=== PATIENT | female | born 1960 | race Hispanic/Latino ===

== ENCOUNTER 2020-08-05 22:04 | Inpatient (IN) | payer OTHER ==
--- NOTE | 2020-08-05 22:57 | Emergency Department Report ---
ED Fall HPI - General Chief Complaint: Fall Stated Complaint: FALL,HIP PAIN Time Seen by Provider: 08/05/20 22:25 Source: patient, EMS Mode of arrival: Stretcher - History of Present Illness Initial Comments: 59-year-old female presents to ED following fall from bed. Patient currently complaining of back pain and right hip pain. Patient states in April 2020, she suffered a fall and was diagnosed with L3 and L4 burst fractures. Following hospital stay, patient was then living in a personal alf. Patient states she can no longer afford the personal alf, so she has been living in a motel. One week ago, patient reports that she began to experience swelling in he r abdomen and bilateral legs, and also generalized weakness. She was seen at [facility], and started on Lasix. Patient states she is never been diagnosed with congestive heart failure. She denies any shortness of breath. She states that she had bilateral lower extremity ultrasounds that were negative for DVT. Tonight, patient states she was attempting to move using her sliding board when she fell, hitting her back. Patient reports pain in the same area of her previous fractures. Patient states she was on the floor for approximately 1 hour before she was able to get help. MD Complaint: fall -: This evening Fall From: out of bed When Fall Occurred: 1-[address] Fall Occurred: home Loss of Consciousness: none Prolonged Down Time?: hour(s) (1) Symptoms Prior to Fall: none Location: back Severity: moderate Quality: aching - Related Data Allergies Allergy/AdvReac Type Severity Reaction Status Date / Time NSAIDS (Non-Steroidal Allergy Unknown Verified 08/05/20 22:09 Anti-Inflamma Quinolones Allergy Unknown Verified 08/05/20 22:09 ED Review of Systems ROS: Stated complaint: FALL,HIP PAIN Other details as noted in HPI Comment: All other systems reviewed and negative Respiratory: denies: shortness of breath Gastrointestinal: nausea, vomiting Musculoskeletal: as per HPI ED Past Medical Hx - Social History Smoking Status: Never Smoker Substance Use Type: Prescribed ED Physical Exam - General Limitations: No Limitations General appearance: alert, in no apparent distress - Head Head exam: Present: atraumatic, normocephalic - Eye Eye exam: Present: normal appearance, EOMI - ENT ENT exam: Present: mucous membranes moist - Neck Neck exam: Present: normal inspection - Respiratory Respiratory exam: Present: normal lung sounds bilaterally. Absent: respiratory distress - Cardiovascular Cardiovascular Exam: Present: regular rate, normal rhythm - GI/Abdominal GI/Abdominal exam: Present: soft, distended, other (Pitting edema to abdominal wall). Absent: tenderness - Extremities Exam Extremities exam: Present: other (2+ pitting edema bilateral lower legs; bruising to the right shoulder) - Back Exam Back exam: Present: paraspinal tenderness (At approximately 3 and L4, right side), vertebral tenderness (At approximately L3 and L4) - Neurological Exam Neurological exam: Present: alert, oriented X3. Absent: motor sensory deficit - Psychiatric Psychiatric exam: Present: normal affect, normal mood - Skin Skin exam: Present: warm, dry, intact, normal color ED Course Vital Signs 08/05/20 08/05/20 08/05/20 22:23 22:26 22:31 Temperature 97.8 F Pulse Rate 75 74 Respiratory 13 13 Rate Blood Pressure 137/60 137/60 O2 Sat by Pulse 100 100 100 Oximetry 08/06/20 08/06/20 03:27 03:29 Temperature 98.1 F 98.1 F Pulse Rate 76 Respiratory 16 16 Rate Blood Pressure 125/54 O2 Sat by Pulse 99 Oximetry ED Medical Decision Making - Lab Data Result diagrams: 08/05/20 22:43 08/05/20 22:43 - Radiology Data Radiology results: report reviewed, image reviewed - Medical Decision Making Imaging shows no acute abnormalities. Negative for any acute fractures or dislocations. Patient currently living in a motel, unable to very well, due to combination of pain from her vertebral fractures, generalized weakness, and lower extremity edema. She does not feel safe alone in her hotel room. She feels she may be at risk of falling again. Spoke with nurse practitioner for the hospitalist, who will admit the patient for further management. - Differential Diagnosis Fracture, contusion, hypokalemia, CHF, liver disease Critical care attestation.: If time is entered above; I have spent that time in minutes in the direct care of this critically ill patient, excluding procedure time. ED Disposition Clinical Impression: Fall, Acute exacerbation of chronic low back pain, Contusion of right hip, Contusion of right shoulder, Lower extremity edema, Generalized weakness, Contusion of lower back Disposition: OP ADMIT IP TO THIS HOSP Is pt being admited?: Yes Condition: Stable Time of Disposition: 00:11
[2020-08-05 23:11] LABS: Basophils # (Auto) 0.1 K/mm3 (0.0-0.1); Basophils % (Auto) 2.8 % (0.0-1.8); Eosinophils # (Auto) 0.2 K/mm3 (0.0-0.4); Eosinophils % (Auto) 3.3 % (0.0-4.3); Hematocrit 25.9 % (30.3-42.9); Hemoglobin 8.5 gm/dl (10.1-14.3); Lymphocytes # (Auto) 0.6 K/mm3 (1.2-5.4); Lymphocytes % (Auto) 11.6 % (13.4-35.0); Mean Corpuscular HGB Conc 33 % (30-34); Mean Corpuscular Volume 96 fl (79-97); Monocytes # (Auto) 0.5 K/mm3 (0.0-0.8); Monocytes % (Auto) 9.4 % (0.0-7.3); Platelet Count 139 K/mm3 (140-440); Red Blood Count 2.71 M/mm3 (3.65-5.03)
[2020-08-05 23:30] LABS: Bilirubin,Direct 0.4 mg/dL (0-0.2)
[2020-08-05] MEDS: MORPHINE 2 MG/1 ML INJ IV ONE (23:33)
--- NOTE | 2020-08-05 23:35 | XRay Report ---
RIGHT HIP 2 VIEW(S) INDICATION / CLINICAL INFORMATION: fall, pain COMPARISON: None available. FINDINGS: BONES / JOINT(S): No acute fracture or subluxation. No significant arthritis. Subjective osteopenia. SOFT TISSUES: Numerous calcified injection granulomas in the buttocks and proximal right thigh. ADDITIONAL FINDINGS: None. Signer Name: Lety Mercado MD Signed: 08/05/2020 11:30 PM Workstation Name: [id number]
--- NOTE | 2020-08-05 23:36 | XRay Report ---
LUMBAR SPINE 3 VIEWS INDICATION / CLINICAL INFORMATION: fall, pain; hx L3, L4 burst fx April 2020. COMPARISON: No recent prior study for comparison. MRI dated 06/21/08. FINDINGS: VERTEBRAE: Superior endplate depression at L4 appears subacute. Mild inferior endplate depression at L3 also appear subacute. No significant malalignment. DISC SPACES / FACET JOINTS:No significant abnormality. PARASPINAL SOFT TISSUES:No significant abnormality. ADDITIONAL FINDINGS: Subjective osteopenia. IMPRESSION: 1. Subacute compression deformities at L4 and L3 without recent comparison studies available. Signer Name: Lety Mercado MD Signed: 08/05/2020 11:31 PM Workstation Name: [id number]
--- NOTE | 2020-08-05 23:36 | XRay Report ---
RIGHT SHOULDER 3 VIEW(S) INDICATION / CLINICAL INFORMATION: fall, injury COMPARISON: None available. FINDINGS: BONES / JOINT(S): No acute fracture or subluxation. No significant arthritis. SOFT TISSUES: No significant abnormality. ADDITIONAL FINDINGS: None. Signer Name: Lety Mercado MD Signed: 08/05/2020 11:32 PM Workstation Name: [id number]
[2020-08-06] MEDS ORDERED: MORPHINE 4 MG/1 ML INJ IM ONE
[2020-08-06] MEDS: MORPHINE 2 MG/1 ML INJ IV ONE (00:01)
[2020-08-06] MEDS ORDERED: ONDANSETRON 4 MG/2 ML INJ IV PRN (00:30)
[2020-08-06] MEDS ORDERED: ALUM-MAG HYDROXIDE-SIMETHICONE 200-200-20MG/5ML ORAL LIQD 30 ML PO PRN (00:30)
[2020-08-06] MEDS ORDERED: ACETAMINOPHEN 325 MG TAB PO PRN (00:30)
--- NOTE | 2020-08-06 00:40 | History and Physical Report ---
History of Present Illness Date of examination: 08/06/20 Date of admission: 08/05/20 Chief complaint: s/p fall with back pain History of present illness: This is a 59-year-old female presents to ED following fall from bed with back pain and right hip pain. Patient is s/p fall in April 2020, and she was diagnosed with L3 and L4 burst fractures. Per ED note- Following hospital stay, patient was then living in a personal custodial. Patient seen at bed side, she denies tobacco use, alcohol and illicit drug use. She reports back pain of 7/10. She states she lives in the personal custodial, but moved in to living in a motel becuse she could not afford personal home anymore. She has bilateral led edema-she said it is ongoing and she takes Lasix. She was seen at [facility], and started on Lasix. Patient denies diagnosis of congestive heart failure. She denies any shortness of breath and she is on room air. She said she had bilateral lower extremity ultrasounds that were negative for DVT. ED work up WBc 5.1, hemoglobin 8.5, sodium 140, potassium 3.7, Cr 1.5, serum glucose 112 Albumen 2.0, Lumber spine-shows Subacute compression deformities at L4 and L3 Past History Past Medical History: anemia Past Surgical History: No surgical history Social history: no significant social history, full code Family history: no significant family history Medications and Allergies Allergies Allergy/AdvReac Type Severity Reaction Status Date / Time NSAIDS (Non-Steroidal Allergy Unknown Verified 08/05/20 22:09 Anti-Inflamma Quinolones Allergy Unknown Verified 08/05/20 22:09 Review of Systems Musculoskeletal: low back pain, muscle weakness Exam - Constitutional Vitals: Temp Pulse Resp BP Pulse Ox 97.8 F 74 137/60 100 08/05/20 22:23 08/05/20 22:23 08/05/20 22:23 08/05/20 22:26 General appearance: Present: no acute distress, well-nourished - EENT Eyes: Present: PERRL ENT: hearing intact, clear oral mucosa - Neck Neck: Present: supple, normal ROM - Respiratory Respiratory effort: normal Respiratory: bilateral: CTA - Cardiovascular Heart Sounds: Present: S1 & S2. Absent: rub, click - Extremities Extremities: pulses symmetrical, No edema Peripheral Pulses: within normal limits - Abdominal General gastrointestinal: Present: soft, non-tender, non-distended, normal bowel sounds Female genitourinary: Present: normal - Integumentary Integumentary: Present: clear, warm, dry - Musculoskeletal Musculoskeletal: generalized weakness - Psychiatric Psychiatric: appropriate mood/affect, intact judgment & insight - Neurologic Neurologic: CNII-XII intact, moves all extremities - Allied Health Allied health notes reviewed: nursing, PT, OT, social work Results - Labs CBC & Chem 7: 08/05/20 22:43 08/05/20 22:43 Labs: Abnormal lab results 08/05/20 08/05/20 Range/Units 22:43 22:43 RBC 2.71 L (3.65-5.03) M/mm3 Hgb 8.5 L (10.1-14.3) gm/dl Hct 25.9 L (30.3-42.9) % RDW 17.0 H (13.2-15.2) % Plt Count 139 L (140-440) K/mm3 Lymph % (Auto) 11.6 L (13.4-35.0) % [place] % (Auto) 9.4 H (0.0-7.3) % Baso % (Auto) 2.8 H (0.0-1.8) % Lymph # (Auto) 0.6 L (1.2-5.4) K/mm3 Seg Neutrophils % 72.9 H (40.0-70.0) % BUN 24 H (7-17) mg/dL Creatinine 1.5 H (0.6-1.2) mg/dL Glucose 112 H (65-100) mg/dL Calcium 8.0 L (8.4-10.2) mg/dL Direct Bilirubin 0.4 H (0-0.2) mg/dL AST 52 H (5-40) units/L Alkaline Phosphatase 155 H (35-129) units/L NT-Pro-B Natriuret Pep 930.2 H (0-900) pg/mL Albumin 2.0 L (3.9-5) g/dL Assessment and Plan - Patient Problems (1) AIDAN (acute kidney injury) Current Visit: Yes Status: Acute Plan to address problem: ? cause, possible dehydration/NSAIDs/lasix use monitor kidney function CK level. Will hold off IV -patient has bilateral leg edema-on lasix Renal US-f/u with result advised to avoid nephrotoxic drug (2) DVT prophylaxis Current Visit: Yes Status: Acute Plan to address problem: Lovenox (3) Acute exacerbation of chronic low back pain Current Visit: Yes Status: Acute Plan to address problem: Patient has hx of fall with L3 and L4 fracture-April 2020 Repeat x-ray shows; Subacute compression deformities at L4 and L3, but no acute fracture Pain management PT/OT consult (4) Fall Current Visit: Yes Status: Acute Plan to address problem: Pt/Ot consult-f/u with recommendation Safety and safety precaution (5) Generalized weakness Current Visit: Yes Status: Acute Plan to address problem: Pt/ot consult Safety and fall precaution (6) Severe protein-calorie malnutrition Current Visit: Yes Status: Acute 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 cause multifactorial-malnutrition/iron defficiency Monitor H/h-will transfuse PRBCs if needed Iron studies Start iron and MVI supplement (8) Lower extremity edema Current Visit: Yes Status: Acute Plan to address problem: Patient has recent bilateral leg US with last admission was negative continue lasix ECHO-f/u with result
[2020-08-06] MEDS ORDERED: SODIUM CHLORIDE 0.9% 1000 ML 1,000 ML IV ONE (01:30)
[2020-08-06] MEDS ORDERED: SODIUM CHLORIDE 0.9% 1000 ML 1,000 ML ONE (02:43)
[2020-08-06] MEDS ORDERED: oxyCODONE /ACETAMINOPHEN 5-325MG TAB ONE (02:58)
[2020-08-06] MEDS: oxyCODONE /ACETAMINOPHEN 5-325MG TAB PO PRN ×3 (03:01→17:43)
--- NOTE | 2020-08-06 08:26 | Event Note ---
Date: 08/06/20
[2020-08-06] MEDS: FUROSEMIDE 20 MG TAB PO SCH (09:04)
[2020-08-06] MEDS: MULTIVITAMINS ,THERAPEUTIC TAB PO SCH (09:04)
[2020-08-06] MEDS: FERROUS SULFATE 325 MG TAB PO SCH (09:04)
[2020-08-06] MEDS: FAMOTIDINE 10 MG TAB PO SCH ×2 (09:05→22:07)
[2020-08-06] MEDS ORDERED: FAMOTIDINE 20 MG TAB PO SCH (10:00)
--- NOTE | 2020-08-06 10:32 | Consultation ---
History of Present Illness Consult date: 08/06/20 Consult reason: congestive heart failure History of present illness: This is a 59-year old F who is admitted with recurrent fall. Patient reports she suffered a back injury following a fall 3 months ago and now uses a wheelchair. Patient states as she was trying to get in bed from the wheelchair, her legs gave out on her resulting in a fall. She denies syncope. She denies chest pain but has shortness of breath on exertion. Patient also noted with 3+ edema extending upwards to her thighs. Lab measurement shows a creatinine of 1.5. There is also a HCT of 25.9. BNP is mildly elevated. There is no chest x-ray or ECG available for review. Patient denies prior cardiac history and had no recent cardiac workup. Of note, she was recently seen at [facility] with shortness of breath and discharged from the emergency department. A cardiac consultation has been requested for evaluation of CHF. Past History Past Medical History: anemia Past Surgical History: No surgical history Social history: no significant social history, full code Family history: no significant family history Medications and Allergies Allergies Allergy/AdvReac Type Severity Reaction Status Date / Time NSAIDS (Non-Steroidal Allergy Unknown Verified 08/05/20 22:09 Anti-Inflamma Quinolones Allergy Unknown Verified 08/05/20 22:09 Active Meds: Active Medications Acetaminophen (Tylenol) 650 mg PO Q4H PRN PRN Reason: Pain MILD(1-3)/Fever >100.5/ABEL Al Hydrox/Mg Hydrox/Simethicone (Alum-Mag Hydrox-Simeth [id number]/5ml) 30 ml PO Q4H PRN PRN Reason: Indigestion Famotidine (Pepcid) 10 mg PO BID [facility] Last Admin: 08/06/20 09:05 Dose: 10 mg Documented by: Ferrous Sulfate (Feosol) 325 mg PO QDAY [facility] Last Admin: 08/06/20 09:04 Dose: 325 mg Documented by: Furosemide (Lasix) 20 mg PO QDAY [facility] Last Admin: 08/06/20 09:04 Dose: 20 mg Documented by: Multivitamins (Theragran Tab) 1 each PO QDAY [facility] Last Admin: 08/06/20 09:04 Dose: 1 each Documented by: Ondansetron HCl (Zofran) 4 mg IV Q8H PRN PRN Reason: Nausea And Vomiting Oxycodone/Acetaminophen (Percocet 5/325) 1 tab PO Q6H PRN PRN Reason: Pain, Moderate (4-6) Last Admin: 08/06/20 09:05 Dose: 1 tab Documented by: Sodium Chloride (Sodium Chloride Flush Syringe 10 Ml) 10 ml IV BID [facility] Last Admin: 08/06/20 09:05 Dose: 10 ml Documented by: Sodium Chloride (Sodium Chloride Flush Syringe 10 Ml) 10 ml IV PRN PRN PRN Reason: LINE FLUSH Physical Examination Vital Signs Temp Pulse Resp BP Pulse Ox 97.8 F 74 13 137/60 100 08/05/20 22:23 08/05/20 22:23 08/05/20 22:23 08/05/20 22:23 08/05/20 22:23 General appearance: no acute distress Neck: Positive: trachea midline Cardiac: Positive: Reg Rate and Rhythm Lungs: Positive: Decreased Breath Sounds Extremities: Present: +3 Edema Results 08/05/20 22:43 08/05/20 22:43 Cardiac Enzymes 08/05/20 Range/Units 22:43 AST 52 H (5-40) units/L CBC 08/05/20 Range/Units 22:43 WBC 5.1 (4.5-11.0) K/mm3 RBC 2.71 L (3.65-5.03) M/mm3 Hgb 8.5 L (10.1-14.3) gm/dl Hct 25.9 L (30.3-42.9) % Plt Count 139 L (140-440) K/mm3 Lymph # (Auto) 0.6 L (1.2-5.4) K/mm3 [place] # (Auto) 0.5 (0.0-0.8) K/mm3 Eos # (Auto) 0.2 (0.0-0.4) K/mm3 Baso # (Auto) 0.1 (0.0-0.1) K/mm3 Comprehensive Metabolic Panel 08/05/20 Range/Units 22:43 Sodium 140 (137-145) mmol/L Potassium 3.7 (3.6-5.0) mmol/L Chloride 103.9 (98-107) mmol/L Carbon Dioxide 25 (22-30) mmol/L BUN 24 H (7-17) mg/dL Creatinine 1.5 H (0.6-1.2) mg/dL Glucose 112 H (65-100) mg/dL Calcium 8.0 L (8.4-10.2) mg/dL Direct Bilirubin 0.4 H (0-0.2) mg/dL Indirect Bilirubin 0.3 mg/dL AST 52 H (5-40) units/L ALT 19 (7-56) units/L Alkaline Phosphatase 155 H (35-129) units/L Total Protein 6.7 (6.3-8.2) g/dL Albumin 2.0 L (3.9-5) g/dL Assessment and Plan Shortness of breath LE edema Recurrent fall pt denies syncope Anemia Will order a chest x-ray, 12 lead ECG and echocardiogram for further cardiac assessment.
--- NOTE | 2020-08-06 17:06 | Ultrasound Report ---
US renal BILAT INDICATION / CLINICAL INFORMATION: weakness. COMPARISON: None available. FINDINGS: RIGHT KIDNEY: Size = 12.6 cm. - Echogenicity: Increased echogenicity and decreased visualization of the renal pyramids. - Cortical thickness: Normal. - Hydronephrosis: None. - Cyst or mass: There is a 2.6 cm cystic area in the right renal pelvis which could be an extrarenal pelvis or peripelvic cyst. - Stones: None seen.. LEFT KIDNEY: Size = 10.7 cm. - Echogenicity: Increased echogenicity and decreased visualization of the renal pyramids. - Cortical thickness: Normal. - Hydronephrosis: None. - Cyst or mass: None. - Stones: None seen.. URINARY BLADDER: Not well-visualized. FREE FLUID: None. ADDITIONAL FINDINGS: Large volume of ascites. IMPRESSION 1. Findings of medical renal disease without other significant sonographic abnormality. 2. Large quantity of ascites. Signer Name: Saleem Bautista MD Signed: 08/06/2020 5:02 PM Workstation Name: [id number]
--- NOTE | 2020-08-06 18:50 | Progress Note ---
Assessment and Plan Assessment and plan: --History of fall; Fall precautions, supportive care --Subacute compression deformities at L4 and L3, but no acute fracture Patient had a fall and fracture L3 L5 in April 2020 Supportive care, pain management, PT OT Rehabilitation, orthopedic consulted Dr. Peters recommended MRI L S-spine. --Acute kidney injury; Vasomotor nephropathy Also secondary to diuresis Closely monitor renal function.Nephrology consulted, Renal ultrasound medical renal disease; Avoid nephrotoxins --Chronic back pain; Continue current pain management and supportive care Physical therapy occupational therapy --General debility/generalized weakness Nutrition supplements. PT OT Possible home with home health versus placement --Severe protein calorie malnutrition; Nutrition supplements, dietitian consult And supportive care --Anemia; hemoglobin 8 Probably iron deficiency anemia Acute versus chronic No previous labs to compare Closely monitor transfuse as needed --Lower extremity edema; Partly secondary to hypoproteinemia Possible congestive heart failure Check echocardiogram for LV function ejection fraction Cardiology evaluation and recommendations noted and appreciated --Full CODE STATUS --DVT prophylaxis; Lovenox We will closely monitor the patient and adjust management as needed Plan of care reviewed with the patient and her nurse at the bedside Follow MRI report, adjust the management as needed We will try to reach the family and update patient's condition Advance care 35 minutes History Interval history: I have seen and examined the patient at the bedside this morning Patient's chart and medications reviewed 59-year-old female patient with history of fall in April 2020 where she fractured L4-L5 On pain medications, had a fall at home and was brought to the emergency room Lumbar spine revealed L3-L4 compression fracture, orthopedic consulted Dr. Peters recommended MRI of the spine Patient complains of some discomfort and pain Alert awake oriented Vital signs reviewed Hospitalist Physical - Constitutional Vitals: Temp Pulse Resp BP Pulse Ox 98.7 F 72 20 134/61 97 08/06/20 16:31 08/06/20 16:31 08/06/20 16:31 08/06/20 16:31 08/06/20 16:31 General appearance: Present: no acute distress - EENT Eyes: Present: PERRL, EOM intact - Neck Neck: Present: supple, normal ROM - Respiratory Respiratory effort: normal Respiratory: bilateral: diminished, rhonchi, negative: rales, wheezing - Cardiovascular Rhythm: regular Heart Sounds: Present: S1 & S2 - Extremities Extremities: no ischemia Extremity abnormal: edema (2+), other (No calf asymmetry or calf tenderness) - Abdominal General gastrointestinal: soft, non-tender, non-distended, normal bowel sounds - Integumentary Integumentary: Present: clear, warm, erythema - Psychiatric Psychiatric: appropriate mood/affect, cooperative - Neurologic Neurologic: moves all extremities Results - Labs CBC & Chem 7: 08/05/20 22:43 08/05/20 22:43 Labs: Laboratory Last Values WBC 5.1 K/mm3 (4.5-11.0) 08/05/20 22: RBC 2.71 M/mm3 (3.65-5.03) L 08/05/20 22:43 Hgb 8.5 gm/dl (10.1-14.3) L 08/05/20: Hct 25.9 % (30.3-42.9) L 08/05/20:43 MCV 96 fl (79-97) 08/05/20 22: MCH 31 pg (28-32) 08/05/20: MCHC 33 % (30-34) 08/05/20:43 RDW 17.0 % (13.2-15.2) H 08/05/20 22:43 Plt Count 139 K/mm3 (140-440) L 08/05/20:43 Lymph % (Auto) 11.6 % (13.4-35.0) L 08/05/20:43 Hunt % (Auto) 9.4 % (0.0-7.3) H 08/05/20:43 Eos % (Auto) 3.3 % (0.0-4.3) 08/05/20:43 Baso % (Auto) 2.8 % (0.0-1.8) H 08/05/20:43 Lymph # (Auto) 0.6 K/mm3 (1.2-5.4) L 08/05/20:43 Hunt # (Auto) 0.5 K/mm3 (0.0-0.8) 08/05/20 22:43 Eos # (Auto) 0.2 K/mm3 (0.0-0.4) 08/05/20 22: Baso # (Auto) 0.1 K/mm3 (0.0-0.1) 08/05/20 22:43 Seg Neutrophils % 72.9 % (40.0-70.0) H 08/05/20 22:43 Seg Neutrophils # 3.7 K/mm3 (1.8-7.7) 08/05/20 22:43 Sodium 140 mmol/L (137-145) 08/05/20 22:43 Potassium 3.7 mmol/L (3.6-5.0) 08/05/20 22:43 Chloride 103.9 mmol/L (98-107) 08/05/20 22:43 Carbon Dioxide 25 mmol/L (22-30) 08/05/20 22:43 Anion Gap 15 mmol/L 08/05/20 22:43 BUN 24 mg/dL (7-17) H 08/05/20 22:43 Creatinine 1.5 mg/dL (0.6-1.2) H 08/05/20 22:43 Estimated GFR 36 ml/min 08/05/20 22:43 BUN/Creatinine Ratio 16 % 08/05/20 22:43 Glucose 112 mg/dL (65-100) H 08/05/20 22:43 Osmolality 304 Mosm/kg 08/06/20 01:57 Calcium 8.0 mg/dL (8.4-10.2) L 08/05/20 22:43 Iron 31 ug/dL (37-170) L 08/06/20 01:57 Total Bilirubin 0.70 mg/dL (0.1-1.2) 08/05/20 22:43 Direct Bilirubin 0.4 mg/dL (0-0.2) H 08/05/20 22:43 Indirect Bilirubin 0.3 mg/dL 08/05/20 22:43 AST 52 units/L (5-40) H 08/05/20 22:43 ALT 19 units/L (7-56) 08/05/20 22:43 Alkaline Phosphatase 155 units/L (35-129) H 08/05/20 22:43 Total Creatine Kinase 95 units/L (30-135) 08/06/20 01:57 NT-Pro-B Natriuret Pep 930.2 pg/mL (0-900) H 08/05/20 22:43 Total Protein 6.7 g/dL (6.3-8.2) 10/25/20 22:43 Albumin 2.0 g/dL (3.9-5) L 08/05/20 22:43 Albumin/Globulin Ratio 0.4 % 08/05/20 22:43 Nasal Screen MRSA (PCR) Negative (Negative) 08/06/20 Unknown [place]/IV: Voiding Method Bedpan IV Catheter Type [Right INT / Saline Lock Antecubital] Active Medications - Current Medications Current Medications: Generic Name Dose Route Start Last Admin Trade Name Freq PRN Reason Stop Dose Admin Acetaminophen 650 mg 08/06/20 00:30 Tylenol PO Q4H PRN Pain MILD(1-3)/Fever >100.5/ABEL Al Hydrox/Mg Hydrox/Simethicone 30 ml 08/06/20 00:30 Alum-Mag Hydrox-Simeth 161-065-40bf/5ml PO Q4H PRN Indigestion Famotidine 10 mg 08/06/20 10:00 08/06/20 09:05 Pepcid PO 10 mg BID BRANT Administration Ferrous Sulfate 325 mg 08/06/20 10:00 08/06/20 09:04 Feosol PO 325 mg QDAY BRANT Administration Furosemide 20 mg 08/06/20 10:00 08/06/20 09:04 Lasix PO 20 mg QDAY BRANT Administration Multivitamins 1 each 08/06/20 10:00 08/06/20 09:04 Theragran Tab PO 1 each QDAY BRANT Administration Ondansetron HCl 4 mg 08/06/20 00:30 Zofran IV Q8H PRN Nausea And Vomiting Oxycodone/Acetaminophen 1 tab 08/06/20 00:30 08/06/20 17:43 Percocet 5/325 PO 1 tab Q6H PRN Administration Pain, Moderate (4-6) Sodium Chloride 10 ml 08/06/20 01:00 08/06/20 09:05 Sodium Chloride Flush Syringe 10 Ml IV 10 ml BID BRANT Administration Sodium Chloride 10 ml 08/06/20 00:30 Sodium Chloride Flush Syringe 10 Ml IV PRN PRN LINE FLUSH Nutrition/Malnutrition Assess - Dietary Evaluation Nutrition/Malnutrition Findings: Nutrition Notes Start: 08/06/20 10:21 Freq: Status: Active Protocol: Document 08/06/20 10:21 LM (Rec: 08/06/20 10:40 LM [id number]) Nutrition Notes Need for Assessment generated from: MD Order Initial or Follow up Assessment Current Diagnosis Acute Kidney Injury Other Pertinent Diagnosis Falls, anemia, contusion of R hip, R shoulder, lower back Current Diet Regular Labs/Tests Iron 31 Pertinent Medications Lasix Height 5 ft 4 in Weight 70.307 kg [place] Body Weight (kg) 54.54 BMI 26.6 Weight change and time frame Incorrect wt in chart. Used admission wt. Weight Status Overweight Subjective/Other Information MD consult for ONS (severe malnutrition). Pt did not answer phone. Pt has LE pitting edema. Pt living in [facility]. Burn Absent Trauma Absent Minimum of two criteria No Fluid Accumulation Mild (non-severe) #1 Nutrition Diagnosis Predicted suboptimal energy intake Etiology Pt living in [facility], experiencing falls and weakness As Evidenced by Signs and Symptoms No intakes in chart, consult for ONS Is patient on ventilator? No Is Patient Ambulatory and/or Out of Bed No REE-([place] [facility]-confined to bed) 1520.508 Calculation [facility] Additional Notes Protein: 56-84g (0.8-1.2g/kg) Fluid: 1ml/kcal Nutrition Intervention Change Diet Order: Continue regular Add Supplement/Snack (indicate name/kcal Ensure Enlive daily /protein ) Provides kCal: 350 Provides Protein (gm) 20 Goal #1 Meet at least 75% of energy and protein needs Anticipated Discharge Needs: Regular Follow-Up By: 08/08/20 Additional Comments F/U for PO/intakes and tolerance, full assessment
--- NOTE | 2020-08-06 19:50 | Consultation ---
History of Present Illness - Reason for Consult Consult date: 08/06/20 acute renal failure Requesting physician: ABHINAV HARDIN - History of Present Illness This is a 59 year old F with past medical history of hypertension, L3/L4 fracture s/p fall, was hospitalized at [facility] in May 2020, managed conservatively, pt also with chronic b/l LE edema, treated with lasix, who is admitted to [facility] after presenting with recurrent fall. As per pt she was tying to lift herself fr om the wheelchair, her legs gave out on her resulting in a fall. in ER pt was found to have bilateral pitting edema of lower extremities. Lumbar XR showed subacute L3/4 fracture. Labs showed elevated proBNP > 930, elevated BUN/Cr at 24/1.5, low alb at 2, elevated Alk Phos, AST. Renal consult requested for management of AIDAN. Based on chart review from [facility] pts baseline Cr was around 0.5 - 0.8mg/dl. Pt denies previous history of heart failure/liver or kidney disease. Past History Past Medical History: anemia Past Surgical History: No surgical history Social history: no significant social history, full code Family history: no significant family history Medications and Allergies Allergies Allergy/AdvReac Type Severity Reaction Status Date / Time NSAIDS (Non-Steroidal Allergy Unknown Verified 08/05/20 22:09 Anti-Inflamma Quinolones Allergy Unknown Verified 08/05/20 22:09 Active Meds: Active Medications Acetaminophen (Tylenol) 650 mg PO Q4H PRN PRN Reason: Pain MILD(1-3)/Fever >100.5/ABEL Al Hydrox/Mg Hydrox/Simethicone (Alum-Mag Hydrox-Simeth 033-845-91fu/5ml) 30 ml PO Q4H PRN PRN Reason: Indigestion Famotidine (Pepcid) 10 mg PO BID [facility] Last Admin: 08/06/20 09:05 Dose: 10 mg Documented by: Ferrous Sulfate (Feosol) 325 mg PO QDAY [facility] Last Admin: 08/06/20 09:04 Dose: 325 mg Documented by: Furosemide (Lasix) 20 mg PO QDAY [facility] Last Admin: 08/06/20 09:04 Dose: 20 mg Documented by: Multivitamins (Theragran Tab) 1 each PO QDAY [facility] Last Admin: 08/06/20 09:04 Dose: 1 each Documented by: Ondansetron HCl (Zofran) 4 mg IV Q8H PRN PRN Reason: Nausea And Vomiting Oxycodone/Acetaminophen (Percocet 5/325) 1 tab PO Q6H PRN PRN Reason: Pain, Moderate (4-6) Last Admin: 08/06/20 17:43 Dose: 1 tab Documented by: Sodium Chloride (Sodium Chloride Flush Syringe 10 Ml) 10 ml IV BID BRANT Last Admin: 08/06/20 09:05 Dose: 10 ml Documented by: Sodium Chloride (Sodium Chloride Flush Syringe 10 Ml) 10 ml IV PRN PRN PRN Reason: LINE FLUSH Review of Systems All systems: negative Constitutional: fatigue, weakness, malaise Cardiovascular: edema Exam - Vital Signs Vital signs: Vital Signs Temp Pulse Resp BP Pulse Ox 97.8 F 74 13 137/60 100 08/05/20 22:23 08/05/20 22:23 08/05/20 22:23 08/05/20 22:23 08/05/20 22:23 - General Appearance General appearance: well-developed, appears stated age EENT: ATNC, PERRL, mucous membranes moist Neck: Present: neck supple Respiratory: Clear to Ascultation Heart: regular, S1S2 Gastrointestinal: Present: normoactive bowel sounds Integumentary: no rash, other (+3 edema ) Neurologic: no focal deficit, alert and oriented x3, strength 5/5, CN 3-12 intact Psychiatric: mood/affect appropriate, cooperative Results - Lab Results 08/05/20 22:43 08/05/20 22:43 Most recent lab results Calcium 8.0 mg/dL (8.4-10.2) L 08/05/20 22:43 Assessment and Plan - Patient Problems (1) AIDAN (acute kidney injury) Current Visit: Yes Status: Acute Plan to address problem: most likely secondary to pre-renal azotemia in the setting of diuretic therapy. check urine lytes, urine P/C ratio. To rule out acute cardiorenal syndrome. Echocardiogram pending. Given also presence of significant amount ascites on renal US, along with severe hypoalbuminemia abnormal LFTs to rule out underlying liver cirrhosis as cause of fluid overload/LE edema. Cont IV lasix to target net negative fluid balance. Will consider albumin if eGFR continues to trend down and/or BP is low. avoid nephrotoxins, NSAIDs IV contrast. will monitor lytes/renal parameters make further recommendations (2) Lower extremity edema Current Visit: Yes Status: Acute Plan to address problem: cont diuresis with IV lasix. check urine P/C to rule out nephrotic range proteinuria. Pt with significant ascites, obtain abd US to rule out liver cirrhosis. (3) Severe protein-calorie malnutrition Current Visit: Yes Status: Acute Plan to address problem: dietitian consult (4) Ascites Current Visit: Yes Status: Acute Plan to address problem: recommend diagnostic paracentesis (5) Anemia Current Visit: Yes Status: Acute Plan to address problem: check iron store incl TSAT/ferritin
[2020-08-07] MEDS ORDERED: LORazepam 2 MG/ML VIAL ONE ×3 (12:26→16:30)
[2020-08-07] MEDS ORDERED: oxyCODONE /ACETAMINOPHEN 5-325MG TAB ONE (16:30)
[2020-08-07] MEDS ORDERED: FUROSEMIDE 40 MG/4 ML INJ ONE ×2 (16:30→16:33)
[2020-08-07] MEDS ORDERED: MULTIVITAMINS ,THERAPEUTIC TAB PO ONE (16:30)
[2020-08-07] MEDS ORDERED: FAMOTIDINE 20 MG TAB ONE (16:30)
[2020-08-07] MEDS ORDERED: FERROUS SULFATE 325 MG TAB PO ONE (16:30)
[2020-08-07] MEDS ORDERED: LORazepam 2 MG/ML VIAL IV ONE ×2 (17:45→18:00)
--- NOTE | 2020-08-07 18:02 | Progress Note ---
Assessment and Plan - Patient Problems (1) Bilateral lower extremity edema Current Visit: Yes Status: Acute Plan to address problem: Patient has a persistent bilateral lower extremity edema. Right and left heart sizes and function appear normal. We will recommend a venous Doppler to rule out venous thrombosis contributing to lower extremity edema. We have also recommended that the patient be placed on DVT prophylaxis, with a watchful eye on her anemia. Hematocrit is 25. Subjective Date of service: 08/07/20 Interval history: Patient has no new symptoms, no chest pain and no shortness of breath. She has persistent swelling of bilateral lower extremities. Echocardiogram shows normal left ventricular systolic ejection fraction 60 to 65%. In addition, there is no significant evidence of right heart decompensation. Objective - Physical Examination General: No Apparent Distress Neck: Positive: neck supple Cardiac: Positive: Reg Rate and Rhythm Lungs: Positive: clear to auscultation Neuro: Positive: Grossly Intact Abdomen: Positive: Soft Skin: Positive: Clear Extremities: Present: +3 Edema
--- NOTE | 2020-08-07 18:10 | Event Note ---
Date: 08/07/20 [employer] were down, please refer to paper chart for today's note Lower extremity venous Doppler study ordered DVT prophylaxis with Lovenox
[2020-08-07] MEDS: ENOXAPARIN 40 MG/0.4 ML INJ SUB-Q SCH (22:20)
[2020-08-07] MEDS: FAMOTIDINE 10 MG TAB PO SCH (22:21)
--- NOTE | 2020-08-07 22:48 | Progress Note ---
Assessment and Plan - Patient Problems (1) AIDAN (acute kidney injury) Current Visit: Yes Status: Acute Plan to address problem: most likely secondary to pre-renal azotemia in the setting of diuretic therapy. check urine lytes, urine P/C ratio. To rule out acute cardiorenal syndrome. Echocardiogram pending. Given also presence of significant amount ascites on renal US, along with severe hypoalbuminemia abnormal LFTs to rule out underlying liver cirrhosis as cause of fluid overload/LE edema. Cont IV lasix to target net negative fluid balance. Will consider albumin if eGFR continues to trend down and/or BP is low. avoid nephrotoxins, NSAIDs IV contrast. will monitor lytes/renal parameters make further recommendations (2) Lower extremity edema Current Visit: Yes Status: Acute Plan to address problem: cont diuresis with IV lasix. check urine P/C to rule out nephrotic range proteinuria. Pt with significant ascites, obtain abd US to rule out liver cirrhosis. (3) Severe protein-calorie malnutrition Current Visit: Yes Status: Acute Plan to address problem: dietitian consult (4) Ascites Current Visit: Yes Status: Acute Plan to address problem: recommend diagnostic paracentesis (5) Anemia Current Visit: Yes Status: Acute Plan to address problem: check iron store incl TSAT/ferritin Subjective Date of service: 08/07/20 Principal diagnosis: AIDAN Interval history: Pt awake, alert, in no acute respiratory distress Objective - Vital Signs Vital signs: Vital Signs - 12hr 08/07/20 08/07/20 14:21 18:12 Temperature 98.8 F 97.9 F Pulse Rate 71 73 Respiratory 20 20 Rate Blood Pressure 125/68 140/69 O2 Sat by Pulse 97 97 Oximetry - General Appearance General appearance: well-developed, well-nourished, appears stated age EENT: ATNC, PERRL, mucous membranes moist Neck: no JVD Respiratory: Present: Clear to Ascultation Cardiology: regular, S1S2 Gastrointestinal: normoactive bowel sounds, distended Integumentary: no rash, other (3+ edema b/l LE ) Neurologic: no focal deficit, alert and oriented x3, strength 5/5, CN 3-12 intact Psychiatric: mood/affect appropriate, cooperative - Lab 08/05/20 22:43 08/05/20 22:43 Most recent lab results Calcium 8.0 mg/dL (8.4-10.2) L 08/05/20 22:43 Medications & Allergies - Medications Allergies/Adverse Reactions: Allergies NSAIDS (Non-Steroidal Anti-Inflamma Allergy (Verified 08/05/20 22:09) Unknown Quinolones Allergy (Verified 08/05/20 22:09) Unknown Active Medications: Generic Name Dose Route Start Last Admin Trade Name Freq PRN Reason Stop Dose Admin Acetaminophen 650 mg 08/06/20 00:30 Tylenol PO Q4H PRN Pain MILD(1-3)/Fever >100.5/ABEL Al Hydrox/Mg Hydrox/Simethicone 30 ml 08/06/20 00:30 Alum-Mag Hydrox-Simeth 520-949-66xt/5ml PO Q4H PRN Indigestion Enoxaparin Sodium 40 mg 08/07/20 22:00 08/07/20 22:20 Enoxaparin SUB-Q 40 mg QDAY@2200 BRANT Administration Protocol Famotidine 10 mg 08/06/20 10:00 08/07/20 22:21 Pepcid PO 10 mg BID BRANT Administration Ferrous Sulfate 325 mg 08/06/20 10:00 08/06/20 09:04 Feosol PO 325 mg QDAY BRANT Administration Furosemide 40 mg 08/07/20 18:00 Lasix IV 0600,1800 [facility] Multivitamins 1 each 08/06/20 10:00 08/06/20 09:04 Theragran Tab PO 1 each QDAY BRANT Administration Ondansetron HCl 4 mg 08/06/20 00:30 Zofran IV Q8H PRN Nausea And Vomiting Oxycodone/Acetaminophen 1 tab 08/06/20 00:30 08/06/20 17:43 Percocet 5/325 PO 1 tab Q6H PRN Administration Pain, Moderate (4-6) Sodium Chloride 10 ml 08/06/20 01:00 08/07/20 22:21 Sodium Chloride Flush Syringe 10 Ml IV 10 ml BID BRANT Administration Sodium Chloride 10 ml 08/06/20 00:30 Sodium Chloride Flush Syringe 10 Ml IV PRN PRN LINE FLUSH
[2020-08-08] MEDS: FERROUS SULFATE 325 MG TAB PO SCH ×2 (00:38→11:34)
[2020-08-08] MEDS: MULTIVITAMINS ,THERAPEUTIC TAB PO SCH ×2 (00:38→11:34)
[2020-08-08] MEDS: FAMOTIDINE 10 MG TAB PO SCH ×3 (00:38→23:05)
[2020-08-08] MEDS: FUROSEMIDE 40 MG/4 ML INJ IV SCH ×3 (00:40→17:12)
[2020-08-08] MEDS: FUROSEMIDE 20 MG TAB PO SCH (00:40)
[2020-08-08] MEDS: oxyCODONE /ACETAMINOPHEN 5-325MG TAB PO PRN ×2 (08:12→23:05)
[2020-08-08] MEDS ORDERED: LORazepam 2 MG/ML VIAL IV SCH (08:30)
--- NOTE | 2020-08-08 09:20 | Progress Note ---
Assessment and Plan Shortness of breath -improved Normal LVEF 60-65% by echo this presentation. LE Edema -improving Bilateral LE doppler preliminary finding is reported as no evidence of DVT. Official report by radiology is pending. Recurrent fall pt denies syncope Ascites, moderate by abdominal u/s Anemia Acute kidney injury Conservative cardiac management. Subjective Date of service: 08/08/20 Principal diagnosis: SOB Interval history: Patient is resting in bed comfortably. She reports her breathing is better. Lower extremity edema is improving. LE ultrasound doppler has been completed. 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 Await official reading by radiology. Objective Vital Signs Temp Pulse Resp BP Pulse Ox 08/07/20 23:08 98.5 F 71 16 129/57 97 08/07/20 18:12 97.9 F 73 20 140/69 97 08/07/20 14:21 98.8 F 71 20 125/68 97 - Physical Examination Neck: Positive: neck supple Extremities: Present: +3 Edema
--- NOTE | 2020-08-08 10:44 | Ultrasound Report ---
ULTRASOUND ABDOMEN, COMPLETE INDICATION: ascites, abnormal LFTs. COMPARISON: None available. FINDINGS: Pancreas: Normal. Abdominal Aorta: Normal. IVC: Normal. Liver: Cirrhotic configuration. No discrete lesion. Gallbladder: Normal. Bile ducts: Normal. Common Bile Duct measures 6 mm. Right Kidney: Cortex measures 1.1 cm. Left Kidney: Cortex measures 0.9 cm. Spleen: 12.3 cm. Free fluid: Moderate ascites Additional Findings: None. IMPRESSION: 1. Cirrhosis with portal hypertension including mild splenomegaly and moderate ascites. 2. Renal cortical thinning bilaterally. Signer Name: Shashank Lentz MD Signed: 08/08/2020 10:40 AM Workstation Name: [email or web address]
--- NOTE | 2020-08-08 10:49 | Progress Note ---
Assessment and Plan Assessment and plan: --History of fall; Fall precautions, supportive care --Subacute compression deformities at L4 and L3, but no acute fracture Patient had a fall and fracture L3 L5 in April 2020 Supportive care, pain management, PT OT Rehabilitation, orthopedic consulted Dr. Peters recommended MRI L S-spine. --Acute kidney injury; Vasomotor nephropathy Also secondary to diuresis Closely monitor renal function.Nephrology consulted, Renal ultrasound medical renal disease; Avoid nephrotoxins --Cirrhosis with portal hypertension/moderate ascites; Patient will follow GI as outpatient Supportive care --Chronic back pain; Continue current pain management and supportive care Physical therapy occupational therapy --General debility/generalized weakness Nutrition supplements. PT OT Possible home with home health versus placement --Severe protein calorie malnutrition; Nutrition supplements, dietitian consult And supportive care --Anemia; hemoglobin 8 Probably iron deficiency anemia Acute versus chronic No previous labs to compare Closely monitor transfuse as needed --Lower extremity edema; Partly secondary to hypoproteinemia Possible congestive heart failure Check echocardiogram for LV function ejection fraction Cardiology evaluation and recommendations noted and appreciated --Full CODE STATUS --DVT prophylaxis; Lovenox We will closely monitor the patient and adjust management as needed Plan of care reviewed with the patient and her nurse at the bedside Follow MRI report, adjust the management as needed Closely monitor the patient and adjust management as needed Discussed with orthopedic Dr. Peters today, he is waiting for MRI of the spine MRI could not be done today due to some equipment failure Possible MRI tomorrow History Interval history: I have seen and examined the patient at the bedside today Patient's chart and medications reviewed Patient complains of back pain and mild shortness of breath Abdominal ultrasound consistent with ascites and cirrhosis liver In mild distress vital signs reviewed Hospitalist Physical - Constitutional Vitals: Temp Pulse Resp BP Pulse Ox 98.6 F 71 20 126/60 97 08/08/20 10:39 08/08/20 10:39 08/08/20 10:39 08/08/20 10:39 08/08/20 10:39 General appearance: Present: mild distress, well-nourished, obese - EENT Eyes: Present: PERRL, EOM intact - Neck Neck: Present: supple, normal ROM - Respiratory Respiratory effort: normal Respiratory: bilateral: diminished, rales, negative: rhonchi, wheezing - Cardiovascular Rhythm: regular Heart Sounds: Present: S1 & S2 - Extremities Extremities: no ischemia Extremity abnormal: edema - Abdominal General gastrointestinal: soft, non-tender, non-distended, normal bowel sounds - Integumentary Integumentary: Present: clear, warm - Psychiatric Psychiatric: appropriate mood/affect, cooperative - Neurologic Neurologic: moves all extremities Results - Labs CBC & Chem 7: 08/05/20 22:43 08/05/20 22:43 Labs: Laboratory Last Values WBC 5.1 K/mm3 (4.5-11.0) 08/05/20 22:43 RBC 2.71 M/mm3 (3.65-5.03) L 08/05/20 22:43 Hgb 8.5 gm/dl (10.1-14.3) L 08/05/20 22:43 Hct 25.9 % (30.3-42.9) L 08/05/20 22:43 MCV 96 fl (79-97) 08/05/20 22: MCH 31 pg (28-32) 08/05/20: MCHC 33 % (30-34) 08/05/20 22:43 RDW 17.0 % (13.2-15.2) H 08/05/20 22:43 Plt Count 139 K/mm3 (140-440) L 08/05/20 22:43 Lymph % (Auto) 11.6 % (13.4-35.0) L 08/05/20 22:43 [place] % (Auto) 9.4 % (0.0-7.3) H 08/05/20 22:43 Eos % (Auto) 3.3 % (0.0-4.3) 08/05/20 22: Baso % (Auto) 2.8 % (0.0-1.8) H 08/05/20 22:43 Lymph # (Auto) 0.6 K/mm3 (1.2-5.4) L 08/05/20:43 [place] # (Auto) 0.5 K/mm3 (0.0-0.8) 08/05/20 22:43 Eos # (Auto) 0.2 K/mm3 (0.0-0.4) 08/05/20 22:43 Baso # (Auto) 0.1 K/mm3 (0.0-0.1) 10/25/20 22:43 Seg Neutrophils % 72.9 % (40.0-70.0) H 08/05/20 22:43 Seg Neutrophils # 3.7 K/mm3 (1.8-7.7) 08/05/20 22:43 Sodium 140 mmol/L (137-145) 08/05/20 22:43 Potassium 3.7 mmol/L (3.6-5.0) 08/05/20 22:43 Chloride 103.9 mmol/L (98-107) 08/05/20 22:43 Carbon Dioxide 25 mmol/L (22-30) 08/05/20 22:43 Anion Gap 15 mmol/L 08/05/20 22:43 BUN 24 mg/dL (7-17) H 08/05/20 22:43 Creatinine 1.5 mg/dL (0.6-1.2) H 08/05/20 22:43 Estimated GFR 36 ml/min 08/05/20 22:43 BUN/Creatinine Ratio 16 % 08/05/20 22:43 Glucose 112 mg/dL (65-100) H 08/05/20 22:43 Osmolality 304 Mosm/kg 08/06/20 01:57 Calcium 8.0 mg/dL (8.4-10.2) L 08/05/20 22:43 Iron 31 ug/dL (37-170) L 08/06/20 01:57 Total Bilirubin 0.70 mg/dL (0.1-1.2) 08/05/20 22:43 Direct Bilirubin 0.4 mg/dL (0-0.2) H 08/05/20 22:43 Indirect Bilirubin 0.3 mg/dL 08/05/20 22:43 AST 52 units/L (5-40) H 08/05/20 22:43 ALT 19 units/L (7-56) 08/05/20 22:43 Alkaline Phosphatase 155 units/L (35-129) H 08/05/20 22:43 Total Creatine Kinase 95 units/L (30-135) 08/06/20 01:57 NT-Pro-B Natriuret Pep 930.2 pg/mL (0-900) H 08/05/20 22:43 Total Protein 6.7 g/dL (6.3-8.2) 08/05/20 22:43 Albumin 2.0 g/dL (3.9-5) L 08/05/20 22:43 Albumin/Globulin Ratio 0.4 % 08/05/20 22:43 Nasal Screen MRSA (PCR) Negative (Negative) 08/06/20 Unknown - Diagnostic Impressions Diagnostic Impressions: Echocardiogram 08/06/20 11:15 Transthoracic Echocardiogram Indication: SOB BP: 125/54 HR: 79 Conclusions *Global left ventricular systolic function is normal. *The estimated ejection fraction is 60-65%. *Mild concentric left ventricular hypertrophy is observed. *There is trace of mitral regurgitation. *There is trace tricuspid regurgitation. Findings Left Ventricle: The left ventricular chamber size is normal. Mild concentric left ventricular hypertrophy is observed. Global left ventricular systolic function is normal. The estimated ejection fraction is 60-65%. Left Atrium: The left atrial chamber size is normal. Right Ventricle: The right ventricular cavity size is normal. The right ventricular global systolic function is normal. Right Atrium: The right atrial cavity size is normal. Aortic Valve: The aortic valve is trileaflet. There is no evidence of aortic regurgitation. There is no evidence of aortic stenosis. Mitral Valve: The mitral valve leaflets appear myxomatous. There is trace of mitral regurgitation. There is no evidence of mitral stenosis. Tricuspid Valve: There is trace tricuspid regurgitation. No pulmonary hypertension is noted. Pericardium: There is no pericardial effusion. Aorta: There is no dilatation of the ascending aorta. There is no dilatation of the aortic root. Venous: The inferior vena cava appears normal in size. Measurements Chambers 2D Name Value Normal Range IVSd (2D) 1 cm (0.6 - 1.1) LVPWd (2D) 0.98 cm (0.6 - 1.1) LVIDd (2D) 4.55 cm (3.7 - 5.6) LVIDs (2D) 2.86 cm (2 - 3.8) LV FS (2D) 37.09 % - EF Teichholz (2D) 67.11 % - Ao root diameter (2D) 2.53 cm (2 - 3.7) Volumes/Mass Name Value Normal Range LA ESV SP 4CH (A/L) 50.86 ml - LA ESV SP 2CH (A/L) 48.51 ml - LA ESV BP (A/L) 49.94 ml - LA ESV BP (A/L) index 28.37 ml/m2 - LA ESV SP 4CH (MOD) 47.75 ml - LA ESV SP 2CH (MOD) 47.19 ml - LA ESV BP (MOD) 47.58 ml - LA ESV BP (MOD) index 27.03 ml/m2 - Diastolic/Systolic Function Name Value Normal Range MV E-wave Vmax 0.92 m/sec - MV deceleration time 212.12 msec - MV A-wave Vmax 0.78 m/sec - MV E:A ratio 1.17 ratio - Aortic Valve Name Value Normal Range AV Vmax 1.95 m/sec - AV VTI 38.63 cm - AV peak gradient 15.22 mmHg - AV mean gradient 8.42 mmHg - LVOT diameter 2.02 cm - LVOT Vmax 1.29 m/sec - LVOT VTI 27.34 cm - LVOT peak gradient 6.61 mmHg - LVOT mean gradient 4.01 mmHg - SV LVOT 87.4 ml - SHARLA (continuity Vmax) 2.11 cm2 - SHARLA (continuity VTI) 2.26 cm2 - Mitral Valve Name Value Normal Range MR Vmax 4.53 m/sec - Tricuspid Valve Name Value Normal Range TR Vmax 2.08 m/sec - TR peak gradient 17 mmHg - RAP 3 mmHg - RVSP 20 mmHg - Pulmonic Valve/Qp:Qs Name Value Normal Range PV Vmax 1.7 m/sec - PV peak gradient 11.59 mmHg - PV acceleration time 98.95 msec - [place]/IV: Voiding Method Bedpan IV Catheter Type [Right INT / Saline Lock Antecubital] Active Medications - Current Medications Current Medications: Generic Name Dose Route Start Last Admin Trade Name Freq PRN Reason Stop Dose Admin Acetaminophen 650 mg 08/06/20 00:30 Tylenol PO Q4H PRN Pain MILD(1-3)/Fever >100.5/ABEL Al Hydrox/Mg Hydrox/Simethicone 30 ml 08/06/20 00:30 Alum-Mag Hydrox-Simeth 129-968-37hk/5ml PO Q4H PRN Indigestion Enoxaparin Sodium 40 mg 08/07/20 22:00 08/07/20 22:20 Enoxaparin SUB-Q 40 mg QDAY@2200 REPLACED BY [facility] Administration Protocol Famotidine 10 mg 08/06/20 10:00 08/08/20 00:38 Pepcid PO Not Given BID REPLACED BY [facility] Ferrous Sulfate 325 mg 08/06/20 10:00 08/08/20 00:38 Feosol PO Not Given QDAY REPLACED BY [facility] Furosemide 40 mg 08/07/20 18:00 08/08/20 05:12 Lasix IV 40 mg 0600,1800 BRANT Administration Lorazepam 2 mg 08/08/20 08:30 08/08/20 08:23 Ativan IV 08/08/20 11:00 2 mg ONCE BRANT Administration Multivitamins 1 each 08/06/20 10:00 08/08/20 00:38 Theragran Tab PO Not Given QDAY REPLACED BY [facility] Ondansetron HCl 4 mg 08/06/20 00:30 Zofran IV Q8H PRN Nausea And Vomiting Oxycodone/Acetaminophen 1 tab 08/06/20 00:30 08/08/20 08:12 Percocet 5/325 PO 1 tab Q6H PRN Administration Pain, Moderate (4-6) Sodium Chloride 10 ml 08/06/20 01:00 08/08/20 00:38 Sodium Chloride Flush Syringe 10 Ml IV Not Given BID BRANT Sodium Chloride 10 ml 08/06/20 00:30 Sodium Chloride Flush Syringe 10 Ml IV PRN PRN LINE FLUSH Nutrition/Malnutrition Assess - Dietary Evaluation Nutrition/Malnutrition Findings: Nutrition Notes Start: 08/06/20 10:21 Freq: Status: Active Protocol: Document 08/08/20 10:22 CECE (Rec: 08/08/20 10:38 CECE [id number]) Co-Sign 08/08/20 10:22 LM Nutrition Notes Initial or Follow up Reassessment Current Diagnosis Acute Kidney Injury, Malnutrition Other Pertinent Diagnosis Ascites, Falls, anemia, contusion of R hip, R shoulder , lower back Current Diet Regular Pertinent Medications Lasix MVI - not given Iron - not given Height 5 ft 4 in Weight 70.307 kg [place] Body Weight (kg) 54.54 BMI 26.6 Weight change and time frame BMI likely obscured by ascites Weight Status Appropriate Burn Absent Trauma Absent Fluid Accumulation Mild (non-severe) Is patient on ventilator? No Is Patient Ambulatory and/or Out of Bed Yes REE-([facility]-ambulatory/OOB) [ 1641.991 [id number]] Calculation Used for Recommendations [facility] Nutrition Intervention Change Diet Order: Continue regular Goal #1 Meet at least 75% of energy and protein needs Anticipated Discharge Needs: Regular Follow-Up By: 08/08/20
--- NOTE | 2020-08-08 11:06 | Progress Note ---
Assessment and Plan - Patient Problems (1) AIDAN (acute kidney injury) Current Visit: Yes Status: Acute Plan to address problem: most likely secondary to pre-renal azotemia in the setting of diuretic therapy, superimposed on CKD. Abd US showed cortical thinning of b/l kidneys, check urine lytes, urine P/C ratio. Abd US was consistent with liver cirrhosis with portal hypertension and moderate ascites volume. Cont IV lasix to target net negative fluid balance. Recommend therapeutic paracentesis avoid nephrotoxins, NSAIDs IV contrast. will monitor lytes/renal parameters make further recommendations (2) Lower extremity edema Current Visit: Yes Status: Acute Plan to address problem: Fluid overload most likely secondary to underlying liver cirrhosis, cont diuresis with IV lasix. check urine P/C to rule out nephrotic range proteinuria. (3) Severe protein-calorie malnutrition Current Visit: Yes Status: Acute Plan to address problem: dietitian consult (4) Ascites Current Visit: Yes Status: Acute Plan to address problem: secondary to liver cirrhosis (5) Anemia Current Visit: Yes Status: Acute Subjective Date of service: 08/08/20 Principal diagnosis: AIDAN Interval history: Pt awake, alert, in no acute respiratory distress Objective - Vital Signs Vital signs: Vital Signs - 12hr 08/07/20 08/08/20 23:08 10:39 Temperature 98.5 F 98.6 F Pulse Rate 71 71 Respiratory 16 20 Rate Blood Pressure 129/57 126/60 O2 Sat by Pulse 97 97 Oximetry - General Appearance General appearance: well-developed, appears stated age, obese, chronically ill EENT: ATNC, PERRL, mucous membranes moist Neck: no JVD Respiratory: Present: Decreased Breath Sounds Cardiology: regular, S1S2 Gastrointestinal: normoactive bowel sounds, distended, obese Integumentary: no rash, other (++ edema b/l LE ) Neurologic: no focal deficit, alert and oriented x3, strength 5/5, CN 3-12 intact Psychiatric: mood/affect appropriate, cooperative - Lab 08/05/20 22:43 08/05/20 22:43 Most recent lab results Calcium 8.0 mg/dL (8.4-10.2) L 08/05/20 22:43 Medications & Allergies - Medications Allergies/Adverse Reactions: Allergies NSAIDS (Non-Steroidal Anti-Inflamma Allergy (Verified 08/05/20 22:09) Unknown Quinolones Allergy (Verified 08/05/20 22:09) Unknown Active Medications: Generic Name Dose Route Start Last Admin Trade Name Freq PRN Reason Stop Dose Admin Acetaminophen 650 mg 08/06/20 00:30 Tylenol PO Q4H PRN Pain MILD(1-3)/Fever >100.5/ABEL Al Hydrox/Mg Hydrox/Simethicone 30 ml 08/06/20 00:30 Alum-Mag Hydrox-Simeth 248-939-52rw/5ml PO Q4H PRN Indigestion Enoxaparin Sodium 40 mg 08/07/20 22:00 08/07/20 22:20 Enoxaparin SUB-Q 40 mg QDAY@2200 [facility] Administration Protocol Famotidine 10 mg 08/06/20 10:00 08/08/20 00:38 Pepcid PO Not Given BID [facility] Ferrous Sulfate 325 mg 08/06/20 10:00 08/08/20 00:38 Feosol PO Not Given QDAY [facility] Furosemide 40 mg 08/07/20 18:00 08/08/20 05:12 Lasix IV 40 mg 0600,1800 [facility] Administration Multivitamins 1 each 08/06/20 10:00 08/08/20 00:38 Theragran Tab PO Not Given QDAY [facility] Ondansetron HCl 4 mg 08/06/20 00:30 Zofran IV Q8H PRN Nausea And Vomiting Oxycodone/Acetaminophen 1 tab 08/06/20 00:30 08/08/20 08:12 Percocet 5/325 PO 1 tab Q6H PRN Administration Pain, Moderate (4-6) Sodium Chloride 10 ml 08/06/20 01:00 08/08/20 00:38 Sodium Chloride Flush Syringe 10 Ml IV Not Given BID [facility]ANT Sodium Chloride 10 ml 08/06/20 00:30 Sodium Chloride Flush Syringe 10 Ml IV PRN PRN LINE FLUSH
--- NOTE | 2020-08-08 13:08 | Vascular Lab Report ---
DUPLEX DOPPLER LOWER EXTREMITY VEINS, BILATERAL INDICATION / CLINICAL INFORMATION: EDEMA/PAIN.BLE VENOUS DOPPLER DONE BEDSIDE.. TECHNIQUE: Duplex doppler imaging was performed through the veins of both lower extremities using venous kristin bryce and other maneuvers. COMPARISON: None available. FINDINGS: RIGHT COMMON FEMORAL VEIN: Negative. RIGHT FEMORAL VEIN: Negative. RIGHT POPLITEAL VEIN: Negative. RIGHT CALF VEINS: Negative. LEFT COMMON FEMORAL VEIN: Negative. LEFT FEMORAL VEIN: Negative. LEFT POPLITEAL VEIN: Negative. LEFT CALF VEINS: Negative. ADDITIONAL FINDINGS: None. IMPRESSION: 1. No sonographic evidence for DVT in either lower extremity. Signer Name: Lety Mercado MD Signed: 08/07/2020 6:19 PM Workstation Name: [id number]
--- NOTE | 2020-08-08 18:47 | Consultation ---
History of Present Illness - [facility] Consult date: 08/07/20 Consult reason: low back pain History of present illness: 59-year-old female presented to the ED following fall from bed with back pain and right hip pain. Patient is s/p fall in April 2020, and she was diagnosed with L3 and L4 burst fractures. Per ED note- Following hospital stay, patient was then living in a personal nursing home. Patient seen at bed side, she denies tobacco use, alcohol and illicit drug use. Currently complaining of low back pain a plain x-ray done in the emergency department revealed some pathology at the L3-4 level. She denies any problems with bowel or bladder Past History Past Medical History: anemia Past Surgical History: No surgical history Social history: no significant social history, full code Family history: no significant family history Medications and Allergies Allergies Allergy/AdvReac Type Severity Reaction Status Date / Time NSAIDS (Non-Steroidal Allergy Unknown Verified 08/05/20 22:09 Anti-Inflamma Quinolones Allergy Unknown Verified 08/05/20 22:09 Active Meds: Active Medications Acetaminophen (Tylenol) 650 mg PO Q4H PRN PRN Reason: Pain MILD(1-3)/Fever >100.5/ABEL Al Hydrox/Mg Hydrox/Simethicone (Alum-Mag Hydrox-Simeth 915-923-13ym/5ml) 30 ml PO Q4H PRN PRN Reason: Indigestion Enoxaparin Sodium (Enoxaparin) 40 mg SUB-Q QDAY@2200 BRANT; Protocol Last Admin: 08/07/20 22:20 Dose: 40 mg Documented by: Famotidine (Pepcid) 10 mg PO BID [facility] Last Admin: 08/08/20 11:34 Dose: 10 mg Documented by: Ferrous Sulfate (Feosol) 325 mg PO QDAY [facility] Last Admin: 08/08/20 11:34 Dose: 325 mg Documented by: Furosemide (Lasix) 40 mg IV 0600,1800 [facility] Last Admin: 08/08/20 05:12 Dose: 40 mg Documented by: Multivitamins (Theragran Tab) 1 each PO QDAY [facility] Last Admin: 08/08/20 11:34 Dose: 1 each Documented by: Ondansetron HCl (Zofran) 4 mg IV Q8H PRN PRN Reason: Nausea And Vomiting Oxycodone/Acetaminophen (Percocet 5/325) 1 tab PO Q6H PRN PRN Reason: Pain, Moderate (4-6) Last Admin: 08/08/20 08:12 Dose: 1 tab Documented by: Sodium Chloride (Sodium Chloride Flush Syringe 10 Ml) 10 ml IV BID BRANT Last Admin: 08/08/20 11:34 Dose: 10 ml Documented by: Sodium Chloride (Sodium Chloride Flush Syringe 10 Ml) 10 ml IV PRN PRN PRN Reason: LINE FLUSH Assessment and Plan Low back pain, history of fall plain x-rays reveal a picture consistent with possible disc space infection versus burst fracture therefore I have I have ordered an MRI of the lumbar spine
[2020-08-08] MEDS: ENOXAPARIN 40 MG/0.4 ML INJ SUB-Q SCH (23:06)
[2020-08-09] MEDS: FUROSEMIDE 40 MG/4 ML INJ IV SCH ×2 (06:01→18:42)
[2020-08-09 06:42] LABS: Calcium 7.9 mg/dL (8.4-10.2)
--- NOTE | 2020-08-09 09:12 | Progress Note ---
Assessment and Plan Shortness of breath -improved Normal LVEF 60-65% by echo this presentation. LE Edema -improving Bilateral LE venous doppler - no evidence of DVT abd u/s - liver cirrhosis with portal hypertension and moderate ascites volume. Recurrent fall pt denies syncope Ascites Anemia Acute kidney injury Conservative cardiac management. Subjective Date of service: 08/09/20 Principal diagnosis: SOB Interval history: Patient is resting in bed comfortably. Denies chest pain. Denies shortness of breath. Objective Vital Signs Temp Pulse Resp BP Pulse Ox 08/08/20 21:01 98.9 F 70 16 130/59 95 08/08/20 16:04 98.5 F 74 16 121/56 97 08/08/20 10:39 98.6 F 71 20 126/60 97 - Physical Examination General: No Apparent Distress Neck: Positive: neck supple Cardiac: Positive: Reg Rate and Rhythm Lungs: Positive: Decreased Breath Sounds Extremities: Present: +2 Edema - Labs and Meds Comprehensive Metabolic Panel 08/09/20 Range/Units 06:01 Sodium 145 (137-145) mmol/L Potassium 3.3 L (3.6-5.0) mmol/L Chloride 110.0 H (98-107) mmol/L Carbon Dioxide 27 (22-30) mmol/L BUN 28 H (7-17) mg/dL Creatinine 1.6 H (0.6-1.2) mg/dL Glucose 69 (65-100) mg/dL Calcium 7.9 L (8.4-10.2) mg/dL
[2020-08-09] MEDS: oxyCODONE /ACETAMINOPHEN 5-325MG TAB PO PRN (10:57)
[2020-08-09] MEDS: FERROUS SULFATE 325 MG TAB PO SCH (10:57)
[2020-08-09] MEDS: MULTIVITAMINS ,THERAPEUTIC TAB PO SCH (10:57)
[2020-08-09] MEDS: FAMOTIDINE 10 MG TAB PO SCH ×2 (10:57→22:05)
--- NOTE | 2020-08-09 14:02 | Progress Note ---
Assessment and Plan Assessment and plan: --History of fall; Fall precautions, supportive care --Subacute compression deformities at L4 and L3, but no acute fracture Patient had a fall and fracture L3 L5 in April 2020 Supportive care, pain management, PT OT Rehabilitation, orthopedic consulted Dr. Peters recommended MRI L S-spine. --Acute kidney injury; Vasomotor nephropathy Also secondary to diuresis Closely monitor renal function.Nephrology consulted, Renal ultrasound medical renal disease; Avoid nephrotoxins --Chronic back pain; Continue current pain management and supportive care Physical therapy occupational therapy --General debility/generalized weakness Nutrition supplements. PT OT Possible home with home health versus placement --Severe protein calorie malnutrition; Nutrition supplements, dietitian consult And supportive care --Anemia; hemoglobin 8 Probably iron deficiency anemia Acute versus chronic No previous labs to compare Closely monitor transfuse as needed --Lower extremity edema; Partly secondary to hypoproteinemia Possible congestive heart failure Check echocardiogram for LV function ejection fraction Cardiology evaluation and recommendations noted and appreciated --Full CODE STATUS --DVT prophylaxis; Lovenox We will closely monitor the patient and adjust management as needed Plan of care reviewed with the patient and her nurse at the bedside Follow MRI report, adjust the management as needed We will try to reach the family and update patient's condition History Interval history: Late entry; [employer] was down Have seen and examined the patient earlier this morning at the bedside Patient's chart and medications reviewed Patient feels slightly better still complains of back pain And generalized weakness Vital signs noted Hospitalist Physical - Constitutional Vitals: Temp Pulse Resp BP Pulse Ox 98.9 F 70 16 130/59 95 08/08/20 21:01 08/08/20 21:01 08/08/20 21:01 08/08/20 21:01 08/08/20 21:01 General appearance: Present: mild distress, well-nourished, obese - EENT Eyes: Present: PERRL, EOM intact - Neck Neck: Present: supple, normal ROM - Respiratory Respiratory effort: normal Respiratory: bilateral: diminished, negative: rales, rhonchi, wheezing - Cardiovascular Rhythm: regular Heart Sounds: Present: S1 & S2 - Extremities Extremities: no ischemia, No edema - Abdominal General gastrointestinal: soft, non-tender, non-distended, normal bowel sounds - Integumentary Integumentary: Present: clear, warm - Psychiatric Psychiatric: appropriate mood/affect, cooperative - Neurologic Neurologic: CNII-XII intact, moves all extremities Results - Labs CBC & Chem 7: 08/05/20 22:43 08/09/20 06:01 Labs: Laboratory Last Values WBC 5.1 K/mm3 (4.5-11.0) 08/05/20 22:43 RBC 2.71 M/mm3 (3.65-5.03) L 08/05/20 22:43 Hgb 8.5 gm/dl (10.1-14.3) L 08/05/20 22:43 Hct 25.9 % (30.3-42.9) L 08/05/20 22:43 MCV 96 fl (79-97) 08/05/20: MCH 31 pg (28-32) 08/05/20: MCHC 33 % (30-34) 08/05/20 22:43 RDW 17.0 % (13.2-15.2) H 08/05/20 22:43 Plt Count 139 K/mm3 (140-440) L 08/05/20 22:43 Lymph % (Auto) 11.6 % (13.4-35.0) L 08/05/20 22:43 [place] % (Auto) 9.4 % (0.0-7.3) H 08/05/20 22:43 Eos % (Auto) 3.3 % (0.0-4.3) 08/05/20 22:43 Baso % (Auto) 2.8 % (0.0-1.8) H 08/05/20 22:43 Lymph # (Auto) 0.6 K/mm3 (1.2-5.4) L 08/05/20 22:43 [place] # (Auto) 0.5 K/mm3 (0.0-0.8) 08/05/20 22: Eos # (Auto) 0.2 K/mm3 (0.0-0.4) 08/05/20: Baso # (Auto) 0.1 K/mm3 (0.0-0.1) 08/05/20 22:43 Seg Neutrophils % 72.9 % (40.0-70.0) H 08/05/20 22:43 Seg Neutrophils # 3.7 K/mm3 (1.8-7.7) 08/05/20 22:43 Sodium 145 mmol/L (137-145) 08/09/20 06:01 Potassium 3.3 mmol/L (3.6-5.0) L 08/09/20 06:01 Chloride 110.0 mmol/L (98-107) H 08/09/20 06:01 Carbon Dioxide 27 mmol/L (22-30) 08/09/20 06:01 Anion Gap 11 mmol/L 08/09/20 06:01 BUN 28 mg/dL (7-17) H 08/09/20 06:01 Creatinine 1.6 mg/dL (0.6-1.2) H 08/09/20 06:01 Estimated GFR 33 ml/min 08/09/20 06:01 BUN/Creatinine Ratio 18 % 08/09/20 06:01 Glucose 69 mg/dL (65-100) 08/09/20 06:01 Osmolality 304 Mosm/kg 08/06/20 01:57 Calcium 7.9 mg/dL (8.4-10.2) L 08/09/20 06:01 Iron 31 ug/dL (37-170) L 08/06/20 01:57 Total Bilirubin 0.70 mg/dL (0.1-1.2) 08/05/20 22:43 Direct Bilirubin 0.4 mg/dL (0-0.2) H 08/05/20 22:43 Indirect Bilirubin 0.3 mg/dL 08/05/20 22:43 AST 52 units/L (5-40) H 08/05/20 22:43 ALT 19 units/L (7-56) 08/05/20 22:43 Alkaline Phosphatase 155 units/L (35-129) H 08/05/20 22:43 Total Creatine Kinase 95 units/L (30-135) 08/06/20 01:57 NT-Pro-B Natriuret Pep 930.2 pg/mL (0-900) H 08/05/20 22:43 Total Protein 6.7 g/dL (6.3-8.2) 08/05/20 22:43 Albumin 2.0 g/dL (3.9-5) L 08/05/20 22:43 Albumin/Globulin Ratio 0.4 % 08/05/20 22:43 Nasal Screen MRSA (PCR) Negative (Negative) 08/06/20 Unknown - Diagnostic Impressions Diagnostic Impressions: Echocardiogram 08/06/20 11:15 Transthoracic Echocardiogram Indication: SOB BP: 125/54 HR: 79 Conclusions *Global left ventricular systolic function is normal. *The estimated ejection fraction is 60-65%. *Mild concentric left ventricular hypertrophy is observed. *There is trace of mitral regurgitation. *There is trace tricuspid regurgitation. Findings Left Ventricle: The left ventricular chamber size is normal. Mild concentric left ventricular hypertrophy is observed. Global left ventricular systolic function is normal. The estimated ejection fraction is 60-65%. Left Atrium: The left atrial chamber size is normal. Right Ventricle: The right ventricular cavity size is normal. The right ventricular global systolic function is normal. Right Atrium: The right atrial cavity size is normal. Aortic Valve: The aortic valve is trileaflet. There is no evidence of aortic regurgitation. There is no evidence of aortic stenosis. Mitral Valve: The mitral valve leaflets appear myxomatous. There is trace of mitral regurgitation. There is no evidence of mitral stenosis. Tricuspid Valve: There is trace tricuspid regurgitation. No pulmonary hypertension is noted. Pericardium: There is no pericardial effusion. Aorta: There is no dilatation of the ascending aorta. There is no dilatation of the aortic root. Venous: The inferior vena cava appears normal in size. Measurements Chambers 2D Name Value Normal Range IVSd (2D) 1 cm (0.6 - 1.1) LVPWd (2D) 0.98 cm (0.6 - 1.1) LVIDd (2D) 4.55 cm (3.7 - 5.6) LVIDs (2D) 2.86 cm (2 - 3.8) LV FS (2D) 37.09 % - EF Teichholz (2D) 67.11 % - Ao root diameter (2D) 2.53 cm (2 - 3.7) Volumes/Mass Name Value Normal Range LA ESV SP 4CH (A/L) 50.86 ml - LA ESV SP 2CH (A/L) 48.51 ml - LA ESV BP (A/L) 49.94 ml - LA ESV BP (A/L) index 28.37 ml/m2 - LA ESV SP 4CH (MOD) 47.75 ml - LA ESV SP 2CH (MOD) 47.19 ml - LA ESV BP (MOD) 47.58 ml - LA ESV BP (MOD) index 27.03 ml/m2 - Diastolic/Systolic Function Name Value Normal Range MV E-wave Vmax 0.92 m/sec - MV deceleration time 212.12 msec - MV A-wave Vmax 0.78 m/sec - MV E:A ratio 1.17 ratio - Aortic Valve Name Value Normal Range AV Vmax 1.95 m/sec - AV VTI 38.63 cm - AV peak gradient 15.22 mmHg - AV mean gradient 8.42 mmHg - LVOT diameter 2.02 cm - LVOT Vmax 1.29 m/sec - LVOT VTI 27.34 cm - LVOT peak gradient 6.61 mmHg - LVOT mean gradient 4.01 mmHg - SV LVOT 87.4 ml - SHARLA (continuity Vmax) 2.11 cm2 - SHARLA (continuity VTI) 2.26 cm2 - Mitral Valve Name Value Normal Range MR Vmax 4.53 m/sec - Tricuspid Valve Name Value Normal Range TR Vmax 2.08 m/sec - TR peak gradient 17 mmHg - RAP 3 mmHg - RVSP 20 mmHg - Pulmonic Valve/Qp:Qs Name Value Normal Range PV Vmax 1.7 m/sec - PV peak gradient 11.59 mmHg - PV acceleration time 98.95 msec - [place]/IV: Voiding Method Incontinent IV Catheter Type [Left Upper INT / Saline Lock arm] IV Catheter Type [Right INT / Saline Lock Antecubital] Active Medications - Current Medications Current Medications: Generic Name Dose Route Start Last Admin Trade Name Freq PRN Reason Stop Dose Admin Acetaminophen 650 mg 08/06/20 00:30 Tylenol PO Q4H PRN Pain MILD(1-3)/Fever >100.5/ABEL Al Hydrox/Mg Hydrox/Simethicone 30 ml 08/06/20 00:30 Alum-Mag Hydrox-Simeth 807-509-93xk/5ml PO Q4H PRN Indigestion Enoxaparin Sodium 40 mg 08/07/20 22:00 08/08/20 23:06 Enoxaparin SUB-Q 40 mg QDAY@2200 BRANT Administration Protocol Famotidine 10 mg 08/06/20 10:00 08/09/20 10:57 Pepcid PO 10 mg BID BRANT Administration Ferrous Sulfate 325 mg 08/06/20 10:00 08/09/20 10:57 Feosol PO 325 mg QDAY BRANT Administration Furosemide 40 mg 08/07/20 18:00 08/09/20 06:01 Lasix IV Not Given 0600,1800 BRANT Multivitamins 1 each 08/06/20 10:00 08/09/20 10:57 Theragran Tab PO 1 each QDAY BRANT Administration Ondansetron HCl 4 mg 08/06/20 00:30 Zofran IV Q8H PRN Nausea And Vomiting Oxycodone/Acetaminophen 1 tab 08/06/20 00:30 08/09/20 10:57 Percocet 5/325 PO 1 tab Q6H PRN Administration Pain, Moderate (4-6) Sodium Chloride 10 ml 08/06/20 01:00 08/09/20 11:03 Sodium Chloride Flush Syringe 10 Ml IV 10 ml BID BRANT Administration Sodium Chloride 10 ml 08/06/20 00:30 Sodium Chloride Flush Syringe 10 Ml IV PRN PRN LINE FLUSH Nutrition/Malnutrition Assess - Dietary Evaluation Nutrition/Malnutrition Findings: Nutrition Notes Start: 08/06/20 10:21 Freq: Status: Active Protocol: Document 08/08/20 10:22 CECE (Rec: 08/08/20 10:38 CECE [id number]) Co-Sign 08/08/20 10:22 LM Nutrition Notes Initial or Follow up Reassessment Current Diagnosis Acute Kidney Injury, Malnutrition Other Pertinent Diagnosis Ascites, Falls, anemia, contusion of R hip, R shoulder , lower back Current Diet Regular Labs/Tests Reviewed Pertinent Medications Lasix MVI - not given Iron - not given Height 5 ft 4 in Weight 70.307 kg [place] Body Weight (kg) 54.54 BMI 26.6 Weight change and time frame BMI likely obscured by ascites Weight Status Appropriate Subjective/Other Information F/u full assessment and intakes. Pt possibly confused during phone call. 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 RN reported a good appetite. Percent of energy/protein needs met: 100%/100% Burn Absent Trauma Absent GI Symptoms None Current % PO Good (75-100%) Minimum of two criteria No Fluid Accumulation Mild (non-severe) #2 Nutrition Diagnosis Increased nutrient needs ( specify in comment below) Comments: protein Etiology chronic disease As Evidenced by Signs and Symptoms pt has ascites, wounds, and low iron 31. #1 Nutrition Diagnosis Predicted suboptimal energy intake Comments: protein As Evidenced by Signs and Symptoms pt consuming meals Diagnosis Progress(for reassessment Resolved documentation) Is patient on ventilator? No Is Patient Ambulatory and/or Out of Bed Yes REE-([facility]-ambulatory/OOB) [ 1641.991 NUTR.MSJOOB] Calculation Used for Recommendations [facility] Additional Notes Protein 0.8-1.2g/k-84g Fluid: 1ml/kcal Nutrition Intervention Change Diet Order: Continue regular Add Supplement/Snack (indicate name/kcal Ensure Enlive daily /protein ) Provides kCal: 350 Provides Protein (gm) 20 Goal #1 Meet at least 75% of energy and protein needs Anticipated Discharge Needs: Regular Follow-Up By: 08/10/20 Additional Comments F/u intakes and need for ONS
--- NOTE | 2020-08-09 14:11 | Progress Note ---
Assessment and Plan Assessment and plan: -History of fall; Fall precautions, supportive care --Subacute compression deformities at L4 and L3, but no acute fracture Patient had a fall and fracture L3 L5 in April 2020 Supportive care, pain management, PT OT Dr. Peters/Ortho evaluated. recommended MRI L S-spine. --Acute kidney injury; Vasomotor nephropathy Also secondary to diuresis Closely monitor renal function.Nephrology consulted, Renal ultrasound medical renal disease; Avoid nephrotoxins --Cirrhosis with portal hypertension/moderate ascites; Patient will follow GI as outpatient Supportive care --Chronic back pain; Continue current pain management and supportive care Physical therapy occupational therapy --General debility/generalized weakness Nutrition supplements. PT OT Possible home with home health versus placement --Severe protein calorie malnutrition; Nutrition supplements, dietitian consult And supportive care --Anemia; hemoglobin 8 Probably iron deficiency anemia Acute versus chronic No previous labs to compare Closely monitor transfuse as needed --Lower extremity edema; Due to cirrhosis liver , ascites check echocardiogram for LV EF 60-65% Continue diuretics, input output monitoring Cardiology following --Full CODE STATUS --DVT prophylaxis; Lovenox PT recommend subacute rehab. We will closely monitor the patient and adjust management as needed Plan of care reviewed with the patient and her nurse at the bedside Follow MRI report, adjust the management as needed Discussed with orthopedic Dr. Peters today, he is waiting for MRI of the spine Disposition; follow MRI, orthopedic recommendations Possible discharge to subacute rehab when medically stable Brief history; 59-year-old female with history of fall in April 2020, and she was diagnosed with L3 and L4 burst fractures. Post discharge patient was then living in a personal prison. Patient had a fall complaints of back pain. Lumbar spine x-ray revealed L3-L4 subacute compression deformity patient was evaluated by orthopedic Dr. Peters. Will recommend MRI L-spine which is pending. History Interval history: I have seen and examined the patient at the bedside Patient feels better no new complaints Some back pain, PT OT following Awaiting MRI L-spine Hospitalist Physical - Constitutional Vitals: Temp Pulse Resp BP Pulse Ox 98.9 F 70 16 130/59 95 08/08/20 21:01 08/08/20 21:01 08/08/20 21:01 08/08/20 21:01 08/08/20 21:01 General appearance: Present: no acute distress, well-nourished - EENT Eyes: Present: PERRL, EOM intact - Neck Neck: Present: supple, normal ROM - Respiratory Respiratory effort: normal Respiratory: bilateral: diminished, negative: rales, rhonchi, wheezing - Cardiovascular Rhythm: regular Heart Sounds: Present: S1 & S2 - Extremities Extremities: no ischemia, No edema - Abdominal General gastrointestinal: soft, non-tender, non-distended, normal bowel sounds - Integumentary Integumentary: Present: clear, warm - Psychiatric Psychiatric: appropriate mood/affect, cooperative - Neurologic Neurologic: moves all extremities Results - Labs CBC & Chem 7: 08/05/20 22:43 08/09/20 06:01 Labs: Laboratory Last Values WBC 5.1 K/mm3 (4.5-11.0) 08/05/20: RBC 2.71 M/mm3 (3.65-5.03) L 08/05/20 22:43 Hgb 8.5 gm/dl (10.1-14.3) L 08/05/20 22:43 Hct 25.9 % (30.3-42.9) L 08/05/20 22:43 MCV 96 fl (79-97) 08/05/20 22:43 MCH 31 pg (28-32) 08/05/20:43 MCHC 33 % (30-34) 08/05/20 22:43 RDW 17.0 % (13.2-15.2) H 08/05/20 22:43 Plt Count 139 K/mm3 (140-440) L 08/05/20 22:43 Lymph % (Auto) 11.6 % (13.4-35.0) L 08/05/20:43 [place] % (Auto) 9.4 % (0.0-7.3) H 08/05/20 22:43 Eos % (Auto) 3.3 % (0.0-4.3) 08/05/20 22:43 Baso % (Auto) 2.8 % (0.0-1.8) H 08/05/20 22:43 Lymph # (Auto) 0.6 K/mm3 (1.2-5.4) L 08/05/20 22:43 [place] # (Auto) 0.5 K/mm3 (0.0-0.8) 08/05/20 22:43 Eos # (Auto) 0.2 K/mm3 (0.0-0.4) 08/05/20 22:43 Baso # (Auto) 0.1 K/mm3 (0.0-0.1) 08/05/20 22:43 Seg Neutrophils % 72.9 % (40.0-70.0) H 08/05/20 22:43 Seg Neutrophils # 3.7 K/mm3 (1.8-7.7) 08/05/20 22:43 Sodium 145 mmol/L (137-145) 08/09/20 06:01 Potassium 3.3 mmol/L (3.6-5.0) L 08/09/20 06:01 Chloride 110.0 mmol/L (98-107) H 08/09/20 06:01 Carbon Dioxide 27 mmol/L (22-30) 08/09/20 06:01 Anion Gap 11 mmol/L 08/09/20 06:01 BUN 28 mg/dL (7-17) H 08/09/20 06:01 Creatinine 1.6 mg/dL (0.6-1.2) H 08/09/20 06:01 Estimated GFR 33 ml/min 08/09/20 06:01 BUN/Creatinine Ratio 18 % 08/09/20 06:01 Glucose 69 mg/dL (65-100) 08/09/20 06:01 Osmolality 304 Mosm/kg 08/06/20 01:57 Calcium 7.9 mg/dL (8.4-10.2) L 08/09/20 06:01 Iron 31 ug/dL (37-170) L 08/06/20 01:57 Total Bilirubin 0.70 mg/dL (0.1-1.2) 08/05/20 22:43 Direct Bilirubin 0.4 mg/dL (0-0.2) H 08/05/20 22:43 Indirect Bilirubin 0.3 mg/dL 08/05/20 22:43 AST 52 units/L (5-40) H 08/05/20 22:43 ALT 19 units/L (7-56) 08/05/20 22:43 Alkaline Phosphatase 155 units/L (35-129) H 08/05/20 22:43 Total Creatine Kinase 95 units/L (30-135) 08/06/20 01:57 NT-Pro-B Natriuret Pep 930.2 pg/mL (0-900) H 08/05/20 22:43 Total Protein 6.7 g/dL (6.3-8.2) 08/05/20 22:43 Albumin 2.0 g/dL (3.9-5) L 08/05/20 22:43 Albumin/Globulin Ratio 0.4 % 08/05/20 22:43 Nasal Screen MRSA (PCR) Negative (Negative) 08/06/20 Unknown - Diagnostic Impressions Diagnostic Impressions: Echocardiogram 08/06/20 11:15 Transthoracic Echocardiogram Indication: SOB BP: 125/54 HR: 79 Conclusions *Global left ventricular systolic function is normal. *The estimated ejection fraction is 60-65%. *Mild concentric left ventricular hypertrophy is observed. *There is trace of mitral regurgitation. *There is trace tricuspid regurgitation. Findings Left Ventricle: The left ventricular chamber size is normal. Mild concentric left ventricular hypertrophy is observed. Global left ventricular systolic function is normal. The estimated ejection fraction is 60-65%. Left Atrium: The left atrial chamber size is normal. Right Ventricle: The right ventricular cavity size is normal. The right ventricular global systolic function is normal. Right Atrium: The right atrial cavity size is normal. Aortic Valve: The aortic valve is trileaflet. There is no evidence of aortic regurgitation. There is no evidence of aortic stenosis. Mitral Valve: The mitral valve leaflets appear myxomatous. There is trace of mitral regurgitation. There is no evidence of mitral stenosis. Tricuspid Valve: There is trace tricuspid regurgitation. No pulmonary hypertension is noted. Pericardium: There is no pericardial effusion. Aorta: There is no dilatation of the ascending aorta. There is no dilatation of the aortic root. Venous: The inferior vena cava appears normal in size. Measurements Chambers 2D Name Value Normal Range IVSd (2D) 1 cm (0.6 - 1.1) LVPWd (2D) 0.98 cm (0.6 - 1.1) LVIDd (2D) 4.55 cm (3.7 - 5.6) LVIDs (2D) 2.86 cm (2 - 3.8) LV FS (2D) 37.09 % - EF Teichholz (2D) 67.11 % - Ao root diameter (2D) 2.53 cm (2 - 3.7) Volumes/Mass Name Value Normal Range LA ESV SP 4CH (A/L) 50.86 ml - LA ESV SP 2CH (A/L) 48.51 ml - LA ESV BP (A/L) 49.94 ml - LA ESV BP (A/L) index 28.37 ml/m2 - LA ESV SP 4CH (MOD) 47.75 ml - LA ESV SP 2CH (MOD) 47.19 ml - LA ESV BP (MOD) 47.58 ml - LA ESV BP (MOD) index 27.03 ml/m2 - Diastolic/Systolic Function Name Value Normal Range MV E-wave Vmax 0.92 m/sec - MV deceleration time 212.12 msec - MV A-wave Vmax 0.78 m/sec - MV E:A ratio 1.17 ratio - Aortic Valve Name Value Normal Range AV Vmax 1.95 m/sec - AV VTI 38.63 cm - AV peak gradient 15.22 mmHg - AV mean gradient 8.42 mmHg - LVOT diameter 2.02 cm - LVOT Vmax 1.29 m/sec - LVOT VTI 27.34 cm - LVOT peak gradient 6.61 mmHg - LVOT mean gradient 4.01 mmHg - SV LVOT 87.4 ml - SHARLA (continuity Vmax) 2.11 cm2 - SHARLA (continuity VTI) 2.26 cm2 - Mitral Valve Name Value Normal Range MR Vmax 4.53 m/sec - Tricuspid Valve Name Value Normal Range TR Vmax 2.08 m/sec - TR peak gradient 17 mmHg - RAP 3 mmHg - RVSP 20 mmHg - Pulmonic Valve/Qp:Qs Name Value Normal Range PV Vmax 1.7 m/sec - PV peak gradient 11.59 mmHg - PV acceleration time 98.95 msec - [place]/IV: Voiding Method Incontinent IV Catheter Type [Left Upper INT / Saline Lock arm] IV Catheter Type [Right INT / Saline Lock Antecubital] Active Medications - Current Medications Current Medications: Generic Name Dose Route Start Last Admin Trade Name Freq PRN Reason Stop Dose Admin Acetaminophen 650 mg 08/06/20 00:30 Tylenol PO Q4H PRN Pain MILD(1-3)/Fever >100.5/ABEL Al Hydrox/Mg Hydrox/Simethicone 30 ml 08/06/20 00:30 Alum-Mag Hydrox-Simeth [id number]/5ml PO Q4H PRN Indigestion Enoxaparin Sodium 40 mg 08/07/20 22:00 08/08/20 23:06 Enoxaparin SUB-Q 40 mg QDAY@2200 BRANT Administration Protocol Famotidine 10 mg 08/06/20 10:00 08/09/20 10:57 Pepcid PO 10 mg BID BRANT Administration Ferrous Sulfate 325 mg 08/06/20 10:00 08/09/20 10:57 Feosol PO 325 mg QDAY BRANT Administration Furosemide 40 mg 08/07/20 18:00 08/09/20 06:01 Lasix IV Not Given 0600,1800 [facility] Multivitamins 1 each 08/06/20 10:00 08/09/20 10:57 Theragran Tab PO 1 each QDAY BRANT Administration Ondansetron HCl 4 mg 08/06/20 00:30 Zofran IV Q8H PRN Nausea And Vomiting Oxycodone/Acetaminophen 1 tab 08/06/20 00:30 08/09/20 10:57 Percocet 5/325 PO 1 tab Q6H PRN Administration Pain, Moderate (4-6) Sodium Chloride 10 ml 08/06/20 01:00 08/09/20 11:03 Sodium Chloride Flush Syringe 10 Ml IV 10 ml BID BRANT Administration Sodium Chloride 10 ml 08/06/20 00:30 Sodium Chloride Flush Syringe 10 Ml IV PRN PRN LINE FLUSH Nutrition/Malnutrition Assess - Dietary Evaluation Nutrition/Malnutrition Findings: Nutrition Notes Start: 08/06/20 10:21 Freq: Status: Active Protocol: Document 08/08/20 10:22 CECE (Rec: 08/08/20 10:38 CECE [id number]) Co-Sign 08/08/20 10:22 LM Nutrition Notes Initial or Follow up Reassessment Current Diagnosis Acute Kidney Injury, Malnutrition Other Pertinent Diagnosis Ascites, Falls, anemia, contusion of R hip, R shoulder , lower back Current Diet Regular Labs/Tests Reviewed Pertinent Medications Lasix MVI - not given Iron - not given Height 5 ft 4 in Weight 70.307 kg [place] Body Weight (kg) 54.54 BMI 26.6 Weight change and time frame BMI likely obscured by ascites Weight Status Appropriate Subjective/Other Information F/u full assessment and intakes. Pt possibly confused during phone call. 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 RN reported a good appetite. Percent of energy/protein needs met: 100%/100% Burn Absent Trauma Absent GI Symptoms None Current % PO Good (75-100%) Minimum of two criteria No Fluid Accumulation Mild (non-severe) #2 Nutrition Diagnosis Increased nutrient needs ( specify in comment below) Comments: protein Etiology chronic disease As Evidenced by Signs and Symptoms pt has ascites, wounds, and low iron 31. #1 Nutrition Diagnosis Predicted suboptimal energy intake Comments: protein As Evidenced by Signs and Symptoms pt consuming meals Diagnosis Progress(for reassessment Resolved documentation) Is patient on ventilator? No Is Patient Ambulatory and/or Out of Bed Yes REE-([facility]-ambulatory/OOB) [ 1641.991 NUTR.MSJOOB] Calculation Used for Recommendations [facility] Additional Notes Protein 0.8-1.2g/k-84g Fluid: 1ml/kcal Nutrition Intervention Change Diet Order: Continue regular Add Supplement/Snack (indicate name/kcal Ensure Enlive daily /protein ) Provides kCal: 350 Provides Protein (gm) 20 Goal #1 Meet at least 75% of energy and protein needs Anticipated Discharge Needs: Regular Follow-Up By: 08/10/20 Additional Comments F/u intakes and need for ONS
--- NOTE | 2020-08-09 16:37 | Progress Note ---
Assessment and Plan - Patient Problems (1) AIDAN (acute kidney injury) Current Visit: Yes Status: Acute Plan to address problem: most likely secondary to pre-renal azotemia in the setting of diuretic therapy, superimposed on CKD. Abd US showed cortical thinning of b/l kidneys consistent with underlying CKD. check urine lytes, urine P/C ratio. Abd US was consistent with liver cirrhosis with portal hypertension and moderate ascites volume. Cont IV lasix to target net negative fluid balance. Recommend therapeutic paracentesis. avoid nephrotoxins, NSAIDs IV contrast. will monitor lytes/renal parameters make further recommendations. (2) Lower extremity edema Current Visit: Yes Status: Acute Plan to address problem: Fluid overload most likely secondary to underlying liver cirrhosis, cont diuresis with IV lasix. check urine P/C to rule out nephrotic range proteinuria. (3) Severe protein-calorie malnutrition Current Visit: Yes Status: Acute Plan to address problem: dietitian consult (4) Ascites Current Visit: Yes Status: Acute Plan to address problem: secondary to liver cirrhosis (5) Anemia Current Visit: Yes Status: Acute Plan to address problem: check iron store incl TSAT/ferritin Subjective Date of service: 08/09/20 Principal diagnosis: SOB Interval history: Pt awake, alert, in no acute respiratory distress Objective - Vital Signs Vital signs: Vital Signs - 12hr 08/09/20 13:06 Temperature 97.9 F Pulse Rate 66 Respiratory 22 Rate Blood Pressure 137/65 O2 Sat by Pulse 98 Oximetry - General Appearance General appearance: well-developed, appears stated age, chronically ill EENT: ATNC, PERRL, mucous membranes moist Neck: no JVD Respiratory: Present: Clear to Ascultation Cardiology: regular, S1S2 Gastrointestinal: normoactive bowel sounds, distended Integumentary: no rash, other (+++ edema b/l LE ) Neurologic: no focal deficit, alert and oriented x3, strength 5/5, CN 3-12 intact Psychiatric: mood/affect appropriate, cooperative - Lab 08/05/20 22:43 08/09/20 06:01 Most recent lab results Calcium 7.9 mg/dL (8.4-10.2) L 08/09/20 06:01 Medications & Allergies - Medications Allergies/Adverse Reactions: Allergies NSAIDS (Non-Steroidal Anti-Inflamma Allergy (Verified 08/05/20 22:09) Unknown Quinolones Allergy (Verified 08/05/20 22:09) Unknown Active Medications: Generic Name Dose Route Start Last Admin Trade Name Freq PRN Reason Stop Dose Admin Acetaminophen 650 mg 08/06/20 00:30 Tylenol PO Q4H PRN Pain MILD(1-3)/Fever >100.5/ABEL Al Hydrox/Mg Hydrox/Simethicone 30 ml 08/06/20 00:30 Alum-Mag Hydrox-Simeth 307-080-72ur/5ml PO Q4H PRN Indigestion Enoxaparin Sodium 40 mg 08/07/20 22:00 08/08/20 23:06 Enoxaparin SUB-Q 40 mg QDAY@2200 BRANT Administration Protocol Famotidine 10 mg 08/06/20 10:00 08/09/20 10:57 Pepcid PO 10 mg BID BRANT Administration Ferrous Sulfate 325 mg 08/06/20 10:00 08/09/20 10:57 Feosol PO 325 mg QDAY BRANT Administration Furosemide 40 mg 08/07/20 18:00 08/09/20 06:01 Lasix IV Not Given 0600,1800 [facility] Multivitamins 1 each 08/06/20 10:00 08/09/20 10:57 Theragran Tab PO 1 each QDAY BRANT Administration Ondansetron HCl 4 mg 08/06/20 00:30 Zofran IV Q8H PRN Nausea And Vomiting Oxycodone/Acetaminophen 1 tab 08/06/20 00:30 08/09/20 10:57 Percocet 5/325 PO 1 tab Q6H PRN Administration Pain, Moderate (4-6) Sodium Chloride 10 ml 08/06/20 01:00 08/09/20 11:03 Sodium Chloride Flush Syringe 10 Ml IV 10 ml BID BRANT Administration Sodium Chloride 10 ml 08/06/20 00:30 Sodium Chloride Flush Syringe 10 Ml IV PRN PRN LINE FLUSH
[2020-08-09] MEDS: ENOXAPARIN 40 MG/0.4 ML INJ SUB-Q SCH (22:05)
[2020-08-10] MEDS: oxyCODONE /ACETAMINOPHEN 5-325MG TAB PO PRN ×3 (00:27→21:51)
[2020-08-10] MEDS: FUROSEMIDE 40 MG/4 ML INJ IV SCH ×2 (06:12→17:18)
[2020-08-10 08:07] LABS: Calcium 7.9 mg/dL (8.4-10.2)
--- NOTE | 2020-08-10 08:26 | Progress Note ---
Assessment and Plan Assessment and plan: -History of fall; Fall precautions, supportive care --Subacute compression deformities at L4 and L3, but no acute fracture Patient had a fall and fracture L3 L5 in April 2020 Supportive care, pain management, PT OT Dr. Peters/Ortho evaluated. recommended MRI L S-spine. --Acute kidney injury; Vasomotor nephropathy Also secondary to diuresis Closely monitor renal function.Nephrology consulted, Renal ultrasound medical renal disease; Avoid nephrotoxins --Cirrhosis with portal hypertension/moderate ascites; Patient will follow GI as outpatient Supportive care --Chronic back pain; Continue current pain management and supportive care Physical therapy occupational therapy --General debility/generalized weakness Nutrition supplements. PT OT Possible home with home health versus placement --Severe protein calorie malnutrition; Nutrition supplements, dietitian consult And supportive care --Anemia; hemoglobin 8 Probably iron deficiency anemia Acute versus chronic No previous labs to compare Closely monitor transfuse as needed --Lower extremity edema; Due to cirrhosis liver , ascites check echocardiogram for LV EF 60-65% Continue diuretics, input output monitoring Cardiology following --Full CODE STATUS --DVT prophylaxis; Lovenox --Hypokalemia. Disposition; Possible discharge to subacute rehab when medically stable. PT recommend subacute rehab. 08/10/2020 Follow MRI report, adjust the management as needed Orthopedics is also awaiting for MRI of the spine Home with home health versus subacute rehab. We will discuss with case management Replete potassium. History Interval history: No new issues overnight. Hospitalist Physical - Constitutional Vitals: Temp Pulse Resp BP Pulse Ox 97.7 F 69 16 126/62 97 08/10/20 04:03 08/10/20 04:03 08/10/20 04:03 08/10/20 04:03 08/10/20 04:03 General appearance: Present: no acute distress, well-nourished - EENT Eyes: Present: PERRL, EOM intact ENT: hearing intact, clear oral mucosa, dentition normal - Neck Neck: Present: supple, normal ROM - Respiratory Respiratory effort: normal Respiratory: bilateral: CTA - Cardiovascular Rhythm: regular Heart Sounds: Present: S1 & S2. Absent: gallop, rub - Extremities Extremities: no ischemia, No edema, Full ROM - Abdominal General gastrointestinal: soft, non-tender, non-distended, normal bowel sounds - Integumentary Integumentary: Present: clear, warm, dry - Neurologic Neurologic: CNII-XII intact, moves all extremities Results - Labs CBC & Chem 7: 08/05/20 22:43 08/10/20 06:40 Labs: Laboratory Last Values WBC 5.1 K/mm3 (4.5-11.0) 08/05/20 22:43 RBC 2.71 M/mm3 (3.65-5.03) L 08/05/20 22:43 Hgb 8.5 gm/dl (10.1-14.3) L 08/05/20 22:43 Hct 25.9 % (30.3-42.9) L 08/05/20 22:43 MCV 96 fl (79-97) 08/05/20 22: MCH 31 pg (28-32) 08/05/20: MCHC 33 % (30-34) 08/05/20 22:43 RDW 17.0 % (13.2-15.2) H 08/05/20 22:43 Plt Count 139 K/mm3 (140-440) L 08/05/20 22:43 Lymph % (Auto) 11.6 % (13.4-35.0) L 08/05/20 22:43 [place] % (Auto) 9.4 % (0.0-7.3) H 08/05/20 22:43 Eos % (Auto) 3.3 % (0.0-4.3) 08/05/20 22:43 Baso % (Auto) 2.8 % (0.0-1.8) H 08/05/20 22:43 Lymph # (Auto) 0.6 K/mm3 (1.2-5.4) L 08/05/20 22:43 [place] # (Auto) 0.5 K/mm3 (0.0-0.8) 08/05/20 22:43 Eos # (Auto) 0.2 K/mm3 (0.0-0.4) 08/05/20: Baso # (Auto) 0.1 K/mm3 (0.0-0.1) 08/05/20 22:43 Seg Neutrophils % 72.9 % (40.0-70.0) H 08/05/20 22:43 Seg Neutrophils # 3.7 K/mm3 (1.8-7.7) 08/05/20 22:43 Sodium 144 mmol/L (137-145) 08/10/20 06:40 Potassium 3.0 mmol/L (3.6-5.0) L 08/10/20 06:40 Chloride 107.6 mmol/L (98-107) H 08/10/20 06:40 Carbon Dioxide 28 mmol/L (22-30) 08/10/20 06:40 Anion Gap 11 mmol/L 08/10/20 06:40 BUN 27 mg/dL (7-17) H 08/10/20 06:40 Creatinine 1.4 mg/dL (0.6-1.2) H 08/10/20 06:40 Estimated GFR 38 ml/min 08/10/20 06:40 BUN/Creatinine Ratio 19 % 08/10/20 06:40 Glucose 77 mg/dL (65-100) 08/10/20 06:40 Osmolality 304 Mosm/kg 08/06/20 01:57 Calcium 7.9 mg/dL (8.4-10.2) L 08/10/20 06:40 Iron 31 ug/dL (37-170) L 08/06/20 01:57 Total Bilirubin 0.70 mg/dL (0.1-1.2) 08/05/20 22:43 Direct Bilirubin 0.4 mg/dL (0-0.2) H 08/05/20 22:43 Indirect Bilirubin 0.3 mg/dL 08/05/20 22:43 AST 52 units/L (5-40) H 08/05/20 22:43 ALT 19 units/L (7-56) 08/05/20 22:43 Alkaline Phosphatase 155 units/L (35-129) H 08/05/20 22:43 Total Creatine Kinase 95 units/L (30-135) 08/06/20 01:57 NT-Pro-B Natriuret Pep 930.2 pg/mL (0-900) H 08/05/20 22:43 Total Protein 6.7 g/dL (6.3-8.2) 08/05/20 22:43 Albumin 2.0 g/dL (3.9-5) L 08/05/20 22:43 Albumin/Globulin Ratio 0.4 % 08/05/20 22:43 Nasal Screen MRSA (PCR) Negative (Negative) 08/06/20 Unknown - Diagnostic Impressions Diagnostic Impressions: Echocardiogram 08/06/20 11:15 Transthoracic Echocardiogram Indication: SOB BP: 125/54 HR: 79 Conclusions *Global left ventricular systolic function is normal. *The estimated ejection fraction is 60-65%. *Mild concentric left ventricular hypertrophy is observed. *There is trace of mitral regurgitation. *There is trace tricuspid regurgitation. Findings Left Ventricle: The left ventricular chamber size is normal. Mild concentric left ventricular hypertrophy is observed. Global left ventricular systolic function is normal. The estimated ejection fraction is 60-65%. Left Atrium: The left atrial chamber size is normal. Right Ventricle: The right ventricular cavity size is normal. The right ventricular global systolic function is normal. Right Atrium: The right atrial cavity size is normal. Aortic Valve: The aortic valve is trileaflet. There is no evidence of aortic regurgitation. There is no evidence of aortic stenosis. Mitral Valve: The mitral valve leaflets appear myxomatous. There is trace of mitral regurgitation. There is no evidence of mitral stenosis. Tricuspid Valve: There is trace tricuspid regurgitation. No pulmonary hypertension is noted. Pericardium: There is no pericardial effusion. Aorta: There is no dilatation of the ascending aorta. There is no dilatation of the aortic root. Venous: The inferior vena cava appears normal in size. Measurements Chambers 2D Name Value Normal Range IVSd (2D) 1 cm (0.6 - 1.1) LVPWd (2D) 0.98 cm (0.6 - 1.1) LVIDd (2D) 4.55 cm (3.7 - 5.6) LVIDs (2D) 2.86 cm (2 - 3.8) LV FS (2D) 37.09 % - EF Teichholz (2D) 67.11 % - Ao root diameter (2D) 2.53 cm (2 - 3.7) Volumes/Mass Name Value Normal Range LA ESV SP 4CH (A/L) 50.86 ml - LA ESV SP 2CH (A/L) 48.51 ml - LA ESV BP (A/L) 49.94 ml - LA ESV BP (A/L) index 28.37 ml/m2 - LA ESV SP 4CH (MOD) 47.75 ml - LA ESV SP 2CH (MOD) 47.19 ml - LA ESV BP (MOD) 47.58 ml - LA ESV BP (MOD) index 27.03 ml/m2 - Diastolic/Systolic Function Name Value Normal Range MV E-wave Vmax 0.92 m/sec - MV deceleration time 212.12 msec - MV A-wave Vmax 0.78 m/sec - MV E:A ratio 1.17 ratio - Aortic Valve Name Value Normal Range AV Vmax 1.95 m/sec - AV VTI 38.63 cm - AV peak gradient 15.22 mmHg - AV mean gradient 8.42 mmHg - LVOT diameter 2.02 cm - LVOT Vmax 1.29 m/sec - LVOT VTI 27.34 cm - LVOT peak gradient 6.61 mmHg - LVOT mean gradient 4.01 mmHg - SV LVOT 87.4 ml - SHARLA (continuity Vmax) 2.11 cm2 - SHARLA (continuity VTI) 2.26 cm2 - Mitral Valve Name Value Normal Range MR Vmax 4.53 m/sec - Tricuspid Valve Name Value Normal Range TR Vmax 2.08 m/sec - TR peak gradient 17 mmHg - RAP 3 mmHg - RVSP 20 mmHg - Pulmonic Valve/Qp:Qs Name Value Normal Range PV Vmax 1.7 m/sec - PV peak gradient 11.59 mmHg - PV acceleration time 98.95 msec - [place]/IV: Voiding Method Incontinent IV Catheter Type [Left Upper INT / Saline Lock arm] IV Catheter Type [Right INT / Saline Lock Antecubital] Active Medications - Current Medications Current Medications: Generic Name Dose Route Start Last Admin Trade Name Freq PRN Reason Stop Dose Admin Acetaminophen 650 mg 08/06/20 00:30 Tylenol PO Q4H PRN Pain MILD(1-3)/Fever >100.5/ABEL Al Hydrox/Mg Hydrox/Simethicone 30 ml 08/06/20 00:30 Alum-Mag Hydrox-Simeth 216-977-35jj/5ml PO Q4H PRN Indigestion Enoxaparin Sodium 40 mg 08/07/20 22:00 08/09/20 22:05 Enoxaparin SUB-Q 40 mg QDAY@2200 BRANT Administration Protocol Famotidine 10 mg 08/06/20 10:00 08/09/20 22:05 Pepcid PO 10 mg BID BRANT Administration Ferrous Sulfate 325 mg 08/06/20 10:00 08/09/20 10:57 Feosol PO 325 mg QDAY BRANT Administration Furosemide 40 mg 08/07/20 18:00 08/10/20 06:12 Lasix IV 40 mg 0600,1800 BRANT Administration Multivitamins 1 each 08/06/20 10:00 08/09/20 10:57 Theragran Tab PO 1 each QDAY BRANT Administration Ondansetron HCl 4 mg 08/06/20 00:30 Zofran IV Q8H PRN Nausea And Vomiting Oxycodone/Acetaminophen 1 tab 08/06/20 00:30 08/10/20 00:27 Percocet 5/325 PO 1 tab Q6H PRN Administration Pain, Moderate (4-6) Sodium Chloride 10 ml 08/06/20 01:00 08/09/20 22:06 Sodium Chloride Flush Syringe 10 Ml IV 10 ml BID BRANT Administration Sodium Chloride 10 ml 08/06/20 00:30 Sodium Chloride Flush Syringe 10 Ml IV PRN PRN LINE FLUSH Nutrition/Malnutrition Assess - Dietary Evaluation Nutrition/Malnutrition Findings: Nutrition Notes Start: 08/06/20 10:21 Freq: Status: Active Protocol: Document 08/08/20 10:22 CECE (Rec: 08/08/20 10:38 CECE [id number]) Co-Sign 08/08/20 10:22 LM Nutrition Notes Initial or Follow up Reassessment Current Diagnosis Acute Kidney Injury, Malnutrition Other Pertinent Diagnosis Ascites, Falls, anemia, contusion of R hip, R shoulder , lower back Current Diet Regular Labs/Tests Reviewed Pertinent Medications Lasix MVI - not given Iron - not given Height 5 ft 4 in Weight 70.307 kg [place] Body Weight (kg) 54.54 BMI 26.6 Weight change and time frame BMI likely obscured by ascites Weight Status Appropriate Subjective/Other Information F/u full assessment and intakes. Pt possibly confused during phone call. She denied eating poorly [employer] and denied being food insecure. RN reported a good appetite. Percent of energy/protein needs met: 100%/100% Burn Absent Trauma Absent GI Symptoms None Current % PO Good (75-100%) Minimum of two criteria No Fluid Accumulation Mild (non-severe) #2 Nutrition Diagnosis Increased nutrient needs ( specify in comment below) Comments: protein Etiology chronic disease As Evidenced by Signs and Symptoms pt has ascites, wounds, and low iron 31. #1 Nutrition Diagnosis Predicted suboptimal energy intake Comments: protein As Evidenced by Signs and Symptoms pt consuming meals Diagnosis Progress(for reassessment Resolved documentation) Is patient on ventilator? No Is Patient Ambulatory and/or Out of Bed Yes REE-([facility]-ambulatory/OOB) [ 1641.991 NUTR.[id number]] Calculation Used for Recommendations [facility] Additional Notes Protein 0.8-1.2g/k-84g Fluid: 1ml/kcal Nutrition Intervention Change Diet Order: Continue regular Add Supplement/Snack (indicate name/kcal Ensure Enlive daily /protein ) Provides kCal: 350 Provides Protein (gm) 20 Goal #1 Meet at least 75% of energy and protein needs Anticipated Discharge Needs: Regular Follow-Up By: 08/10/20 Additional Comments F/u intakes and need for ONS
[2020-08-10] MEDS ORDERED: POTASSIUM CHLORIDE ER 20 MEQ TAB PO NR ×2 (09:00→12:00)
--- NOTE | 2020-08-10 09:02 | Progress Note ---
Assessment and Plan Shortness of breath -improved Normal LVEF 60-65% by echo this presentation. LE Edema -improving Bilateral LE venous doppler - no evidence of DVT abd u/s - liver cirrhosis with portal hypertension and moderate ascites volume. Recurrent fall pt denies syncope Ascites Anemia Acute kidney injury Conservative cardiac management. Subjective Date of service: 08/10/20 Principal diagnosis: SOB Interval history: Patient is resting in bed comfortably. No cardiac complaints. Lower extremity edema is slowly improving. Objective Vital Signs Temp Pulse Resp BP Pulse Ox 08/10/20 04:03 97.7 F 69 16 126/62 97 08/09/20 21:48 98.1 F 70 20 143/68 97 08/09/20 18:00 97.9 F 71 22 136/49 97 08/09/20 13:06 97.9 F 66 22 137/65 98 - Physical Examination General: No Apparent Distress Neck: Positive: neck supple Cardiac: Positive: Reg Rate and Rhythm Lungs: Positive: Decreased Breath Sounds Neuro: Positive: Grossly Intact Extremities: Present: +2 Edema - Labs and Meds Comprehensive Metabolic Panel 08/10/20 Range/Units 06:40 Sodium 144 (137-145) mmol/L Potassium 3.0 L (3.6-5.0) mmol/L Chloride 107.6 H (98-107) mmol/L Carbon Dioxide 28 (22-30) mmol/L BUN 27 H (7-17) mg/dL Creatinine 1.4 H (0.6-1.2) mg/dL Glucose 77 (65-100) mg/dL Calcium 7.9 L (8.4-10.2) mg/dL
[2020-08-10] MEDS: FAMOTIDINE 10 MG TAB PO SCH ×2 (09:16→21:51)
[2020-08-10] MEDS: FERROUS SULFATE 325 MG TAB PO SCH (09:17)
[2020-08-10] MEDS: MULTIVITAMINS ,THERAPEUTIC TAB PO SCH (09:17)
--- NOTE | 2020-08-10 14:19 | Magnetic Resonance Report ---
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 TECHNIQUE: Multisequence, multiplanar images of the lumbar spine were obtained. COMPARISON: None available. FINDINGS: ALIGNMENT: There is no significant scoliosis or spondylolisthesis involving lumbar spine. VERTEBRAE:The motion and susceptibility artifact significantly degrades the image quality despite mul tiple repeat imaging. However, there is notable irregularity of the L3-4 disc space with increase of signal on the T2-weighted imaging. Furthermore, there are erosive changes of the endplates with exten sive edema within the adjacent vertebral bodies at. Findings a correlate with the earlier radiographs of 08/05/2020 and would be most concerning for discitis and osteomyelitis at. There are focal degene rative endplate changes involving visualized lower thoracic levels anteriorly. VISUALIZED SPINAL CORD: The distal spinal cord appears to demonstrate appropriate signal intensity an d terminates at L1-2. [id number] ANALYSIS: L1-2: No significant abnormality. L2-3: No significant abnormality. L3-4: The disc changes and compression deformity of the adjacent endplates, along with the facet join t hypertrophy, result in moderate to marked degree of spinal stenosis. Additionally, the findings ext end to the neural foramen, greater on the right with encroachment on the exiting right L3 nerve root sheath. Milder narrowing is seen on the left. L4-5: There is a slight disc bulge which minimally flattens the thecal sac. There is mild neural fora laura narrowing bilaterally. L5-S1: There is no disc protrusion or central spinal stenosis. The mild facet joint hypertrophy resul t in mild neural foraminal narrowing bilaterally. PARASPINAL SOFT TISSUES: There are notable inflammatory changes involving the paraspinal soft tissues at the L3-L4 level, again I, indicative of discitis and osteomyelitis. ADDITIONAL FINDINGS: None. IMPRESSION: 1. The study is limited by motion. However, the findings are compatible with discitis and osteomyelit is at L3-L4 with notable surrounding inflammatory changes in moderate to marked spinal stenosis as de tailed above. Signer Name: Artie Roblero MD Signed: 08/10/2020 2:14 PM Workstation Name: [id number]
--- NOTE | 2020-08-10 16:01 | Progress Note ---
Assessment and Plan - Patient Problems (1) AIDAN (acute kidney injury) Current Visit: Yes Status: Acute Plan to address problem: most likely secondary to pre-renal azotemia in the setting of diuretic therapy, superimposed on CKD. Abd US showed cortical thinning of b/l kidneys consistent with underlying CKD. check urine lytes, urine P/C ratio. Abd US was consistent with liver cirrhosis with portal hypertension and moderate ascites volume. Cont IV lasix to target net negative fluid balance. Recommend therapeutic paracentesis. avoid nephrotoxins, NSAIDs IV contrast. will monitor lytes/renal parameters make further recommendations. (2) Lower extremity edema Current Visit: Yes Status: Acute Plan to address problem: Fluid overload most likely secondary to underlying liver cirrhosis, cont diuresis with IV lasix. check urine P/C to rule out nephrotic range proteinuria. (3) Severe protein-calorie malnutrition Current Visit: Yes Status: Acute Plan to address problem: dietitian consult (4) Ascites Current Visit: Yes Status: Acute Plan to address problem: secondary to liver cirrhosis (5) Anemia Current Visit: Yes Status: Acute Plan to address problem: check iron store incl TSAT/ferritin (6) Hypokalemia Current Visit: Yes Status: Acute Plan to address problem: K supplementation with K Dur Subjective Date of service: 08/10/20 Principal diagnosis: SOB Interval history: Pt awake, alert, in no acute respiratory distress Objective - Vital Signs Vital signs: Vital Signs - 12hr 08/10/20 04:03 Temperature 97.7 F Pulse Rate 69 Respiratory 16 Rate Blood Pressure 126/62 O2 Sat by Pulse 97 Oximetry - General Appearance General appearance: well-developed, appears stated age, chronically ill EENT: ATNC, PERRL, mucous membranes moist Neck: no JVD Respiratory: Present: Clear to Ascultation Cardiology: regular, S1S2 Gastrointestinal: normoactive bowel sounds Integumentary: other (++ edema b/l LE ) Neurologic: no focal deficit, alert and oriented x3, strength 5/5, CN 3-12 intact Psychiatric: mood/affect appropriate, cooperative - Lab 08/05/20 22:43 08/10/20 06:40 Most recent lab results Calcium 7.9 mg/dL (8.4-10.2) L 08/10/20 06:40 Medications & Allergies - Medications Allergies/Adverse Reactions: Allergies NSAIDS (Non-Steroidal Anti-Inflamma Allergy (Verified 08/05/20 22:09) Unknown Quinolones Allergy (Verified 08/05/20 22:09) Unknown Active Medications: Generic Name Dose Route Start Last Admin Trade Name Freq PRN Reason Stop Dose Admin Acetaminophen 650 mg 08/06/20 00:30 Tylenol PO Q4H PRN Pain MILD(1-3)/Fever >100.5/ABEL Al Hydrox/Mg Hydrox/Simethicone 30 ml 08/06/20 00:30 Alum-Mag Hydrox-Simeth 925-407-83ed/5ml PO Q4H PRN Indigestion Enoxaparin Sodium 40 mg 08/07/20 22:00 08/09/20 22:05 Enoxaparin SUB-Q 40 mg QDAY@2200 BRANT Administration Protocol Famotidine 10 mg 08/06/20 10:00 08/10/20 09:16 Pepcid PO 10 mg BID BRANT Administration Ferrous Sulfate 325 mg 08/06/20 10:00 08/10/20 09:17 Feosol PO 325 mg QDAY BRANT Administration Furosemide 40 mg 08/07/20 18:00 08/10/20 06:12 Lasix IV 40 mg 0600,1800 BRANT Administration Multivitamins 1 each 08/06/20 10:00 08/10/20 09:17 Theragran Tab PO 1 each QDAY BRANT Administration Ondansetron HCl 4 mg 08/06/20 00:30 Zofran IV Q8H PRN Nausea And Vomiting Oxycodone/Acetaminophen 1 tab 08/06/20 00:30 08/10/20 13:39 Percocet 5/325 PO 1 tab Q6H PRN Administration Pain, Moderate (4-6) Sodium Chloride 10 ml 08/06/20 01:00 08/10/20 12:57 Sodium Chloride Flush Syringe 10 Ml IV 10 ml BID BRANT Administration Sodium Chloride 10 ml 08/06/20 00:30 08/10/20 09:17 Sodium Chloride Flush Syringe 10 Ml IV 10 ml PRN PRN Administration LINE FLUSH
--- NOTE | 2020-08-10 18:18 | Progress Note ---
Subjective Date of service: 08/10/20 Principal diagnosis: SOB Interval history: no c/o's noted Objective Vital signs: Vital Signs - 12hr 08/10/20 08/10/20 17:16 17:17 Temperature 99.3 F Pulse Rate 71 Respiratory 16 Rate Blood Pressure 139/55 O2 Sat by Pulse 97 Oximetry Narrative Exam: mri scan lumbar spine reviewed by me and appears to show evidence of old burst fracture, doubt disc space infection recommend conservative mgmt back brace and PT - Labs CBC & BMP: 08/05/20 22:43 08/10/20 06:40 Labs: Abnormal lab results 08/10/20 Range/Units 06:40 Potassium 3.0 L (3.6-5.0) mmol/L Chloride 107.6 H (98-107) mmol/L BUN 27 H (7-17) mg/dL Creatinine 1.4 H (0.6-1.2) mg/dL Calcium 7.9 L (8.4-10.2) mg/dL
[2020-08-10] MEDS: ENOXAPARIN 40 MG/0.4 ML INJ SUB-Q SCH (21:51)
[2020-08-10 22:57] LABS: Creatinine,Urine 25.4 mg/dL (0.1-20.0)
[2020-08-11] MEDS: oxyCODONE /ACETAMINOPHEN 5-325MG TAB PO PRN ×3 (05:17→17:52)
[2020-08-11] MEDS: FUROSEMIDE 40 MG/4 ML INJ IV SCH ×2 (05:17→17:53)
[2020-08-11] MEDS: FERROUS SULFATE 325 MG TAB PO SCH (09:57)
[2020-08-11] MEDS: FAMOTIDINE 10 MG TAB PO SCH ×2 (09:57→21:38)
[2020-08-11] MEDS: MULTIVITAMINS ,THERAPEUTIC TAB PO SCH (09:57)
--- NOTE | 2020-08-11 09:58 | Progress Note ---
Assessment and Plan 1. Generalized anasarca 2. Liver cirrhosis with portal hypertension 3. Chronic kidney disease 4. Hypocalcemia with hypoalbuminemia and hypokalemia Echocardiogram reveals normal left ventricular size and function with a left ventricular ejection fraction of 60 to 65% Plan. 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 Subjective Date of service: 08/11/20 Principal diagnosis: SOB Interval history: No cardiac symptoms Objective Vital Signs Temp Pulse Resp BP Pulse Ox 08/11/20 04:32 98.1 F 69 16 147/68 97 08/10/20 21:27 99.1 F 71 16 138/61 97 08/10/20 17:17 99.3 F 08/10/20 17:16 71 16 139/55 97 - Physical Examination General: No Apparent Distress HEENT: Positive: PERRL, Normocephaly Neck: Positive: neck supple, JVD/HJR Cardiac: Positive: Regular Rate, S1/S2, PMI, Laterally Displaced Lungs: Positive: Decreased Breath Sounds, No Wheeze, Rales, Rhonchi Neuro: Positive: Grossly Intact Abdomen: Positive: Soft, Ascites Skin: Positive: Clear Extremities: Present: +2 Edema
--- NOTE | 2020-08-11 09:58 | Progress Note ---
Assessment and Plan Assessment and plan: -History of fall; Fall precautions, supportive care --Subacute compression deformities at L4 and L3, but no acute fracture Patient had a fall and fracture L3 L5 in April 2020 Supportive care, pain management, PT OT Dr. Peters/Ortho evaluated. recommended MRI L S-spine. --Acute kidney injury; Vasomotor nephropathy Also secondary to diuresis Closely monitor renal function.Nephrology consulted, Renal ultrasound medical renal disease; Avoid nephrotoxins --Cirrhosis with portal hypertension/moderate ascites; Patient will follow GI as outpatient Supportive care --Chronic back pain; Continue current pain management and supportive care Physical therapy occupational therapy --General debility/generalized weakness Nutrition supplements. PT OT Possible home with home health versus placement --Severe protein calorie malnutrition; Nutrition supplements, dietitian consult And supportive care --Anemia; hemoglobin 8 Probably iron deficiency anemia Acute versus chronic No previous labs to compare Closely monitor transfuse as needed --Lower extremity edema; Due to cirrhosis liver , ascites check echocardiogram for LV EF 60-65% Continue diuretics, input output monitoring Cardiology following --Full CODE STATUS --DVT prophylaxis; Lovenox --Hypokalemia. Disposition; Possible discharge to subacute rehab when medically stable. PT recommend subacute rehab. 08/10/2020 Follow MRI report, adjust the management as needed Orthopedics is also awaiting for MRI of the spine Home with home health versus subacute rehab. We will discuss with case management Replete potassium. 08/11/2020. MRI scan reviewed by orthopedics who reports evidence of old burst fracture, doubt disc space infection. Orthopedics recommends conservative management with back brace and physical therapy. Await placement to subacute rehab per physical therapy recommendations. Will discuss with case management. History Interval history: No new issues overnight. Hospitalist Physical - Constitutional Vitals: Temp Pulse Resp BP Pulse Ox 98.1 F 69 16 147/68 97 08/11/20 04:32 08/11/20 04:32 08/11/20 04:32 08/11/20 04:32 08/11/20 04:32 General appearance: Present: no acute distress, well-nourished - EENT Eyes: Present: PERRL, EOM intact ENT: hearing intact, clear oral mucosa, dentition normal - Neck Neck: Present: supple, normal ROM - Respiratory Respiratory effort: normal Respiratory: bilateral: CTA - Cardiovascular Rhythm: regular Heart Sounds: Present: S1 & S2. Absent: gallop, rub - Extremities Extremities: no ischemia, No edema, Full ROM - Abdominal General gastrointestinal: soft, non-tender, non-distended, normal bowel sounds - Integumentary Integumentary: Present: clear, warm, dry - Neurologic Neurologic: CNII-XII intact, moves all extremities Results - Labs CBC & Chem 7: 08/05/20 22:43 08/10/20 06:40 Labs: Laboratory Last Values WBC 5.1 K/mm3 (4.5-11.0) 08/05/20 22:43 RBC 2.71 M/mm3 (3.65-5.03) L 08/05/20 22:43 Hgb 8.5 gm/dl (10.1-14.3) L 08/05/20:43 Hct 25.9 % (30.3-42.9) L 08/05/20 22:43 MCV 96 fl (79-97) 08/05/20 22:43 MCH 31 pg (28-32) 08/05/20:43 MCHC 33 % (30-34) 08/05/20 22:43 RDW 17.0 % (13.2-15.2) H 08/05/20 22:43 Plt Count 139 K/mm3 (140-440) L 08/05/20:43 Lymph % (Auto) 11.6 % (13.4-35.0) L 08/05/20 22:43 Delta % (Auto) 9.4 % (0.0-7.3) H 08/05/20:43 Eos % (Auto) 3.3 % (0.0-4.3) 08/05/20 22:43 Baso % (Auto) 2.8 % (0.0-1.8) H 08/05/20:43 Lymph # (Auto) 0.6 K/mm3 (1.2-5.4) L 08/05/20:43 Delta # (Auto) 0.5 K/mm3 (0.0-0.8) 08/05/20 22:43 Eos # (Auto) 0.2 K/mm3 (0.0-0.4) 08/05/20:43 Baso # (Auto) 0.1 K/mm3 (0.0-0.1) 08/05/20 22:43 Seg Neutrophils % 72.9 % (40.0-70.0) H 08/05/20 22:43 Seg Neutrophils # 3.7 K/mm3 (1.8-7.7) 08/05/20 22:43 Sodium 144 mmol/L (137-145) 08/10/20 06:40 Potassium 3.0 mmol/L (3.6-5.0) L 08/10/20 06:40 Chloride 107.6 mmol/L (98-107) H 08/10/20 06:40 Carbon Dioxide 28 mmol/L (22-30) 08/10/20 06:40 Anion Gap 11 mmol/L 08/10/20 06:40 BUN 27 mg/dL (7-17) H 08/10/20 06:40 Creatinine 1.4 mg/dL (0.6-1.2) H 08/10/20 06:40 Estimated GFR 38 ml/min 08/10/20 06:40 BUN/Creatinine Ratio 19 % 08/10/20 06:40 Glucose 77 mg/dL (65-100) 08/10/20 06:40 Osmolality 304 Mosm/kg 08/06/20 01:57 Calcium 7.9 mg/dL (8.4-10.2) L 08/10/20 06:40 Iron 31 ug/dL (37-170) L 08/06/20 01:57 Total Bilirubin 0.70 mg/dL (0.1-1.2) 08/05/20 22:43 Direct Bilirubin 0.4 mg/dL (0-0.2) H 08/05/20 22:43 Indirect Bilirubin 0.3 mg/dL 08/05/20 22:43 AST 52 units/L (5-40) H 08/05/20 22:43 ALT 19 units/L (7-56) 08/05/20 22:43 Alkaline Phosphatase 155 units/L (35-129) H 08/05/20 22:43 Total Creatine Kinase 95 units/L (30-135) 08/06/20 01:57 NT-Pro-B Natriuret Pep 930.2 pg/mL (0-900) H 08/05/20 22:43 Total Protein 6.7 g/dL (6.3-8.2) 08/05/20 22:43 Albumin 2.0 g/dL (3.9-5) L 08/05/20 22:43 Albumin/Globulin Ratio 0.4 % 08/05/20 22:43 Urine Creatinine 25.4 mg/dL (0.1-20.0) H 08/10/20 22:15 Urine Sodium 141 mmol/L 08/10/20 22:15 Urine Total Protein 33 mg/dL (5-11.8) H 08/10/20 22:15 Nasal Screen MRSA (PCR) Negative (Negative) 08/06/20 Unknown - Diagnostic Impressions Diagnostic Impressions: Echocardiogram 08/06/20 11:15 Transthoracic Echocardiogram Indication: SOB BP: 125/54 HR: 79 Conclusions *Global left ventricular systolic function is normal. *The estimated ejection fraction is 60-65%. *Mild concentric left ventricular hypertrophy is observed. *There is trace of mitral regurgitation. *There is trace tricuspid regurgitation. Findings Left Ventricle: The left ventricular chamber size is normal. Mild concentric left ventricular hypertrophy is observed. Global left ventricular systolic function is normal. The estimated ejection fraction is 60-65%. Left Atrium: The left atrial chamber size is normal. Right Ventricle: The right ventricular cavity size is normal. The right ventricular global systolic function is normal. Right Atrium: The right atrial cavity size is normal. Aortic Valve: The aortic valve is trileaflet. There is no evidence of aortic regurgitation. There is no evidence of aortic stenosis. Mitral Valve: The mitral valve leaflets appear myxomatous. There is trace of mitral regurgitation. There is no evidence of mitral stenosis. Tricuspid Valve: There is trace tricuspid regurgitation. No pulmonary hypertension is noted. Pericardium: There is no pericardial effusion. Aorta: There is no dilatation of the ascending aorta. There is no dilatation of the aortic root. Venous: The inferior vena cava appears normal in size. Measurements Chambers 2D Name Value Normal Range IVSd (2D) 1 cm (0.6 - 1.1) LVPWd (2D) 0.98 cm (0.6 - 1.1) LVIDd (2D) 4.55 cm (3.7 - 5.6) LVIDs (2D) 2.86 cm (2 - 3.8) LV FS (2D) 37.09 % - EF Teichholz (2D) 67.11 % - Ao root diameter (2D) 2.53 cm (2 - 3.7) Volumes/Mass Name Value Normal Range LA ESV SP 4CH (A/L) 50.86 ml - LA ESV SP 2CH (A/L) 48.51 ml - LA ESV BP (A/L) 49.94 ml - LA ESV BP (A/L) index 28.37 ml/m2 - LA ESV SP 4CH (MOD) 47.75 ml - LA ESV SP 2CH (MOD) 47.19 ml - LA ESV BP (MOD) 47.58 ml - LA ESV BP (MOD) index 27.03 ml/m2 - Diastolic/Systolic Function Name Value Normal Range MV E-wave Vmax 0.92 m/sec - MV deceleration time 212.12 msec - MV A-wave Vmax 0.78 m/sec - MV E:A ratio 1.17 ratio - Aortic Valve Name Value Normal Range AV Vmax 1.95 m/sec - AV VTI 38.63 cm - AV peak gradient 15.22 mmHg - AV mean gradient 8.42 mmHg - LVOT diameter 2.02 cm - LVOT Vmax 1.29 m/sec - LVOT VTI 27.34 cm - LVOT peak gradient 6.61 mmHg - LVOT mean gradient 4.01 mmHg - SV LVOT 87.4 ml - SHARLA (continuity Vmax) 2.11 cm2 - SHARLA (continuity VTI) 2.26 cm2 - Mitral Valve Name Value Normal Range MR Vmax 4.53 m/sec - Tricuspid Valve Name Value Normal Range TR Vmax 2.08 m/sec - TR peak gradient 17 mmHg - RAP 3 mmHg - RVSP 20 mmHg - Pulmonic Valve/Qp:Qs Name Value Normal Range PV Vmax 1.7 m/sec - PV peak gradient 11.59 mmHg - PV acceleration time 98.95 msec - [place]/IV: Voiding Method External Female Catheter IV Catheter Type [Left Upper INT / Saline Lock arm] IV Catheter Type [Right INT / Saline Lock Antecubital] Active Medications - Current Medications Current Medications: Generic Name Dose Route Start Last Admin Trade Name Freq PRN Reason Stop Dose Admin Acetaminophen 650 mg 08/06/20 00:30 Tylenol PO Q4H PRN Pain MILD(1-3)/Fever >100.5/ABEL Al Hydrox/Mg Hydrox/Simethicone 30 ml 08/06/20 00:30 Alum-Mag Hydrox-Simeth [id number]/5ml PO Q4H PRN Indigestion Enoxaparin Sodium 40 mg 08/07/20 22:00 08/10/20 21:51 Enoxaparin SUB-Q 40 mg QDAY@2200 BRANT Administration Protocol Famotidine 10 mg 08/06/20 10:00 08/10/20 21:51 Pepcid PO 10 mg BID BRANT Administration Ferrous Sulfate 325 mg 08/06/20 10:00 08/10/20 09:17 Feosol PO 325 mg QDAY BRANT Administration Furosemide 40 mg 08/07/20 18:00 08/11/20 05:17 Lasix IV 40 mg 0600,1800 BRANT Administration Multivitamins 1 each 08/06/20 10:00 08/10/20 09:17 Theragran Tab PO 1 each QDAY BRANT Administration Ondansetron HCl 4 mg 08/06/20 00:30 Zofran IV Q8H PRN Nausea And Vomiting Oxycodone/Acetaminophen 1 tab 08/06/20 00:30 08/11/20 05:17 Percocet 5/325 PO 1 tab Q6H PRN Administration Pain, Moderate (4-6) Sodium Chloride 10 ml 08/06/20 01:00 08/10/20 21:49 Sodium Chloride Flush Syringe 10 Ml IV 10 ml BID BRANT Administration Sodium Chloride 10 ml 08/06/20 00:30 08/10/20 09:17 Sodium Chloride Flush Syringe 10 Ml IV 10 ml PRN PRN Administration LINE FLUSH Nutrition/Malnutrition Assess - Dietary Evaluation Nutrition/Malnutrition Findings: Nutrition Notes Start: 08/06/20 1 0:21 Freq: Status: Active Protocol: Document 08/10/20 13:44 AL (Rec: 08/10/20 13:57 AL [email or web address]) Co-Sign 08/10/20 13:44 LP Nutrition Notes Initial or Follow up Reassessment Current Diagnosis Acute Kidney Injury Other Pertinent Diagnosis Ascites, Falls, anemia, contusion of R hip, R shoulder , lower back Current Diet Regular Labs/Tests K 3.0 Pertinent Medications Lasix 40 mg Height 5 ft 4 in Weight 70.307 kg [place] Body Weight (kg) 54.54 BMI 26.6 Subjective/Other Information F/U for intakes. Pt reports eating 50% of meals. RD noticed 2 unopened Vanilla Ensure Enlives on tray. Pt reports not liking the flavor and is willing to try new flavor Percent of energy/protein needs met: 71%/77% Burn Absent Trauma Absent GI Symptoms None Current % PO Fair (50-74%) Minimum of two criteria No Fluid Accumulation Mild (non-severe) #3 Nutrition Diagnosis Inadequate energy intake Etiology Anemia As Evidenced by Signs and Symptoms pt meeting 71% of energy needs #2 Nutrition Diagnosis Increased nutrient needs ( specify in comment below) Diagnosis Progress(for reassessment Continues documentation) #1 Nutrition Diagnosis Inadequate energy intake As Evidenced by Signs and Symptoms pt reports eating only 50% of meals Is patient on ventilator? No Is Patient Ambulatory and/or Out of Bed Yes [facility] [ 1641.991 [id number]] Calculation Used for Recommendations [facility] or Additional Notes Protein 0.8-1.2g/k-84g Fluid: 1ml/kcal Nutrition Intervention Change Diet Order: Continue regular Add Supplement/Snack (indicate name/kcal Vanilla Ensure Enlive daily /protein ) Provides kCal: 425 Provides Protein (gm) 19 Goal #1 Meet at least 75% of total energy and protein needs via diet and ONS Anticipated Discharge Needs: Regular Follow-Up By: 08/14/20 Additional Comments F/u intakes and ONS tolerance
--- NOTE | 2020-08-11 14:00 | Progress Note ---
Assessment and Plan - Patient Problems (1) AIDAN (acute kidney injury) Current Visit: Yes Status: Acute Plan to address problem: most likely secondary to pre-renal azotemia in the setting of diuretic therapy, superimposed on CKD. Abd US showed cortical thinning of b/l kidneys consistent with underlying CKD. urine P/C ratio > 1g/g. Abd US was consistent with liver cirrhosis with portal hypertension and moderate ascites volume. Cont IV lasix to target net negative fluid balance. Recommend therapeutic paracentesis. avoid nephrotoxins, NSAIDs IV contrast. will monitor lytes/renal parameters make further recommendations. (2) Lower extremity edema Current Visit: Yes Status: Acute Plan to address problem: Fluid overload most likely secondary to underlying liver cirrhosis, cont diuresis with IV lasix. check urine P/C to rule out nephrotic range proteinuria. (3) Severe protein-calorie malnutrition Current Visit: Yes Status: Acute Plan to address problem: dietitian consult (4) Ascites Current Visit: Yes Status: Acute Plan to address problem: secondary to liver cirrhosis (5) Anemia Current Visit: Yes Status: Acute Plan to address problem: check iron store incl TSAT/ferritin (6) Hypokalemia Current Visit: Yes Status: Acute Plan to address problem: K supplementation with K Dur Subjective Date of service: 08/11/20 Principal diagnosis: SOB Interval history: Pt awake, alert, in no acute respiratory distress Objective - Vital Signs Vital signs: Vital Signs - 12hr 08/11/20 08/11/20 04:32 11:22 Temperature 98.1 F 98.3 F Pulse Rate 69 67 Respiratory 16 22 Rate Blood Pressure 147/68 143/54 O2 Sat by Pulse 97 98 Oximetry - General Appearance General appearance: well-developed, appears stated age, chronically ill EENT: ATNC, PERRL, mucous membranes moist Neck: no JVD Respiratory: Present: Clear to Ascultation Cardiology: regular, S1S2 Gastrointestinal: normoactive bowel sounds Integumentary: no rash, other (+ edema b/l LE ) Neurologic: no focal deficit, alert and oriented x3, strength 5/5, CN 3-12 intact Psychiatric: mood/affect appropriate, cooperative - Lab 08/05/20 22:43 08/10/20 06:40 Most recent lab results Calcium 7.9 mg/dL (8.4-10.2) L 08/10/20 06:40 Urine Creatinine 25.4 mg/dL (0.1-20.0) H 08/10/20 22:15 Urine Sodium 141 mmol/L 08/10/20 22:15 Urine Total Protein 33 mg/dL (5-11.8) H 08/10/20 22:15 Medications & Allergies - Medications Allergies/Adverse Reactions: Allergies NSAIDS (Non-Steroidal Anti-Inflamma Allergy (Verified 08/05/20 22:09) Unknown Quinolones Allergy (Verified 08/05/20 22:09) Unknown Active Medications: Generic Name Dose Route Start Last Admin Trade Name Freq PRN Reason Stop Dose Admin Acetaminophen 650 mg 08/06/20 00:30 Tylenol PO Q4H PRN Pain MILD(1-3)/Fever >100.5/ABEL Al Hydrox/Mg Hydrox/Simethicone 30 ml 08/06/20 00:30 Alum-Mag Hydrox-Simeth [id number]/5ml PO Q4H PRN Indigestion Enoxaparin Sodium 40 mg 08/07/20 22:00 08/10/20 21:51 Enoxaparin SUB-Q 40 mg QDAY@2200 BRANT Administration Protocol Famotidine 10 mg 08/06/20 10:00 08/11/20 09:57 Pepcid PO 10 mg BID BRANT Administration Ferrous Sulfate 325 mg 08/06/20 10:00 08/11/20 09:57 Feosol PO 325 mg QDAY BRANT Administration Furosemide 40 mg 08/07/20 18:00 08/11/20 05:17 Lasix IV 40 mg 0600,1800 BRANT Administration Multivitamins 1 each 08/06/20 10:00 08/11/20 09:57 Theragran Tab PO 1 each QDAY BRANT Administration Ondansetron HCl 4 mg 08/06/20 00:30 Zofran IV Q8H PRN Nausea And Vomiting Oxycodone/Acetaminophen 1 tab 08/06/20 00:30 08/11/20 11:24 Percocet 5/325 PO 1 tab Q6H PRN Administration Pain, Moderate (4-6) Sodium Chloride 10 ml 08/06/20 01:00 08/11/20 09:57 Sodium Chloride Flush Syringe 10 Ml IV 10 ml BID BRANT Administration Sodium Chloride 10 ml 08/06/20 00:30 08/10/20 09:17 Sodium Chloride Flush Syringe 10 Ml IV 10 ml PRN PRN Administration LINE FLUSH
[2020-08-11] MEDS: ENOXAPARIN 40 MG/0.4 ML INJ SUB-Q SCH (21:39)
[2020-08-12] MEDS: oxyCODONE /ACETAMINOPHEN 5-325MG TAB PO PRN ×4 (00:17→21:07)
[2020-08-12] MEDS: FUROSEMIDE 40 MG/4 ML INJ IV SCH ×2 (05:05→17:46)
--- NOTE | 2020-08-12 08:26 | Progress Note ---
Assessment and Plan Assessment and plan: -History of fall; Fall precautions, supportive care --Subacute compression deformities at L4 and L3, but no acute fracture Patient had a fall and fracture L3 L5 in April 2020 Supportive care, pain management, PT OT Dr. Peters/Ortho evaluated. recommended MRI L S-spine. --Acute kidney injury; Vasomotor nephropathy Also secondary to diuresis Closely monitor renal function.Nephrology consulted, Renal ultrasound medical renal disease; Avoid nephrotoxins --Cirrhosis with portal hypertension/moderate ascites; Patient will follow GI as outpatient Supportive care --Chronic back pain; Continue current pain management and supportive care Physical therapy occupational therapy --General debility/generalized weakness Nutrition supplements. PT OT Possible home with home health versus placement --Severe protein calorie malnutrition; Nutrition supplements, dietitian consult And supportive care --Anemia; hemoglobin 8 Probably iron deficiency anemia Acute versus chronic No previous labs to compare Closely monitor transfuse as needed --Lower extremity edema; Due to cirrhosis liver , ascites check echocardiogram for LV EF 60-65% Continue diuretics, input output monitoring Cardiology following --Full CODE STATUS --DVT prophylaxis; Lovenox --Hypokalemia. Disposition; Possible discharge to subacute rehab when medically stable. PT recommend subacute rehab. 08/10/2020 Follow MRI report, adjust the management as needed Orthopedics is also awaiting for MRI of the spine Home with home health versus subacute rehab. We will discuss with case management Replete potassium. 08/11/2020. MRI scan reviewed by orthopedics who reports evidence of old burst fracture, doubt disc space infection. Orthopedics recommends conservative management with back brace and physical therapy. Await placement to subacute rehab per physical therapy recommendations. Will discuss with case management. 08/12/2020. Await placement to subacute rehab per physical therapy recom mendations. History Interval history: No new issues overnight. Hospitalist Physical - Constitutional Vitals: Temp Pulse Resp BP Pulse Ox 98.3 F 63 18 136/68 97 08/12/20 05:08 08/12/20 05:08 08/12/20 05:08 08/12/20 05:08 08/12/20 05:08 General appearance: Present: no acute distress, well-nourished - EENT Eyes: Present: PERRL, EOM intact ENT: hearing intact, clear oral mucosa, dentition normal - Neck Neck: Present: supple, normal ROM - Respiratory Respiratory effort: normal Respiratory: bilateral: CTA - Cardiovascular Rhythm: regular Heart Sounds: Present: S1 & S2. Absent: gallop, rub - Extremities Extremities: no ischemia, No edema, Full ROM - Abdominal General gastrointestinal: soft, non-tender, non-distended, normal bowel sounds - Integumentary Integumentary: Present: clear, warm, dry - Neurologic Neurologic: CNII-XII intact, moves all extremities Results - Labs CBC & Chem 7: 08/05/20 22:43 08/10/20 06:40 Labs: Laboratory Last Values WBC 5.1 K/mm3 (4.5-11.0) 08/05/20 22: RBC 2.71 M/mm3 (3.65-5.03) L 08/05/20 22:43 Hgb 8.5 gm/dl (10.1-14.3) L 08/05/20 22:43 Hct 25.9 % (30.3-42.9) L 08/05/20:43 MCV 96 fl (79-97) 08/05/20 22:43 MCH 31 pg (28-32) 08/05/20:43 MCHC 33 % (30-34) 08/05/20:43 RDW 17.0 % (13.2-15.2) H 08/05/20 22:43 Plt Count 139 K/mm3 (140-440) L 08/05/20 22:43 Lymph % (Auto) 11.6 % (13.4-35.0) L 08/05/20:43 [place] % (Auto) 9.4 % (0.0-7.3) H 08/05/20 22:43 Eos % (Auto) 3.3 % (0.0-4.3) 08/05/20 22:43 Baso % (Auto) 2.8 % (0.0-1.8) H 08/05/20:43 Lymph # (Auto) 0.6 K/mm3 (1.2-5.4) L 08/05/20 22:43 [place] # (Auto) 0.5 K/mm3 (0.0-0.8) 08/05/20 22:43 Eos # (Auto) 0.2 K/mm3 (0.0-0.4) 10/25/20 22:43 Baso # (Auto) 0.1 K/mm3 (0.0-0.1) 08/05/20 22:43 Seg Neutrophils % 72.9 % (40.0-70.0) H 08/05/20 22:43 Seg Neutrophils # 3.7 K/mm3 (1.8-7.7) 08/05/20 22:43 Sodium 144 mmol/L (137-145) 08/10/20 06:40 Potassium 3.0 mmol/L (3.6-5.0) L 08/10/20 06:40 Chloride 107.6 mmol/L (98-107) H 08/10/20 06:40 Carbon Dioxide 28 mmol/L (22-30) 08/10/20 06:40 Anion Gap 11 mmol/L 08/10/20 06:40 BUN 27 mg/dL (7-17) H 08/10/20 06:40 Creatinine 1.4 mg/dL (0.6-1.2) H 08/10/20 06:40 Estimated GFR 38 ml/min 08/10/20 06:40 BUN/Creatinine Ratio 19 % 08/10/20 06:40 Glucose 77 mg/dL (65-100) 08/10/20 06:40 Osmolality 304 Mosm/kg 08/06/20 01:57 Calcium 7.9 mg/dL (8.4-10.2) L 08/10/20 06:40 Iron 31 ug/dL (37-170) L 08/06/20 01:57 Total Bilirubin 0.70 mg/dL (0.1-1.2) 08/05/20 22:43 Direct Bilirubin 0.4 mg/dL (0-0.2) H 08/05/20 22:43 Indirect Bilirubin 0.3 mg/dL 08/05/20 22:43 AST 52 units/L (5-40) H 08/05/20 22:43 ALT 19 units/L (7-56) 08/05/20 22:43 Alkaline Phosphatase 155 units/L (35-129) H 08/05/20 22:43 Total Creatine Kinase 95 units/L (30-135) 08/06/20 01:57 NT-Pro-B Natriuret Pep 930.2 pg/mL (0-900) H 08/05/20 22:43 Total Protein 6.7 g/dL (6.3-8.2) 08/05/20 22:43 Albumin 2.0 g/dL (3.9-5) L 08/05/20 22:43 Albumin/Globulin Ratio 0.4 % 08/05/20 22:43 Urine Creatinine 25.4 mg/dL (0.1-20.0) H 08/10/20 22:15 Urine Sodium 141 mmol/L 08/10/20 22:15 Urine Total Protein 33 mg/dL (5-11.8) H 08/10/20 22:15 Nasal Screen MRSA (PCR) Negative (Negative) 08/06/20 Unknown - Diagnostic Impressions Diagnostic Impressions: Echocardiogram 08/06/20 11:15 Transthoracic Echocardiogram Indication: SOB BP: 125/54 HR: 79 Conclusions *Global left ventricular systolic function is normal. *The estimated ejection fraction is 60-65%. *Mild concentric left ventricular hypertrophy is observed. *There is trace of mitral regurgitation. *There is trace tricuspid regurgitation. Findings Left Ventricle: The left ventricular chamber size is normal. Mild concentric left ventricular hypertrophy is observed. Global left ventricular systolic function is normal. The estimated ejection fraction is 60-65%. Left Atrium: The left atrial chamber size is normal. Right Ventricle: The right ventricular cavity size is normal. The right ventricular global systolic function is normal. Right Atrium: The right atrial cavity size is normal. Aortic Valve: The aortic valve is trileaflet. There is no evidence of aortic regurgitation. There is no evidence of aortic stenosis. Mitral Valve: The mitral valve leaflets appear myxomatous. There is trace of mitral regurgitation. There is no evidence of mitral stenosis. Tricuspid Valve: There is trace tricuspid regurgitation. No pulmonary hypertension is noted. Pericardium: There is no pericardial effusion. Aorta: There is no dilatation of the ascending aorta. There is no dilatation of the aortic root. Venous: The inferior vena cava appears normal in size. Measurements Chambers 2D Name Value Normal Range IVSd (2D) 1 cm (0.6 - 1.1) LVPWd (2D) 0.98 cm (0.6 - 1.1) LVIDd (2D) 4.55 cm (3.7 - 5.6) LVIDs (2D) 2.86 cm (2 - 3.8) LV FS (2D) 37.09 % - EF Teichholz (2D) 67.11 % - Ao root diameter (2D) 2.53 cm (2 - 3.7) Volumes/Mass Name Value Normal Range LA ESV SP 4CH (A/L) 50.86 ml - LA ESV SP 2CH (A/L) 48.51 ml - LA ESV BP (A/L) 49.94 ml - LA ESV BP (A/L) index 28.37 ml/m2 - LA ESV SP 4CH (MOD) 47.75 ml - LA ESV SP 2CH (MOD) 47.19 ml - LA ESV BP (MOD) 47.58 ml - LA ESV BP (MOD) index 27.03 ml/m2 - Diastolic/Systolic Function Name Value Normal Range MV E-wave Vmax 0.92 m/sec - MV deceleration time 212.12 msec - MV A-wave Vmax 0.78 m/sec - MV E:A ratio 1.17 ratio - Aortic Valve Name Value Normal Range AV Vmax 1.95 m/sec - AV VTI 38.63 cm - AV peak gradient 15.22 mmHg - AV mean gradient 8.42 mmHg - LVOT diameter 2.02 cm - LVOT Vmax 1.29 m/sec - LVOT VTI 27.34 cm - LVOT peak gradient 6.61 mmHg - LVOT mean gradient 4.01 mmHg - SV LVOT 87.4 ml - SHARLA (continuity Vmax) 2.11 cm2 - SHARLA (continuity VTI) 2.26 cm2 - Mitral Valve Name Value Normal Range MR Vmax 4.53 m/sec - Tricuspid Valve Name Value Normal Range TR Vmax 2.08 m/sec - TR peak gradient 17 mmHg - RAP 3 mmHg - RVSP 20 mmHg - Pulmonic Valve/Qp:Qs Name Value Normal Range PV Vmax 1.7 m/sec - PV peak gradient 11.59 mmHg - PV acceleration time 98.95 msec - [place]/IV: Voiding Method Toilet IV Catheter Type [Left Upper INT / Saline Lock arm] IV Catheter Type [Right INT / Saline Lock Antecubital] Active Medications - Current Medications Current Medications: Generic Name Dose Route Start Last Admin Trade Name Freq PRN Reason Stop Dose Admin Acetaminophen 650 mg 08/06/20 00:30 Tylenol PO Q4H PRN Pain MILD(1-3)/Fever >100.5/ABEL Al Hydrox/Mg Hydrox/Simethicone 30 ml 08/06/20 00:30 Alum-Mag Hydrox-Simeth 537-623-54nd/5ml PO Q4H PRN Indigestion Enoxaparin Sodium 40 mg 08/07/20 22:00 08/11/20 21:39 Enoxaparin SUB-Q 40 mg QDAY@2200 BRANT Administration Protocol Famotidine 10 mg 08/06/20 10:00 08/11/20 21:38 Pepcid PO 10 mg BID BRANT Administration Ferrous Sulfate 325 mg 08/06/20 10:00 08/11/20 09:57 Feosol PO 325 mg QDAY BRANT Administration Furosemide 40 mg 08/07/20 18:00 08/12/20 05:05 Lasix IV 40 mg 0600,1800 BRANT Administration Multivitamins 1 each 08/06/20 10:00 08/11/20 09:57 Theragran Tab PO 1 each QDAY BRANT Administration Ondansetron HCl 4 mg 08/06/20 00:30 Zofran IV Q8H PRN Nausea And Vomiting Oxycodone/Acetaminophen 1 tab 08/06/20 00:30 08/12/20 00:17 Percocet 5/325 PO 1 tab Q6H PRN Administration Pain, Moderate (4-6) Sodium Chloride 10 ml 08/06/20 01:00 08/11/20 21:39 Sodium Chloride Flush Syringe 10 Ml IV 10 ml BID BRANT Administration Sodium Chloride 10 ml 08/06/20 00:30 08/10/20 09:17 Sodium Chloride Flush Syringe 10 Ml IV 10 ml PRN PRN Administration LINE FLUSH Nutrition/Malnutrition Assess - Dietary Evaluation Nutrition/Malnutrition Findings: Nutrition Notes Start: 08/06/20 10:21 Freq: Status: Active Protocol: Document 08/10/20 13:44 AL (Rec: 08/10/20 13:57 AL [email or web address]) Co-Sign 08/10/20 13:44 LP Nutrition Notes Initial or Follow up Reassessment Current Diagnosis Acute Kidney Injury Other Pertinent Diagnosis Ascites, Falls, anemia, contusion of R hip, R shoulder , lower back Current Diet Regular Labs/Tests K 3.0 Pertinent Medications Lasix 40 mg Height 5 ft 4 in Weight 70.307 kg Gaines Body Weight (kg) 54.54 BMI 26.6 Subjective/Other Information F/U for intakes. Pt reports eating 50% of meals. RD noticed 2 unopened Vanilla Ensure Enlives on tray. Pt reports not liking the flavor and is willing to try new flavor Percent of energy/protein needs met: 71%/77% Burn Absent Trauma Absent GI Symptoms None Current % PO Fair (50-74%) Minimum of two criteria No Fluid Accumulation Mild (non-severe) #3 Nutrition Diagnosis Inadequate energy intake Etiology Anemia As Evidenced by Signs and Symptoms pt meeting 71% of energy needs #2 Nutrition Diagnosis Increased nutrient needs ( specify in comment below) Diagnosis Progress(for reassessment Continues documentation) #1 Nutrition Diagnosis Inadequate energy intake As Evidenced by Signs and Symptoms pt reports eating only 50% of meals Is patient on ventilator? No Is Patient Ambulatory and/or Out of Bed Yes REE-([facility]-ambulatory/OOB) [ 1641.991 [id number]] Calculation Used for Recommendations [facility] Additional Notes Protein 0.8-1.2g/k-84g Fluid: 1ml/kcal Nutrition Intervention Change Diet Order: Continue regular Add Supplement/Snack (indicate name/kcal Vanilla Ensure Enlive daily /protein ) Provides kCal: 425 Provides Protein (gm) 19 Goal #1 Meet at least 75% of total energy and protein needs via diet and ONS Anticipated Discharge Needs: Regular Follow-Up By: 08/14/20 Additional Comments F/u intakes and ONS tolerance
[2020-08-12 08:56] LABS: Calcium 7.9 mg/dL (8.4-10.2)
[2020-08-12] MEDS: FAMOTIDINE 10 MG TAB PO SCH ×2 (09:15→21:07)
[2020-08-12] MEDS: FERROUS SULFATE 325 MG TAB PO SCH (09:15)
[2020-08-12] MEDS: MULTIVITAMINS ,THERAPEUTIC TAB PO SCH (09:15)
--- NOTE | 2020-08-12 09:30 | Progress Note ---
Assessment and Plan 1. Generalized anasarca 2. Liver cirrhosis with portal hypertension 3. Chronic kidney disease 4. Hypocalcemia with hypoalbuminemia and hypokalemia Echocardiogram reveals normal left ventricular size and function with a left ventricular ejection fraction of 60 to 65% Plan. Cardiac rey stable. Management of liver cirrhosis which is the etiology of anasarca and ascites will be left to the pharmacist manager. Subjective Date of service: 08/12/20 Principal diagnosis: SOB Interval history: No cardiac symptoms Objective Vital Signs Temp Pulse Pulse Resp BP Pulse Ox 08/12/20 05:08 98.3 F 63 18 136/68 97 08/11/20 22:43 96 08/11/20 22:36 97.7 F 69 18 138/70 97 08/11/20 17:26 98.5 F 70 22 160/78 97 08/11/20 15:00 67 98 08/11/20 11:22 98.3 F 67 22 143/54 98 - Physical Examination General: No Apparent Distress HEENT: Positive: PERRL, Normocephaly Neck: Positive: neck supple, JVD/HJR Cardiac: Positive: Regular Rate, S1/S2, PMI, Laterally Displaced. Negative: S3, S4 Lungs: Positive: clear to auscultation, No Wheeze, Rales, Rhonchi Neuro: Positive: Grossly Intact Abdomen: Positive: Soft, Ascites Skin: Positive: Clear Extremities: Present: +1 Edema - Labs and Meds Comprehensive Metabolic Panel 08/12/20 Range/Units 07:59 Sodium 141 (137-145) mmol/L Potassium 3.6 (3.6-5.0) mmol/L Chloride 104.5 (98-107) mmol/L Carbon Dioxide 28 (22-30) mmol/L BUN 23 H (7-17) mg/dL Creatinine 1.2 (0.6-1.2) mg/dL Glucose 63 L (65-100) mg/dL Calcium 7.9 L (8.4-10.2) mg/dL
--- NOTE | 2020-08-12 10:21 | Progress Note ---
Assessment and Plan - Patient Problems (1) AIDAN (acute kidney injury) Current Visit: Yes Status: Acute Plan to address problem: most likely secondary to pre-renal azotemia in the setting of diuretic therapy, superimposed on CKD. Abd US showed cortical thinning of b/l kidneys consistent with underlying CKD. urine P/C ratio > 1g/g. Abd US was consistent with liver cirrhosis with portal hypertension and moderate ascites volume. Cont IV lasix to target net negative fluid balance. avoid nephrotoxins, NSAIDs IV contrast. will monitor lytes/renal parameters make further recommendations. (2) Lower extremity edema Current Visit: Yes Status: Acute Plan to address problem: Fluid overload most likely secondary to underlying liver cirrhosis, cont diuresis with IV lasix. check urine P/C to rule out nephrotic range proteinuria. (3) Severe protein-calorie malnutrition Current Visit: Yes Status: Acute Plan to address problem: dietitian consult (4) Ascites Current Visit: Yes Status: Acute Plan to address problem: secondary to liver cirrhosis, recommend GI consultation (5) Anemia Current Visit: Yes Status: Acute Plan to address problem: check iron store incl TSAT/ferritin (6) Hypokalemia Current Visit: Yes Status: Acute Plan to address problem: K normalized on supplementation with K Dur Subjective Date of service: 08/12/20 Principal diagnosis: SOB Interval history: Pt awake, alert, in no acute respiratory distress Objective - Vital Signs Vital signs: Vital Signs - 12hr 08/12/20 05:08 Temperature 98.3 F Pulse Rate 63 Respiratory 18 Rate Blood Pressure 136/68 O2 Sat by Pulse 97 Oximetry - General Appearance General appearance: well-developed, appears stated age, chronically ill EENT: ATNC, PERRL, mucous membranes moist Neck: no JVD Respiratory: Present: Decreased Breath Sounds Cardiology: regular, S1S2 Gastrointestinal: normoactive bowel sounds, distended Integumentary: no rash, other (++ edema b/l LE ) Neurologic: no focal deficit, alert and oriented x3, strength 5/5, CN 3-12 intact Psychiatric: mood/affect appropriate, cooperative - Lab 08/05/20 22:43 08/12/20 07:59 Most recent lab results Calcium 7.9 mg/dL (8.4-10.2) L 08/12/20 07:59 Urine Creatinine 25.4 mg/dL (0.1-20.0) H 08/10/20 22:15 Urine Sodium 141 mmol/L 08/10/20 22:15 Urine Total Protein 33 mg/dL (5-11.8) H 08/10/20 22:15 Medications & Allergies - Medications Allergies/Adverse Reactions: Allergies NSAIDS (Non-Steroidal Anti-Inflamma Allergy (Verified 08/05/20 22:09) Unknown Quinolones Allergy (Verified 08/05/20 22:09) Unknown Active Medications: Generic Name Dose Route Start Last Admin Trade Name Freq PRN Reason Stop Dose Admin Acetaminophen 650 mg 08/06/20 00:30 Tylenol PO Q4H PRN Pain MILD(1-3)/Fever >100.5/ABEL Al Hydrox/Mg Hydrox/Simethicone 30 ml 08/06/20 00:30 Alum-Mag Hydrox-Simeth 140-961-45kx/5ml PO Q4H PRN Indigestion Enoxaparin Sodium 40 mg 08/07/20 22:00 08/11/20 21:39 Enoxaparin SUB-Q 40 mg QDAY@2200 BRANT Administration Protocol Famotidine 10 mg 08/06/20 10:00 08/12/20 09:15 Pepcid PO 10 mg BID BRANT Administration Ferrous Sulfate 325 mg 08/06/20 10:00 08/12/20 09:15 Feosol PO 325 mg QDAY BRANT Administration Furosemide 40 mg 08/07/20 18:00 08/12/20 05:05 Lasix IV 40 mg 0600,1800 BRANT Administration Multivitamins 1 each 08/06/20 10:00 08/12/20 09:15 Theragran Tab PO 1 each QDAY BRANT Administration Ondansetron HCl 4 mg 08/06/20 00:30 Zofran IV Q8H PRN Nausea And Vomiting Oxycodone/Acetaminophen 1 tab 08/06/20 00:30 08/12/20 09:15 Percocet 5/325 PO 1 tab Q6H PRN Administration Pain, Moderate (4-6) Sodium Chloride 10 ml 08/06/20 01:00 08/12/20 09:16 Sodium Chloride Flush Syringe 10 Ml IV 10 ml BID BRANT Administration Sodium Chloride 10 ml 08/06/20 00:30 08/10/20 09:17 Sodium Chloride Flush Syringe 10 Ml IV 10 ml PRN PRN Administration LINE FLUSH
[2020-08-12] MEDS: ENOXAPARIN 40 MG/0.4 ML INJ SUB-Q SCH (21:07)
[2020-08-13] MEDS: oxyCODONE /ACETAMINOPHEN 5-325MG TAB PO PRN ×4 (05:04→23:49)
[2020-08-13] MEDS: FUROSEMIDE 40 MG/4 ML INJ IV SCH ×3 (05:04→18:19)
--- NOTE | 2020-08-13 08:30 | Progress Note ---
Assessment and Plan Assessment and plan: -History of fall; Fall precautions, supportive care --Subacute compression deformities at L4 and L3, but no acute fracture Patient had a fall and fracture L3 L5 in April 2020 Supportive care, pain management, PT OT Dr. Peters/Ortho evaluated. recommended MRI L S-spine. --Acute kidney injury; Vasomotor nephropathy Also secondary to diuresis Closely monitor renal function.Nephrology consulted, Renal ultrasound medical renal disease; Avoid nephrotoxins --Cirrhosis with portal hypertension/moderate ascites; Patient will follow GI as outpatient Supportive care --Chronic back pain; Continue current pain management and supportive care Physical therapy occupational therapy --General debility/generalized weakness Nutrition supplements. PT OT Possible home with home health versus placement --Severe protein calorie malnutrition; Nutrition supplements, dietitian consult And supportive care --Anemia; hemoglobin 8 Probably iron deficiency anemia Acute versus chronic No previous labs to compare Closely monitor transfuse as needed --Lower extremity edema; Due to cirrhosis liver , ascites check echocardiogram for LV EF 60-65% Continue diuretics, input output monitoring Cardiology following --Full CODE STATUS --DVT prophylaxis; Lovenox --Hypokalemia. Disposition; Possible discharge to subacute rehab when medically stable. PT recommend subacute rehab. 08/10/2020 Follow MRI report, adjust the management as needed Orthopedics is also awaiting for MRI of the spine Home with home health versus subacute rehab. We will discuss with case management Replete potassium. 08/11/2020. MRI scan reviewed by orthopedics who reports evidence of old burst fracture, doubt disc space infection. Orthopedics recommends conservative management with back brace and physical therapy. Await placement to subacute rehab per physical therapy recommendations. Will discuss with case management. 08/12/2020. Await placement to subacute rehab per physical therapy recom mendations. 08/13/2020. Acute kidney injury most likely secondary to pre-renal azotemia in the setting of diuretic therapy, superimposed on CKD. Abd US showed cortical thinning of b/l kidneys consistent with underlying CKD. urine P/C ratio > 1g/g. Abd US was consistent with liver cirrhosis with portal hypertension and moderate ascites volume. Cont IV lasix to target net negative fluid balance. avoid nephrotoxins, NSAIDs IV contrast. Echocardiogram reveals normal left ventricular size and function with a left ventricular ejection fraction of 60 to 65%. Await placement to subacute rehab per physical therapy recommendations. History Interval history: No new issues overnight. Hospitalist Physical - Constitutional Vitals: Temp Pulse Resp BP Pulse Ox 98.3 F 71 20 144/69 95 08/13/20 06:00 08/13/20 06:00 08/13/20 06:00 08/13/20 06:00 08/13/20 06:00 General appearance: Present: no acute distress, well-nourished - EENT Eyes: Present: PERRL, EOM intact ENT: hearing intact, clear oral mucosa, dentition normal - Neck Neck: Present: supple, normal ROM - Respiratory Respiratory effort: normal Respiratory: bilateral: CTA - Cardiovascular Rhythm: regular Heart Sounds: Present: S1 & S2. Absent: gallop, rub - Extremities Extremities: no ischemia, No edema, Full ROM - Abdominal General gastrointestinal: soft, non-tender, non-distended, normal bowel sounds - Integumentary Integumentary: Present: clear, warm, dry - Neurologic Neurologic: CNII-XII intact, moves all extremities Results - Labs CBC & Chem 7: 08/05/20 22:43 08/12/20 07:59 Labs: Laboratory Last Values WBC 5.1 K/mm3 (4.5-11.0) 08/05/20 22:43 RBC 2.71 M/mm3 (3.65-5.03) L 08/05/20 22:43 Hgb 8.5 gm/dl (10.1-14.3) L 08/05/20 22:43 Hct 25.9 % (30.3-42.9) L 08/05/20 22:43 MCV 96 fl (79-97) 08/05/20 22:43 MCH 31 pg (28-32) 08/05/20 22:43 MCHC 33 % (30-34) 08/05/20 22:43 RDW 17.0 % (13.2-15.2) H 08/05/20 22:43 Plt Count 139 K/mm3 (140-440) L 08/05/20 22:43 Lymph % (Auto) 11.6 % (13.4-35.0) L 08/05/20 22:43 Douglas % (Auto) 9.4 % (0.0-7.3) H 08/05/20 22:43 Eos % (Auto) 3.3 % (0.0-4.3) 08/05/20 22:43 Baso % (Auto) 2.8 % (0.0-1.8) H 08/05/20 22:43 Lymph # (Auto) 0.6 K/mm3 (1.2-5.4) L 08/05/20 22:43 Douglas # (Auto) 0.5 K/mm3 (0.0-0.8) 08/05/20 22:43 Eos # (Auto) 0.2 K/mm3 (0.0-0.4) 08/05/20 22:43 Baso # (Auto) 0.1 K/mm3 (0.0-0.1) 08/05/20 22:43 Seg Neutrophils % 72.9 % (40.0-70.0) H 08/05/20 22:43 Seg Neutrophils # 3.7 K/mm3 (1.8-7.7) 08/05/20 22:43 Sodium 141 mmol/L (137-145) 08/12/20 07:59 Potassium 3.6 mmol/L (3.6-5.0) 08/12/20 07:59 Chloride 104.5 mmol/L (98-107) 08/12/20 07:59 Carbon Dioxide 28 mmol/L (22-30) 08/12/20 07:59 Anion Gap 12 mmol/L 08/12/20 07:59 BUN 23 mg/dL (7-17) H 08/12/20 07:59 Creatinine 1.2 mg/dL (0.6-1.2) 08/12/20 07:59 Estimated GFR 46 ml/min 08/12/20 07:59 BUN/Creatinine Ratio 19 % 08/12/20 07:59 Glucose 63 mg/dL (65-100) L 08/12/20 07:59 Osmolality 304 Mosm/kg 08/06/20 01:57 Calcium 7.9 mg/dL (8.4-10.2) L 08/12/20 07:59 Iron 31 ug/dL (37-170) L 08/06/20 01:57 Total Bilirubin 0.70 mg/dL (0.1-1.2) 08/05/20 22:43 Direct Bilirubin 0.4 mg/dL (0-0.2) H 08/05/20 22:43 Indirect Bilirubin 0.3 mg/dL 08/05/20 22:43 AST 52 units/L (5-40) H 08/05/20 22:43 ALT 19 units/L (7-56) 08/05/20 22:43 Alkaline Phosphatase 155 units/L (35-129) H 08/05/20 22:43 Total Creatine Kinase 95 units/L (30-135) 08/06/20 01:57 NT-Pro-B Natriuret Pep 930.2 pg/mL (0-900) H 08/05/20 22:43 Total Protein 6.7 g/dL (6.3-8.2) 08/05/20 22:43 Albumin 2.0 g/dL (3.9-5) L 08/05/20 22:43 Albumin/Globulin Ratio 0.4 % 08/05/20 22:43 Urine Creatinine 25.4 mg/dL (0.1-20.0) H 08/10/20 22:15 Urine Sodium 141 mmol/L 08/10/20 22:15 Urine Total Protein 33 mg/dL (5-11.8) H 08/10/20 22:15 Nasal Screen MRSA (PCR) Negative (Negative) 08/06/20 Unknown - Diagnostic Impressions Diagnostic Impressions: Echocardiogram 08/06/20 11:15 Transthoracic Echocardiogram Indication: SOB BP: 125/54 HR: 79 Conclusions *Global left ventricular systolic function is normal. *The estimated ejection fraction is 60-65%. *Mild concentric left ventricular hypertrophy is observed. *There is trace of mitral regurgitation. *There is trace tricuspid regurgitation. Findings Left Ventricle: The left ventricular chamber size is normal. Mild concentric left ventricular hypertrophy is observed. Global left ventricular systolic function is normal. The estimated ejection fraction is 60-65%. Left Atrium: The left atrial chamber size is normal. Right Ventricle: The right ventricular cavity size is normal. The right ventricular global systolic function is normal. Right Atrium: The right atrial cavity size is normal. Aortic Valve: The aortic valve is trileaflet. There is no evidence of aortic regurgitation. There is no evidence of aortic stenosis. Mitral Valve: The mitral valve leaflets appear myxomatous. There is trace of mitral regurgitation. There is no evidence of mitral stenosis. Tricuspid Valve: There is trace tricuspid regurgitation. No pulmonary hypertension is noted. Pericardium: There is no pericardial effusion. Aorta: There is no dilatation of the ascending aorta. There is no dilatation of the aortic root. Venous: The inferior vena cava appears normal in size. Measurements Chambers 2D Name Value Normal Range IVSd (2D) 1 cm (0.6 - 1.1) LVPWd (2D) 0.98 cm (0.6 - 1.1) LVIDd (2D) 4.55 cm (3.7 - 5.6) LVIDs (2D) 2.86 cm (2 - 3.8) LV FS (2D) 37.09 % - EF Teichholz (2D) 67.11 % - Ao root diameter (2D) 2.53 cm (2 - 3.7) Volumes/Mass Name Value Normal Range LA ESV SP 4CH (A/L) 50.86 ml - LA ESV SP 2CH (A/L) 48.51 ml - LA ESV BP (A/L) 49.94 ml - LA ESV BP (A/L) index 28.37 ml/m2 - LA ESV SP 4CH (MOD) 47.75 ml - LA ESV SP 2CH (MOD) 47.19 ml - LA ESV BP (MOD) 47.58 ml - LA ESV BP (MOD) index 27.03 ml/m2 - Diastolic/Systolic Function Name Value Normal Range MV E-wave Vmax 0.92 m/sec - MV deceleration time 212.12 msec - MV A-wave Vmax 0.78 m/sec - MV E:A ratio 1.17 ratio - Aortic Valve Name Value Normal Range AV Vmax 1.95 m/sec - AV VTI 38.63 cm - AV peak gradient 15.22 mmHg - AV mean gradient 8.42 mmHg - LVOT diameter 2.02 cm - LVOT Vmax 1.29 m/sec - LVOT VTI 27.34 cm - LVOT peak gradient 6.61 mmHg - LVOT mean gradient 4.01 mmHg - SV LVOT 87.4 ml - SHARLA (continuity Vmax) 2.11 cm2 - SHARLA (continuity VTI) 2.26 cm2 - Mitral Valve Name Value Normal Range MR Vmax 4.53 m/sec - Tricuspid Valve Name Value Normal Range TR Vmax 2.08 m/sec - TR peak gradient 17 mmHg - RAP 3 mmHg - RVSP 20 mmHg - Pulmonic Valve/Qp:Qs Name Value Normal Range PV Vmax 1.7 m/sec - PV peak gradient 11.59 mmHg - PV acceleration time 98.95 msec - [place]/IV: Voiding Method External Female Catheter IV Catheter Type [Left Upper INT / Saline Lock arm] IV Catheter Type [Right INT / Saline Lock Antecubital] Active Medications - Current Medications Current Medications: Generic Name Dose Route Start Last Admin Trade Name Freq PRN Reason Stop Dose Admin Acetaminophen 650 mg 08/06/20 00:30 Tylenol PO Q4H PRN Pain MILD(1-3)/Fever >100.5/ABEL Al Hydrox/Mg Hydrox/Simethicone 30 ml 08/06/20 00:30 Alum-Mag Hydrox-Simeth 133-285-46ia/5ml PO Q4H PRN Indigestion Enoxaparin Sodium 40 mg 08/07/20 22:00 08/12/20 21:07 Enoxaparin SUB-Q 40 mg QDAY@2200 BRANT Administration Protocol Famotidine 10 mg 08/06/20 10:00 08/12/20 21:07 Pepcid PO 10 mg BID BRANT Administration Ferrous Sulfate 325 mg 08/06/20 10:00 08/12/20 09:15 Feosol PO 325 mg QDAY BRANT Administration Furosemide 40 mg 08/07/20 18:00 08/13/20 05:04 Lasix IV 40 mg 0600,1800 BRANT Administration Multivitamins 1 each 08/06/20 10:00 08/12/20 09:15 Theragran Tab PO 1 each QDAY BRANT Administration Ondansetron HCl 4 mg 08/06/20 00:30 Zofran IV Q8H PRN Nausea And Vomiting Oxycodone/Acetaminophen 1 tab 08/06/20 00:30 08/13/20 05:04 Percocet 5/325 PO 1 tab Q6H PRN Administration Pain, Moderate (4-6) Sodium Chloride 10 ml 08/06/20 01:00 08/12/20 21:08 Sodium Chloride Flush Syringe 10 Ml IV 10 ml BID BRANT Administration Sodium Chloride 10 ml 08/06/20 00:30 08/10/20 09:17 Sodium Chloride Flush Syringe 10 Ml IV 10 ml PRN PRN Administration LINE FLUSH Nutrition/Malnutrition Assess - Dietary Evaluation Nutrition/Malnutrition Findings: Nutrition Notes Start: 08/06/20 10:21 Freq: Status: Active Protocol: Document 08/10/20 13:44 AL (Rec: 08/10/20 13:57 AL [email or web address]) Co-Sign 08/10/20 13:44 LP Nutrition Notes Initial or Follow up Reassessment Current Diagnosis Acute Kidney Injury Other Pertinent Diagnosis Ascites, Falls, anemia, contusion of R hip, R shoulder , lower back Current Diet Regular Labs/Tests K 3.0 Pertinent Medications Lasix 40 mg Height 5 ft 4 in Weight 70.307 kg [place] Body Weight (kg) 54.54 BMI 26.6 Subjective/Other Information F/U for intakes. Pt reports eating 50% of meals. RD noticed 2 unopened Vanilla Ensure Enlives on tray. Pt reports not liking the flavor and is willing to try new flavor Percent of energy/protein needs met: 71%/77% Burn Absent Trauma Absent GI Symptoms None Current % PO Fair (50-74%) Minimum of two criteria No Fluid Accumulation Mild (non-severe) #3 Nutrition Diagnosis Inadequate energy intake Etiology Anemia As Evidenced by Signs and Symptoms pt meeting 71% of energy needs #2 Nutrition Diagnosis Increased nutrient needs ( specify in comment below) Diagnosis Progress(for reassessment Continues documentation) #1 Nutrition Diagnosis Inadequate energy intake As Evidenced by Signs and Symptoms pt reports eating only 50% of meals Is patient on ventilator? No Is Patient Ambulatory and/or Out of Bed Yes REE-([facility]-ambulatory/OOB) [ 1641.991 [id number]] Calculation Used for Recommendations [facility] Additional Notes Protein 0.8-1.2g/k-84g Fluid: 1ml/kcal Nutrition Intervention Change Diet Order: Continue regular Add Supplement/Snack (indicate name/kcal Vanilla Ensure Enlive daily /protein ) Provides kCal: 425 Provides Protein (gm) 19 Goal #1 Meet at least 75% of total energy and protein needs via diet and ONS Anticipated Discharge Needs: Regular Follow-Up By: 08/14/20 Additional Comments F/u intakes and ONS tolerance
[2020-08-13] MEDS: FERROUS SULFATE 325 MG TAB PO SCH (09:09)
[2020-08-13] MEDS: FAMOTIDINE 10 MG TAB PO SCH ×3 (09:09→21:11)
[2020-08-13] MEDS: MULTIVITAMINS ,THERAPEUTIC TAB PO SCH (09:10)
--- NOTE | 2020-08-13 10:04 | Progress Note ---
Assessment and Plan Shortness of breath -improved Normal LVEF 60-65% by echo this presentation. Anasarca Bilateral LE venous doppler - no evidence of DVT abd u/s - liver cirrhosis with portal hypertension and moderate ascites volume. Recurrent fall pt denies syncope Anemia Acute kidney injury -resolved Conservative cardiac management. Subjective Date of service: 08/13/20 Principal diagnosis: SOB Interval history: Patient is resting in bed comfortably. No cardiac complaints. LE edema is slowly improving. Objective Vital Signs Temp Pulse Resp BP BP Pulse Ox 08/13/20 06:00 98.3 F 71 20 144/69 95 08/13/20 05:10 70 96 08/13/20 05:08 70 95 08/12/20 21:40 98.0 F 68 18 151/70 94 08/12/20 20:16 96 08/12/20 17:03 98.2 F 66 22 141/72 97 08/12/20 14:00 95 08/12/20 12:13 98.7 F 69 22 126/68 95 - Physical Examination General: No Apparent Distress HEENT: Positive: PERRL, Normocephaly Neck: Positive: neck supple, JVD/HJR Neuro: Positive: Grossly Intact Abdomen: Positive: Soft, Ascites Skin: Positive: Clear Extremities: Present: +1 Edema
--- NOTE | 2020-08-13 10:59 | Progress Note ---
Assessment and Plan - Patient Problems (1) AIDAN (acute kidney injury) Current Visit: Yes Status: Acute Plan to address problem: most likely secondary to pre-renal azotemia in the setting of diuretic therapy, superimposed on CKD. Abd US showed cortical thinning of b/l kidneys consistent with underlying CKD. urine P/C ratio > 1g/g. Abd US was consistent with liver cirrhosis with portal hypertension and moderate ascites volume. Cont IV lasix to target net negative fluid balance. avoid nephrotoxins, NSAIDs IV contrast. stable for discharge from renal stand point (2) Lower extremity edema Current Visit: Yes Status: Acute Plan to address problem: Fluid overload most likely secondary to underlying liver cirrhosis, cont diuresis with IV lasix. check urine P/C to rule out nephrotic range proteinuria. (3) Severe protein-calorie malnutrition Current Visit: Yes Status: Acute Plan to address problem: dietitian consult (4) Ascites Current Visit: Yes Status: Acute Plan to address problem: secondary to liver cirrhosis, recommend GI consultation (5) Anemia Current Visit: Yes Status: Acute Plan to address problem: check iron store incl TSAT/ferritin (6) Hypokalemia Current Visit: Yes Status: Acute Plan to address problem: K normalized on supplementation with K Dur Subjective Date of service: 08/13/20 Principal diagnosis: SOB Interval history: Pt awake, alert, in no acute respiratory distress Objective - Vital Signs Vital signs: Vital Signs - 12hr 08/13/20 08/13/20 08/13/20 05:08 05:10 06:00 Temperature 98.3 F Pulse Rate 70 70 71 Respiratory 20 Rate Blood Pressure 144/69 [Right] O2 Sat by Pulse 95 96 95 Oximetry - General Appearance General appearance: well-developed, appears stated age, chronically ill EENT: ATNC, PERRL, mucous membranes moist Neck: no JVD Respiratory: Present: Decreased Breath Sounds Cardiology: regular, S1S2 Gastrointestinal: distended Integumentary: no rash, other (+2 edema ) Neurologic: no focal deficit, alert and oriented x3, strength 5/5, CN 3-12 intact Psychiatric: mood/affect appropriate, cooperative - Lab 08/05/20 22:43 08/12/20 07:59 Most recent lab results Calcium 7.9 mg/dL (8.4-10.2) L 08/12/20 07:59 Urine Creatinine 25.4 mg/dL (0.1-20.0) H 08/10/20 22:15 Urine Sodium 141 mmol/L 08/10/20 22:15 Urine Total Protein 33 mg/dL (5-11.8) H 08/10/20 22:15 Medications & Allergies - Medications Allergies/Adverse Reactions: Allergies NSAIDS (Non-Steroidal Anti-Inflamma Allergy (Verified 08/05/20 22:09) Unknown Quinolones Allergy (Verified 08/05/20 22:09) Unknown Active Medications: Generic Name Dose Route Start Last Admin Trade Name Freq PRN Reason Stop Dose Admin Acetaminophen 650 mg 08/06/20 00:30 Tylenol PO Q4H PRN Pain MILD(1-3)/Fever >100.5/ABEL Al Hydrox/Mg Hydrox/Simethicone 30 ml 08/06/20 00:30 Alum-Mag Hydrox-Simeth 495-197-27wh/5ml PO Q4H PRN Indigestion Enoxaparin Sodium 40 mg 08/07/20 22:00 08/12/20 21:07 Enoxaparin SUB-Q 40 mg QDAY@2200 BRANT Administration Protocol Famotidine 10 mg 08/06/20 10:00 08/13/20 09:09 Pepcid PO 10 mg BID BRANT Administration Ferrous Sulfate 325 mg 08/06/20 10:00 08/13/20 09:09 Feosol PO 325 mg QDAY BRANT Administration Furosemide 40 mg 08/07/20 18:00 08/13/20 05:04 Lasix IV 40 mg 0600,1800 BRANT Administration Multivitamins 1 each 08/06/20 10:00 08/13/20 09:10 Theragran Tab PO 1 each QDAY BRANT Administration Ondansetron HCl 4 mg 08/06/20 00:30 Zofran IV Q8H PRN Nausea And Vomiting Oxycodone/Acetaminophen 1 tab 08/06/20 00:30 08/13/20 05:04 Percocet 5/325 PO 1 tab Q6H PRN Administration Pain, Moderate (4-6) Sodium Chloride 10 ml 08/06/20 01:00 08/13/20 09:10 Sodium Chloride Flush Syringe 10 Ml IV 10 ml BID BRANT Administration Sodium Chloride 10 ml 08/06/20 00:30 08/10/20 09:17 Sodium Chloride Flush Syringe 10 Ml IV 10 ml PRN PRN Administration LINE FLUSH
[2020-08-13] MEDS: ENOXAPARIN 40 MG/0.4 ML INJ SUB-Q SCH ×2 (20:29→21:11)
[2020-08-14 05:01] VITALS: BP 138/68
[2020-08-14] MEDS: oxyCODONE /ACETAMINOPHEN 5-325MG TAB PO PRN (05:14)
[2020-08-14] MEDS: FUROSEMIDE 40 MG/4 ML INJ IV SCH (05:15)
--- NOTE | 2020-08-14 07:36 | Progress Note ---
Assessment and Plan Assessment and plan: -History of fall; Fall precautions, supportive care --Subacute compression deformities at L4 and L3, but no acute fracture Patient had a fall and fracture L3 L5 in April 2020 Supportive care, pain management, PT OT Dr. Peters/Ortho evaluated. recommended MRI L S-spine. --Acute kidney injury; Vasomotor nephropathy Also secondary to diuresis Closely monitor renal function.Nephrology consulted, Renal ultrasound medical renal disease; Avoid nephrotoxins --Cirrhosis with portal hypertension/moderate ascites; Patient will follow GI as outpatient Supportive care --Chronic back pain; Continue current pain management and supportive care Physical therapy occupational therapy --General debility/generalized weakness Nutrition supplements. PT OT Possible home with home health versus placement --Severe protein calorie malnutrition; Nutrition supplements, dietitian consult And supportive care --Anemia; hemoglobin 8 Probably iron deficiency anemia Acute versus chronic No previous labs to compare Closely monitor transfuse as needed --Lower extremity edema; Due to cirrhosis liver , ascites check echocardiogram for LV EF 60-65% Continue diuretics, input output monitoring Cardiology following --Full CODE STATUS --DVT prophylaxis; Lovenox --Hypokalemia. Disposition; Possible discharge to subacute rehab when medically stable. PT recommend subacute rehab. 08/10/2020 Follow MRI report, adjust the management as needed Orthopedics is also awaiting for MRI of the spine Home with home health versus subacute rehab. We will discuss with case management Replete potassium. 08/11/2020. MRI scan reviewed by orthopedics who reports evidence of old burst fracture, doubt disc space infection. Orthopedics recommends conservative management with back brace and physical therapy. Await placement to subacute rehab per physical therapy recommendations. Will discuss with case management. 08/12/2020. Await placement to subacute rehab per physical therapy recom mendations. 08/13/2020. Acute kidney injury most likely secondary to pre-renal azotemia in the setting of diuretic therapy, superimposed on CKD. Abd US showed cortical thinning of b/l kidneys consistent with underlying CKD. urine P/C ratio > 1g/g. Abd US was consistent with liver cirrhosis with portal hypertension and moderate ascites volume. Cont IV lasix to target net negative fluid balance. avoid nephrotoxins, NSAIDs IV contrast. Echocardiogram reveals normal left ventricular size and function with a left ventricular ejection fraction of 60 to 65%. Await placement to subacute rehab per physical therapy recommendations. 08/14/2020;Acute kidney injury most likely secondary to pre-renal azotemia in the setting of diuretic therapy, superimposed on CKD, currently creatinine is within normal limit. Abd US showed cortical thinning of b/l kidneys consistent with underlying CKD. urine P/C ratio > 1g/g. Abd US was consistent with liver cirrhosis with portal hypertension and moderate ascites volume. Cont IV lasix to target net negative fluid balance. avoid nephrotoxins, NSAIDs IV contrast. Echocardiogram reveals normal left ventricular size and function with a left ventricular ejection fraction of 60 to 65%. Await placement to subacute rehab per physical therapy recommendations. Patient is unfunded and will not get placement. History Interval history: No issues overnight Hospitalist Physical - Physical exam Narrative exam: Not in cardiopulmonary distress. The patient appeared well nourished and normally developed. Vital signs as documented. Head exam is unremarkable. No scleral icterus . Neck is without jugular venous distension, thyromegaly, or carotid bruits. Lungs are clear to auscultation. Cardiac exam reveals regular rate and Rhythm. Abdominal exam reveals normal bowel sounds, nontender, no organomegaly. Extremities are nonedematous and both femoral and pedal pulses are normal. 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 No focal weakness. - Constitutional Vitals: Temp Pulse Resp BP Pulse Ox 99.1 F 76 18 138/68 93 08/14/20 04:18 08/14/20 04:18 08/14/20 04:18 08/14/20 04:18 08/14/20 04:18 General appearance: Present: no acute distress, well-nourished Results - Labs CBC & Chem 7: 08/05/20 22:43 08/12/20 07:59 Labs: Laboratory Last Values WBC 5.1 K/mm3 (4.5-11.0) 08/05/20 22:43 RBC 2.71 M/mm3 (3.65-5.03) L 08/05/20 22:43 Hgb 8.5 gm/dl (10.1-14.3) L 08/05/20 22:43 Hct 25.9 % (30.3-42.9) L 08/05/20 22:43 MCV 96 fl (79-97) 08/05/20 22:43 MCH 31 pg (28-32) 08/05/20 22:43 MCHC 33 % (30-34) 08/05/20 22:43 RDW 17.0 % (13.2-15.2) H 08/05/20 22:43 Plt Count 139 K/mm3 (140-440) L 08/05/20 22:43 Lymph % (Auto) 11.6 % (13.4-35.0) L 08/05/20 22:43 [place] % (Auto) 9.4 % (0.0-7.3) H 08/05/20 22:43 Eos % (Auto) 3.3 % (0.0-4.3) 08/05/20 22:43 Baso % (Auto) 2.8 % (0.0-1.8) H 08/05/20 22:43 Lymph # (Auto) 0.6 K/mm3 (1.2-5.4) L 08/05/20 22:43 [place] # (Auto) 0.5 K/mm3 (0.0-0.8) 08/05/20 22:43 Eos # (Auto) 0.2 K/mm3 (0.0-0.4) 08/05/20 22:43 Baso # (Auto) 0.1 K/mm3 (0.0-0.1) 08/05/20 22:43 Seg Neutrophils % 72.9 % (40.0-70.0) H 08/05/20 22:43 Seg Neutrophils # 3.7 K/mm3 (1.8-7.7) 08/05/20 22:43 Sodium 141 mmol/L (137-145) 08/12/20 07:59 Potassium 3.6 mmol/L (3.6-5.0) 08/12/20 07:59 Chloride 104.5 mmol/L (98-107) 08/12/20 07:59 Carbon Dioxide 28 mmol/L (22-30) 08/12/20 07:59 Anion Gap 12 mmol/L 08/12/20 07:59 BUN 23 mg/dL (7-17) H 08/12/20 07:59 Creatinine 1.2 mg/dL (0.6-1.2) 08/12/20 07:59 Estimated GFR 46 ml/min 08/12/20 07:59 BUN/Creatinine Ratio 19 % 08/12/20 07:59 Glucose 63 mg/dL (65-100) L 08/12/20 07:59 Osmolality 304 Mosm/kg 08/06/20 01:57 Calcium 7.9 mg/dL (8.4-10.2) L 08/12/20 07:59 Iron 31 ug/dL (37-170) L 08/06/20 01:57 Total Bilirubin 0.70 mg/dL (0.1-1.2) 08/05/20 22:43 Direct Bilirubin 0.4 mg/dL (0-0.2) H 08/05/20 22:43 Indirect Bilirubin 0.3 mg/dL 08/05/20 22:43 AST 52 units/L (5-40) H 08/05/20 22:43 ALT 19 units/L (7-56) 08/05/20 22:43 Alkaline Phosphatase 155 units/L (35-129) H 08/05/20 22:43 Total Creatine Kinase 95 units/L (30-135) 08/06/20 01:57 NT-Pro-B Natriuret Pep 930.2 pg/mL (0-900) H 08/05/20 22:43 Total Protein 6.7 g/dL (6.3-8.2) 08/05/20 22:43 Albumin 2.0 g/dL (3.9-5) L 08/05/20 22:43 Albumin/Globulin Ratio 0.4 % 08/05/20 22:43 Urine Creatinine 25.4 mg/dL (0.1-20.0) H 08/10/20 22:15 Urine Sodium 141 mmol/L 08/10/20 22:15 Urine Total Protein 33 mg/dL (5-11.8) H 08/10/20 22:15 Nasal Screen MRSA (PCR) Negative (Negative) 08/06/20 Unknown - Diagnostic Impressions Diagnostic Impressions: Echocardiogram 08/06/20 11:15 Transthoracic Echocardiogram Indication: SOB BP: 125/54 HR: 79 Conclusions *Global left ventricular systolic function is normal. *The estimated ejection fraction is 60-65%. *Mild concentric left ventricular hypertrophy is observed. *There is trace of mitral regurgitation. *There is trace tricuspid regurgitation. Findings Left Ventricle: The left ventricular chamber size is normal. Mild concentric left ventricular hypertrophy is observed. Global left ventricular systolic function is normal. The estimated ejection fraction is 60-65%. Left Atrium: The left atrial chamber size is normal. Right Ventricle: The right ventricular cavity size is normal. The right ventricular global systolic function is normal. Right Atrium: The right atrial cavity size is normal. Aortic Valve: The aortic valve is trileaflet. There is no evidence of aortic regurgitation. There is no evidence of aortic stenosis. Mitral Valve: The mitral valve leaflets appear myxomatous. There is trace of mitral regurgitation. There is no evidence of mitral stenosis. Tricuspid Valve: There is trace tricuspid regurgitation. No pulmonary hypertension is noted. Pericardium: There is no pericardial effusion. Aorta: There is no dilatation of the ascending aorta. There is no dilatation of the aortic root. Venous: The inferior vena cava appears normal in size. Measurements Chambers 2D Name Value Normal Range IVSd (2D) 1 cm (0.6 - 1.1) LVPWd (2D) 0.98 cm (0.6 - 1.1) LVIDd (2D) 4.55 cm (3.7 - 5.6) LVIDs (2D) 2.86 cm (2 - 3.8) LV FS (2D) 37.09 % - EF Teichholz (2D) 67.11 % - Ao root diameter (2D) 2.53 cm (2 - 3.7) Volumes/Mass Name Value Normal Range LA ESV SP 4CH (A/L) 50.86 ml - LA ESV SP 2CH (A/L) 48.51 ml - LA ESV BP (A/L) 49.94 ml - LA ESV BP (A/L) index 28.37 ml/m2 - LA ESV SP 4CH (MOD) 47.75 ml - LA ESV SP 2CH (MOD) 47.19 ml - LA ESV BP (MOD) 47.58 ml - LA ESV BP (MOD) index 27.03 ml/m2 - Diastolic/Systolic Function Name Value Normal Range MV E-wave Vmax 0.92 m/sec - MV deceleration time 212.12 msec - MV A-wave Vmax 0.78 m/sec - MV E:A ratio 1.17 ratio - Aortic Valve Name Value Normal Range AV Vmax 1.95 m/sec - AV VTI 38.63 cm - AV peak gradient 15.22 mmHg - AV mean gradient 8.42 mmHg - LVOT diameter 2.02 cm - LVOT Vmax 1.29 m/sec - LVOT VTI 27.34 cm - LVOT peak gradient 6.61 mmHg - LVOT mean gradient 4.01 mmHg - SV LVOT 87.4 ml - SHARLA (continuity Vmax) 2.11 cm2 - SHARLA (continuity VTI) 2.26 cm2 - Mitral Valve Name Value Normal Range MR Vmax 4.53 m/sec - Tricuspid Valve Name Value Normal Range TR Vmax 2.08 m/sec - TR peak gradient 17 mmHg - RAP 3 mmHg - RVSP 20 mmHg - Pulmonic Valve/Qp:Qs Name Value Normal Range PV Vmax 1.7 m/sec - PV peak gradient 11.59 mmHg - PV acceleration time 98.95 msec - [place]/IV: Voiding Method Bedpan IV Catheter Type [Left Upper INT / Saline Lock arm] IV Catheter Type [Right INT / Saline Lock Antecubital] Active Medications - Current Medications Current Medications: Generic Name Dose Route Start Last Admin Trade Name Freq PRN Reason Stop Dose Admin Acetaminophen 650 mg 08/06/20 00:30 Tylenol PO Q4H PRN Pain MILD(1-3)/Fever >100.5/ABEL Al Hydrox/Mg Hydrox/Simethicone 30 ml 08/06/20 00:30 Alum-Mag Hydrox-Simeth 314-126-00xd/5ml PO Q4H PRN Indigestion Enoxaparin Sodium 40 mg 08/07/20 22:00 08/13/20 21:11 Enoxaparin SUB-Q Not Given QDAY@2200 [facility] Protocol Famotidine 10 mg 08/06/20 10:00 08/13/20 21:11 Pepcid PO Not Given BID [facility] Ferrous Sulfate 325 mg 08/06/20 10:00 08/13/20 09:09 Feosol PO 325 mg QDAY BRANT Administration Furosemide 40 mg 08/07/20 18:00 08/14/20 05:15 Lasix IV 40 mg 0600,1800 BRANT Administration Multivitamins 1 each 08/06/20 10:00 08/13/20 09:10 Theragran Tab PO 1 each QDAY BRANT Administration Ondansetron HCl 4 mg 08/06/20 00:30 Zofran IV Q8H PRN Nausea And Vomiting Oxycodone/Acetaminophen 1 tab 08/06/20 00:30 08/14/20 05:14 Percocet 5/325 PO 1 tab Q6H PRN Administration Pain, Moderate (4-6) Sodium Chloride 10 ml 08/06/20 01:00 08/13/20 21:11 Sodium Chloride Flush Syringe 10 Ml IV Not Given BID BRANT Sodium Chloride 10 ml 08/06/20 00:30 08/10/20 09:17 Sodium Chloride Flush Syringe 10 Ml IV 10 ml PRN PRN Administration LINE FLUSH Nutrition/Malnutrition Assess - Dietary Evaluation Nutrition/Malnutrition Findings: Nutrition Notes Start: 08/06/20 10:21 Freq: Status: Active Protocol: Document 08/10/20 13:44 AL (Rec: 08/10/20 13:57 AL [email or web address]) Co-Sign 08/10/20 13:44 LP Nutrition Notes Initial or Follow up Reassessment Current Diagnosis Acute Kidney Injury Other Pertinent Diagnosis Ascites, Falls, anemia, contusion of R hip, R shoulder , lower back Current Diet Regular Labs/Tests K 3.0 Pertinent Medications Lasix 40 mg Height 5 ft 4 in Weight 70.307 kg [place] Body Weight (kg) 54.54 BMI 26.6 Subjective/Other Information F/U for intakes. Pt reports eating 50% of meals. RD noticed 2 unopened Vanilla Ensure Enlives on tray. Pt reports not liking the flavor and is willing to try new flavor Percent of energy/protein needs met: 71%/77% Burn Absent Trauma Absent GI Symptoms None Current % PO Fair (50-74%) Minimum of two criteria No Fluid Accumulation Mild (non-severe) #3 Nutrition Diagnosis Inadequate energy intake Etiology Anemia As Evidenced by Signs and Symptoms pt meeting 71% of energy needs #2 Nutrition Diagnosis Increased nutrient needs ( specify in comment below) Diagnosis Progress(for reassessment Continues documentation) #1 Nutrition Diagnosis Inadequate energy intake As Evidenced by Signs and Symptoms pt reports eating only 50% of meals Is patient on ventilator? No Is Patient Ambulatory and/or Out of Bed Yes REE-(Winkler-St. Jeor-ambulatory/OOB) [ [id number] [id number]] Calculation Used for Recommendations Winkler-St Jeor Additional Notes Protein 0.8-1.2g/k-84g Fluid: 1ml/kcal Nutrition Intervention Change Diet Order: Continue regular Add Supplement/Snack (indicate name/kcal Vanilla Ensure Enlive daily /protein ) Provides kCal: 425 Provides Protein (gm) 19 Goal #1 Meet at least 75% of total energy and protein needs via diet and ONS Anticipated Discharge Needs: Regular Follow-Up By: 08/14/20 Additional Comments F/u intakes and ONS tolerance
[2020-08-14] MEDS: FERROUS SULFATE 325 MG TAB PO SCH (09:47)
[2020-08-14] MEDS: FAMOTIDINE 10 MG TAB PO SCH (09:47)
[2020-08-14] MEDS: MULTIVITAMINS ,THERAPEUTIC TAB PO SCH (09:47)
--- NOTE | 2020-08-14 10:28 | Progress Note ---
Assessment and Plan - Patient Problems (1) AIDAN (acute kidney injury) Current Visit: Yes Status: Acute Plan to address problem: most likely secondary to pre-renal azotemia in the setting of diuretic therapy, superimposed on CKD. Abd US showed cortical thinning of b/l kidneys consistent with underlying CKD. urine P/C ratio > 1g/g. Abd US was consistent with liver cirrhosis with portal hypertension and moderate ascites volume. Cont lasix to target net negative fluid balance. avoid nephrotoxins, NSAIDs IV contrast. stable for discharge from renal stand point with outpatient f/u in 1-2 weeks (2) Lower extremity edema Current Visit: Yes Status: Acute Plan to address problem: Fluid overload most likely secondary to underlying liver cirrhosis, cont diu resis with IV lasix. check urine P/C to rule out nephrotic range proteinuria. (3) Severe protein-calorie malnutrition Current Visit: Yes Status: Acute Plan to address problem: dietitian consult (4) Ascites Current Visit: Yes Status: Acute Plan to address problem: secondary to liver cirrhosis, recommend GI consultation (5) Anemia Current Visit: Yes Status: Acute Plan to address problem: check iron store incl TSAT/ferritin (6) Hypokalemia Current Visit: Yes Status: Acute Plan to address problem: K normalized on supplementation with K Dur Subjective Date of service: 08/14/20 Principal diagnosis: SOB Interval history: Pt awake, alert, in no acute respiratory distress Objective - Vital Signs Vital signs: Vital Signs - 12hr 08/14/20 04:18 Temperature 99.1 F Pulse Rate 76 Respiratory 18 Rate Blood Pressure 138/68 O2 Sat by Pulse 93 Oximetry - General Appearance General appearance: well-developed, appears stated age, chronically ill EENT: ATNC, PERRL, mucous membranes moist Neck: no JVD Respiratory: Present: Decreased Breath Sounds Gastrointestinal: distended Integumentary: no rash, other (++ edema b/l LE ) Neurologic: no focal deficit, alert and oriented x3, strength 5/5, CN 3-12 intact Psychiatric: mood/affect appropriate, cooperative - Lab 08/05/20 22:43 08/12/20 07:59 Most recent lab results Calcium 7.9 mg/dL (8.4-10.2) L 08/12/20 07:59 Urine Creatinine 25.4 mg/dL (0.1-20.0) H 08/10/20 22:15 Urine Sodium 141 mmol/L 08/10/20 22:15 Urine Total Protein 33 mg/dL (5-11.8) H 08/10/20 22:15 Medications & Allergies - Medications Allergies/Adverse Reactions: Allergies NSAIDS (Non-Steroidal Anti-Inflamma Allergy (Verified 08/05/20 22:09) Unknown Quinolones Allergy (Verified 08/05/20 22:09) Unknown Active Medications: Generic Name Dose Route Start Last Admin Trade Name Freq PRN Reason Stop Dose Admin Acetaminophen 650 mg 08/06/20 00:30 Tylenol PO Q4H PRN Pain MILD(1-3)/Fever >100.5/ABEL Al Hydrox/Mg Hydrox/Simethicone 30 ml 08/06/20 00:30 Alum-Mag Hydrox-Simeth 346-161-42nr/5ml PO Q4H PRN Indigestion Enoxaparin Sodium 40 mg 08/07/20 22:00 08/13/20 21:11 Enoxaparin SUB-Q Not Given QDAY@2200 [facility] Protocol Famotidine 10 mg 08/06/20 10:00 08/14/20 09:47 Pepcid PO 10 mg BID BRANT Administration Ferrous Sulfate 325 mg 08/06/20 10:00 08/14/20 09:47 Feosol PO 325 mg QDAY BRANT Administration Furosemide 40 mg 08/07/20 18:00 08/14/20 05:15 Lasix IV 40 mg 0600,1800 BRANT Administration Multivitamins 1 each 08/06/20 10:00 08/14/20 09:47 Theragran Tab PO 1 each QDAY BRANT Administration Ondansetron HCl 4 mg 08/06/20 00:30 Zofran IV Q8H PRN Nausea And Vomiting Oxycodone/Acetaminophen 1 tab 08/06/20 00:30 08/14/20 05:14 Percocet 5/325 PO 1 tab Q6H PRN Administration Pain, Moderate (4-6) Sodium Chloride 10 ml 08/06/20 01:00 08/14/20 09:50 Sodium Chloride Flush Syringe 10 Ml IV 10 ml BID BRANT Administration Sodium Chloride 10 ml 08/06/20 00:30 08/10/20 09:17 Sodium Chloride Flush Syringe 10 Ml IV 10 ml PRN PRN Administration LINE FLUSH
--- NOTE | 2020-08-14 11:03 | Progress Note ---
Assessment and Plan Shortness of breath -improved Normal LVEF 60-65% by echo this presentation. Anasarca Bilateral LE venous doppler - no evidence of DVT abd u/s - liver cirrhosis with portal hypertension and moderate ascites volume. pt reports a history of hepatitis C Recurrent fall pt denies syncope Anemia Acute kidney injury -resolved Conservative cardiac management. Subjective Date of service: 08/14/20 Principal diagnosis: SOB Interval history: Patient is resting in bed comfortably. No cardiac complaints. LE edema is improving. Objective Vital Signs Temp Pulse Resp BP Pulse Ox 08/14/20 04:18 99.1 F 76 18 138/68 93 08/13/20 21:01 98.6 F 77 16 151/71 94 08/13/20 20:05 96 08/13/20 16:26 98.1 F 70 20 120/63 94 08/13/20 12:46 98.5 F 75 20 138/59 95 - Physical Examination General: No Apparent Distress HEENT: Positive: PERRL Neck: Positive: neck supple Cardiac: Positive: Reg Rate and Rhythm Lungs: Positive: Decreased Breath Sounds Extremities: Present: +1 Edema
--- NOTE | 2020-08-14 12:30 | Discharge Summary ---
Providers - Providers Date of Admission: 08/08/20 15:33 Date of discharge: 08/14/20 Attending physician: DARIN DELEON MD 08/06/20 Consult to Case Management [CONS] Routine Services Needed at Discharge: Home Health Services Physical Therapy Notified:: KASH Physical Therapy Evaluation and Treat [CONS] Routine Comment: Reason For Exam: s/p fall with weakness 08/06/20 01:11 Consult to Dietitian/Nutrition [CONS] Stat Physician Instructions: Reason For Exam: Reason for Consult: Pt needs oral supplement 08/06/20 04:13 Physical Therapy Evaluation and Treat [CONS] Routine Comment: Reason For Exam: h/o fall 08/06/20 04:16 Occupational Therapy Evaluate and Treat [CONS] Routine Comment: Reason For Exam: limited ability to feed self 08/06/20 07:10 Consult to Physician [CONS] Routine Comment: Consulting Provider: LIANNA RUIZ Physician Instructions: Reason For Exam: chf Consult to Physician [CONS] Routine Comment: Consulting Provider: JEROME GREENBERG Physician Instructions: Reason For Exam: AIDAN 08/06/20 08:23 Consult to Physician [CONS] Routine Comment: Consulting Provider: ABE PETERS Physician Instructions: Reason For Exam: Subacute L3-L4 compression deformity/s/p fall 08/06/20 11:32 Consult to Wound/ET Nurse [CONS] Routine Reason For Exam: wound eval to left hip and right elbow 08/13/20 12:51 Physical Therapy Evaluation and Treat [CONS] Urgent Comment: patient lives in a motel and is self pay Reason For Exam: DME for mobility Primary care physician: [employer]IST Hospitalization Reason for admission: Fall, cirrhosis, chronic hep c, Ascites , bilateral lower extremity edema, Condition: Stable Hospital course: -History of fall; Fall precautions, supportive care --Subacute compression deformities at L4 and L3, but no acute fracture Patient had a fall and fracture L3 L5 in April 2020 Supportive care, pain management, PT OT Dr. Peters/Ortho evaluated. recommended MRI L S-spine. --Acute kidney injury; Vasomotor nephropathy Also secondary to diuresis Closely monitor renal function.Nephrology consulted, Renal ultrasound medical renal disease; Avoid nephrotoxins History of present illness: This is a 59-year-old female presents to ED following fall from bed with back pain and right hip pain. Patient is s/p fall in April 2020, and she was diagnosed with L3 and L4 burst fractures. Per ED note- Following hospital stay, patient was then living in a personal fci. Patient seen at bed side, she denies tobacco use, alcohol and illicit drug use. She reports back pain of 7/10. She states she lives in the personal fci, but moved in to living in a motel becuse she could not afford personal home anymore. She has bilateral led edema-she said it is ongoing and she takes Lasix. She was seen at [facility] [place], and started on Lasix. Patient denies diagnosis of congestive heart failure. She denies any shortness of breath and she is on room air. She said she had bilateral lower extremity ultrasounds that were negative for DVT. ED work up WBc 5.1, hemoglobin 8.5, sodium 140, potassium 3.7, Cr 1.5, serum glucose 112 Albumen 2.0, Lumber spine-shows Subacute compression deformities at L4 and L3 --Cirrhosis with portal hypertension/moderate ascites; Patient will follow GI as outpatient Supportive care --Chronic back pain; Continue current pain management and supportive care Physical therapy occupational therapy --General debility/generalized weakness Nutrition supplements. PT OT Possible home with home health versus placement --Severe protein calorie malnutrition; Nutrition supplements, dietitian consult And supportive care --Anemia; hemoglobin 8 Probably iron deficiency anemia Acute versus chronic No previous labs to compare Closely monitor transfuse as needed --Lower extremity edema; Due to cirrhosis liver , ascites check echocardiogram for LV EF 60-65% Continue diuretics, input output monitoring Cardiology following --Full CODE STATUS --DVT prophylaxis; Lovenox --Hypokalemia. Disposition; Possible discharge to subacute rehab when medically stable. PT recommend subacute rehab. 08/10/2020 Follow MRI report, adjust the management as needed Orthopedics is also awaiting for MRI of the spine Home with home health versus subacute rehab. We will discuss with case management Replete potassium. 08/11/2020. MRI scan reviewed by orthopedics who reports evidence of old burst fracture, doubt disc space infection. Orthopedics recommends conservative management with back brace and physical therapy. Await placement to subacute rehab per physical therapy recommendations. Will discuss with case management. 08/12/2020. Await placement to subacute rehab per physical therapy recommendations. 08/13/2020. Acute kidney injury most likely secondary to pre-renal azotemia in the setting of diuretic therapy, superimposed on CKD. Abd US showed cortical thinning of b/l kidneys consistent with underlying CKD. urine P/C ratio > 1g/g. Abd US was consistent with liver cirrhosis with portal hypertension and moderate ascites volume. Cont IV lasix to target net negative fluid balance. avoid nephrotoxins, NSAIDs IV contrast. Echocardiogram reveals normal left ventricular size and function with a left ventricular ejection fraction of 60 to 65%. Await placement to subacute rehab per physical therapy recommendations. 08/14/2020; patient was seen and evaluated this morning and patient's leg and abdominal swelling is getting better. Patient said she has history of hepc and cirrhosis, I make an appointment to follow with GI as an O/P for treatment. for anemia she was put on iron supplement. I have wrote a prescription and discharged the patient home with home health and other home health equipments. But the nurse told me the patient sign AMA and signing AMA before the nurse finish her paperwork She said she has the medications at home and doesn't need scripts. patient was evaluated PT/OT and recommend to discharge to subacute rehab but patient doesn't have funding. Disposition: DC-30 STILL A PATIENT Time spent for discharge: 35 minutes - Discharge Diagnoses (1) AIDAN (acute kidney injury) Status: Acute (2) Anemia Status: Chronic Qualifiers: Anemia type: other cause Other causes of anemia: other cause, not classified Qualified Code(s): D64.89 - Other specified anemias (3) Ascites Status: Chronic (4) Bilateral lower extremity edema Status: Chronic (5) Generalized weakness Status: Acute (6) Hypokalemia Status: Acute (7) Acute exacerbation of chronic low back pain Status: Acute Core Measure Documentation - Palliative Care Palliative Care/ Comfort Measures: Not Applicable - Core Measures Any of the following diagnoses?: none Exam - Physical Exam Narrative exam: Not in cardiopulmonary distress. The patient appeared well nourished and normally developed. Vital signs as documented. Head exam is unremarkable. No scleral icterus . Neck is without jugular venous distension, thyromegaly, or carotid bruits. Lungs are clear to auscultation. Cardiac exam reveals regular rate and Rhythm. Abdominal exam reveals normal bowel sounds, nontender, no organomegaly. Extremities no edema. ETHANOL QUALITY LEADER: Alert and oriented 3. No focal weakness. - Constitutional Vitals: Temp Pulse Resp BP Pulse Ox 99.1 F 76 18 138/68 93 08/14/20 04:18 08/14/20 04:18 08/14/20 04:18 08/14/20 04:18 08/14/20 04:18 Plan Activity: advance as tolerated Weight Bearing Status: Full Weight Bearing Diet: low salt Durable Medical Equipment Needed Upon Discharge: Walker-Rolling, Bedside Commode Follow up with: PRIMARY CAREMD [Primary Care Provider] - 3-5 Days NAMAN FELIPE MD [Staff Physician] - 14 Days Prescriptions: Spironolactone [Aldactone] 25 mg PO QDAY #30 tablet Ferrous Sulfate [Feosol 325 MG tab] 325 mg PO QDAY #30 tablet Furosemide [Lasix TAB] 40 mg PO QDAY #30 tablet Multivitamin Tab [Multiple Vitamin TAB (Theragran)] 1 each PO QDAY #30 tablet
== END 2020-08-14 13:40 | disposition home health service (06) | DRG 604 ==
LOC: ED 22:04 → 3A 08-06 00:31 → OBSVTOIN 08-08 15:33
PROVIDERS: ADMIT Internal Medicine; ATTEND Internal Medicine
DX: S30.0XXA Contusion of lower back and pelvis, initial encounter (principal); N17.0 Acute kidney failure with tubular necrosis; E43 Unspecified severe protein-calorie malnutrition; K76.6 Portal hypertension; R18.8 Other ascites; S70.01XA Contusion of right hip, initial encounter; S40.011A Contusion of right shoulder, initial encounter; K74.60 Unspecified cirrhosis of liver; B19.20 Unspecified viral hepatitis C without hepatic coma; M43.8X6 Other specified deforming dorsopathies, lumbar region; G89.29 Other chronic pain; M54.9 Dorsalgia, unspecified; D64.9 Anemia, unspecified; E87.6 Hypokalemia; N18.9 Chronic kidney disease, unspecified; E83.51 Hypocalcemia; E88.09 Other disorders of plasma-protein metabolism, not elsewhere classified; W18.39XA Other fall on same level, initial encounter; Z68.31 Body mass index [BMI] 31.0-31.9, adult; Y93.89 Activity, other specified; Y92.89 Other specified places as the place of occurrence of the external cause; Y99.8 Other external cause status
CPT/HCPCS: 36415; 72100; 72148; 76700; 76770; 80048; 80076; 82550; 82570; 83540; 83880; 83930; 84156; 84300; 85025; 87641; 93005; 93306; 93970; 96365; 96375; G0378; J1650; J1940; J2060; J2270; J7030

== ENCOUNTER 2021-04-16 09:08 | Inpatient (IN) | payer MEDICAID ==
--- NOTE | 2021-04-16 10:32 | Emergency Department Report ---
ED General Adult HPI - General Chief complaint: Dyspnea/Respdistress Stated complaint: DONNY Time Seen by Provider: 04/16/21 10:07 Source: EMS Mode of arrival: Stretcher Limitations: No Limitations - History of Present Illness Initial comments: The patient presents to the emergency department with a chief complaint of shortness of breath. Patient states she has a history of hepatitis C with ascites and had a paracentesis done last month at [facility]. Patient states that she goes to [facility] for all her medical care. Patient states that she normally takes Lasix but was taken off the Lasix due to issues with her kidneys. Patient denies any chest pain but does endorse shortness of breath. Patient denies headache. -: Gradual Severity scale (0 -10): 0 Consistency: constant Improves with: none Worsens with: movement Associated Symptoms: denies other symptoms Treatments Prior to Arrival: none - Related Data Previous Rx's Medication Instructions Recorded Last Taken Type Ferrous Sulfate [Feosol 325 MG tab] 325 mg PO QDAY #30 tablet 08/14/20 Unknown Rx Furosemide [Lasix TAB] 40 mg PO QDAY #30 tablet 08/14/20 Unknown Rx Multivitamin Tab [Multiple Vitamin 1 each PO QDAY #30 tablet 08/14/20 Unknown Rx TAB (Theragran)] Spironolactone [Aldactone] 25 mg PO QDAY #30 tablet 08/14/20 Unknown Rx Allergies Allergy/AdvReac Type Severity Reaction Status Date / Time NSAIDS (Non-Steroidal Allergy Anaphylaxis Verified 04/16/21 10:33 Anti-Inflamma Quinolones Allergy Anaphylaxis Verified 04/16/21 10:32 metoclopramide [From Reglan] AdvReac Unknown Verified 04/16/21 10:33 nitrofurantoin AdvReac Vomiting Verified 04/16/21 10:34 [From Macrobid] ED Review of Systems ROS: Stated complaint: DONNY Other details as noted in HPI Constitutional: denies: chills, fever Eyes: denies: eye pain, eye discharge, vision change ENT: denies: ear pain, throat pain Respiratory: shortness of breath. denies: cough, wheezing Cardiovascular: denies: chest pain, palpitations Endocrine: no symptoms reported Gastrointestinal: denies: abdominal pain, nausea, diarrhea Genitourinary: denies: urgency, dysuria, discharge Musculoskeletal: denies: back pain, joint swelling, arthralgia Skin: denies: rash, lesions Neurological: denies: headache, weakness, paresthesias Psychiatric: denies: anxiety, depression Hematological/Lymphatic: denies: easy bleeding, easy bruising ED Past Medical Hx - Past Medical History Previous Medical History?: Yes Hx Congestive Heart Failure: No Hx Diabetes: No Hx Renal Disease: Yes (polynephritis) Hx Asthma: No Hx COPD: No Additional medical history: endometriosis. Hepatitis C - Surgical History Additional Surgical History: back surgery - Social History Smoking Status: Never Smoker Substance Use Type: None - Medications Home Medications: Home Medications Medication Instructions Recorded Confirmed Last Taken Type Ferrous Sulfate [Feosol 325 MG tab] 325 mg PO QDAY #30 tablet 08/14/20 Unknown Rx Furosemide [Lasix TAB] 40 mg PO QDAY #30 tablet 08/14/20 Unknown Rx Multivitamin Tab [Multiple Vitamin 1 each PO QDAY #30 tablet 08/14/20 Unknown Rx TAB (Theragran)] Spironolactone [Aldactone] 25 mg PO QDAY #30 tablet 08/14/20 Unknown Rx ED Physical Exam - General Limitations: No Limitations General appearance: alert, in no apparent distress - Head Head exam: Present: atraumatic, normocephalic - Eye Eye exam: Present: normal appearance - ENT ENT exam: Present: mucous membranes moist - Neck Neck exam: Present: normal inspection - Respiratory Respiratory exam: Present: rales. Absent: respiratory distress - Cardiovascular Cardiovascular Exam: Present: normal rhythm, tachycardia. Absent: systolic murmur, diastolic murmur, rubs, gallop - GI/Abdominal GI/Abdominal exam: Present: soft, distended, normal bowel sounds, other (fluid wave) - Extremities Exam Extremities exam: Present: other (anasarca) - Back Exam Back exam: Present: normal inspection - Neurological Exam Neurological exam: Present: alert, oriented X3, CN II-XII intact. Absent: motor sensory deficit - Psychiatric Psychiatric exam: Present: normal affect, normal mood - Skin Skin exam: Present: warm, dry, intact, normal color. Absent: rash ED Course Vital Signs 04/16/21 09:22 Temperature 98 F Pulse Rate 64 Respiratory 20 Rate Blood Pressure 162/82 O2 Sat by Pulse 94 Oximetry ED Medical Decision Making - Lab Data Result diagrams: 04/16/21 10:58 04/16/21 10:58 Lab Results 04/16/21 04/16/21 04/16/21 Range/Units 10:58 10:58 10:58 WBC 8.0 (4.5-11.0) K/mm3 RBC 2.78 L (3.65-5.03) M/mm3 Hgb 8.8 L (10.1-14.3) gm/dl Hct 26.3 L (30.3-42.9) % MCV 95 (79-97) fl MCH 32 (28-32) pg MCHC 33 (30-34) % RDW 18.9 H (13.2-15.2) % Plt Count 191 (140-440) K/mm3 Lymph % (Auto) 15.6 (13.4-35.0) % [place] % (Auto) 10.1 H (0.0-7.3) % Eos % (Auto) 3.6 (0.0-4.3) % Baso % (Auto) 0.6 (0.0-1.8) % Lymph # (Auto) 1.2 (1.2-5.4) K/mm3 [place] # (Auto) 0.8 (0.0-0.8) K/mm3 Eos # (Auto) 0.3 (0.0-0.4) K/mm3 Baso # (Auto) 0.0 (0.0-0.1) K/mm3 Seg Neutrophils % 70.1 H (40.0-70.0) % Seg Neutrophils # 5.6 (1.8-7.7) K/mm3 PT 18.4 H (12.2-14.9) Sec. INR 1.48 H (0.87-1.13) APTT 36.5 (24.2-36.6) Sec. Sodium 137 (137-145) mmol/L Potassium 3.7 (3.6-5.0) mmol/L Chloride 104.8 (98-107) mmol/L Carbon Dioxide 28 (22-30) mmol/L Anion Gap 8 mmol/L BUN 17 (7-17) mg/dL Creatinine 0.8 (0.6-1.2) mg/dL Estimated GFR > 60 ml/min BUN/Creatinine Ratio 21 % Glucose 171 H (65-100) mg/dL Lactic Acid (0.7-2.0) mmol/L Calcium 7.8 L (8.4-10.2) mg/dL Magnesium (1.7-2.3) mg/dL Total Bilirubin 1.20 (0.1-1.2) mg/dL AST 33 (5-40) units/L ALT 12 (7-56) units/L Alkaline Phosphatase 132 H (35-129) units/L NT-Pro-B Natriuret Pep (0-900) pg/mL Total Protein 6.6 (6.3-8.2) g/dL Albumin 1.8 L (3.9-5) g/dL Albumin/Globulin Ratio 0.4 % 04/16/21 04/16/21 04/16/21 Range/Units 10:58 10:58 11:17 WBC (4.5-11.0) K/mm3 RBC (3.65-5.03) M/mm3 Hgb (10.1-14.3) gm/dl Hct (30.3-42.9) % MCV (79-97) fl MCH (28-32) pg MCHC (30-34) % RDW (13.2-15.2) % Plt Count (140-440) K/mm3 Lymph % (Auto) (13.4-35.0) % [place] % (Auto) (0.0-7.3) % Eos % (Auto) (0.0-4.3) % Baso % (Auto) (0.0-1.8) % Lymph # (Auto) (1.2-5.4) K/mm3 [place] # (Auto) (0.0-0.8) K/mm3 Eos # (Auto) (0.0-0.4) K/mm3 Baso # (Auto) (0.0-0.1) K/mm3 Seg Neutrophils % (40.0-70.0) % Seg Neutrophils # (1.8-7.7) K/mm3 PT (12.2-14.9) Sec. INR (0.87-1.13) APTT (24.2-36.6) Sec. Sodium (137-145) mmol/L Potassium (3.6-5.0) mmol/L Chloride (98-107) mmol/L Carbon Dioxide (22-30) mmol/L Anion Gap mmol/L BUN (7-17) mg/dL Creatinine (0.6-1.2) mg/dL Estimated GFR ml/min BUN/Creatinine Ratio % Glucose (65-100) mg/dL Lactic Acid 1.80 (0.7-2.0) mmol/L Calcium (8.4-10.2) mg/dL Magnesium 2.00 (1.7-2.3) mg/dL Total Bilirubin (0.1-1.2) mg/dL AST (5-40) units/L ALT (7-56) units/L Alkaline Phosphatase (35-129) units/L NT-Pro-B Natriuret Pep 157.7 (0-900) pg/mL Total Protein (6.3-8.2) g/dL Albumin (3.9-5) g/dL Albumin/Globulin Ratio % - Medical Decision Making Results discussed with patient Critical care attestation.: If time is entered above; I have spent that time in minutes in the direct care of this critically ill patient, excluding procedure time. ED Disposition Clinical Impression: Ascites, Anasarca Disposition: OP ADMIT IP TO THIS HOSP Is pt being admited?: Yes Does the pt Need Aspirin: No Condition: Fair
--- NOTE | 2021-04-16 10:55 | XRay Report ---
CHEST 1 VIEW INDICATION: sob. COMPARISON: None FINDINGS: Support devices: None. Heart: Within normal limits. Lungs/Pleura: Right middle and/or right lower lobe atelectasis is identified. Small right pleural eff usion is suspected. The lungs are clear otherwise. No pneumothorax. Additional findings: None. IMPRESSION: Atelectatic changes at the right lung base as described. Small right pleural effusion. Signer Name: Chip Bingham Jr, MD Signed: 04/16/2021 10:51 AM Workstation Name: [id number]
[2021-04-16 11:48] LABS: Alanine Aminotransferase 12 units/L (7-56); Albumin 1.8 g/dL (3.9-5); BUN/Creatinine Ratio 21; Blood Urea Nitrogen 17 mg/dL (7-17); Calcium 7.8 mg/dL (8.4-10.2); Hemolysis Index 1
[2021-04-16 11:51] LABS: Basophils % (Auto) 0.6 % (0.0-1.8); Eosinophils # (Auto) 0.3 K/mm3 (0.0-0.4); Eosinophils % (Auto) 3.6 % (0.0-4.3); Hematocrit 26.3 % (30.3-42.9); Hemoglobin 8.8 gm/dl (10.1-14.3); Lymphocytes # (Auto) 1.2 K/mm3 (1.2-5.4); Lymphocytes % (Auto) 15.6 % (13.4-35.0); Mean Corpuscular HGB Conc 33 % (30-34); Mean Corpuscular Volume 95 fl (79-97); Monocytes # (Auto) 0.8 K/mm3 (0.0-0.8); Monocytes % (Auto) 10.1 % (0.0-7.3); Platelet Count 191 K/mm3 (140-440); Red Blood Count 2.78 M/mm3 (3.65-5.03); Red Cell Distribution Width 18.9 % (13.2-15.2)
[2021-04-16 11:59] LABS: INR 1.48 (0.87-1.13)
[2021-04-16 12:00] LABS: Partial Thromboplastin Time 36.5 Sec. (24.2-36.6)
--- NOTE | 2021-04-16 12:45 | History and Physical Report ---
History of Present Illness Chief complaint: I feel like im bloated and cannot breathe History of present illness: 60 YO Female with HCV complicated by ESLD, Cirrhosis of the Liver, Portal HTN complicated by Splenomegaly and recurrent Ascites S/P Paracentesis, Anemia of Chronic Disease presents to ED for evaluation. Pt reports " I feel bloated and cannot breathe". Pt states that she has experienced shortness of breath as well as abdominal distention over the past 1 week with progressively worsening symptoms over the same timeframe. EMS was notified and upon arrival the patient was found to be in distress and subsequent transported to [facility] for further care and evaluation of the aforementioned symptoms. The patient was seen and evaluated in the emergency department. All lab and imaging studies reviewed. The patient was found to have end-stage liver disease, cirrhosis, portal hypertension complicated by recurrent ascites in need of paracentesis. Patient admitted to medical floor and treated with diuretic therapy, as well as supportive care. Ultrasound-guided paracentesis ordered at time of admission. Patient denies fever, chills, chest pain, palpitation, productive cough, skin rash, recent ill contacts, known exposure to COVID-19. Prior admission on 08/08/2020 reviewed. All medication listed at time of admission has been reconciled by. Advanced care planning conducted in the emergency department. Past History Past Medical History: other (See HPI) Past Surgical History: Other (Back surgery) Social history: , lives with family Family history: no significant family history, other (Reviewed) Medications and Allergies Allergies Allergy/AdvReac Type Severity Reaction Status Date / Time NSAIDS (Non-Steroidal Allergy Anaphylaxis Verified 04/16/21 10:33 Anti-Inflamma Quinolones Allergy Anaphylaxis Verified 04/16/21 10:32 metoclopramide [From Reglan] AdvReac Unknown Verified 04/16/21 10:33 nitrofurantoin AdvReac Vomiting Verified 04/16/21 10:34 [From Macrobid] Home Medications Medication Instructions Recorded Confirmed Last Taken Type Ferrous Sulfate [Feosol 325 MG tab] 325 mg PO QDAY #30 tablet 08/14/20 04/16/21 Unknown Rx Furosemide [Lasix TAB] 40 mg PO QDAY #30 tablet 08/14/20 04/16/21 Unknown Rx Multivitamin Tab [Multiple Vitamin 1 each PO QDAY #30 tablet 08/14/20 04/16/21 Unknown Rx TAB (Theragran)] Spironolactone [Aldactone] 25 mg PO QDAY #30 tablet 08/14/20 04/16/21 Unknown Rx Review of Systems Constitutional: no weight loss, no fever, no chills, no sweats Ears, nose, mouth and throat: no ear pain, no tinnitis, no nasal discharge Cardiovascular: no chest pain, no palpitations, no edema Respiratory: shortness of breath Gastrointestinal: other (Abdominal distention), no abdominal pain, no nausea, no vomiting Genitourinary Female: no pelvic pain, no flank pain, no dysuria, no urinary frequency, no urgency Rectal: no pain, no incontinence, no bleeding Musculoskeletal: no neck pain, no shooting arm pain, no leg numbness/tingling Integumentary: no rash, no pruritis, no redness, no wounds, no jaundice Neurological: no transient paralysis, no weakness, no tingling, no syncope Psychiatric: no anxiety, no memory loss, no change in sleep habits, no change in libido, no suicidal ideation, no disorientation Exam - Constitutional Vitals: Temp Pulse Resp BP Pulse Ox 98 F 64 20 162/82 94 04/16/21 09:22 04/16/21 09:22 04/16/21 09:22 04/16/21 09:22 04/16/21 09:22 General appearance: Present: mild distress, obese - EENT Eyes: Present: PERRL ENT: hearing intact, clear oral mucosa - Neck Neck: Present: supple, normal ROM - Respiratory Respiratory effort: normal Respiratory: bilateral: diminished, rhonchi - Cardiovascular Heart Sounds: Present: S1 & S2. Absent: rub, click - Extremities Extremities: pulses symmetrical Extremity abnormal: edema Peripheral Pulses: within normal limits - Abdominal General gastrointestinal: Present: soft, non-tender, distended, normal bowel sounds, other (Positive fluid wave, positive ascites) Female genitourinary: Present: normal - Integumentary Integumentary: Present: clear, warm, dry - Musculoskeletal Musculoskeletal: gait normal, strength equal bilaterally - Psychiatric Psychiatric: appropriate mood/affect, intact judgment & insight - Neurologic Neurologic: CNII-XII intact, moves all extremities Results - Labs CBC & Chem 7: 04/16/21 10:58 04/16/21 10:58 Labs: Abnormal lab results 07/04/0104/16/21 04/16/21 Range/Units 10:58 10:58 10:58 RBC 2.78 L (3.65-5.03) M/mm3 Hgb 8.8 L (10.1-14.3) gm/dl Hct 26.3 L (30.3-42.9) % RDW 18.9 H (13.2-15.2) % [place] % (Auto) 10.1 H (0.0-7.3) % Seg Neutrophils % 70.1 H (40.0-70.0) % PT 18.4 H (12.2-14.9) Sec. INR 1.48 H (0.87-1.13) Glucose 171 H (65-100) mg/dL Calcium 7.8 L (8.4-10.2) mg/dL Alkaline Phosphatase 132 H (35-129) units/L Albumin 1.8 L (3.9-5) g/dL Assessment and Plan - Patient Problems (1) End stage liver disease Current Visit: Yes Status: Acute Plan to address problem: Supportive care, diuretic therapy, ultrasound-guided therapeutic paracentesis, monitor fluid balance, strict I's/O, monitor urine output every shift, daily weight. (2) Portal hypertension Current Visit: Yes Status: Acute Plan to address problem: Supportive care, diuretic therapy, continue medical management. (3) Cirrhosis Current Visit: Yes Status: Acute Qualifiers: Ascites presence: with ascites Plan to address problem: Supportive care, continue medical management. (4) Ascites Current Visit: Yes Status: Acute Plan to address problem: Ultrasound-guided paracentesis has been ordered and is pending at time of admission (5) DVT prophylaxis Current Visit: No Status: Acute Plan to address problem: SCD to bilateral lower extremities while in bed, patient is ambulatory (6) Advance care planning Current Visit: Yes Status: Acute Plan to address problem: Disease education conducted, care plan discussed, diagnosis discussed, prognosis discussed, patient knowledges understanding and agreement with care plan, +30 minutes.
[2021-04-16] MEDS ORDERED: ALBUTEROL 2.5 MG/3 ML NEBU IH PRN (12:50)
[2021-04-16] MEDS ORDERED: ONDANSETRON 4 MG/2 ML INJ IV PRN (13:30)
[2021-04-16] MEDS ORDERED: ACETAMINOPHEN 325 MG TAB PO PRN (13:30)
--- NOTE | 2021-04-16 16:05 | Procedure Note ---
Date of procedure: 04/16/21 Pre-op diagnosis: ascites Post-op diagnosis: same Procedure: US paracentesis Findings: moderate to large ascites Anesthesia: local Surgeon: TANESHA YADAV Estimated blood loss: none Pathology: none Specimen disposition: discarded Condition: stable Disposition: other (back to ER)
[2021-04-16] MEDS: FUROSEMIDE 20 MG/2 ML INJ IV SCH (17:59)
[2021-04-17] MEDS ORDERED: traMADol 50 MG TAB PO ONE (01:34)
[2021-04-17] MEDS: FUROSEMIDE 20 MG/2 ML INJ IV SCH ×2 (06:00→17:44)
[2021-04-17 06:22] LABS: Alanine Aminotransferase 9 units/L (7-56); Albumin 1.4 g/dL (3.9-5); BUN/Creatinine Ratio 21; Basophils % (Auto) 0.8 % (0.0-1.8); Blood Urea Nitrogen 17 mg/dL (7-17); Calcium 7.5 mg/dL (8.4-10.2); Eosinophils # (Auto) 0.2 K/mm3 (0.0-0.4); Eosinophils % (Auto) 4.5 % (0.0-4.3); Hematocrit 21.1 % (30.3-42.9); Hemoglobin 7.3 gm/dl (10.1-14.3); Hemolysis Index 3; Lymphocytes # (Auto) 1.3 K/mm3 (1.2-5.4); Lymphocytes % (Auto) 26.6 % (13.4-35.0); Mean Corpuscular HGB Conc 34 % (30-34); Mean Corpuscular Volume 93 fl (79-97); Monocytes # (Auto) 0.6 K/mm3 (0.0-0.8); Monocytes % (Auto) 12.6 % (0.0-7.3); Platelet Count 153 K/mm3 (140-440); Red Blood Count 2.26 M/mm3 (3.65-5.03); Red Cell Distribution Width 18.6 % (13.2-15.2)
[2021-04-17 06:40] LABS: Bacteria,Urine 3+ /HPF (Negative); Bilirubin,Urine NEG (Negative); Blood,Urine SM (Negative); Color,Urine Amber (Yellow); Protein,Urine <15 mg/dL mg/dL (Negative)
--- NOTE | 2021-04-17 08:03 | Ultrasound Report ---
ULTRASOUND-GUIDED PARACENTESIS HISTORY: therapeutic paracentesis. PROCEDURE: The risks (including but not limited to bleeding, infection, and bowel injury) and benefi ts were explained to the patient and informed consent was obtained. A time out procedure was perform ed. Ultrasound was used to evaluate the abdomen and locate the largest ascites fluid pocket. Once the sk in was marked, the procedure site was prepped and draped in the usual sterile fashion and lidocaine w as used for local anesthesia. A 5 [place] centesis catheter was placed. The patient was monitored cl osely throughout the procedure, and a total of 5800 mL of clear yellow fluid was aspirated. No labs were ordered by the requesting physician. The patient tolerated the procedure well with no complications. IMPRESSION: Successful ultrasound-guided paracentesis as described. Signer Name: Chip Bingham Jr, MD Signed: 04/17/2021 7:58 AM Workstation Name: [id number]
[2021-04-17] MEDS: FERROUS SULFATE 325 MG TAB PO SCH (10:32)
[2021-04-17] MEDS: SPIRONOLACTONE 25 MG TAB PO SCH (10:32)
[2021-04-17] MEDS: MULTIVITAMINS ,THERAPEUTIC TAB PO SCH (10:32)
--- NOTE | 2021-04-17 15:23 | Progress Note ---
Assessment and Plan --bacteremia with gm +ve cocci Patient is allergic to quinolones and stated that she cannot tolerate vancomycin We will place on Ancef for now. We will repeat blood culture and will also consult ID -- End stage liver disease Supportive care, diuretic therapy, s/p ultrasound-guided therapeutic paracentesis, monitor fluid balance, strict I's/O, monitor urine output every shift, daily weight. -- Portal hypertension Supportive care, diuretic therapy, continue medical management. -- Cirrhosis with hepatitis C Supportive care, continue medical management. Outpatient follow-up [facility] -- Ascites Ultrasound-guided paracentesis has been ordered and drained about 5.8 L of acetic fluid -- DVT prophylaxis SCD to bilateral lower extremities while in bed, patient is ambulatory --Advance care planning Disease education conducted, care plan discussed, diagnosis discussed, prognosis discussed, patient knowledges understanding and agreement with care plan, +30 minutes. Daily clinical course; 04/17/21: Patient had paracentesis yesterday which drained 5.8 L of ascitic fluid. Blood culture growing gram-positive cocci in cluster. Will start on empiric antibiotic, will get a repeat blood culture, consult ID. Subjective Date of service: 04/17/21 Interval history: Patient seen and examined. Medical records and medication list reviewed. No acute event overnight noted by the RN. Patient denies any chest pain or difficulty breathing. Patient is tolerating diet. 1 out of 2 blood cultures positive for gram-positive cocci in cluster Discussed plan of care at bedside with patient. Objective - Exam Narrative Exam: GENERAL: well-developed and obese white elderly female lying on bed appeared to be in no discomfort. HEENT: Normocephalic. Atraumatic. No conjunctival congestion or icterus. Patient has moist mucous membranes. NECK: Supple. Trachea midline. CHEST/LUNGS: Clear to auscultated bilaterally, breathing nonlabored. No wheezes crackles or rhonchi. HEART/CARDIOVASCULAR: Regular in rate and rhythm. S1 and S2 positive. ABDOMEN: Abdomen is soft, nontender, obese. Patient has normal bowel sounds. SKIN: There is no rash. Warm and dry. NEURO: No focal motor deficit. Follows command. MUSCULOSKELETAL: No joint effusion or tenderness. EXTRIMITY: 3+ pitting edema, no cyanosis or clubbing. PSYCH: Cooperative. - Constitutional Vitals: Vital Signs - 12hr 04/17/21 04/17/21 04:45 10:00 Temperature 98.1 F Pulse Rate 97 H Respiratory 20 20 Rate Blood Pressure 112/54 O2 Sat by Pulse 99 96 Oximetry - Labs CBC & Chem 7: 04/17/21 05:36 04/17/21 05:36 Labs: Abnormal lab results 04/17/21 04/17/21 Range/Units 05:36 05:36 RBC 2.26 L (3.65-5.03) M/mm3 Hgb 7.3 L (10.1-14.3) gm/dl Hct 21.1 L (30.3-42.9) % RDW 18.6 H (13.2-15.2) % [place] % (Auto) 12.6 H (0.0-7.3) % Eos % (Auto) 4.5 H (0.0-4.3) % Potassium 3.5 L (3.6-5.0) mmol/L Glucose 119 H (65-100) mg/dL Calcium 7.5 L (8.4-10.2) mg/dL Total Protein 5.2 L D (6.3-8.2) g/dL Albumin 1.4 L (3.9-5) g/dL
[2021-04-17] MEDS ORDERED: VANCOMYCIN/NS 1 GM/250 ML 1 GM/250 ML BAG IV SCH (16:00)
[2021-04-17] MEDS: POTASSIUM CHLORIDE ER 10 MEQ TAB PO SCH (17:44)
[2021-04-18] MEDS: FUROSEMIDE 20 MG/2 ML INJ IV SCH ×2 (06:27→18:00)
[2021-04-18] MEDS: SPIRONOLACTONE 25 MG TAB PO SCH (09:47)
[2021-04-18] MEDS: POTASSIUM CHLORIDE ER 10 MEQ TAB PO SCH (09:47)
[2021-04-18] MEDS: MULTIVITAMINS ,THERAPEUTIC TAB PO SCH (09:47)
[2021-04-18] MEDS: FERROUS SULFATE 325 MG TAB PO SCH (09:47)
--- NOTE | 2021-04-18 13:18 | Discharge Summary ---
Providers - Providers Date of Admission: 04/16/21 12:20 Date of discharge: 04/19/21 Attending physician: CARA LIND 04/16/21 18:46 Consult to Wound/ET Nurse [CONS] Routine Reason For Exam: wound eval 04/17/21 15:23 Consult to Physician [CONS] Routine Reason For Exam: bacteremia Consulting Provider: SAMANTHA EVANS Physician Instructions: Comment: Primary care physician: BIOENGINEER Hospitalization Condition: Fair Pertinent studies: CXR s/p Paracentesis Hospital course: 60 YO Female with HCV complicated by ESLD, Cirrhosis of the Liver, Portal HTN complicated by Splenomegaly and recurrent Ascites requires Paracentesis, Anemia of Chronic Disease presents to ED with c/o shortness of breath as well as abdominal distention over the past 1 week. EMS was notified and transported to [facility]. All lab and imaging studies reviewed. The patient was found to have end- stage liver disease, cirrhosis, portal hypertension complicated by recurrent ascites in need of paracentesis. Patient admitted to medical floor and treated with diuretic therapy, as well as supportive care. Ultrasound-guided paracentesis ordered and drained about 5.8 L of acetic fluid. Patient noted to have 1 out of 2 blood culture positive for gram-positive cocci in clusters. She was started on empiric antibiotics, repeat blood culture ordered. Patient did not have any fever no elevated white count. Positive blood culture likely due to contamination and it was growing coag negative staph aureus. Patient was th en discharged home in stable condition with outpatient follow-up. Discharge planning management was thoroughly discussed with the patient and she verbalized understanding. Daily clinical course; 04/17/21: Patient had paracentesis yesterday which drained 5.8 L of ascitic fluid. Blood culture growing gram-positive cocci in cluster. Will start on empiric antibiotic, will get a repeat blood culture, consult ID. 04/18/21: Pending repeat blood culture result. Also pending identification of bacteria on the prior blood culture from admission. Continue empiric antibiotics for now, ID consulted. Patient is currently waiting to go home. Need home health on discharge. Will DC as soon as repeat blood culture results and bacterial identification is available. Patient explained plan of care and she understands. 04/19/21: Repeat blood culture is negative. Initial blood cultures growing coag negative staph aureus. Patient will be discharged home with outpatient follow-u p and home health. No antibiotics necessary on discharge. Discharge plan and management was thoroughly discussed with the patient and she verbalized understanding. Disposition: [id number] HOME UNDER HOME [facility] Final Discharge Diagnosis (Prints w/discharge instructions): -- bacteremia with gm +ve cocci, likely contamination. -- End stage liver disease. -- Portal hypertension. -- Cirrhosis with hepatitis C. -- Ascites s/p Ultrasound-guided paracentesis. --Morbid obesity. --Hypokalemia. --Anemia of chronic disease, H&H stable. --Hypoalbuminemia due to end-stage liver disease Time spent for discharge: 34 minutes Core Measure Documentation - Palliative Care Palliative Care/ Comfort Measures: Not Applicable - Core Measures Any of the following diagnoses?: none Exam - Physical Exam Narrative exam: GENERAL: well-developed and obese white elderly female lying on bed appeared to be in no discomfort. HEENT: Normocephalic. Atraumatic. No conjunctival congestion or icterus. Patient has moist mucous membranes. NECK: Supple. Trachea midline. CHEST/LUNGS: Clear to auscultated bilaterally, breathing nonlabored. No wheezes crackles or rhonchi. HEART/CARDIOVASCULAR: Regular in rate and rhythm. S1 and S2 positive. ABDOMEN: Abdomen is soft, nontender, obese. Patient has normal bowel sounds. SKIN: There is no rash. Warm and dry. NEURO: No focal motor deficit. Follows command. MUSCULOSKELETAL: No joint effusion or tenderness. EXTRIMITY: 3+ pitting edema, no cyanosis or clubbing. PSYCH: Cooperative. - Constitutional Vitals: Temp Pulse Resp BP Pulse Ox 98.2 F 100 H 16 145/47 97 04/18/21 11:09 04/18/21 11:09 04/18/21 11:09 04/18/21 11:09 04/18/21 11:09 Plan Activity: advance as tolerated Weight Bearing Status: Weight Bear as Tolerated Diet: low fat Follow up with: PRIMARY CAREMD [Primary Care Provider] - 3-5 Days SOLANGE DRUMMOND MD [Staff Physician] - 7 Days Prescriptions: Potassium Chloride [K-Dur] 10 meq PO QDAY #3 tablet
--- NOTE | 2021-04-18 15:44 | Consultation ---
History of Present Illness - Reason for Consult Consult date: 04/18/21 - History of Present Illness 60-year-old female past medical history hepatitis C with end-stage liver disease, cirrhosis, portal hypertension with recurrent ascites presented to the hospital complaining of feeling bloated. He also notes shortness of breath and abdominal tension, all her symptoms began approximately 1 week prior to admission and were progressively worse since onset. Most recent admission to hospital was 08/08/2020. Afebrile since admission with a white count 4.8. Initial blood cultures of 1 out of 4 bottles of gram-positive cocci Imaging personally reviewed: Chest x-ray: Atelectasis of the right lung. Review of Systems: Bold if positive, otherwise negative General: fevers, chills, rigors HEENT: visual disturbance, diplopia, eye pain Respiratory: cough, sputum, hemoptysis, shortness of breath Cardiovascular: chest pain, syncope Gastrointestinal: nausea, vomiting, diarrhea, abdominal pain Genitourinary: dysuria, hematuria, flank pain Musculoskeletal: neck pain, back pain, joint pain, edema Neurologic: headaches, seizures Hematologic: easy bruising or bleeding Endocrine: night sweats, acute weight loss Skin: rash, jaundice, redness Psychiatric: suicidal, homicidal ideation Past History Past Medical History: other (See HPI) Past Surgical History: Other (Back surgery) Social history: , lives with family Family history: no significant family history, other (Reviewed) Medications and Allergies Allergies Allergy/AdvReac Type Severity Reaction Status Date / Time NSAIDS (Non-Steroidal Allergy Anaphylaxis Verified 04/16/21 10:33 Anti-Inflamma Quinolones Allergy Anaphylaxis Verified 04/16/21 10:32 metoclopramide [From Reglan] AdvReac Unknown Verified 04/16/21 10:33 nitrofurantoin AdvReac Vomiting Verified 04/16/21 10:34 [From Macrobid] Home Medications Medication Instructions Recorded Confirmed Last Taken Type Ferrous Sulfate [Feosol 325 MG tab] 325 mg PO QDAY #30 tablet 08/14/20 04/16/21 Unknown Rx Furosemide [Lasix TAB] 40 mg PO QDAY #30 tablet 08/14/20 04/16/21 Unknown Rx Multivitamin Tab [Multiple Vitamin 1 each PO QDAY #30 tablet 08/14/20 04/16/21 Unknown Rx TAB (Theragran)] Spironolactone [Aldactone] 25 mg PO QDAY #30 tablet 08/14/20 04/16/21 Unknown Rx Potassium Chloride [K-Dur] 10 meq PO QDAY #3 tablet 04/18/21 Unknown Rx Active Meds: Active Medications Acetaminophen (Acetaminophen 325 Mg Tab) 650 mg PO Q4H PRN PRN Reason: Pain MILD(1-3)/Fever >100.5/ABEL Albuterol (Albuterol 2.5 Mg/3 Ml Nebu) 2.5 mg IH Q4HRT PRN PRN Reason: Shortness Of Breath Ferrous Sulfate (Ferrous Sulfate 325 Mg Tab) 325 mg PO QDAY FORMERLY [facility], [facility]1983 Last Admin: 04/18/21 09:47 Dose: 325 mg Documented by: Furosemide (Furosemide 20 Mg/2 Ml Inj) 20 mg IV 0600,1800 FOR[facility]LY [facility], [facility]1983 Last Admin: 04/18/21 06:27 Dose: 20 mg Documented by: Cefazolin Sodium 2 gm/ Sodium (Chloride) 100 mls @ 200 mls/hr IV Q8HR [facility], [facility]–1983; Protocol Last Admin: 04/18/21 14:55 Dose: Not Given Documented by: Multivitamins (Multivitamins ,Therapeutic Tab) 1 each PO QDAY FOR[facility]LY [facility], [facility]1983 Last Admin: 04/18/21 09:47 Dose: 1 each Documented by: Ondansetron HCl (Ondansetron 4 Mg/2 Ml Inj) 4 mg IV Q8H PRN PRN Reason: Nausea And Vomiting Potassium Chloride (Potassium Chloride Er 10 Meq Tab) 30 meq PO QDAY FOR[facility]LY [facility], [facility]1983 Last Admin: 04/18/21 09:47 Dose: 30 meq Documented by: Sodium Chloride (Sodium Chloride 0.9% 10 Ml Flush Syringe) 10 ml IV BID [facility], [facility]1983 Last Admin: 04/18/21 09:48 Dose: 10 ml Documented by: Sodium Chloride (Sodium Chloride 0.9% 10 Ml Flush Syringe) 10 ml IV PRN PRN PRN Reason: LINE FLUSH Spironolactone (Spironolactone 25 Mg Tab) 25 mg PO QDAY [facility], [facility] Last Admin: 04/18/21 09:47 Dose: 25 mg Documented by: Physical Examination - Physical Exam Narrative exam: Physical Exam: Constitutional: Alert, cooperative. No acute distress Head, Ears, Nose: Normocephalic, atraumatic. External ears, nose normal Eyes: Conjunctivae/corneas clear. No icterus. No ptosis. Neck: Supple, no meningeal signs Oral: dentition fair, no thrush Cardiovascular: S1, S2 normal. Respiratory: Good air entry, clear to auscultation bilaterally GI: Soft, non-tender, mildly distended Musculoskeletal: No pedal edema, no cyanosis. Skin: No rash or abscess Hem/Lymphatic: No palpable cervical or supraclavicular nodes. No lymphangitis Psych: Mood ok. Affect normal Neurological: Awake, alert, oriented. No gross abnormality - Constitutional Vitals: Vital Signs Temp Pulse Resp BP Pulse Ox 98.2 F 100 H 16 145/47 97 04/18/21 11:09 04/18/21 11:09 04/18/21 11:09 04/18/21 11:09 04/18/21 11:09 Temperature -Last 24 Hours Temperature 98.2 F Temperature 98.1 F Temperature 98.4 F Results - Labs CBC & Chem 7: 04/17/21 05:36 04/17/21 05:36 Assessment and Plan Cultures: Blood culture 04/16/2021 1/ gram-positive cocci Blood cultures 04/17/2021 no growth so far A/P: 60-year-old female past medical history hepatitis C with end-stage liver disease, cirrhosis, portal hypertension with recurrent ascites #GPC bacteremia: Likely contaminant, follow-up finalization of cultures. Patient has been afebrile with a normal white count during his admission, no signs of sepsis. #Hepatitis C: Follow-up with outpatient provider #Recurrent ascites Recs: -Follow blood culture speciation. -If coagulase-negative staph, okay for discharge without antibiotics. Thank you for the consult, we will continue to follow. Ever Gabriel MD [facility] ([facility]) O: [phone] F: [phone]
[2021-04-19] MEDS: FUROSEMIDE 20 MG/2 ML INJ IV SCH (06:33)
[2021-04-19] MEDS: MULTIVITAMINS ,THERAPEUTIC TAB PO SCH (09:02)
[2021-04-19] MEDS: SPIRONOLACTONE 25 MG TAB PO SCH (09:02)
[2021-04-19] MEDS: FERROUS SULFATE 325 MG TAB PO SCH (09:02)
[2021-04-19] MEDS: POTASSIUM CHLORIDE ER 10 MEQ TAB PO SCH (09:02)
[2021-04-19 09:35] VITALS: BP 138/77
--- NOTE | 2021-04-19 18:57 | Progress Note ---
Assessment and Plan --bacteremia with gm +ve cocci Patient is allergic to quinolones and stated that she cannot tolerate vancomycin We will place on Ancef for now. Consulted ID in order repeat blood culture -- End stage liver disease with severe ascites Supportive care, diuretic therapy, s/p ultrasound-guided therapeutic paracentesis, monitor fluid balance, strict I's/O, monitor urine output every shift, daily weight. -- Portal hypertension Supportive care, diuretic therapy, continue medical management. -- Cirrhosis with hepatitis C Supportive care, continue medical management. Outpatient follow-up [facility] -- Ascites Ultrasound-guided paracentesis has been ordered and drained about 5.8 L of acetic fluid --Hypokalemia, replete and monitor BMP -- DVT prophylaxis SCD to bilateral lower extremities while in bed, patient is ambulatory --Advance care planning Disease education conducted, care plan discussed, diagnosis discussed, prognosis discussed, patient knowledges understanding and agreement with care plan, +30 minutes. Daily clinical course; 04/17/21: Patient had paracentesis yesterday which drained 5.8 L of ascitic fluid. Blood culture growing gram-positive cocci in cluster. Will start on empiric antibiotic, will get a repeat blood culture, consult ID. 04/18/21: Pending repeat blood culture result. Also pending identification of bacteria on the prior blood culture from admission. Continue empiric antibiotics for now, ID consulted. Patient is currently waiting to go home. Need home health on discharge. Will DC as soon as repeat blood culture results and bacterial identification is available. Patient explained plan of care and she understands. Subjective Date of service: 04/18/21 Interval history: Patient seen and examined. Medical records and medication list reviewed. No acute event overnight noted by the RN. Patient denies any chest pain or difficulty breathing. Patient is tolerating diet. 1 out of 2 blood cultures positive for gram-positive cocci in cluster Repeat blood culture ordered and pending Discussed plan of care at bedside with patient. Objective - Exam Narrative Exam: GENERAL: well-developed and obese white elderly female lying on bed appeared to be in no discomfort. HEENT: Normocephalic. Atraumatic. No conjunctival congestion or icterus. Patient has moist mucous membranes. NECK: Supple. Trachea midline. CHEST/LUNGS: Clear to auscultated bilaterally, breathing nonlabored. No wheezes crackles or rhonchi. HEART/CARDIOVASCULAR: Regular in rate and rhythm. S1 and S2 positive. ABDOMEN: Abdomen is soft, nontender, obese. Patient has normal bowel sounds. SKIN: There is no rash. Warm and dry. NEURO: No focal motor deficit. Follows command. MUSCULOSKELETAL: No joint effusion or tenderness. EXTRIMITY: 3+ pitting edema, no cyanosis or clubbing. PSYCH: Cooperative. - Constitutional Vitals: Vital Signs - 12hr 04/19/21 04/19/21 09:34 09:36 Temperature 98.4 F Pulse Rate 109 H Blood Pressure 138/77 O2 Sat by Pulse 99 Oximetry - Labs CBC & Chem 7: 04/17/21 05:36 04/17/21 05:36
== END 2021-04-19 13:25 | disposition home health service (06) | DRG 442 ==
LOC: ED 09:08 → 3A 12:20
PROVIDERS: ADMIT Internal Medicine; ATTEND Internal Medicine
PROC: 0W9G3ZZ Drainage of Peritoneal Cavity, Percutaneous Approach (ICD-10-PCS; principal; 2021-04-16)
DX: K72.90 Hepatic failure, unspecified without coma (principal); R18.8 Other ascites; K76.6 Portal hypertension; R78.81 Bacteremia; K74.69 Other cirrhosis of liver; B19.20 Unspecified viral hepatitis C without hepatic coma; D63.8 Anemia in other chronic diseases classified elsewhere; E66.01 Morbid (severe) obesity due to excess calories; Z79.899 Other long term (current) drug therapy; Z68.35 Body mass index [BMI] 35.0-35.9, adult
CPT/HCPCS: 36415; 49083; 71045; 80053; 81001; 82140; 83735; 83880; 85025; 85610; 85730; 87040; 96374; G0378; J0690; J1940

== ENCOUNTER 2021-05-24 11:03 | Inpatient (IN) | payer MEDICAID ==
[2021-05-24] MEDS ORDERED: FUROSEMIDE 40 MG/4 ML INJ IV ONE (15:49)
--- NOTE | 2021-05-24 16:28 | XRay Report ---
XR chest 1V ap INDICATION / CLINICAL INFORMATION: dyspnea COMPARISON: 04/16/2021 FINDINGS: SUPPORT DEVICES: None. HEART / MEDIASTINUM: No significant abnormality. LUNGS / PLEURA: Lungs are clear. Right costophrenic sulcus is blunted which is similar prior. No pne umothorax. ADDITIONAL FINDINGS: No significant additional findings. IMPRESSION: 1. No significant change from prior exam. Right costophrenic sulcal blunting which could represent a small effusion with atelectasis and/or scarring. Signer Name: Saleem Bautista MD Signed: 05/24/2021 4:24 PM Workstation Name: [id number]
[2021-05-24 17:27] LABS: Basophils % (Auto) 0.5 % (0.0-1.8); Eosinophils # (Auto) 0.2 K/mm3 (0.0-0.4); Eosinophils % (Auto) 4.6 % (0.0-4.3); Hematocrit 23.1 % (30.3-42.9); Hemoglobin 7.7 gm/dl (10.1-14.3); Lymphocytes # (Auto) 0.9 K/mm3 (1.2-5.4); Lymphocytes % (Auto) 19.8 % (13.4-35.0); Mean Corpuscular HGB Conc 34 % (30-34); Mean Corpuscular Volume 98 fl (79-97); Monocytes # (Auto) 0.4 K/mm3 (0.0-0.8); Monocytes % (Auto) 9.5 % (0.0-7.3); Platelet Count 144 K/mm3 (140-440); Red Blood Count 2.37 M/mm3 (3.65-5.03); Red Cell Distribution Width 17.3 % (13.2-15.2)
[2021-05-24 17:37] LABS: INR 1.39 (0.87-1.13)
[2021-05-24 17:38] LABS: Partial Thromboplastin Time 38.1 Sec. (24.2-36.6)
[2021-05-24 17:42] LABS: Albumin 1.9 g/dL (3.9-5); Calcium 7.1 mg/dL (8.4-10.2)
--- NOTE | 2021-05-24 19:09 | Emergency Department Report ---
ED General Adult HPI - General Chief complaint: Extremity Problem,Nontraumatic Stated complaint: DONNY/EDEMA LOWER LEGS Time Seen by Provider: 05/24/21 15:48 Source: patient Mode of arrival: Stretcher Limitations: No Limitations - History of Present Illness Initial comments: Patient is a 60-year-old female with a past medical history of liver cirrhosis who is presenting with fluid overload. States that she has swelling to her legs and abdomen. Patient states 2 weeks ago she did have to have a paracentesis to remove a large amount of abdominal ascites. Patient states that over the last 2 days she is swallowing significantly. Patient states she has shortness of breath secondary to her abdomen being distended. Denies cough cold congestion fevers chills at this time. - Related Data Previous Rx's Medication Instructions Recorded Last Taken Type Ferrous Sulfate [Feosol 325 MG tab] 325 mg PO QDAY #30 tablet 08/14/20 Unknown Rx Furosemide [Lasix TAB] 40 mg PO QDAY #30 tablet 08/14/20 Unknown Rx Multivitamin Tab [Multiple Vitamin 1 each PO QDAY #30 tablet 08/14/20 Unknown Rx TAB (Theragran)] Spironolactone [Aldactone] 25 mg PO QDAY #30 tablet 08/14/20 Unknown Rx Potassium Chloride [K-Dur] 10 meq PO QDAY #3 tablet 04/18/21 Unknown Rx Allergies Allergy/AdvReac Type Severity Reaction Status Date / Time NSAIDS (Non-Steroidal Allergy Anaphylaxis Verified 04/16/21 10:33 Anti-Inflamma Quinolones Allergy Anaphylaxis Verified 04/16/21 10:32 metoclopramide [From Reglan] AdvReac Unknown Verified 04/16/21 10:33 nitrofurantoin AdvReac Vomiting Verified 04/16/21 10:34 [From Macrobid] ED Review of Systems ROS: Stated complaint: DONNY/EDEMA LOWER LEGS Other details as noted in HPI Comment: All other systems reviewed and negative ED Past Medical Hx - Past Medical History Previous Medical History?: Yes Hx Hypertension: Yes (Portal) Hx Congestive Heart Failure: No Hx Diabetes: No Hx Liver Disease: Yes (Hep C, cirrhosis) Hx Renal Disease: Yes (polynephritis) Hx Asthma: No Hx COPD: No Additional medical history: endometriosis. Hepatitis C - Surgical History Past Surgical History?: Yes Additional Surgical History: back surgery - Social History Smoking Status: Never Smoker Substance Use Type: None - Medications Home Medications: Home Medications Medication Instructions Recorded Confirmed Last Taken Type Ferrous Sulfate [Feosol 325 MG tab] 325 mg PO QDAY #30 tablet 08/14/20 04/16/21 Unknown Rx Furosemide [Lasix TAB] 40 mg PO QDAY #30 tablet 08/14/20 04/16/21 Unknown Rx Multivitamin Tab [Multiple Vitamin 1 each PO QDAY #30 tablet 08/14/20 04/16/21 Unknown Rx TAB (Theragran)] Spironolactone [Aldactone] 25 mg PO QDAY #30 tablet 08/14/20 04/16/21 Unknown Rx Potassium Chloride [K-Dur] 10 meq PO QDAY #3 tablet 04/18/21 Unknown Rx ED Physical Exam - General Limitations: No Limitations General appearance: alert, in no apparent distress - Head Head exam: Present: atraumatic, normocephalic - Eye Eye exam: Present: normal appearance, PERRL, EOMI - ENT ENT exam: Present: mucous membranes moist - Neck Neck exam: Present: normal inspection - Respiratory Respiratory exam: Present: normal lung sounds bilaterally. Absent: respiratory distress, wheezes, rales, rhonchi - Cardiovascular Cardiovascular Exam: Present: regular rate, normal rhythm, normal heart sounds. Absent: systolic murmur, diastolic murmur, rubs, gallop - GI/Abdominal GI/Abdominal exam: Present: distended, normal bowel sounds. Absent: tenderness, guarding, rebound - Extremities Exam Extremities exam: Present: normal inspection - Back Exam Back exam: Present: normal inspection - Neurological Exam Neurological exam: Present: alert, oriented X3 - Psychiatric Psychiatric exam: Present: normal affect, normal mood - Skin Skin exam: Present: warm, dry, intact, normal color. Absent: rash ED Course Vital Signs 05/24/21 11:15 Temperature 98.4 F Pulse Rate 86 Respiratory 16 Rate Blood Pressure 128/62 O2 Sat by Pulse 100 Oximetry ED Medical Decision Making - Lab Data Result diagrams: 05/24/21 17:05 05/24/21 17:04 Lab Results 05/24/21 05/24/21 05/24/21 Range/Units 17:04 17:04 17:05 WBC 4.4 L (4.5-11.0) K/mm3 RBC 2.37 L (3.65-5.03) M/mm3 Hgb 7.7 L (10.1-14.3) gm/dl Hct 23.1 L (30.3-42.9) % MCV 98 H (79-97) fl MCH 33 H (28-32) pg MCHC 34 (30-34) % RDW 17.3 H (13.2-15.2) % Plt Count 144 (140-440) K/mm3 Lymph % (Auto) 19.8 (13.4-35.0) % [place] % (Auto) 9.5 H (0.0-7.3) % Eos % (Auto) 4.6 H (0.0-4.3) % Baso % (Auto) 0.5 (0.0-1.8) % Lymph # (Auto) 0.9 L (1.2-5.4) K/mm3 [place] # (Auto) 0.4 (0.0-0.8) K/mm3 Eos # (Auto) 0.2 (0.0-0.4) K/mm3 Baso # (Auto) 0.0 (0.0-0.1) K/mm3 Seg Neutrophils % 65.6 (40.0-70.0) % Seg Neutrophils # 2.9 (1.8-7.7) K/mm3 PT 17.7 H (12.2-14.9) Sec. INR 1.39 H (0.87-1.13) APTT 38.1 H (24.2-36.6) Sec. Sodium 142 (137-145) mmol/L Potassium 4.1 (3.6-5.0) mmol/L Chloride 111.4 H (98-107) mmol/L Carbon Dioxide 23 (22-30) mmol/L Anion Gap 12 mmol/L BUN 33 H (7-17) mg/dL Creatinine 2.1 H (0.6-1.2) mg/dL Estimated GFR 24 ml/min BUN/Creatinine Ratio 16 % Glucose 85 (65-100) mg/dL Calcium 7.1 L (8.4-10.2) mg/dL Total Bilirubin 0.60 (0.1-1.2) mg/dL AST 51 H (5-40) units/L ALT 14 (7-56) units/L Alkaline Phosphatase 126 (35-129) units/L NT-Pro-B Natriuret Pep 393.7 (0-900) pg/mL Total Protein 6.8 (6.3-8.2) g/dL Albumin 1.9 L (3.9-5) g/dL Albumin/Globulin Ratio 0.4 % 1 month ago the patient had normal renal function. GFR is greater than 60 - Medical Decision Making Patient is a 60-year-old female who is presenting with abdominal ascites. Patient does have some decline in her renal function. She was given Lasix for some of the fluid and she is able to urinate. Patient be admitted to the hospitalist service. Critical care attestation.: If time is entered above; I have spent that time in minutes in the direct care of this critically ill patient, excluding procedure time. ED Disposition Clinical Impression: Bilateral lower extremity edema, Cirrhosis, Anasarca, AIDAN (acute kidney injury) Disposition: ADMITTED INPATIENT Is pt being admited?: Yes Does the pt Need Aspirin: No Condition: Stable Referrals: PRIMARY CAREMD [Primary Care Provider] - 3-5 Days Time of Disposition: 19:10
[2021-05-24] MEDS ORDERED: ALBUTEROL 2.5 MG/3 ML NEBU IH PRN (21:35)
[2021-05-24] MEDS ORDERED: ACETAMINOPHEN 325 MG TAB PO PRN (21:35)
--- NOTE | 2021-05-24 21:44 | History and Physical Report ---
History of Present Illness Date of examination: 05/24/21 Date of admission: 05/24/21 Chief complaint: Shortness of breath abdominal distention swelling of the lower extremities History of present illness: 60 years old female with a past medical history of liver cirrhosis , hepatitis C brought to the emergency room because of fluid overload. Patient has swelling to her legs and abdomen. Patient states 2 weeks ago she did have to have a paracentesis to remove a large amount of abdominal ascites. Patient states that over the last 2 days she is swallowing significantly. Patient states she has shortness of breath secondary to her abdomen being distended. Denies cough cold congestion fevers chills at this time. In the emergency room patient found to have abdominal distention/ascites also patient BUN is 33 creatinine 2.1, Patient admitted to medical floor and treated with diuretic therapy, Ultrasound-guided paracentesis ordered at time of admission. All medication listed at time of admission has been reconciled by. Advanced care planning cond ucted in the emergency department. Past History Past Medical History: hepatitis, hypertension, other (Liver failure, endometriosis) Medications and Allergies Allergies Allergy/AdvReac Type Severity Reaction Status Date / Time NSAIDS (Non-Steroidal Allergy Anaphylaxis Verified 04/16/21 10:33 Anti-Inflamma Quinolones Allergy Anaphylaxis Verified 04/16/21 10:32 metoclopramide [From Reglan] AdvReac Unknown Verified 04/16/21 10:33 nitrofurantoin AdvReac Vomiting Verified 04/16/21 10:34 [From Macrobid] Home Medications Medication Instructions Recorded Confirmed Last Taken Type Ferrous Sulfate [Feosol 325 MG tab] 325 mg PO QDAY #30 tablet 08/14/20 04/16/21 Unknown Rx Furosemide [Lasix TAB] 40 mg PO QDAY #30 tablet 08/14/20 04/16/21 Unknown Rx Multivitamin Tab [Multiple Vitamin 1 each PO QDAY #30 tablet 08/14/20 04/16/21 Unknown Rx TAB (Theragran)] Spironolactone [Aldactone] 25 mg PO QDAY #30 tablet 08/14/20 04/16/21 Unknown Rx Potassium Chloride [K-Dur] 10 meq PO QDAY #3 tablet 04/18/21 Unknown Rx Active Meds: Active Medications Acetaminophen (Acetaminophen 325 Mg Tab) 650 mg PO Q4H PRN PRN Reason: Pain MILD(1-3)/Fever >100.5/ABEL Albuterol (Albuterol 2.5 Mg/3 Ml Nebu) 2.5 mg IH Q4HRT PRN PRN Reason: Shortness Of Breath Albuterol/Ipratropium (Ipratropium/Albuterol Sulfate 3 Ml Ampul.Neb) 1 ampul IH Q6HRT [facility] Famotidine (Famotidine 20 Mg Tab) 20 mg PO BID [facility] Ferrous Sulfate (Ferrous Sulfate 325 Mg Tab) 325 mg PO QDAY [facility] Furosemide (Furosemide 40 Mg Tab) 40 mg PO QDAY [facility] Heparin Sodium (Porcine) (Heparin 5,000 Unit/1 Ml Vial) 5,000 unit SUB-Q Q12HR [facility] Hydromorphone HCl (Hydromorphone 1 Mg/1 Ml Inj) 0.5 mg IV Q3H PRN PRN Reason: Pain , Severe (7-10) Multivitamins (Multivitamins ,Therapeutic Tab) 1 each PO QDAY [facility] Ondansetron HCl (Ondansetron 4 Mg/2 Ml Inj) 4 mg IV Q8H PRN PRN Reason: Nausea And Vomiting Oxycodone/Acetaminophen (Oxycodone /Acetaminophen 5-325mg Tab) 1 tab PO Q6H PRN PRN Reason: Pain, Moderate (4-6) Potassium Chloride (Potassium Chloride Er 10 Meq Tab) 10 meq PO QDAY [facility] Sodium Chloride (Sodium Chloride 0.9% 10 Ml Flush Syringe) 10 ml IV BID [facility] Sodium Chloride (Sodium Chloride 0.9% 10 Ml Flush Syringe) 10 ml IV PRN PRN PRN Reason: LINE FLUSH Spironolactone (Spironolactone 25 Mg Tab) 25 mg PO QDAY [facility] Review of Systems Cardiovascular: edema, shortness of breath, dyspnea on exertion Respiratory: shortness of breath, dyspnea on exertion Musculoskeletal: other (Lower extremity swelling edema) Exam - Constitutional Vitals: Temp Pulse Resp BP Pulse Ox 98.4 F 86 16 128/62 100 05/24/21 11:15 05/24/21 11:15 05/24/21 11:15 05/24/21 11:15 05/24/21 11:15 General appearance: Present: no acute distress, well-nourished - EENT Eyes: Present: PERRL ENT: hearing intact, clear oral mucosa - Neck Neck: Present: supple, normal ROM - Respiratory Respiratory effort: normal Respiratory: bilateral: diminished - Cardiovascular Heart Sounds: Present: S1 & S2. Absent: rub, click - Extremities Extremities: pulses symmetrical Extremity abnormal: edema Peripheral Pulses: within normal limits - Abdominal General gastrointestinal: Present: soft, non-tender, non-distended, normal bowel sounds Female genitourinary: Present: normal - Integumentary Integumentary: Present: clear, warm, dry - Musculoskeletal Musculoskeletal: gait normal, strength equal bilaterally - Psychiatric Psychiatric: appropriate mood/affect, intact judgment & insight - Neurologic Neurologic: CNII-XII intact, moves all extremities Results - Labs CBC & Chem 7: 05/24/21 17:05 05/24/21 17:04 Labs: Laboratory Last Values WBC 4.4 K/mm3 (4.5-11.0) L 05/24/21 17:05 RBC 2.37 M/mm3 (3.65-5.03) L 05/24/21 17:05 Hgb 7.7 gm/dl (10.1-14.3) L 05/24/21 17:05 Hct 23.1 % (30.3-42.9) L 05/24/21 17:05 MCV 98 fl (79-97) H 05/24/21 17:05 MCH 33 pg (28-32) H 05/24/21 17:05 MCHC 34 % (30-34) 05/24/21 17:05 RDW 17.3 % (13.2-15.2) H 05/24/21 17:05 Plt Count 144 K/mm3 (140-440) 05/24/21 17:05 Lymph % (Auto) 19.8 % (13.4-35.0) 05/24/21 17:05 [place] % (Auto) 9.5 % (0.0-7.3) H 05/24/21 17:05 Eos % (Auto) 4.6 % (0.0-4.3) H 05/24/21 17:05 Baso % (Auto) 0.5 % (0.0-1.8) 05/24/21 17:05 Lymph # (Auto) 0.9 K/mm3 (1.2-5.4) L 05/24/21 17:05 [place] # (Auto) 0.4 K/mm3 (0.0-0.8) 05/24/21 17:05 Eos # (Auto) 0.2 K/mm3 (0.0-0.4) 05/24/21 17:05 Baso # (Auto) 0.0 K/mm3 (0.0-0.1) 05/24/21 17:05 Seg Neutrophils % 65.6 % (40.0-70.0) 05/24/21 17:05 Seg Neutrophils # 2.9 K/mm3 (1.8-7.7) 05/24/21 17:05 PT 17.7 Sec. (12.2-14.9) H 05/24/21 17:04 INR 1.39 (0.87-1.13) H 05/24/21 17:04 APTT 38.1 Sec. (24.2-36.6) H 05/24/21 17:04 Sodium 142 mmol/L (137-145) 05/24/21 17:04 Potassium 4.1 mmol/L (3.6-5.0) 05/24/21 17:04 Chloride 111.4 mmol/L (98-107) H 05/24/21 17:04 Carbon Dioxide 23 mmol/L (22-30) 05/24/21 17:04 Anion Gap 12 mmol/L 05/24/21 17:04 BUN 33 mg/dL (7-17) H 05/24/21 17:04 Creatinine 2.1 mg/dL (0.6-1.2) H 05/24/21 17:04 Estimated GFR 24 ml/min 05/24/21 17:04 BUN/Creatinine Ratio 16 % 05/24/21 17:04 Glucose 85 mg/dL (65-100) 05/24/21 17:04 Calcium 7.1 mg/dL (8.4-10.2) L 05/24/21 17:04 Total Bilirubin 0.60 mg/dL (0.1-1.2) 05/24/21 17:04 AST 51 units/L (5-40) H 05/24/21 17:04 ALT 14 units/L (7-56) 05/24/21 17:04 Alkaline Phosphatase 126 units/L (35-129) 05/24/21 17:04 NT-Pro-B Natriuret Pep 393.7 pg/mL (0-900) 05/24/21 17:04 Total Protein 6.8 g/dL (6.3-8.2) 05/24/21 17:04 Albumin 1.9 g/dL (3.9-5) L 05/24/21 17:04 Albumin/Globulin Ratio 0.4 % 05/24/21 17:04 - Imaging and Cardiology Chest x-ray: report reviewed Assessment and Plan VTE prophylaxis?: Chemical Plan of care discussed with patient/family: Yes - Patient Problems (1) Ascites Current Visit: No Status: Chronic Plan to address problem: Admit the patient to the medical telemetry. Cardiac diet. Fluid restriction. Lasix 40 mg p.o. daily. Spironolactone 25 mg p.o. daily. Pepcid 20 mg p.o. twice daily. Reconsult GI for evaluation. We also consult interventional radiology for paracentesis. Recheck CBC CMP in the morning (2) End stage liver disease Current Visit: No Status: Acute Plan to address problem: Cardiac diet. Fluid restriction. Lasix 40 mg p.o. daily. Spironolactone 25 mg p.o. daily. Pepcid 20 mg p.o. twice daily. Reconsult GI for evaluation. We also consult interventional radiology for paracentesis. Recheck CBC CMP in the morning (3) AIDAN (acute kidney injury) Current Visit: Yes Status: Acute Plan to address problem: Avoid nephrotoxic drug. Renally dose medication. Continue home medication. Recheck BMP in the morning. Consult nephrology if needed (4) Portal hypertension Current Visit: No Status: Acute Plan to address problem: Fluid restriction. Lasix 40 mg p.o. daily. Spironolactone 25 mg p.o. daily. Maintain input output. Consult interventional radiology for paracentesis (5) DVT prophylaxis Current Visit: No Status: Acute Plan to address problem: Heparin 5000 units subcu every 12 hours for DVT prophylaxis. Pepcid 20 mg p.o. twice daily for GI prophylaxis. Patient is a full code
[2021-05-24] MEDS: oxyCODONE /ACETAMINOPHEN 5-325MG TAB PO PRN (22:46)
[2021-05-24] MEDS: HEPARIN 5,000 UNIT/1 ML VIAL SUB-Q SCH (23:55)
[2021-05-25] MEDS: FAMOTIDINE 20 MG TAB PO SCH ×3 (00:40→22:33)
[2021-05-25] MEDS: ONDANSETRON 4 MG/2 ML INJ IV PRN ×2 (05:43→05:44)
[2021-05-25] MEDS: HYDROmorphone 1 MG/1 ML INJ IV PRN ×5 (05:44→23:49)
[2021-05-25 06:41] LABS: Eosinophils # (Auto) 0.2 K/mm3 (0.0-0.4); Eosinophils % (Auto) 5.7 % (0.0-4.3); Hematocrit 23.2 % (30.3-42.9); Hemoglobin 7.8 gm/dl (10.1-14.3); Lymphocytes % (Auto) 27.8 % (13.4-35.0); Mean Corpuscular HGB Conc 34 % (30-34); Mean Corpuscular Volume 98 fl (79-97); Monocytes # (Auto) 0.3 K/mm3 (0.0-0.8); Monocytes % (Auto) 8.3 % (0.0-7.3); Platelet Count 147 K/mm3 (140-440); Red Blood Count 2.37 M/mm3 (3.65-5.03); Red Cell Distribution Width 17.1 % (13.2-15.2)
[2021-05-25] MEDS: MULTIVITAMINS ,THERAPEUTIC TAB PO SCH (09:17)
[2021-05-25] MEDS: FUROSEMIDE 40 MG TAB PO SCH (09:17)
[2021-05-25] MEDS: HEPARIN 5,000 UNIT/1 ML VIAL SUB-Q SCH ×2 (09:17→22:34)
[2021-05-25] MEDS: FERROUS SULFATE 325 MG TAB PO SCH (09:17)
[2021-05-25] MEDS: POTASSIUM CHLORIDE ER 10 MEQ TAB PO SCH (09:17)
[2021-05-25] MEDS: SPIRONOLACTONE 25 MG TAB PO SCH (09:17)
--- NOTE | 2021-05-25 12:37 | Progress Note ---
Assessment and Plan - Patient Problems (1) AIDAN (acute kidney injury) Current Visit: Yes Status: Acute Plan to address problem: Secondary to acute intravascular volume insufficiency. (2) Anasarca Current Visit: Yes Status: Acute Plan to address problem: Secondary to end-stage liver disease. Patient will require another large-volume paracentesis. Has already been ordered. (3) Cirrhosis Current Visit: Yes Status: Acute Plan to address problem: Patient has no viable treatment options at this time for hepatitis. Will reassess as outpatient. For now we need symptom management which includes continue diuresis as we are doing with Lasix and spironolactone as well as high volume paracentesis. (4) Bilateral lower extremity edema Current Visit: Yes Status: Chronic Plan to address problem: Secondary to the end-stage liver disease continue diuresis as we are doing. Foot elevation. (5) End stage liver disease Current Visit: No Status: Acute (6) Portal hypertension Current Visit: No Status: Acute (7) Anemia Current Visit: No Status: Chronic Qualifiers: Anemia type: other cause Other causes of anemia: other cause, not classified Qualified Code(s): D64.89 - Other specified anemias Plan to address problem: Secondary to patient's chronic liver disease. (8) Ascites Current Visit: No Status: Chronic Plan to address problem: Also secondary to liver disease large-volume paracentesis. Subjective Date of service: 05/25/21 Principal diagnosis: End-stage liver disease volume overload Interval history: 60-year-old with history of end-stage liver cirrhosis, hepatitis C presents with a chief complaint of shortness of breath. Dyspnea on exertion increased weakness fatigue. She just received paracentesis 2 weeks ago and is hence has returned ascites. Patient at present did feel better but now states has abdominal pain. States it feels tight nonradiating. Patient able to tolerate p.o. medications. Objective - Constitutional Vitals: Vital Signs - 12hr 05/25/21 05/25/21 05/25/21 04:45 06:22 07:08 Temperature 98.4 F 98.8 F Pulse Rate 81 80 Respiratory 16 20 18 Rate Respiratory Rate [Bilateral Lower Extremities] Blood Pressure 117/47 116/64 O2 Sat by Pulse 100 96 100 Oximetry 05/25/21 05/25/21 09:19 10:00 Temperature Pulse Rate Respiratory 18 Rate Respiratory 18 Rate [Bilateral Lower Extremities] Blood Pressure O2 Sat by Pulse Oximetry General appearance: Present: no acute distress, well-nourished - EENT Eyes: PERRL, EOM intact ENT: hearing intact, clear oral mucosa Ears: bilateral: normal - Neck Neck: supple, normal ROM, other (No JVD no lymphadenopathy.) - Respiratory Respiratory effort: normal Respiratory: bilateral: diminished, rhonchi, negative: other (Ascites abdomen flank.) - Breasts Breasts: normal - Cardiovascular Rhythm: regular Heart Sounds: Present: S1 & S2. Absent: gallop, rub Extremities: pulses intact, normal color, Full ROM Extremity abnormal: edema, pulses diminished, other (Chronic venous stasis changes.) - Gastrointestinal General gastrointestinal: Present: soft, tender, distended, normal bowel sounds, other (Patient with marked ascites especially above the umbilicus and surrounding area.) - Genitourinary Female genitourinary: normal - Integumentary Integumentary: clear, warm, dry - Musculoskeletal Musculoskeletal: generalized weakness - Neurologic Neurologic: moves all extremities - Psychiatric Psychiatric: memory intact, appropriate mood/affect, intact judgment & insight - Labs CBC & Chem 7: 05/25/21 06:10 05/24/21 17:04 Labs: Abnormal lab results 05/24/21 05/24/21 05/24/21 Range/Units 17:04 17:04 17:05 WBC 4.4 L (4.5-11.0) K/mm3 RBC 2.37 L (3.65-5.03) M/mm3 Hgb 7.7 L (10.1-14.3) gm/dl Hct 23.1 L (30.3-42.9) % MCV 98 H (79-97) fl MCH 33 H (28-32) pg RDW 17.3 H (13.2-15.2) % [place] % (Auto) 9.5 H (0.0-7.3) % Eos % (Auto) 4.6 H (0.0-4.3) % Lymph # (Auto) 0.9 L (1.2-5.4) K/mm3 PT 17.7 H (12.2-14.9) Sec. INR 1.39 H (0.87-1.13) APTT 38.1 H (24.2-36.6) Sec. Chloride 111.4 H (98-107) mmol/L BUN 33 H (7-17) mg/dL Creatinine 2.1 H (0.6-1.2) mg/dL Calcium 7.1 L (8.4-10.2) mg/dL AST 51 H (5-40) units/L Albumin 1.9 L (3.9-5) g/dL 05/25/21 Range/Units 06:10 WBC 3.7 L (4.5-11.0) K/mm3 RBC 2.37 L (3.65-5.03) M/mm3 Hgb 7.8 L (10.1-14.3) gm/dl Hct 23.2 L (30.3-42.9) % MCV 98 H (79-97) fl MCH 33 H (28-32) pg RDW 17.1 H (13.2-15.2) % [place] % (Auto) 8.3 H (0.0-7.3) % Eos % (Auto) 5.7 H (0.0-4.3) % Lymph # (Auto) 1.0 L (1.2-5.4) K/mm3 PT (12.2-14.9) Sec. INR (0.87-1.13) APTT (24.2-36.6) Sec. Chloride (98-107) mmol/L BUN (7-17) mg/dL Creatinine (0.6-1.2) mg/dL Calcium (8.4-10.2) mg/dL AST (5-40) units/L Albumin (3.9-5) g/dL
--- NOTE | 2021-05-25 16:03 | Gastroenterology Consultation ---
History of Present Illness - Reason for Consult Consult date: 05/25/21 cirrhosis, ascites Requesting physician: RADHA LUCIA - History of Present Illness The patient is a 60 yo wf with h/o decompensated cirrhosis (hep c), complicated by ascites and LE edema. Pt recently was at [facility] for volume overload, symptomatic ascites, and had AIDAN during hospitalization. She was discharged home ~2 weeks ago and had recurrent worsening of LE edema and ascites which led her to come to hospital. She is resting comfortably at time of exam. reports dyspnea with exertion. denies gi bleeding, jaundice, n/v. of note, pt's creatinine was 1.38 at the time of discharge 05/10 at [facility]. Past History Past Medical History: hepatitis, hypertension, other (Liver failure, endometriosis) Medications and Allergies Allergies Allergy/AdvReac Type Severity Reaction Status Date / Time NSAIDS (Non-Steroidal Allergy Anaphylaxis Verified 04/16/21 10:33 Anti-Inflamma Quinolones Allergy Anaphylaxis Verified 04/16/21 10:32 metoclopramide [From Reglan] AdvReac Unknown Verified 04/16/21 10:33 nitrofurantoin AdvReac Vomiting Verified 04/16/21 10:34 [From Macrobid] Home Medications Medication Instructions Recorded Confirmed Last Taken Type Ferrous Sulfate [Feosol 325 MG tab] 325 mg PO QDAY #30 tablet 08/14/20 04/16/21 Unknown Rx Furosemide [Lasix TAB] 40 mg PO QDAY #30 tablet 08/14/20 04/16/21 Unknown Rx Multivitamin Tab [Multiple Vitamin 1 each PO QDAY #30 tablet 08/14/20 04/16/21 Unknown Rx TAB (Theragran)] Spironolactone [Aldactone] 25 mg PO QDAY #30 tablet 08/14/20 04/16/21 Unknown Rx Potassium Chloride [K-Dur] 10 meq PO QDAY #3 tablet 04/18/21 Unknown Rx Active Meds: Active Medications Acetaminophen (Acetaminophen 325 Mg Tab) 650 mg PO Q4H PRN PRN Reason: Pain MILD(1-3)/Fever >100.5/ABEL Albuterol (Albuterol 2.5 Mg/3 Ml Nebu) 2.5 mg IH Q4HRT PRN PRN Reason: Shortness Of Breath Albuterol/Ipratropium (Ipratropium/Albuterol Sulfate 3 Ml Ampul.Neb) 1 ampul IH Q6HRT [facility] Famotidine (Famotidine 20 Mg Tab) 20 mg PO BID [facility] Last Admin: 05/25/21 09:17 Dose: 20 mg Documented by: Ferrous Sulfate (Ferrous Sulfate 325 Mg Tab) 325 mg PO QDAY [facility] Last Admin: 05/25/21 09:17 Dose: 325 mg Documented by: Furosemide (Furosemide 40 Mg Tab) 40 mg PO QDAY [facility] Last Admin: 05/25/21 09:17 Dose: 40 mg Documented by: Heparin Sodium (Porcine) (Heparin 5,000 Unit/1 Ml Vial) 5,000 unit SUB-Q Q12HR [facility] Last Admin: 05/25/21 09:17 Dose: 5,000 unit Documented by: Hydromorphone HCl (Hydromorphone 1 Mg/1 Ml Inj) 0.5 mg IV Q3H PRN PRN Reason: Pain , Severe (7-10) Last Admin: 05/25/21 13:41 Dose: 0.5 mg Documented by: Multivitamins (Multivitamins ,Therapeutic Tab) 1 each PO QDAY [facility] Last Admin: 05/25/21 09:17 Dose: 1 each Documented by: Ondansetron HCl (Ondansetron 4 Mg/2 Ml Inj) 4 mg IV Q8H PRN PRN Reason: Nausea And Vomiting Last Admin: 05/25/21 05:44 Dose: 4 mg Documented by: Oxycodone/Acetaminophen (Oxycodone /Acetaminophen 5-325mg Tab) 1 tab PO Q6H PRN PRN Reason: Pain, Moderate (4-6) Last Admin: 05/24/21 22:46 Dose: 1 tab Documented by: Potassium Chloride (Potassium Chloride Er 10 Meq Tab) 10 meq PO QDAY [facility] Last Admin: 05/25/21 09:17 Dose: 10 meq Documented by: Sodium Chloride (Sodium Chloride 0.9% 10 Ml Flush Syringe) 10 ml IV BID [facility] Last Admin: 05/25/21 09:18 Dose: 10 ml Documented by: Sodium Chloride (Sodium Chloride 0.9% 10 Ml Flush Syringe) 10 ml IV PRN PRN PRN Reason: LINE FLUSH Spironolactone (Spironolactone 25 Mg Tab) 25 mg PO QDAY [facility] Last Admin: 05/25/21 09:17 Dose: 25 mg Documented by: Reviewed/updated patient's home and current medications Review of Systems - Review of Systems All systems: negative (fatigue, weakness) Exam - Constitutional Vital Signs: Temp Pulse Resp BP Pulse Ox 98.2 F 73 20 119/55 96 05/25/21 10:44 05/25/21 10:44 05/25/21 13:41 05/25/21 10:44 05/25/21 12:34 General appearance: no acute distress, other (chronically ill appearing) - EENT Eyes: PERRL, EOM intact - Respiratory Respiratory effort: normal Respiratory: bilateral: CTA, diminished - Cardiovascular Rhythm: regular Heart Sounds: Present: S1 & S2 Extremity abnormal: edema - Gastrointestinal General gastrointestinal: Present: non-tender, distended - Integumentary Integumentary: Present: clear, warm - Neurologic Neurological: alert and oriented x3 - Psychiatric Psychiatric: appropriate mood/affect - Labs CBC & Chem 7: 05/25/21 06:10 05/24/21 17:04 Lab Results: Laboratory Results - last 24 hr 05/24/21 05/24/21 05/24/21 17:04 17:04 17:05 WBC 4.4 L RBC 2.37 L Hgb 7.7 L Hct 23.1 L MCV 98 H MCH 33 H MCHC 34 RDW 17.3 H Plt Count 144 Lymph % (Auto) 19.8 [place] % (Auto) 9.5 H Eos % (Auto) 4.6 H Baso % (Auto) 0.5 Lymph # (Auto) 0.9 L [place] # (Auto) 0.4 Eos # (Auto) 0.2 Baso # (Auto) 0.0 Seg Neutrophils % 65.6 Seg Neutrophils # 2.9 PT 17.7 H INR 1.39 H APTT 38.1 H Sodium 142 Potassium 4.1 Chloride 111.4 H Carbon Dioxide 23 Anion Gap 12 BUN 33 H Creatinine 2.1 H Estimated GFR 24 BUN/Creatinine Ratio 16 Glucose 85 Calcium 7.1 L Total Bilirubin 0.60 AST 51 H ALT 14 Alkaline Phosphatase 126 NT-Pro-B Natriuret Pep 393.7 Total Protein 6.8 Albumin 1.9 L Albumin/Globulin Ratio 0.4 05/25/21 06:10 WBC 3.7 L RBC 2.37 L Hgb 7.8 L Hct 23.2 L MCV 98 H MCH 33 H MCHC 34 RDW 17.1 H Plt Count 147 Lymph % (Auto) 27.8 [place] % (Auto) 8.3 H Eos % (Auto) 5.7 H Baso % (Auto) 1.0 Lymph # (Auto) 1.0 L [place] # (Auto) 0.3 Eos # (Auto) 0.2 Baso # (Auto) 0.0 Seg Neutrophils % 57.2 Seg Neutrophils # 2.1 PT INR APTT Sodium Potassium Chloride Carbon Dioxide Anion Gap BUN Creatinine Estimated GFR BUN/Creatinine Ratio Glucose Calcium Total Bilirubin AST ALT Alkaline Phosphatase NT-Pro-B Natriuret Pep Total Protein Albumin Albumin/Globulin Ratio Assessment and Plan 1. Decompensated cirrhosis with ascites/LE edema - diagnostic/therapeutic paracentesis when able; low sodium diet. pt with aidan, so limited on diuretics 2. AIDAN - recent elevated at [facility] that improved to 1.38 at the time of discharge. increased to around 2 now. recommend renal consult 3. Severe deconditioning 4. History of hepatitis c
[2021-05-25] MEDS: IPRATROPIUM/ALBUTEROL SULFATE 3 ML AMPUL.NEB IH SCH ×2 (22:31→22:32)
[2021-05-25] MEDS: oxyCODONE /ACETAMINOPHEN 5-325MG TAB PO PRN (22:34)
[2021-05-26] MEDS: HYDROmorphone 1 MG/1 ML INJ IV PRN ×5 (04:25→20:15)
[2021-05-26] MEDS: ONDANSETRON 4 MG/2 ML INJ IV PRN ×2 (04:27→13:42)
[2021-05-26 07:22] LABS: Calcium 7.7 mg/dL (8.4-10.2)
[2021-05-26 07:26] LABS: Basophils % (Auto) 1.2 % (0.0-1.8); Eosinophils # (Auto) 0.2 K/mm3 (0.0-0.4); Eosinophils % (Auto) 5.2 % (0.0-4.3); Hematocrit 23.8 % (30.3-42.9); Hemoglobin 7.9 gm/dl (10.1-14.3); Lymphocytes # (Auto) 1.3 K/mm3 (1.2-5.4); Lymphocytes % (Auto) 34.7 % (13.4-35.0); Mean Corpuscular HGB Conc 33 % (30-34); Mean Corpuscular Volume 99 fl (79-97); Monocytes # (Auto) 0.4 K/mm3 (0.0-0.8); Platelet Count 154 K/mm3 (140-440); Red Blood Count 2.41 M/mm3 (3.65-5.03); Red Cell Distribution Width 17.8 % (13.2-15.2)
[2021-05-26] MEDS: FERROUS SULFATE 325 MG TAB PO SCH (09:29)
[2021-05-26] MEDS: HEPARIN 5,000 UNIT/1 ML VIAL SUB-Q SCH ×2 (09:29→21:49)
[2021-05-26] MEDS: MULTIVITAMINS ,THERAPEUTIC TAB PO SCH (09:30)
[2021-05-26] MEDS: POTASSIUM CHLORIDE ER 10 MEQ TAB PO SCH (09:30)
[2021-05-26] MEDS: SPIRONOLACTONE 25 MG TAB PO SCH (09:30)
[2021-05-26] MEDS: FUROSEMIDE 40 MG TAB PO SCH (09:31)
[2021-05-26] MEDS: FAMOTIDINE 20 MG TAB PO SCH ×2 (09:32→21:49)
--- NOTE | 2021-05-26 10:49 | Progress Note ---
Assessment and Plan - Patient Problems (1) AIDAN (acute kidney injury) Current Visit: Yes Status: Acute Plan to address problem: Secondary to acute intravascular volume insufficiency. Improving with gentle diuresis We will initiate renal consult. (2) Anasarca Current Visit: Yes Status: Acute Plan to address problem: Secondary to end-stage liver disease. Patient will require another large-volume paracentesis. Has already been ordered. (3) Cirrhosis Current Visit: Yes Status: Acute Plan to address problem: Patient has no viable treatment options at this time for hepatitis. Will reassess as outpatient. For now we need symptom management which includes continue diuresis as we are doing with Lasix and spironolactone as well as high volume paracentesis. (4) Bilateral lower extremity edema Current Visit: Yes Status: Chronic Plan to address problem: Secondary to the end-stage liver disease continue diuresis as we are doing. Foot elevation. (5) End stage liver disease Current Visit: No Status: Acute (6) Portal hypertension Current Visit: No Status: Acute (7) Anemia Current Visit: No Status: Chronic Qualifiers: Anemia type: other cause Other causes of anemia: other cause, not classified Qualified Code(s): D64.89 - Other specified anemias Plan to address problem: Secondary to patient's chronic liver disease. (8) Ascites Current Visit: No Status: Chronic Plan to address problem: Also secondary to liver disease Await therapeutic paracentesis Subjective Date of service: 05/26/21 Principal diagnosis: End-stage liver disease volume overload Interval history: 60-year-old with history of end-stage liver cirrhosis, hepatitis C presents with a chief complaint of shortness of breath. Dyspnea on exertion increased weakness fatigue. She just received paracentesis 2 weeks ago and is hence has returned ascites. Patient at present did feel better but now states has abdominal pain. States it feels tight nonradiating. Patient able to tolerate p.o. medications. Objective - Constitutional Vitals: Vital Signs - 12hr 05/25/21 05/26/21 05/26/21 23:22 01:29 05:10 Temperature 98.8 F 98.5 F Pulse Rate 76 72 Respiratory 18 18 Rate Blood Pressure 106/53 113/57 O2 Sat by Pulse 100 96 99 Oximetry 05/26/21 05/26/21 07:28 09:30 Temperature 98.1 F Pulse Rate 71 71 Respiratory 18 Rate Blood Pressure 116/62 116/62 O2 Sat by Pulse 100 Oximetry General appearance: Present: no acute distress, well-nourished - EENT Eyes: PERRL, EOM intact ENT: hearing intact, clear oral mucosa Ears: bilateral: normal - Neck Neck: supple, normal ROM - Respiratory Respiratory effort: normal Respiratory: bilateral: CTA - Breasts Breasts: normal - Cardiovascular Rhythm: regular Heart Sounds: Present: S1 & S2. Absent: gallop, rub Extremities: pulses intact, No edema, normal color, Full ROM - Gastrointestinal General gastrointestinal: Present: soft, normal bowel sounds, other (Distended ascites tender to deep palpation.) - Genitourinary Female genitourinary: normal - Integumentary Integumentary: clear, warm, dry - Musculoskeletal Musculoskeletal: 1, strength equal bilaterally - Neurologic Neurologic: moves all extremities - Psychiatric Psychiatric: memory intact, appropriate mood/affect, intact judgment & insight - Labs CBC & Chem 7: 05/26/21 06:50 05/26/21 06:50 Labs: Abnormal lab results 05/26/21 05/26/21 Range/Units 06:50 06:50 WBC 3.9 L (4.5-11.0) K/mm3 RBC 2.41 L (3.65-5.03) M/mm3 Hgb 7.9 L (10.1-14.3) gm/dl Hct 23.8 L (30.3-42.9) % MCV 99 H (79-97) fl MCH 33 H (28-32) pg RDW 17.8 H (13.2-15.2) % [place] % (Auto) 11.0 H (0.0-7.3) % Eos % (Auto) 5.2 H (0.0-4.3) % Chloride 110.8 H (98-107) mmol/L BUN 34 H (7-17) mg/dL Creatinine 2.0 H (0.6-1.2) mg/dL Calcium 7.7 L (8.4-10.2) mg/dL
--- NOTE | 2021-05-26 10:54 | Gastroenterology Progress Note ---
Assessment and Plan 1. Refractory ascites - limited on diuretic dosage/usage due to renal insufficiency. awaiting repeat therapeutic paracentesis (hopefully tomorrow). low sodium diet 2. AIDAN - increased creatinine compared to recent discharge levels from [facility]. stable creatinine overnight. consider renal consult. 3. Decompensated cirrhosis/history of hep c - awaiting outpatient eval with [facility]. Subjective Date of service: 05/26/21 Principal diagnosis: End-stage liver disease volume overload Interval history: no new changes/events overnight. resting comfortably. Objective - Exam Narrative Exam: gen: chronically ill appearing abd: mod distention, ascites, nt ext: ++ edema - Constitutional Vitals: Temp Pulse Resp BP Pulse Ox 98.1 F 71 18 116/62 100 05/26/21 07:28 05/26/21 09:30 05/26/21 07:28 05/26/21 09:30 05/26/21 07:28 - Labs CBC & Chem 7: 05/26/21 06:50 05/26/21 06:50 Labs: Laboratory Results - last 24 hr 05/26/21 05/26/21 06:50 06:50 WBC 3.9 L RBC 2.41 L Hgb 7.9 L Hct 23.8 L MCV 99 H MCH 33 H MCHC 33 RDW 17.8 H Plt Count 154 Lymph % (Auto) 34.7 [place] % (Auto) 11.0 H Eos % (Auto) 5.2 H Baso % (Auto) 1.2 Lymph # (Auto) 1.3 [place] # (Auto) 0.4 Eos # (Auto) 0.2 Baso # (Auto) 0.0 Seg Neutrophils % 47.9 Seg Neutrophils # 1.8 Sodium 141 Potassium 4.9 Chloride 110.8 H Carbon Dioxide 23 Anion Gap 12 BUN 34 H Creatinine 2.0 H Estimated GFR 25 BUN/Creatinine Ratio 17 Glucose 73 Calcium 7.7 L
[2021-05-26] MEDS: IPRATROPIUM/ALBUTEROL SULFATE 3 ML AMPUL.NEB IH SCH ×4 (15:42→22:47)
--- NOTE | 2021-05-26 23:15 | Event Note ---
Date: 05/26/21 Please do not consult interventional radiology for paracentesis. Diagnostic radiology performs paracentesis at [facility]. Please coordinate care with them. Recommend ordering US paracentesis in order to place order in the future. I'll place the order to prevent delay of care.
[2021-05-27] MEDS: HYDROmorphone 1 MG/1 ML INJ IV PRN ×6 (01:35→22:15)
[2021-05-27] MEDS: ONDANSETRON 4 MG/2 ML INJ IV PRN ×2 (01:36→15:09)
[2021-05-27] MEDS: IPRATROPIUM/ALBUTEROL SULFATE 3 ML AMPUL.NEB IH SCH ×4 (03:07→22:11)
[2021-05-27 08:04] LABS: Calcium 7.4 mg/dL (8.4-10.2)
--- NOTE | 2021-05-27 08:25 | Consultation ---
History of Present Illness - Reason for Consult Consult date: 05/27/21 acute renal failure - History of Present Illness The patient is a 60 YO female with history significant for Hepatitis C, Cir rhosis with Ascites and bedbound status who [facility] with c/o increasing abdominal distention and swelling of the body. Patient states 2 weeks ago she had large volume paracentesis. Due to increase in the abdominal distentions she has trouble breathing. Denies cough, fevers, chills, N, V, D, abd pain, cp, sob, dysuria or hematuria. Denies NSAID intake. In the ED labs significant for BUN is 33 creatinine 2.1. Patient was admitted to medical floor. Nephrology was consulted for evaluation and treatment of AIDAN. Past History Past Medical History: hepatitis, hypertension, other (Liver failure, endometriosis) Medications and Allergies Allergies Allergy/AdvReac Type Severity Reaction Status Date / Time NSAIDS (Non-Steroidal Allergy Anaphylaxis Verified 04/16/21 10:33 Anti-Inflamma Quinolones Allergy Anaphylaxis Verified 04/16/21 10:32 metoclopramide [From Reglan] AdvReac Unknown Verified 04/16/21 10:33 nitrofurantoin AdvReac Vomiting Verified 04/16/21 10:34 [From Macrobid] Home Medications Medication Instructions Recorded Confirmed Last Taken Type Ferrous Sulfate [Feosol 325 MG tab] 325 mg PO QDAY #30 tablet 08/14/20 04/16/21 Unknown Rx Furosemide [Lasix TAB] 40 mg PO QDAY #30 tablet 08/14/20 04/16/21 Unknown Rx Multivitamin Tab [Multiple Vitamin 1 each PO QDAY #30 tablet 08/14/20 04/16/21 Unknown Rx TAB (Theragran)] Spironolactone [Aldactone] 25 mg PO QDAY #30 tablet 08/14/20 04/16/21 Unknown Rx Potassium Chloride [K-Dur] 10 meq PO QDAY #3 tablet 04/18/21 Unknown Rx Active Meds: Active Medications Acetaminophen (Acetaminophen 325 Mg Tab) 650 mg PO Q4H PRN PRN Reason: Pain MILD(1-3)/Fever >100.5/ABEL Albuterol (Albuterol 2.5 Mg/3 Ml Nebu) 2.5 mg IH Q4HRT PRN PRN Reason: Shortness Of Breath Albuterol/Ipratropium (Ipratropium/Albuterol Sulfate 3 Ml Ampul.Neb) 1 ampul IH Q6HRT [facility] Last Admin: 05/27/21 03:07 Dose: Not Given Documented by: Famotidine (Famotidine 20 Mg Tab) 20 mg PO BID [facility] Last Admin: 05/26/21 21:49 Dose: 20 mg Documented by: Ferrous Sulfate (Ferrous Sulfate 325 Mg Tab) 325 mg PO QDAY [facility] Last Admin: 05/26/21 09:29 Dose: 325 mg Documented by: Furosemide (Furosemide 40 Mg Tab) 40 mg PO QDAY [facility] Last Admin: 05/26/21 09:31 Dose: 40 mg Documented by: Heparin Sodium (Porcine) (Heparin 5,000 Unit/1 Ml Vial) 5,000 unit SUB-Q Q12HR [facility] Last Admin: 05/26/21 21:49 Dose: 5,000 unit Documented by: Hydromorphone HCl (Hydromorphone 1 Mg/1 Ml Inj) 0.5 mg IV Q3H PRN PRN Reason: Pain , Severe (7-10) Last Admin: 05/27/21 06:25 Dose: 0.5 mg Documented by: Multivitamins (Multivitamins ,Therapeutic Tab) 1 each PO QDAY [facility] Last Admin: 05/26/21 09:30 Dose: 1 each Documented by: Ondansetron HCl (Ondansetron 4 Mg/2 Ml Inj) 4 mg IV Q8H PRN PRN Reason: Nausea And Vomiting Last Admin: 05/27/21 01:36 Dose: 4 mg Documented by: Oxycodone/Acetaminophen (Oxycodone /Acetaminophen 5-325mg Tab) 1 tab PO Q6H PRN PRN Reason: Pain, Moderate (4-6) Last Admin: 05/25/21 22:34 Dose: 1 tab Documented by: Potassium Chloride (Potassium Chloride Er 10 Meq Tab) 10 meq PO QDAY [facility] Last Admin: 05/26/21 09:30 Dose: 10 meq Documented by: Sodium Chloride (Sodium Chloride 0.9% 10 Ml Flush Syringe) 10 ml IV BID [facility] Last Admin: 05/27/21 01:35 Dose: 10 ml Documented by: Sodium Chloride (Sodium Chloride 0.9% 10 Ml Flush Syringe) 10 ml IV PRN PRN PRN Reason: LINE FLUSH Spironolactone (Spironolactone 25 Mg Tab) 25 mg PO QDAY BRANT Last Admin: 05/26/21 09:30 Dose: 25 mg Documented by: Review of Systems Constitutional: weight gain, anorexia, fatigue, no weight loss, no fever, no chills, no weakness Breasts: deferred Cardiovascular: orthopnea, edema, shortness of breath, leg edema, no chest pain, no syncope, no lightheadedness Respiratory: shortness of breath, dyspnea on exertion, no cough, no hemoptysis Gastrointestinal: no abdominal pain, no nausea, no vomiting, no diarrhea, no hematemesis, no melena Neurological: no convulsions, no aphasia, no change in speech, no change in mentation, no confusion Exam - Vital Signs Vital signs: Vital Signs Temp Pulse Resp BP Pulse Ox 98.4 F 86 16 128/62 100 05/24/21 11:15 05/24/21 11:15 05/24/21 11:15 05/24/21 11:15 05/24/21 11:15 Results - Lab Results 05/26/21 06:50 05/27/21 07:35 Most recent lab results Calcium 7.4 mg/dL (8.4-10.2) L 05/27/21 07:35 Assessment and Plan 1. Acute kidney injury: Suspect AIDAN 2/2 hepato-renal syndrome. Urine studies and Renal US ordered. Monitor renal function. Creatinine level is slowly improving. Avoid nephrotoxic agents. Meds dosage based on GFR. 2. FEN: Volume overload, on Lasix and spironolactone, monitor. Limit fluid intake. Monitor lytes and volume status. 3. Ascites, POA: 2/2 Cirrhosis. S/p therapeutic paracentesis. 4. Cirrhosis: Hepatitis C related. Followed by GI. 5. Anemia, POA: 2/2 chronic liver disease. Transfuse for hemoglobin less than 7. 6. Chronic bedbound status. Subjective: Patient was seen and examined at the bedside. Examination: General appearance: well-developed, appears stated age, not in distress, appears chronically ill HEENT: atraumatic, GENESIS Neck: trachea midline Respiratory: bilateral decreased breath sounds Heart: S1S2, regular, no murmur Abdomen: soft, distended, bowel sounds heard, NT Integumentary: no obvious rash Neurologic: AO, able to move extremities Ext: 2 to 3+ LE and dependent edema, anasarca noted
--- NOTE | 2021-05-27 09:13 | Progress Note ---
Assessment and Plan - Patient Problems (1) AIDAN (acute kidney injury) Current Visit: Yes Status: Acute Plan to address problem: Secondary to acute intravascular volume insufficiency. Patient renal function is about the same from admission creatinine 1.9. We will initiate renal consult assist in evaluating acuity Management made more difficult secondary to the need for continued diuresis with end-stage liver disease. (2) Anasarca Current Visit: Yes Status: Acute Plan to address problem: Patient for ultrasound-guided paracentesis today. (3) Cirrhosis Current Visit: Yes Status: Acute Plan to address problem: Patient has no viable treatment options at this time for hepatitis. Will reassess as outpatient. For now we need symptom management which includes continue diuresis as we are doing with Lasix and spironolactone as well as high volume paracentesis. (4) Bilateral lower extremity edema Current Visit: Yes Status: Chronic Plan to address problem: Secondary to the end-stage liver disease continue diuresis as we are doing. Foot elevation. Has resolved somewhat with current diuresis. (5) End stage liver disease Current Visit: No Status: Acute (6) Portal hypertension Current Visit: No Status: Acute (7) Anemia Current Visit: No Status: Chronic Qualifiers: Anemia type: other cause Other causes of anemia: other cause, not classified Qualified Code(s): D64.89 - Other specified anemias Plan to address problem: Secondary to patient's chronic liver disease. Transfuse for hemoglobin less than 7. Currently asymptomatic patient is essentially bedbound at this time. (8) Ascites Current Visit: No Status: Chronic Plan to address problem: Also secondary to liver disease Await therapeutic paracentesis Subjective Date of service: 05/27/21 Principal diagnosis: End-stage liver disease volume overload Interval history: 60-year-old with history of end-stage liver cirrhosis, hepatitis C presents with a chief complaint of shortness of breath. Dyspnea on exertion increased weakness fatigue. She just received paracentesis 2 weeks ago and is hence has returned ascites. Patient at present did feel better but now states has abdominal pain. States it feels tight nonradiating. Patient able to tolerate p.o. medications. 05/27/2021 Patient scheduled for ultrasound guided paracentesis this a.m. Complains of typical abdominal discomfort from marked ascites. No other concerns at this time. Remains hemodynamically stable. Objective - Constitutional Vitals: Vital Signs - 12hr 05/26/21 05/26/21 05/27/21 21:45 22:00 00:00 Temperature 98.6 F Pulse Rate 72 Pulse Rate [ 78 Throughout] Respiratory 18 Rate Respiratory 18 Rate [Bilateral Lower Extremities] Respiratory 18 Rate [ Throughout] Blood Pressure 110/54 O2 Sat by Pulse 98 Oximetry 05/27/21 05/27/21 05/27/21 04:48 05:19 07:28 Temperature 98.4 F 98.7 F Pulse Rate 67 69 Pulse Rate [ 78 Throughout] Respiratory 18 16 Rate Respiratory Rate [Bilateral Lower Extremities] Respiratory 18 Rate [ Throughout] Blood Pressure 105/55 112/56 O2 Sat by Pulse 100 100 Oximetry 05/27/21 08:41 Temperature Pulse Rate Pulse Rate [ Throughout] Respiratory Rate Respiratory Rate [Bilateral Lower Extremities] Respiratory Rate [ Throughout] Blood Pressure O2 Sat by Pulse 97 Oximetry General appearance: Present: no acute distress, well-nourished - EENT Eyes: PERRL, EOM intact ENT: hearing intact, clear oral mucosa Ears: bilateral: normal - Neck Neck: supple, normal ROM - Respiratory Respiratory effort: normal Respiratory: bilateral: CTA - Breasts Breasts: normal - Cardiovascular Rhythm: regular Heart Sounds: Present: S1 & S2. Absent: gallop, rub Extremities: pulses intact, No edema, normal color, Full ROM - Gastrointestinal General gastrointestinal: Present: tender, non-distended, normal bowel sounds, other (Firm, distinct large volume ascites) - Genitourinary Female genitourinary: normal - Integumentary Integumentary: clear, warm, dry - Musculoskeletal Musculoskeletal: generalized weakness, other (Deconditioned) - Neurologic Neurologic: moves all extremities - Psychiatric Psychiatric: appropriate mood/affect, intact judgment & insight, memory intact, other (No evidence of encephalopathy.) - Labs CBC & Chem 7: 05/26/21 06:50 05/27/21 07:35 Labs: Abnormal lab results 05/27/21 Range/Units 07:35 Chloride 108.4 H (98-107) mmol/L BUN 33 H (7-17) mg/dL Creatinine 1.9 H (0.6-1.2) mg/dL Calcium 7.4 L (8.4-10.2) mg/dL
[2021-05-27] MEDS: FAMOTIDINE 20 MG TAB PO SCH ×2 (09:40→22:14)
[2021-05-27] MEDS: POTASSIUM CHLORIDE ER 10 MEQ TAB PO SCH (09:40)
[2021-05-27] MEDS: FUROSEMIDE 40 MG TAB PO SCH (09:40)
[2021-05-27] MEDS: FERROUS SULFATE 325 MG TAB PO SCH (09:40)
[2021-05-27] MEDS: MULTIVITAMINS ,THERAPEUTIC TAB PO SCH (09:40)
--- NOTE | 2021-05-27 11:53 | Event Note ---
Date: 05/27/21 Patient off the floor for paracentesis. will follow-up at later time
--- NOTE | 2021-05-27 13:18 | Procedure Note ---
Date of procedure: 05/27/21 Pre-op diagnosis: ascites Post-op diagnosis: same Procedure: US paracentesis Findings: moderate ascites Anesthesia: local Surgeon: TANESHA YADAV Pathology: none Specimen disposition: discarded Disposition: floor
--- NOTE | 2021-05-27 13:23 | Ultrasound Report ---
ULTRASOUND-GUIDED PARACENTESIS HISTORY: ascites, for hospitalists. PROCEDURE: The risks (including but not limited to bleeding, infection, and bowel injury) and benefi ts were explained to the patient and informed consent was obtained. A time out procedure was perform ed. Ultrasound was used to evaluate the abdomen and locate the largest ascites fluid pocket. Once the sk in was marked, the procedure site was prepped and draped in the usual sterile fashion and lidocaine w as used for local anesthesia. A skin king was made and a 5 Romanian centesis catheter was placed. The patient was monitored closely throughout the procedure, and a total of 4000 mL of clear yellow fluid was aspirated. Samples were sent to the lab for further evaluation per the primary clinicians order s. The patient tolerated the procedure well with no complications. IMPRESSION: Successful ultrasound-guided paracentesis as described. Signer Name: Chip Bingham Jr, MD Signed: 05/27/2021 1:18 PM Workstation Name: [id number]
[2021-05-27] MEDS: HEPARIN 5,000 UNIT/1 ML VIAL SUB-Q SCH ×2 (15:09→22:00)
[2021-05-27] MEDS: SPIRONOLACTONE 25 MG TAB PO SCH (17:12)
[2021-05-28] MEDS: HYDROmorphone 1 MG/1 ML INJ IV PRN ×5 (01:51→23:57)
[2021-05-28] MEDS: ONDANSETRON 4 MG/2 ML INJ IV PRN ×3 (01:52→20:13)
[2021-05-28] MEDS: IPRATROPIUM/ALBUTEROL SULFATE 3 ML AMPUL.NEB IH SCH ×4 (07:08→22:45)
[2021-05-28 07:49] LABS: Bacteria,Urine 4+ /HPF (Negative); Bilirubin,Urine NEG (Negative); Blood,Urine MOD (Negative); Color,Urine Yellow (Yellow); Mucus,Urine FEW /HPF; Protein,Urine <15 mg/dL mg/dL (Negative); Urobilinogen,Urine < 2.0 mg/dL (<2.0)
[2021-05-28 07:57] LABS: Protein/Creatinine Ratio,Urine 0.52
--- NOTE | 2021-05-28 08:47 | Progress Note ---
Assessment and Plan 1. Acute kidney injury: Suspect AIDAN 2/2 hepato-renal syndrome. Urine studies and Renal US ordered. Monitor renal function. Creatinine level is same as yesterday. Avoid nephrotoxic agents. Meds dosage based on GFR. 2. FEN: Volume overload, on Lasix and spironolactone, monitor. Limit fluid intake. Monitor lytes and volume status. 3. Ascites, POA: 2/2 Cirrhosis. S/p therapeutic paracentesis. 4. Cirrhosis: Hepatitis C related. Followed by GI. 5. Anemia, POA: 2/2 chronic liver disease. Transfuse for hemoglobin less than 7. 6. Chronic bedbound status. Subjective: Patient was seen and examined at the bedside. Examination: General appearance: well-developed, appears stated age, not in distress, appears chronically ill HEENT: atraumatic, GENESIS Neck: trachea midline Respiratory: bilateral decreased breath sounds Heart: S1S2, regular, no murmur Abdomen: soft, distended, bowel sounds heard, NT Integumentary: no obvious rash Neurologic: AO, able to move extremities Ext: 2 to 3+ LE and dependent edema, anasarca noted Subjective Date of service: 05/28/21 Principal diagnosis: End-stage liver disease volume overload Objective - Vital Signs Vital signs: Vital Signs - 12hr 05/27/21 05/28/21 05/28/21 22:00 00:29 04:54 Temperature 98.9 F 98.5 F Pulse Rate 73 68 Respiratory 16 16 Rate Blood Pressure 101/49 102/49 O2 Sat by Pulse 98 97 99 Oximetry 05/28/21 07:16 Temperature 98.6 F Pulse Rate 66 Respiratory 16 Rate Blood Pressure 106/52 O2 Sat by Pulse 99 Oximetry - Lab 05/26/21 06:50 05/28/21 08:47 Most recent lab results Calcium 7.4 mg/dL (8.4-10.2) L 05/27/21 07:35 Urine Creatinine 46.0 mg/dL (0.1-20.0) H 05/28/21 07:00 Urine Sodium 51 mmol/L 05/28/21 07:00 Urine Total Protein 24 mg/dL (5-11.8) H 05/28/21 07:00 Medications & Allergies - Medications Allergies/Adverse Reactions: Allergies NSAIDS (Non-Steroidal Anti-Inflamma Allergy (Verified 04/16/21 10:33) Anaphylaxis Quinolones Allergy (Verified 04/16/21 10:32) Anaphylaxis metoclopramide [From Reglan] Adverse Reaction (Verified 04/16/21 10:33) Unknown jittery nitrofurantoin [From Macrobid] Adverse Reaction (Verified 04/16/21 10:34) Vomiting Home Medications: Home Medications Medication Instructions Recorded Confirmed Last Taken Type Ferrous Sulfate [Feosol 325 MG tab] 325 mg PO QDAY #30 tablet 08/14/20 04/16/21 Unknown Rx Furosemide [Lasix TAB] 40 mg PO QDAY #30 tablet 08/14/20 04/16/21 Unknown Rx Multivitamin Tab [Multiple Vitamin 1 each PO QDAY #30 tablet 08/14/20 04/16/21 Unknown Rx TAB (Theragran)] Spironolactone [Aldactone] 25 mg PO QDAY #30 tablet 08/14/20 04/16/21 Unknown Rx Potassium Chloride [K-Dur] 10 meq PO QDAY #3 tablet 04/18/21 Unknown Rx Active Medications: Generic Name Dose Route Start Last Admin Trade Name Freq PRN Reason Stop Dose Admin Acetaminophen 650 mg 05/24/21 21:35 Acetaminophen 325 Mg Tab PO Q4H PRN Pain MILD(1-3)/Fever >100.5/ABEL Albuterol 2.5 mg 05/24/21 21:35 Albuterol 2.5 Mg/3 Ml Nebu IH Q4HRT PRN Shortness Of Breath Albuterol/Ipratropium 1 ampul 05/25/21 02:00 05/28/21 08:32 Ipratropium/Albuterol Sulfate 3 Ml Ampul.Neb IH 1 ampul Q6HRT BRANT Administration Famotidine 20 mg 05/24/21 22:00 05/27/21 22:14 Famotidine 20 Mg Tab PO 20 mg BID BRANT Administration Ferrous Sulfate 325 mg 05/25/21 10:00 05/27/21 09:40 Ferrous Sulfate 325 Mg Tab PO 325 mg QDAY BRANT Administration Furosemide 40 mg 05/25/21 10:00 05/27/21 09:40 Furosemide 40 Mg Tab PO 40 mg QDAY BRANT Administration Heparin Sodium (Porcine) 5,000 unit 05/24/21 22:00 05/27/21 22:00 Heparin 5,000 Unit/1 Ml Vial SUB-Q 5,000 unit Q12HR BRANT Administration Hydromorphone HCl 0.5 mg 05/24/21 21:35 05/28/21 06:59 Hydromorphone 1 Mg/1 Ml Inj IV 0.5 mg Q3H PRN Administration Pain , Severe (7-10) Multivitamins 1 each 05/25/21 10:00 05/27/21 09:40 Multivitamins ,Therapeutic Tab PO 1 each QDAY BRANT Administration Ondansetron HCl 4 mg 05/24/21 21:35 05/28/21 01:52 Ondansetron 4 Mg/2 Ml Inj IV 4 mg Q8H PRN Administration Nausea And Vomiting Oxycodone/Acetaminophen 1 tab 05/24/21 21:35 05/25/21 22:34 Oxycodone /Acetaminophen 5-325mg Tab PO 1 tab Q6H PRN Administration Pain, Moderate (4-6) Potassium Chloride 10 meq 05/25/21 10:00 05/27/21 09:40 Potassium Chloride Er 10 Meq Tab PO 10 meq QDAY BRANT Administration Sodium Chloride 10 ml 05/24/21 22:00 05/27/21 22:15 Sodium Chloride 0.9% 10 Ml Flush Syringe IV 10 ml BID BRANT Administration Sodium Chloride 10 ml 05/24/21 21:35 Sodium Chloride 0.9% 10 Ml Flush Syringe IV PRN PRN LINE FLUSH Spironolactone 25 mg 05/25/21 10:00 05/27/21 17:12 Spironolactone 25 Mg Tab PO Not Given QDAY BRANT
[2021-05-28] MEDS: FUROSEMIDE 40 MG TAB PO SCH (09:24)
[2021-05-28] MEDS: FERROUS SULFATE 325 MG TAB PO SCH (09:24)
[2021-05-28] MEDS: FAMOTIDINE 20 MG TAB PO SCH (09:24)
--- NOTE | 2021-05-28 09:34 | Progress Note ---
Assessment and Plan Assessment and plan: (1) AIDAN (acute kidney injury) Current Visit: Yes Status: Acute Plan to address problem: Suspect AIDAN 2/2 hepato-renal syndrome. Urine studies and Renal US ordered. Secondary to acute intravascular volume insufficiency. Patient renal function is about the same from admission creatinine 1.9. We will initiate renal consult assist in evaluating acuity Management made more difficult secondary to the need for continued diuresis with end-stage liver disease. (2) Anasarca Current Visit: Yes Status: Acute Plan to address problem: Patient for ultrasound-guided paracentesis today. (3) Cirrhosis Current Visit: Yes Status: Acute Plan to address problem: Patient has no viable treatment options at this time for hepatitis. Will reassess as outpatient. For now we need symptom management which includes continue diuresis as we are doing with Lasix and spironolactone as well as high volume paracentesis. (4) Bilateral lower extremity edema Current Visit: Yes Status: Chronic Plan to address problem: Secondary to the end-stage liver disease continue diuresis as we are doing. Foot elevation. Has resolved somewhat with current diuresis. (5) End stage liver disease Current Visit: No Status: Acute (6) Portal hypertension Current Visit: No Status: Acute (7) Anemia Current Visit: No Status: Chronic Qualifiers: Anemia type: other cause Other causes of anemia: other cause, not classified Qualified Code(s): D64.89 - Other specified anemias Plan to address problem: Secondary to patient's chronic liver disease. Transfuse for hemoglobin less than 7. Currently asymptomatic patient is essentially bedbound at this time. (8) Ascites Current Visit: No Status: Chronic Plan to address problem: Also secondary to liver disease 05/27/2021 Patient scheduled for ultrasound guided paracentesis this a.m. Complains of typical abdominal discomfort from marked ascites. No other concerns at this time. Remains hemodynamically stable. 05/28/2021. Nephrology suspects AIDAN 2/2 hepato-renal syndrome. Follow-up urine studies and renal ultrasound. Physical therapy evaluation. Anticipate discharge in a.m. if okay with nephrology. History Interval history: No new issues overnight Hospitalist Physical - Constitutional Vitals: Temp Pulse Resp BP Pulse Ox 98.6 F 75 18 106/52 99 05/28/21 07:16 05/28/21 08:50 05/28/21 08:50 05/28/21 07:16 05/28/21 07:16 General appearance: Present: no acute distress, well-nourished - EENT Eyes: Present: PERRL, EOM intact ENT: hearing intact, clear oral mucosa, dentition normal - Neck Neck: Present: supple, normal ROM - Respiratory Respiratory effort: normal Respiratory: bilateral: CTA - Cardiovascular Rhythm: regular Heart Sounds: Present: S1 & S2. Absent: gallop, rub - Extremities Extremities: no ischemia, No edema, Full ROM - Abdominal General gastrointestinal: soft, non-tender, non-distended, normal bowel sounds - Integumentary Integumentary: Present: clear, warm, dry - Neurologic Neurologic: CNII-XII intact, moves all extremities Results - Labs CBC & Chem 7: 05/26/21 06:50 05/27/21 07:35 Labs: Laboratory Last Values WBC 3.9 K/mm3 (4.5-11.0) L 05/26/21 06:50 RBC 2.41 M/mm3 (3.65-5.03) L 05/26/21 06:50 Hgb 7.9 gm/dl (10.1-14.3) L 05/26/21 06:50 Hct 23.8 % (30.3-42.9) L 05/26/21 06:50 MCV 99 fl (79-97) H 05/26/21 06:50 MCH 33 pg (28-32) H 05/26/21 06:50 MCHC 33 % (30-34) 05/26/21 06:50 RDW 17.8 % (13.2-15.2) H 05/26/21 06:50 Plt Count 154 K/mm3 (140-440) 05/26/21 06:50 Lymph % (Auto) 34.7 % (13.4-35.0) 05/26/21 06:50 [place] % (Auto) 11.0 % (0.0-7.3) H 05/26/21 06:50 Eos % (Auto) 5.2 % (0.0-4.3) H 05/26/21 06:50 Baso % (Auto) 1.2 % (0.0-1.8) 05/26/21 06:50 Lymph # (Auto) 1.3 K/mm3 (1.2-5.4) 05/26/21 06:50 [place] # (Auto) 0.4 K/mm3 (0.0-0.8) 05/26/21 06:50 Eos # (Auto) 0.2 K/mm3 (0.0-0.4) 05/26/21 06:50 Baso # (Auto) 0.0 K/mm3 (0.0-0.1) 05/26/21 06:50 Seg Neutrophils % 47.9 % (40.0-70.0) 05/26/21 06:50 Seg Neutrophils # 1.8 K/mm3 (1.8-7.7) 05/26/21 06:50 PT 17.7 Sec. (12.2-14.9) H 05/24/21 17:04 INR 1.39 (0.87-1.13) H 05/24/21 17:04 APTT 38.1 Sec. (24.2-36.6) H 05/24/21 17:04 Sodium 138 mmol/L (137-145) 05/27/21 07:35 Potassium 4.6 mmol/L (3.6-5.0) 05/27/21 07:35 Chloride 108.4 mmol/L (98-107) H 05/27/21 07:35 Carbon Dioxide 22 mmol/L (22-30) 05/27/21 07:35 Anion Gap 12 mmol/L 05/27/21 07:35 BUN 33 mg/dL (7-17) H 05/27/21 07:35 Creatinine 1.9 mg/dL (0.6-1.2) H 05/27/21 07:35 Estimated GFR 27 ml/min 05/27/21 07:35 BUN/Creatinine Ratio 17 % 05/27/21 07:35 Glucose 77 mg/dL (65-100) 05/27/21 07:35 Calcium 7.4 mg/dL (8.4-10.2) L 05/27/21 07:35 Total Bilirubin 0.60 mg/dL (0.1-1.2) 05/24/21 17:04 AST 51 units/L (5-40) H 05/24/21 17:04 ALT 14 units/L (7-56) 05/24/21 17:04 Alkaline Phosphatase 126 units/L (35-129) 05/24/21 17:04 NT-Pro-B Natriuret Pep 393.7 pg/mL (0-900) 05/24/21 17:04 Total Protein 6.8 g/dL (6.3-8.2) 05/24/21 17:04 Albumin 1.9 g/dL (3.9-5) L 05/24/21 17:04 Albumin/Globulin Ratio 0.4 % 05/24/21 17:04 Urine Color Yellow (Yellow) 05/28/21 07:00 Urine Turbidity Slightly-cloudy (Clear) 05/28/21 07:00 Urine pH 5.0 (5.0-7.0) 05/28/21 07:00 Ur Specific [place] 1.011 (1.003-1.030) 05/28/21 07:00 Urine Protein <15 mg/dl mg/dL (Negative) 05/28/21 07:00 Urine Glucose (UA) Neg mg/dL (Negative) 05/28/21 07:00 Urine Ketones Neg mg/dL (Negative) 05/28/21 07:00 Urine Blood Mod (Negative) 05/28/21 07:00 Urine Nitrite Pos (Negative) 05/28/21 07:00 Urine Bilirubin Neg (Negative) 05/28/21 07:00 Urine Urobilinogen < 2.0 mg/dL (<2.0) 05/28/21 07:00 Ur Leukocyte Esterase Sm (Negative) 05/28/21 07:00 Urine WBC (Auto) 3.0 /HPF (0.0-6.0) 05/28/21 07:00 Urine RBC (Auto) 6.0 /HPF (0.0-6.0) 05/28/21 07:00 U Epithel Cells (Auto) 3.0 /HPF (0-13.0) 05/28/21 07:00 Urine Bacteria (Auto) 4+ /HPF (Negative) 05/28/21 07:00 Urine Mucus Few /HPF 05/28/21 07:00 Urine Yeast (Budding) 1+ /HPF 05/28/21 07:00 Urine Creatinine 46.0 mg/dL (0.1-20.0) H 05/28/21 07:00 Protein/Creatinin Ratio 0.52 05/28/21 07:00 Urine Sodium 51 mmol/L 05/28/21 07:00 Urine Total Protein 24 mg/dL (5-11.8) H 05/28/21 07:00 [place]/IV: Voiding Method External Female Catheter Active Medications - Current Medications Current Medications: Generic Name Dose Route Start Last Admin Trade Name Freq PRN Reason Stop Dose Admin Acetaminophen 650 mg 05/24/21 21:35 Acetaminophen 325 Mg Tab PO Q4H PRN Pain MILD(1-3)/Fever >100.5/ABEL Albuterol 2.5 mg 05/24/21 21:35 Albuterol 2.5 Mg/3 Ml Nebu IH Q4HRT PRN Shortness Of Breath Albuterol/Ipratropium 1 ampul 05/25/21 02:00 05/28/21 08:32 Ipratropium/Albuterol Sulfate 3 Ml Ampul.Neb IH 1 ampul Q6HRT BRANT Administration Famotidine 20 mg 05/24/21 22:00 05/27/21 22:14 Famotidine 20 Mg Tab PO 20 mg BID BRANT Administration Ferrous Sulfate 325 mg 05/25/21 10:00 05/27/21 09:40 Ferrous Sulfate 325 Mg Tab PO 325 mg QDAY BRANT Administration Furosemide 40 mg 05/25/21 10:00 05/27/21 09:40 Furosemide 40 Mg Tab PO 40 mg QDAY BRANT Administration Heparin Sodium (Porcine) 5,000 unit 05/24/21 22:00 05/27/21 22:00 Heparin 5,000 Unit/1 Ml Vial SUB-Q 5,000 unit Q12HR BRANT Administration Hydromorphone HCl 0.5 mg 05/24/21 21:35 05/28/21 06:59 Hydromorphone 1 Mg/1 Ml Inj IV 0.5 mg Q3H PRN Administration Pain , Severe (7-10) Multivitamins 1 each 05/25/21 10:00 05/27/21 09:40 Multivitamins ,Therapeutic Tab PO 1 each QDAY BRANT Administration Ondansetron HCl 4 mg 05/24/21 21:35 05/28/21 01:52 Ondansetron 4 Mg/2 Ml Inj IV 4 mg Q8H PRN Administration Nausea And Vomiting Oxycodone/Acetaminophen 1 tab 05/24/21 21:35 05/25/21 22:34 Oxycodone /Acetaminophen 5-325mg Tab PO 1 tab Q6H PRN Administration Pain, Moderate (4-6) Potassium Chloride 10 meq 05/25/21 10:00 05/27/21 09:40 Potassium Chloride Er 10 Meq Tab PO 10 meq QDAY BRANT Administration Sodium Chloride 10 ml 05/24/21 22:00 05/27/21 22:15 Sodium Chloride 0.9% 10 Ml Flush Syringe IV 10 ml BID BRANT Administration Sodium Chloride 10 ml 05/24/21 21:35 Sodium Chloride 0.9% 10 Ml Flush Syringe IV PRN PRN LINE FLUSH Spironolactone 25 mg 05/25/21 10:00 05/27/21 17:12 Spironolactone 25 Mg Tab PO Not Given QDAY BRANT
[2021-05-28] MEDS: HEPARIN 5,000 UNIT/1 ML VIAL SUB-Q SCH ×2 (09:36→22:10)
[2021-05-28] MEDS: POTASSIUM CHLORIDE ER 10 MEQ TAB PO SCH (09:36)
[2021-05-28] MEDS: MULTIVITAMINS ,THERAPEUTIC TAB PO SCH (09:36)
[2021-05-28 09:38] LABS: Calcium 7.6 mg/dL (8.4-10.2)
[2021-05-28] MEDS: SPIRONOLACTONE 25 MG TAB PO SCH (09:38)
--- NOTE | 2021-05-28 11:10 | Gastroenterology Progress Note ---
Assessment and Plan 1. Refractory ascites - limited on diuretic dosage/usage due to renal insufficiency. s/p paracentesis yesterday - feels better. low sodium diet and diuretics as tolerated per renal 2. AIDAN - stable creatinine, renal following 3. Decompensated cirrhosis/history of hep c - awaiting outpatient eval with [facility]. no further inpt recommendations from gi at this time. f/u in gi clinic after discharge and with [facility] as scheduled Subjective Date of service: 05/28/21 Principal diagnosis: End-stage liver disease volume overload Interval history: pt s/p paracentesis yesterday (4L removed); reports improvement in abd/dyspnea sx's Objective - Exam Narrative Exam: gen: chronically ill appearing abd: soft, obese, nt ext: ++ edema - Constitutional Vitals: Temp Pulse Resp BP Pulse Ox 98.6 F 75 18 106/52 99 05/28/21 07:16 05/28/21 09:38 05/28/21 08:50 05/28/21 09:38 05/28/21 07:16 - Labs CBC & Chem 7: 05/26/21 06:50 05/28/21 08:47 Labs: Laboratory Results - last 24 hr 05/28/21 05/28/21 05/28/21 07:00 07:00 08:47 Sodium 140 Potassium 4.3 Chloride 108.7 H Carbon Dioxide 22 Anion Gap 14 BUN 31 H Creatinine 1.9 H Estimated GFR 27 BUN/Creatinine Ratio 16 Glucose 97 Calcium 7.6 L Magnesium 2.00 Urine Color Yellow Urine Turbidity Slightly-cloudy Urine pH 5.0 Ur Specific [place] 1.011 Urine Protein <15 mg/dl Urine Glucose (UA) Neg Urine Ketones Neg Urine Blood Mod Urine Nitrite Pos Urine Bilirubin Neg Urine Urobilinogen < 2.0 Ur Leukocyte Esterase Sm Urine WBC (Auto) 3.0 Urine RBC (Auto) 6.0 U Epithel Cells (Auto) 3.0 Urine Bacteria (Auto) 4+ Urine Mucus Few Urine Yeast (Budding) 1+ Urine Creatinine 46.0 H Protein/Creatinin Ratio 0.52 Urine Sodium 51 Urine Total Protein 24 H
[2021-05-29] MEDS: IPRATROPIUM/ALBUTEROL SULFATE 3 ML AMPUL.NEB IH SCH ×4 (04:22→22:50)
[2021-05-29] MEDS: HYDROmorphone 1 MG/1 ML INJ IV PRN ×2 (04:29→08:37)
--- NOTE | 2021-05-29 06:54 | Ultrasound Report ---
ULTRASOUND RENAL INDICATION: Acute renal failure.. COMPARISON: No relevant prior imaging study available. FINDINGS: RIGHT KIDNEY: Size: 12.3 cm. Echogenicity: Normal. Cortical thickness: Normal. Hydronephrosis: None. Cyst or mass: None. Stones: None. LEFT KIDNEY: Size: 10.1 cm. Echogenicity: Normal. Cortical thickness: Normal. Hydronephrosis: None. Cyst or mass: None. Stones: None. Urinary Bladder: No significant abnormality. Free Fluid: Moderate ascites. Additional Findings: None. IMPRESSION 1. No acute sonographic abnormality of the kidneys. 2. Moderate ascites Signer Name: Surendra Garcia MD Signed: 05/29/2021 6:49 AM Workstation Name: [id number]
--- NOTE | 2021-05-29 07:54 | Discharge Summary ---
Providers - Providers Date of Admission: 05/24/21 21:30 Date of discharge: 05/29/21 Attending physician: LISSA RIVERS 05/24/21 21:35 Consult to Physician [CONS] Routine Comment: Consulting Provider: NAMAN FELIPE Physician Instructions: Reason For Exam: Ascites 05/24/21 21:39 Consult to Interventional Radiology [CONS] Routine Consulting Provider: NARAYAN CARPENTER Reason For Exam: Paracentesis Notified:: cm notified 05/26/21 10:48 Consult to Physician [CONS] Routine Comment: Consulting Provider: GURMEET SPIVEY Physician Instructions: Reason For Exam: renal failure 05/28/21 21:39 Physical Therapy Evaluation and Treat [CONS] Routine Comment: Weakness Reason For Exam: Eval & Treat Primary care physician: [employer] Hospitalization Reason for admission: Cirrhosis, ascites, AIDAN on CKD Condition: Stable Hospital course: The patient is a 60 yo wf with h/o decompensated cirrhosis (hep c), complicated by ascites and LE edema. Pt recently was at [facility] for volume overload, symptomatic ascites, and had AIDAN during hospitalization. She was discharged home ~2 weeks ago and had recurrent worsening of LE edema and ascites which led her to come to hospital. The patient was readmitted to our hospital with same diagnosis of cirrhosis, ascites and acute kidney injury on probable CKD. The patient was seen by GI and nephrology in consultation. The patient was seen by interventional radiology and underwent paracentesis on 05/27/2021. Patient has significant improvement in symptoms. Nephrology felt that the acute kidney injury was secondary to hepatorenal syndrome. Renal ultrasound was negative urine studies are pending and will be followed up as an outpatient. Creatinine remained stable. GI and nephrology felt the patient received maximal hospital benefit and could be discharged home. Patient has decompensated cirrhosis with history of hepatitis C and is awaiting outpatient evaluation with [facility] service. Dedicated discharge time 32 minutes Disposition: 01 HOME / SELF CARE / HOMELESS Final Discharge Diagnosis (Prints w/discharge instructions): Refractory ascites, acute kidney injury, hepatorenal syndrome, decompensated cirrhosis, ESLD, portal hypertension, hepatitis C, chronic anemia Core Measure Documentation - Palliative Care Palliative Care/ Comfort Measures: Not Applicable - Core Measures Any of the following diagnoses?: none Exam - Constitutional Vitals: Temp Pulse Resp BP Pulse Ox 98.5 F 65 18 118/64 99 05/29/21 07:15 05/29/21 07:15 05/29/21 07:15 05/29/21 07:15 05/29/21 07:15 General appearance: Present: no acute distress, well-nourished - EENT Eyes: Present: PERRL ENT: hearing intact, clear oral mucosa - Neck Neck: Present: supple, normal ROM - Respiratory Respiratory effort: normal Respiratory: bilateral: CTA - Cardiovascular Heart Sounds: Present: S1 & S2. Absent: rub, click - Extremities Extremities: pulses symmetrical, No edema Peripheral Pulses: within normal limits - Abdominal General gastrointestinal: Present: soft, non-tender, non-distended, normal bowel sounds Female genitourinary: Present: normal - Integumentary Integumentary: Present: clear, warm, dry - Musculoskeletal Musculoskeletal: gait normal, strength equal bilaterally - Psychiatric Psychiatric: appropriate mood/affect, intact judgment & insight - Neurologic Neurologic: CNII-XII intact, moves all extremities Plan Activity: advance as tolerated Weight Bearing Status: Weight Bear as Tolerated Diet: low salt Special Instructions: restrict fluid intake to (1L) Follow up with: PRIMARY CARE,MD [Primary Care Provider] - 3-5 Days Prescriptions: Spironolactone [Aldactone] 25 mg PO QDAY #30 tablet Ferrous Sulfate [Feosol 325 MG tab] 325 mg PO QDAY #30 tablet Potassium Chloride [K-Dur] 10 meq PO QDAY #3 tablet Furosemide [Lasix TAB] 40 mg PO QDAY #30 tablet Multivitamin Tab [Multiple Vitamin TAB (Theragran)] 1 each PO QDAY #30 tablet oxyCODONE /ACETAMINOPHEN [Percocet 5/325 mg] 1 tab PO Q6H PRN #8 tablet PRN Reason: Pain, Moderate (4-6)
[2021-05-29 08:11] LABS: Calcium 7.3 mg/dL (8.4-10.2)
[2021-05-29] MEDS: FERROUS SULFATE 325 MG TAB PO SCH ×2 (08:39→11:33)
[2021-05-29] MEDS: SPIRONOLACTONE 25 MG TAB PO SCH ×2 (08:39→11:33)
[2021-05-29] MEDS: FAMOTIDINE 20 MG TAB PO SCH ×2 (08:39→11:34)
[2021-05-29] MEDS: POTASSIUM CHLORIDE ER 10 MEQ TAB PO SCH ×2 (08:39→11:33)
[2021-05-29] MEDS: FUROSEMIDE 40 MG TAB PO SCH ×2 (08:39→11:34)
[2021-05-29] MEDS: MULTIVITAMINS ,THERAPEUTIC TAB PO SCH ×2 (08:39→11:34)
[2021-05-29] MEDS: HEPARIN 5,000 UNIT/1 ML VIAL SUB-Q SCH ×3 (08:40→23:18)
--- NOTE | 2021-05-29 12:01 | Gastroenterology Progress Note ---
Assessment and Plan 1. Refractory ascites - limited on diuretic dosage/usage due to renal insufficiency. s/p paracentesis 2 days ago - feels better. low sodium diet and diuretics as tolerated per renal 2. AIDAN - stable creatinine, renal following 3. Decompensated cirrhosis/history of hep c - awaiting outpatient eval with [facility]. has appt on 06/26 with [facility] noted plans for discharge today. will sign off, please call as needed Subjective Date of service: 05/29/21 Principal diagnosis: End-stage liver disease volume overload Interval history: no new changes/events overnight Objective - Constitutional Vitals: Temp Pulse Resp BP Pulse Ox 98.7 F 63 18 113/57 99 05/29/21 11:14 05/29/21 11:14 05/29/21 11:14 05/29/21 11:14 05/29/21 11:14 General appearance: no acute distress - Respiratory Respiratory effort: normal Respiratory: bilateral: CTA - Extremities Extremity abnormal: edema - Gastrointestinal General gastrointestinal: Present: soft, distended (+ ascites) - Neurologic Neurological: alert and oriented x3 - Labs CBC & Chem 7: 05/26/21 06:50 05/29/21 07:29 Labs: Laboratory Results - last 24 hr 05/28/21 05/29/21 05/29/21 07:00 07:29 Unknown Sodium 140 Potassium 4.0 Chloride 109.1 H Carbon Dioxide 25 Anion Gap 10 BUN 30 H Creatinine 1.9 H Estimated GFR 27 BUN/Creatinine Ratio 16 Glucose 70 Calcium 7.3 L Urine Eosinophils None Coronavirus (PCR) Negative
--- NOTE | 2021-05-29 12:14 | Progress Note ---
Assessment and Plan 1. Acute kidney injury: Suspect AIDAN 2/2 hepato-renal syndrome. Urine studies and Renal US ordered. Monitor renal function. Creatinine leveled off. Avoid nephrotoxic agents. Meds dosage based on GFR. 2. FEN: Volume overload, on Lasix and spironolactone, monitor. Limit fluid intake. Monitor lytes and volume status. 3. Ascites, POA: 2/2 Cirrhosis. S/p therapeutic paracentesis. 4. Cirrhosis: Hepatitis C related. Followed by GI. 5. Anemia, POA: 2/2 chronic liver disease. Transfuse for hemoglobin less than 7. 6. Chronic bedbound status. Subjective: Patient was seen and examined at the bedside. Examination: General appearance: well-developed, appears stated age, not in distress, appears chronically ill HEENT: atraumatic, GENESIS Neck: trachea midline Respiratory: bilateral decreased breath sounds Heart: S1S2, regular, no murmur Abdomen: soft, distended, bowel sounds heard, NT Integumentary: no obvious rash Neurologic: AO, able to move extremities Ext: 2 to 3+ LE and dependent edema, anasarca noted Subjective Date of service: 05/29/21 Principal diagnosis: End-stage liver disease volume overload Objective - Vital Signs Vital signs: Vital Signs - 12hr 05/29/21 05/29/21 05/29/21 04:19 07:15 09:07 Temperature 98.0 F 98.5 F Pulse Rate 62 65 Respiratory 16 18 18 Rate Blood Pressure 119/64 118/64 O2 Sat by Pulse 99 99 Oximetry 05/29/21 05/29/21 05/29/21 10:00 11:00 11:14 Temperature 98.7 F Pulse Rate 63 Respiratory 18 Rate Blood Pressure 113/57 O2 Sat by Pulse 98 98 99 Oximetry - Lab 05/26/21 06:50 05/29/21 07:29 Most recent lab results Calcium 7.3 mg/dL (8.4-10.2) L 05/29/21 07:29 Magnesium 2.00 mg/dL (1.7-2.3) 05/28/21 08:47 Urine Creatinine 46.0 mg/dL (0.1-20.0) H 05/28/21 07:00 Urine Sodium 51 mmol/L 05/28/21 07:00 Urine Total Protein 24 mg/dL (5-11.8) H 05/28/21 07:00 Medications & Allergies - Medications Allergies/Adverse Reactions: Allergies NSAIDS (Non-Steroidal Anti-Inflamma Allergy (Verified 04/16/21 10:33) Anaphylaxis Quinolones Allergy (Verified 04/16/21 10:32) Anaphylaxis metoclopramide [From Reglan] Adverse Reaction (Verified 04/16/21 10:33) Unknown jittery nitrofurantoin [From Macrobid] Adverse Reaction (Verified 04/16/21 10:34) Vomiting Home Medications: Home Medications Medication Instructions Recorded Confirmed Last Taken Type Ferrous Sulfate [Feosol 325 MG tab] 325 mg PO QDAY #30 tablet 05/29/21 Unknown Rx Furosemide [Lasix TAB] 40 mg PO QDAY #30 tablet 05/29/21 Unknown Rx Multivitamin Tab [Multiple Vitamin 1 each PO QDAY #30 tablet 05/29/21 Unknown Rx TAB (Theragran)] Potassium Chloride [K-Dur] 10 meq PO QDAY #3 tablet 05/29/21 Unknown Rx Spironolactone [Aldactone] 25 mg PO QDAY #30 tablet 05/29/21 Unknown Rx oxyCODONE /ACETAMINOPHEN [Percocet 1 tab PO Q6H PRN #8 tablet 05/29/21 Unknown Rx 5/325 mg] Active Medications: Generic Name Dose Route Start Last Admin Trade Name Freq PRN Reason Stop Dose Admin Acetaminophen 650 mg 05/24/21 21:35 Acetaminophen 325 Mg Tab PO Q4H PRN Pain MILD(1-3)/Fever >100.5/ABEL Albuterol 2.5 mg 05/24/21 21:35 Albuterol 2.5 Mg/3 Ml Nebu IH Q4HRT PRN Shortness Of Breath Albuterol/Ipratropium 1 ampul 05/25/21 02:00 05/29/21 11:49 Ipratropium/Albuterol Sulfate 3 Ml Ampul.Neb IH Not Given Q6HRT BRANT Famotidine 20 mg 05/29/21 10:00 05/29/21 11:34 Famotidine 20 Mg Tab PO Not Given DAILY BRANT Ferrous Sulfate 325 mg 05/25/21 10:00 05/29/21 11:33 Ferrous Sulfate 325 Mg Tab PO Not Given QDAY BRANT Furosemide 40 mg 05/25/21 10:00 05/29/21 11:34 Furosemide 40 Mg Tab PO Not Given QDAY [facility] Heparin Sodium (Porcine) 5,000 unit 05/24/21 22:00 05/29/21 11:33 Heparin 5,000 Unit/1 Ml Vial SUB-Q Not Given Q12HR [facility] Hydromorphone HCl 0.5 mg 05/24/21 21:35 05/29/21 08:37 Hydromorphone 1 Mg/1 Ml Inj IV 0.5 mg Q3H PRN Administration Pain , Severe (7-10) Multivitamins 1 each 05/25/21 10:00 05/29/21 11:34 Multivitamins ,Therapeutic Tab PO Not Given QDAY [facility] Ondansetron HCl 4 mg 05/24/21 21:35 05/28/21 20:13 Ondansetron 4 Mg/2 Ml Inj IV 4 mg Q8H PRN Administration Nausea And Vomiting Oxycodone/Acetaminophen 1 tab 05/24/21 21:35 05/25/21 22:34 Oxycodone /Acetaminophen 5-325mg Tab PO 1 tab Q6H PRN Administration Pain, Moderate (4-6) Potassium Chloride 10 meq 05/25/21 10:00 05/29/21 11:33 Potassium Chloride Er 10 Meq Tab PO Not Given QDAY [facility] Sodium Chloride 10 ml 05/24/21 22:00 05/28/21 22:11 Sodium Chloride 0.9% 10 Ml Flush Syringe IV 10 ml BID BRANT Administration Sodium Chloride 10 ml 05/24/21 21:35 Sodium Chloride 0.9% 10 Ml Flush Syringe IV PRN PRN LINE FLUSH Spironolactone 25 mg 05/25/21 10:00 05/29/21 11:33 Spironolactone 25 Mg Tab PO Not Given QDAY [facility]
[2021-05-29] MEDS: oxyCODONE /ACETAMINOPHEN 5-325MG TAB PO PRN ×2 (13:28→23:17)
[2021-05-30 07:48] VITALS: BP 118/57
--- NOTE | 2021-05-30 09:57 | Progress Note ---
Assessment and Plan 1. Acute kidney injury: Suspect AIDAN 2/2 hepato-renal syndrome. Urine studies and Renal US ordered. Monitor renal function. Creatinine leveled off. Avoid nephrotoxic agents. Meds dosage based on GFR. 2. FEN: Volume overload, on Lasix and spironolactone, monitor. Limit fluid intake. Monitor lytes and volume status. 3. Ascites, POA: 2/2 Cirrhosis. S/p therapeutic paracentesis. 4. Cirrhosis: Hepatitis C related. Followed by GI. 5. Anemia, POA: 2/2 chronic liver disease. Transfuse for hemoglobin less than 7. 6. Chronic bedbound status. Subjective: Patient was seen and examined at the bedside. Examination: General appearance: well-developed, appears stated age, not in distress, appears chronically ill HEENT: atraumatic, GENESIS Neck: trachea midline Respiratory: bilateral decreased breath sounds Heart: S1S2, regular, no murmur Abdomen: soft, distended, bowel sounds heard, NT Integumentary: no obvious rash Neurologic: AO, able to move extremities Ext: 2 to 3+ LE and dependent edema, anasarca noted Subjective Date of service: 05/30/21 Principal diagnosis: End-stage liver disease volume overload Objective - Vital Signs Vital signs: Vital Signs - 12hr 05/29/21 05/30/21 05/30/21 23:38 05:02 07:20 Temperature 99.3 F 98.0 F Pulse Rate 74 69 Respiratory 17 18 18 Rate Blood Pressure 126/61 118/57 O2 Sat by Pulse 95 95 99 Oximetry 05/30/21 09:04 Temperature Pulse Rate Respiratory Rate Blood Pressure O2 Sat by Pulse 99 Oximetry - Lab 05/26/21 06:50 05/29/21 07:29 Most recent lab results Calcium 7.3 mg/dL (8.4-10.2) L 05/29/21 07:29 Magnesium 2.00 mg/dL (1.7-2.3) 05/28/21 08:47 Urine Creatinine 46.0 mg/dL (0.1-20.0) H 05/28/21 07:00 Urine Sodium 51 mmol/L 05/28/21 07:00 Urine Total Protein 24 mg/dL (5-11.8) H 05/28/21 07:00 Medications & Allergies - Medications Allergies/Adverse Reactions: Allergies NSAIDS (Non-Steroidal Anti-Inflamma Allergy (Verified 04/16/21 10:33) Anaphylaxis Quinolones Allergy (Verified 04/16/21 10:32) Anaphylaxis metoclopramide [From Reglan] Adverse Reaction (Verified 04/16/21 10:33) Unknown jittery nitrofurantoin [From Macrobid] Adverse Reaction (Verified 04/16/21 10:34) Vomiting Home Medications: Home Medications Medication Instructions Recorded Confirmed Last Taken Type Ferrous Sulfate [Feosol 325 MG tab] 325 mg PO QDAY #30 tablet 05/29/21 Unknown Rx Furosemide [Lasix TAB] 40 mg PO QDAY #30 tablet 05/29/21 Unknown Rx Multivitamin Tab [Multiple Vitamin 1 each PO QDAY #30 tablet 05/29/21 Unknown Rx TAB (Theragran)] Potassium Chloride [K-Dur] 10 meq PO QDAY #3 tablet 05/29/21 Unknown Rx Spironolactone [Aldactone] 25 mg PO QDAY #30 tablet 05/29/21 Unknown Rx oxyCODONE /ACETAMINOPHEN [Percocet 1 tab PO Q6H PRN #8 tablet 05/29/21 Unknown Rx 5/325 mg] Active Medications: Generic Name Dose Route Start Last Admin Trade Name Freq PRN Reason Stop Dose Admin Acetaminophen 650 mg 05/24/21 21:35 Acetaminophen 325 Mg Tab PO Q4H PRN Pain MILD(1-3)/Fever >100.5/ABEL Albuterol 2.5 mg 05/24/21 21:35 Albuterol 2.5 Mg/3 Ml Nebu IH Q4HRT PRN Shortness Of Breath Famotidine 20 mg 05/29/21 10:00 05/29/21 11:34 Famotidine 20 Mg Tab PO Not Given DAILY BRANT Ferrous Sulfate 325 mg 05/25/21 10:00 05/29/21 11:33 Ferrous Sulfate 325 Mg Tab PO Not Given QDAY BRANT Furosemide 40 mg 05/25/21 10:00 05/29/21 11:34 Furosemide 40 Mg Tab PO Not Given QDAY BRANT Heparin Sodium (Porcine) 5,000 unit 05/24/21 22:00 05/29/21 23:18 Heparin 5,000 Unit/1 Ml Vial SUB-Q 5,000 unit Q12HR BRANT Administration Hydromorphone HCl 0.5 mg 05/24/21 21:35 05/29/21 08:37 Hydromorphone 1 Mg/1 Ml Inj IV 0.5 mg Q3H PRN Administration Pain , Severe (7-10) Multivitamins 1 each 05/25/21 10:00 05/29/21 11:34 Multivitamins ,Therapeutic Tab PO Not Given QDAY [facility] Ondansetron HCl 4 mg 05/24/21 21:35 05/28/21 20:13 Ondansetron 4 Mg/2 Ml Inj IV 4 mg Q8H PRN Administration Nausea And Vomiting Oxycodone/Acetaminophen 1 tab 05/24/21 21:35 05/29/21 23:17 Oxycodone /Acetaminophen 5-325mg Tab PO 1 tab Q6H PRN Administration Pain, Moderate (4-6) Potassium Chloride 10 meq 05/25/21 10:00 05/29/21 11:33 Potassium Chloride Er 10 Meq Tab PO Not Given QDAY [facility] Sodium Chloride 10 ml 05/24/21 22:00 05/29/21 23:19 Sodium Chloride 0.9% 10 Ml Flush Syringe IV Not Given BID [facility] Sodium Chloride 10 ml 05/24/21 21:35 Sodium Chloride 0.9% 10 Ml Flush Syringe IV PRN PRN LINE FLUSH Spironolactone 25 mg 05/25/21 10:00 05/29/21 11:33 Spironolactone 25 Mg Tab PO Not Given QDAY [facility]
[2021-05-30] MEDS: oxyCODONE /ACETAMINOPHEN 5-325MG TAB PO PRN (11:25)
[2021-05-30] MEDS: FERROUS SULFATE 325 MG TAB PO SCH (11:26)
[2021-05-30] MEDS: MULTIVITAMINS ,THERAPEUTIC TAB PO SCH (11:26)
[2021-05-30] MEDS: FUROSEMIDE 40 MG TAB PO SCH (11:27)
[2021-05-30] MEDS: FAMOTIDINE 20 MG TAB PO SCH (11:27)
[2021-05-30] MEDS: SPIRONOLACTONE 25 MG TAB PO SCH (11:27)
== END 2021-05-30 12:10 | disposition home health service (06) | DRG 432 ==
LOC: ED 11:03 → 3A 21:30 → OBSVTOIN 21:30 → 3B-SURG 23:46
PROVIDERS: ADMIT Hospitalist; ATTEND Hospitalist
PROC: 0W9G3ZZ Drainage of Peritoneal Cavity, Percutaneous Approach (ICD-10-PCS; principal; 2021-05-27)
DX: K74.60 Unspecified cirrhosis of liver (principal); K76.7 Hepatorenal syndrome; N17.9 Acute kidney failure, unspecified; R18.8 Other ascites; K76.6 Portal hypertension; K72.90 Hepatic failure, unspecified without coma; B19.20 Unspecified viral hepatitis C without hepatic coma; E87.70 Fluid overload, unspecified; I10 Essential (primary) hypertension; Z20.822 Contact with and (suspected) exposure to COVID-19; D64.89 Other specified anemias; Z74.01 Bed confinement status; Z88.8 Allergy status to other drugs, medicaments and biological substances; Z86.19 Personal history of other infectious and parasitic diseases
CPT/HCPCS: 36415; 49083; 71045; 76770; 80048; 80053; 81001; 82570; 83735; 83880; 84156; 84300; 85025; 85610; 85730; 89050; 94640; 94760; G0378; J1170; J1644; J1940; J2405; U0003

== ENCOUNTER 2021-05-31 16:18 | Inpatient (IN) | payer MEDICAID ==
--- NOTE | 2021-05-31 21:50 | Emergency Department Report ---
- General Chief complaint: Weakness Stated complaint: WEAKNESS PUI?: No Time Seen by Provider: 05/31/21 21:45 Source: EMS Mode of arrival: Stretcher Limitations: No Limitations - History of Present Illness Initial comments: Patient is a 16-year-old female who presents emergency room with complaints of weakness, decreased responsiveness, nausea and vomiting. Patient shortness of breath. Patient states that her symptoms started just prior to arrival. P atient states she arrived here about 6 hours ago. Patient states she was at home when her home health called EMS because of her symptoms. Patient states that EMS put her on oxygen but EMS told her that her oxygen levels were fine. EMS states the patient was initially altered and lethargic. Patient at this time is alert and oriented x3. Patient denies chest pain. Patient denies abdominal pain. Patient states she has a history of cirrhosis of liver secondary to hep C. Patient states she has a history of asthma. Patient states she has not had the COVID-19 vaccine. Patient states she has had a cough. Patient states she gets a cough at times due to volume overload from her cirrhosis and ascites. Patient denies recent travel. Patient denies recent international travel. Patient denies exposure to the novel coronavirus. Patient denies sick contacts. Patient denies fever and chills. Patient denies cough. Patient denies diarrhea. Patient denies coming in contact with anybody with symptoms of the novel coronavirus. MD Complaint: generalized weakness -: Sudden Location: generalized Severity: severe Consistency: constant Improves with: rest Worsens with: movement Associated Symptoms: nausea/vomiting, shortness of breath. denies: chest pain, confusion, dark stools, diaphoresis, dysuria, fever/chills, headaches, rash, syncope - Related Data Previous Rx's Medication Instructions Recorded Last Taken Type Ferrous Sulfate [Feosol 325 MG tab] 325 mg PO QDAY #30 tablet 05/29/21 Unknown Rx Furosemide [Lasix TAB] 40 mg PO QDAY #30 tablet 05/29/21 Unknown Rx Multivitamin Tab [Multiple Vitamin 1 each PO QDAY #30 tablet 05/29/21 Unknown Rx TAB (Theragran)] Potassium Chloride [K-Dur] 10 meq PO QDAY #3 tablet 05/29/21 Unknown Rx Spironolactone [Aldactone] 25 mg PO QDAY #30 tablet 05/29/21 Unknown Rx oxyCODONE /ACETAMINOPHEN [Percocet 1 tab PO Q6H PRN #8 tablet 05/29/21 Unknown Rx 5/325 mg] Allergies Allergy/AdvReac Type Severity Reaction Status Date / Time NSAIDS (Non-Steroidal Allergy Anaphylaxis Verified 04/16/21 10:33 Anti-Inflamma Quinolones Allergy Anaphylaxis Verified 04/16/21 10:32 metoclopramide [From Reglan] AdvReac Unknown Verified 04/16/21 10:33 nitrofurantoin AdvReac Vomiting Verified 04/16/21 10:34 [From Macrobid] ED Review of Systems ROS: Stated complaint: WEAKNESS Other details as noted in HPI Constitutional: denies: chills, fever Eyes: denies: eye pain, eye discharge, vision change ENT: denies: ear pain, throat pain Respiratory: shortness of breath. denies: cough, wheezing Cardiovascular: denies: chest pain, palpitations Endocrine: no symptoms reported Gastrointestinal: nausea, vomiting. denies: abdominal pain, diarrhea Genitourinary: denies: urgency, dysuria, discharge Musculoskeletal: denies: back pain, joint swelling, arthralgia Skin: denies: rash, lesions Neurological: as per HPI, weakness. denies: headache, paresthesias Psychiatric: denies: anxiety, depression Hematological/Lymphatic: denies: easy bleeding, easy bruising ED Past Medical Hx - Past Medical History Previous Medical History?: Yes Hx Hypertension: Yes (Portal) Hx Congestive Heart Failure: No Hx Diabetes: No Hx Liver Disease: Yes (Hep C, cirrhosis) Hx Renal Disease: Yes (polynephritis) Hx Asthma: No Hx COPD: No Hx HIV: No Additional medical history: endometriosis. Hepatitis C - Surgical History Past Surgical History?: Yes Additional Surgical History: back surgery - Family History Family history: no significant - Social History Smoking Status: Never Smoker Substance Use Type: None - Medications Home Medications: Home Medications Medication Instructions Recorded Confirmed Last Taken Type Ferrous Sulfate [Feosol 325 MG tab] 325 mg PO QDAY #30 tablet 05/29/21 Unknown Rx Furosemide [Lasix TAB] 40 mg PO QDAY #30 tablet 05/29/21 Unknown Rx Multivitamin Tab [Multiple Vitamin 1 each PO QDAY #30 tablet 05/29/21 Unknown Rx TAB (Theragran)] Potassium Chloride [K-Dur] 10 meq PO QDAY #3 tablet 05/29/21 Unknown Rx Spironolactone [Aldactone] 25 mg PO QDAY #30 tablet 05/29/21 Unknown Rx oxyCODONE /ACETAMINOPHEN [Percocet 1 tab PO Q6H PRN #8 tablet 05/29/21 Unknown Rx 5/325 mg] ED Physical Exam - General Limitations: No Limitations General appearance: alert, in no apparent distress - Head Head exam: Present: atraumatic, normocephalic - Eye Eye exam: Present: normal appearance - ENT ENT exam: Present: mucous membranes dry - Neck Neck exam: Present: normal inspection - Respiratory Respiratory exam: Present: normal lung sounds bilaterally. Absent: respiratory distress, wheezes, rales - Cardiovascular Cardiovascular Exam: Present: regular rate, normal rhythm. Absent: systolic murmur, diastolic murmur, rubs, gallop - GI/Abdominal GI/Abdominal exam: Present: soft, normal bowel sounds. Absent: distended, tenderness, guarding - Extremities Exam Extremities exam: Present: normal inspection - Back Exam Back exam: Present: normal inspection - Neurological Exam Neurological exam: Present: alert, oriented X3 - Psychiatric Psychiatric exam: Present: normal affect, normal mood - Skin Skin exam: Present: warm, dry, intact, normal color. Absent: rash - Assessment Assessment Interval: Baseline - Level of Consciousness 1a. Level of Consciousness: alert/keenly responsive - LOC Questions 1b. LOC Questions: answers both correctly - LOC Command 1c. LOC Commands: performs tasks correctly - Best Gaze 2. Best Gaze: normal - Visual 3. Visual: no visual loss - Facial Palsy 4. Facial Palsy: normal symmetrical movement - Motor Arm 5a. Motor Arm Left: no drift 5b. Motor Arm Right: no drift - Motor Leg 6a. Motor Leg Left: no drift 6b. Motor Leg Right: no drift - Limb Ataxia 7. Limb Ataxia: absent - Sensory 8. Sensory: normal - Best Language 9. Best Language: no aphasia - Dysarthria 10. Dysarthria: normal - Extinction and Inattention 11. Extinction/Inattention: no abnormality - Scoring Total Score: 0 Stroke Severity: No Stroke Symptoms ED Course Vital Signs 05/31/21 21:04 Temperature 98.5 F Pulse Rate 98 H Respiratory 16 Rate Blood Pressure 151/76 [Left] O2 Sat by Pulse 97 Oximetry - Reevaluation(s) Reevaluation #1: Patient resting comfortably in bed. Patient denies nausea vomiting at this time. Patient states she still feels weak. 05/31/21 22:42 Reevaluation #2: I discussed all results with patient. I discussed plan of care with patient. Patient agrees with plan of care and admission. Patient to be admitted to the hospitalist service. 05/31/21 23:42 - Consultations Consultation #1: Hospitalist consulted for admission. Hospitalist to admit patient. 05/31/21 23:42 ED Medical Decision Making - Lab Data Result diagrams: 05/31/21 22:03 05/31/21 22:03 - Radiology Data Radiology results: report reviewed, image reviewed CHEST 1 VIEW 2200 INDICATION / CLINICAL INFORMATION: Weakness COMPARISON: 05/24/2021 FINDINGS: SUPPORT DEVICES: None HEART / MEDIASTINUM: Stable LUNGS / PLEURA: Very poor degree of inspiration is seen. Patchy infiltrate appears to be mildly improved in the right lower lung field. Mild increased markings are seen in the left midlung. No pneumothorax. ADDITIONAL FINDINGS: No significant additional findings. CT HEAD WITHOUT CONTRAST INDICATION: Weakness TECHNIQUE: All CT scans at this location are performed using CT dose reduction for ALARA by means of automated exposure control. COMPARISON: None available. FINDINGS: BRAIN: No hemorrhage or mass effect are seen. No evidence of acute infarction is noted. ORBITS: Normal as visualized. SOFT TISSUES OF HEAD: Normal. CALVARIUM: Normal. VISUALIZED PARANASAL SINUSES AND MASTOID AIR CELLS: Minimal left maxillary mucosal thickening is seen ADDITIONAL FINDINGS: None. IMPRESSION: No acute intracranial abnormality. - Medical Decision Making Patient is a 60-year-old female that presents emergency room with complaints of shortness of breath, ultimately stated Covid nausea, vomiting, weakness. Patient states it is generalized. Patient brought in by EMS. EMS states that patient was altered initially and lethargic. Patient initially had nausea and vomiting. Initial evaluation, the patient was alert and oriented x3. Patient had labs done which showed multiple abnormalities to include abnormal LFTs, acute on chronic renal failure, elevated troponin, anemia abnormal coagulation. Patient had a chest x-ray which shows pulmonary edema. Patient admitted to hospitalist service for further evaluation treatment. Critical care time documented due to the multiple reassessments, prolonged time at the bedside, interpretation of diagnostics and labs. - Differential Diagnosis Altered mental status, weakness, lethargy, nausea, vomiting, shortness of b Critical Care Time: Yes Critical care time in (mins) excluding proc time.: 35 Critical care attestation.: If time is entered above; I have spent that time in minutes in the direct care of this critically ill patient, excluding procedure time. Critical Care Time: 35 minutes ED Disposition Clinical Impression: Hyperkalemia, End stage liver disease, Elevated troponin, SOB (shortness of breath), Weakness Anemia Qualifiers: Anemia type: unspecified type Qualified Code(s): D64.9 - Anemia, unspecified Cirrhosis Qualifiers: Hepatic cirrhosis type: unspecified hepatic cirrhosis Ascites presence: with ascites Qualified Code(s): K74.60 - Unspecified cirrhosis of liver; R18.8 - Other ascites Renal failure (ARF), acute on chronic Qualifiers: Acute renal failure type: unspecified Chronic kidney disease stage: unspecified stage Qualified Code(s): N17.9 - Acute kidney failure, unspecified; N18.9 - Chronic kidney disease, unspecified Altered mental state Qualifiers: Altered mental status type: unspecified Qualified Code(s): R41.82 - Altered mental status, unspecified Nausea & vomiting Qualifiers: Vomiting type: unspecified Vomiting Intractability: non-intractable Qualified Code(s): R11.2 - Nausea with vomiting, unspecified Pulmonary edema Qualifiers: Chronicity: acute Qualified Code(s): J81.0 - Acute pulmonary edema Disposition: ADMITTED INPATIENT Is pt being admited?: Yes Does the pt Need Aspirin: No Condition: Critical Instructions: Pulmonary Edema (ED) Time of Disposition: 23:34
--- NOTE | 2021-05-31 22:06 | XRay Report ---
CHEST 1 VIEW 2200 INDICATION / CLINICAL INFORMATION: Weakness COMPARISON: 05/24/2021 FINDINGS: SUPPORT DEVICES: None HEART / MEDIASTINUM: Stable LUNGS / PLEURA: Very poor degree of inspiration is seen. Patchy infiltrate appears to be mildly impro mary in the right lower lung field. Mild increased markings are seen in the left midlung. No pneumotho rax. ADDITIONAL FINDINGS: No significant additional findings. Signer Name: Felipe Cadet MD Signed: 05/31/2021 10:01 PM Workstation Name: [id number]
[2021-05-31 22:22] LABS: Basophils % (Auto) 0.5 % (0.0-1.8); Eosinophils # (Auto) 0.1 K/mm3 (0.0-0.4); Eosinophils % (Auto) 1.2 % (0.0-4.3); Hematocrit 27.9 % (30.3-42.9); Hemoglobin 9.1 gm/dl (10.1-14.3); Lymphocytes # (Auto) 1.1 K/mm3 (1.2-5.4); Lymphocytes % (Auto) 13.9 % (13.4-35.0); Mean Corpuscular HGB Conc 33 % (30-34); Mean Corpuscular Volume 99 fl (79-97); Monocytes # (Auto) 0.6 K/mm3 (0.0-0.8); Platelet Count 219 K/mm3 (140-440); Red Blood Count 2.81 M/mm3 (3.65-5.03); Red Cell Distribution Width 17.6 % (13.2-15.2)
[2021-05-31 22:31] LABS: INR 1.5 (0.87-1.13)
[2021-05-31 22:37] LABS: Albumin 1.8 g/dL (3.9-5); Calcium 7.9 mg/dL (8.4-10.2)
--- NOTE | 2021-05-31 22:50 | Cat Scan Report ---
CT HEAD WITHOUT CONTRAST INDICATION: Weakness TECHNIQUE: All CT scans at this location are performed using CT dose reduction for ALARA by means of automated exposure control. COMPARISON: None available. FINDINGS: BRAIN: No hemorrhage or mass effect are seen. No evidence of acute infarction is noted. ORBITS: Normal as visualized. SOFT TISSUES OF HEAD: Normal. CALVARIUM: Normal. VISUALIZED PARANASAL SINUSES AND MASTOID AIR CELLS: Minimal left maxillary mucosal thickening is seen ADDITIONAL FINDINGS: None. IMPRESSION: No acute intracranial abnormality. Signer Name: Felipe Cadet MD Signed: 05/31/2021 10:45 PM Workstation Name: [id number]
[2021-05-31 22:52] LABS: Chol/HDL Ratio 3.04 %
[2021-06-01] MEDS ORDERED: MORPHINE 4 MG/1 ML INJ IV PRN (00:19)
[2021-06-01] MEDS ORDERED: MAGNESIUM HYDROXIDE (MOM) ORAL LIQD UDC PO PRN (00:19)
[2021-06-01] MEDS ORDERED: ACETAMINOPHEN 650 MG RECT SUPP PR PRN (00:19)
--- NOTE | 2021-06-01 00:36 | History and Physical Report ---
History of Present Illness Date of examination: 06/01/21 Date of admission: 06/01/2021 Chief complaint: Generalized weakness Nausea and Vomiting Altered mental status History of present illness: 60-year-old female with known history of hepatitis C, liver cirrhosis and hypertension reports to the emergency room today via EMS with complaint of nausea and vomiting, shortness of breath, generalized weakness and decreased responsiveness which started a few hours prior to reporting to the emergency room. Patient has also been having progressive lower extremity swelling and abdominal swelling. She indicates she has had occasional cough which she attributes to liver cirrhosis with ascites. En route to the hospital patient was said to be lethargic and less responsive. Patient became more alert and oriented upon arrival in the emergency room. She denies any sick contacts and no recent travel. Denies any contact with anyone with COVID-19. Patient has not been vaccinated against COVID-19. Work-up in the emergency room today, labs reveals hemoglobin of 9.1 and hematocrit of 27.9. Patient had a BUN and creatinine of 31 and 2.0 respectively. Troponin was elevated at 0.040, ammonia level was 42. Chest x-ray shows patchy infiltrate which is mildly improved in the right lower lung field. Mild increased markings are seen in the left midlung. EKG showed no ischemic changes. Patient is being admitted with intractable nausea and vomiting, generalized weakness, acute on chronic renal failure and elevated troponin. Past History Past Medical History: other (Hepatitis C, Livere cirrhosis, Endometrosis,Pyelonehritis,Portal hypertension) Past Surgical History: Other (Back surgery) Social history: no significant social history Medications and Allergies Allergies Allergy/AdvReac Type Severity Reaction Status Date / Time NSAIDS (Non-Steroidal Allergy Anaphylaxis Verified 04/16/21 10:33 Anti-Inflamma Quinolones Allergy Anaphylaxis Verified 04/16/21 10:32 metoclopramide [From Reglan] AdvReac Unknown Verified 04/16/21 10:33 nitrofurantoin AdvReac Vomiting Verified 04/16/21 10:34 [From Macrobid] Home Medications Medication Instructions Recorded Confirmed Last Taken Type Ferrous Sulfate [Feosol 325 MG tab] 325 mg PO QDAY #30 tablet 05/29/21 Unknown Rx Furosemide [Lasix TAB] 40 mg PO QDAY #30 tablet 05/29/21 Unknown Rx Multivitamin Tab [Multiple Vitamin 1 each PO QDAY #30 tablet 05/29/21 Unknown Rx TAB (Theragran)] Potassium Chloride [K-Dur] 10 meq PO QDAY #3 tablet 05/29/21 Unknown Rx Spironolactone [Aldactone] 25 mg PO QDAY #30 tablet 05/29/21 Unknown Rx oxyCODONE /ACETAMINOPHEN [Percocet 1 tab PO Q6H PRN #8 tablet 05/29/21 Unknown Rx 5/325 mg] Active Meds: Active Medications Acetaminophen (Acetaminophen 650 Mg Rect Supp) 650 mg [place] Q4H PRN PRN Reason: Pain MILD(1-3)/Fever >100.5/ABEL Magnesium Hydroxide (Magnesium Hydroxide (Mom) Oral Liqd Udc) 30 ml PO Q4H PRN PRN Reason: Constipation Morphine Sulfate (Morphine 2 Mg/1 Ml Inj) 2 mg IV Q4H PRN PRN Reason: Pain, Moderate (4-6) Morphine Sulfate (Morphine 4 Mg/1 Ml Inj) 4 mg IV Q4H PRN PRN Reason: Pain , Severe (7-10) Ondansetron HCl (Ondansetron 4 Mg/2 Ml Inj) 4 mg IV Q8H PRN PRN Reason: Nausea And Vomiting Sodium Chloride (Sodium Chloride 0.9% 10 Ml Flush Syringe) 10 ml IV BID BRANT Sodium Chloride (Sodium Chloride 0.9% 10 Ml Flush Syringe) 10 ml IV PRN PRN PRN Reason: LINE FLUSH Review of Systems Constitutional: no fever, no chills Ears, nose, mouth and throat: no nasal congestion, no sore throat Cardiovascular: no chest pain, no palpitations Respiratory: no cough, no shortness of breath Gastrointestinal: nausea, vomiting, no abdominal pain, no diarrhea Genitourinary Female: no pelvic pain, no flank pain, no dysuria, no hematuria Musculoskeletal: no neck pain, no low back pain Integumentary: no rash, no pruritis Neurological: no headaches, no confusion Psychiatric: no anxiety, no depression Endocrine: no polydipsia, no polyuria, no nocturia Exam - Constitutional Vitals: Temp Pulse Resp BP Pulse Ox 98.5 F 98 H 16 151/76 97 05/31/21 21:04 05/31/21 21:04 05/31/21 21:04 05/31/21 21:04 05/31/21 21:04 General appearance: Present: no acute distress, well-nourished - EENT Eyes: Present: PERRL, EOM intact, irregular pupil. Absent: scleral icterus ENT: clear oral mucosa, dentition normal - Neck Neck: Present: supple, normal ROM - Respiratory Respiratory effort: normal Respiratory: bilateral: CTA - Cardiovascular Rhythm: regular Heart Sounds: Present: S1 & S2, systolic murmur (Soft systolic murmur). Absent: gallop, diastolic murmur, rub, click - Extremities Extremities: no ischemia, pulses intact, pulses symmetrical, normal temperature, Full ROM Extremity abnormal: edema (3+ bilateral lower extremity edema) Peripheral Pulses: within normal limits - Abdominal General gastrointestinal: Present: soft, non-tender, distended (Slightly distended with abdominal wall edema), normal bowel sounds. Absent: mass - Integumentary Integumentary: Present: clear, warm, dry. Absent: rash - Musculoskeletal Musculoskeletal: strength equal bilaterally - Psychiatric Psychiatric: appropriate mood/affect, intact judgment & insight, memory intact, cooperative - Neurologic Neurologic: CNII-XII intact, no focal deficits, moves all extremities HEART Score - HEART Score Troponin: Troponin T 0.040 ng/mL (0.00-0.029) H 05/31/21 22:03 Results - Labs CBC & Chem 7: 05/31/21 22:03 05/31/21 22:03 Labs: Abnormal lab results 05/31/21 05/31/21 05/31/21 Range/Units 22:03 22:03 22:03 RBC 2.81 L (3.65-5.03) M/mm3 Hgb 9.1 L (10.1-14.3) gm/dl Hct 27.9 L (30.3-42.9) % MCV 99 H (79-97) fl RDW 17.6 H (13.2-15.2) % [place] % (Auto) 8.0 H (0.0-7.3) % Lymph # (Auto) 1.1 L (1.2-5.4) K/mm3 Seg Neutrophils % 76.4 H (40.0-70.0) % PT 18.6 H (12.2-14.9) Sec. INR 1.50 H (0.87-1.13) Potassium 5.3 H D (3.6-5.0) mmol/L Chloride 107.1 H (98-107) mmol/L BUN 31 H (7-17) mg/dL Creatinine 2.0 H (0.6-1.2) mg/dL Glucose 138 H (65-100) mg/dL Calcium 7.9 L (8.4-10.2) mg/dL AST 180 H (5-40) units/L Alkaline Phosphatase 134 H (35-129) units/L Troponin T (0.00-0.029) ng/mL Albumin 1.8 L (3.9-5) g/dL LDL Cholesterol Direct (50-130) mg/dL HDL Cholesterol (40-59) mg/dL 05/31/21 Range/Units 22:03 RBC (3.65-5.03) M/mm3 Hgb (10.1-14.3) gm/dl Hct (30.3-42.9) % MCV (79-97) fl RDW (13.2-15.2) % [place] % (Auto) (0.0-7.3) % Lymph # (Auto) (1.2-5.4) K/mm3 Seg Neutrophils % (40.0-70.0) % PT (12.2-14.9) Sec. INR (0.87-1.13) Potassium (3.6-5.0) mmol/L Chloride (98-107) mmol/L BUN (7-17) mg/dL Creatinine (0.6-1.2) mg/dL Glucose (65-100) mg/dL Calcium (8.4-10.2) mg/dL AST (5-40) units/L Alkaline Phosphatase (35-129) units/L Troponin T 0.040 H (0.00-0.029) ng/mL Albumin (3.9-5) g/dL LDL Cholesterol Direct 40 L (50-130) mg/dL HDL Cholesterol 24 L (40-59) mg/dL Assessment and Plan - Patient Problems (1) Generalized weakness Current Visit: Yes Status: Acute Plan to address problem: Possibly secondary to the intractable nausea and vomiting. (2) Nausea & vomiting Current Visit: Yes Status: Acute Qualifiers: Vomiting type: unspecified Vomiting Intractability: non-intractable Qualified Code(s): R11.2 - Nausea with vomiting, unspecified Plan to address problem: Patient has been placed on antiemetic. (3) Renal failure (ARF), acute on chronic Current Visit: Yes Status: Acute Qualifiers: Acute renal failure type: unspecified Chronic kidney disease stage: unspecified stage Qualified Code(s): N17.9 - Acute kidney failure, unspecified; N18.9 - Chronic kidney disease, unspecified Plan to address problem: Possibly secondary to volume loss. We will monitor BUN and creatinine. Consult placed to nephrology for evaluation and recommendation. (4) End stage liver disease Current Visit: Yes Status: Acute Plan to address problem: Patient has known history of hepatitis C with cirrhosis. We will monitor liver enzymes. (5) DVT prophylaxis Current Visit: No Status: Acute Plan to address problem: Patient placed on subcutaneous heparin. (6) Full code status Current Visit: Yes Status: Acute Plan to address problem: Patient is a full code.
--- NOTE | 2021-06-01 09:22 | Consultation ---
<SILVESTRECHANTELL - Last Filed: 06/02/21 08:39> History of Present Illness Consult date: 06/01/21 Requesting physician: CHRISTOPHER PELLETIER Consult reason: elevated troponin History of present illness: Pt is a 60-year-old female with a hx of hepatitis C and liver cirrhosis with ascites who presented with complaints of SOB, N/V, and weakness that started a few hours prior to arrival. She also reports worsening abdominal and BLE swelling. Of note, pt was recently admitted to [facility] and underwent paracentesis with 4L removed on 05/26/2021. Cardiology has been consulted for evaluation of elevated troponin. Pt denies chest pain. No ECG available for review. Past History Past Medical History: hypertension, liver disease, other (asthma) Past Surgical History: denies: CABG, PTCA Social history: denies: smoking, alcohol abuse Family history: no significant family history Medications and Allergies Allergies Allergy/AdvReac Type Severity Reaction Status Date / Time NSAIDS (Non-Steroidal Allergy Anaphylaxis Verified 04/16/21 10:33 Anti-Inflamma Quinolones Allergy Anaphylaxis Verified 04/16/21 10:32 metoclopramide [From Reglan] AdvReac Unknown Verified 04/16/21 10:33 nitrofurantoin AdvReac Vomiting Verified 04/16/21 10:34 [From Macrobid] Home Medications Medication Instructions Recorded Confirmed Last Taken Type Ferrous Sulfate [Feosol 325 MG tab] 325 mg PO QDAY #30 tablet 05/29/21 Unknown Rx Furosemide [Lasix TAB] 40 mg PO QDAY #30 tablet 05/29/21 Unknown Rx Multivitamin Tab [Multiple Vitamin 1 each PO QDAY #30 tablet 05/29/21 Unknown Rx TAB (Theragran)] Potassium Chloride [K-Dur] 10 meq PO QDAY #3 tablet 05/29/21 Unknown Rx Spironolactone [Aldactone] 25 mg PO QDAY #30 tablet 05/29/21 Unknown Rx oxyCODONE /ACETAMINOPHEN [Percocet 1 tab PO Q6H PRN #8 tablet 05/29/21 Unknown Rx 5/325 mg] Active Meds: Active Medications Acetaminophen (Acetaminophen 650 Mg Rect Supp) 650 mg [place] Q4H PRN PRN Reason: Pain MILD(1-3)/Fever >100.5/ABEL Heparin Sodium (Porcine) (Heparin 5,000 Unit/1 Ml Vial) 5,000 unit SUB-Q Q8HR BRANT Magnesium Hydroxide (Magnesium Hydroxide (Mom) Oral Liqd Udc) 30 ml PO Q4H PRN PRN Reason: Constipation Morphine Sulfate (Morphine 2 Mg/1 Ml Inj) 2 mg IV Q4H PRN PRN Reason: Pain, Moderate (4-6) Morphine Sulfate (Morphine 4 Mg/1 Ml Inj) 4 mg IV Q4H PRN PRN Reason: Pain , Severe (7-10) Ondansetron HCl (Ondansetron 4 Mg/2 Ml Inj) 4 mg IV Q8H PRN PRN Reason: Nausea And Vomiting Sodium Chloride (Sodium Chloride 0.9% 10 Ml Flush Syringe) 10 ml IV BID BRANT Sodium Chloride (Sodium Chloride 0.9% 10 Ml Flush Syringe) 10 ml IV PRN PRN PRN Reason: LINE FLUSH Review of Systems Constitutional: weakness, no fever, no chills Ears, nose, mouth and throat: no nasal congestion, no sore throat Cardiovascular: edema, shortness of breath, no chest pain, no palpitations, no syncope, no lightheadedness Respiratory: cough, shortness of breath Gastrointestinal: nausea, vomiting, no abdominal pain Genitourinary Female: no flank pain, no dysuria Musculoskeletal: no neck stiffness, no neck pain Integumentary: no rash, no wounds Neurological: weakness, confusion, no head injury, no paralysis, no numbness, no tingling, no seizures, no syncope, no vertigo, no headaches Endocrine: no polydipsia, no polyuria Hematologic/Lymphatic: no easy bruising, no easy bleeding Allergic/Immunologic: no anaphylaxis Physical Examination Last Vital Signs Temp 98.5 F 05/31/21 21:04 Pulse 95 H 06/01/21 12:43 Resp 15 06/01/21 12:00 BP 154/84 06/01/21 12:30 Pulse Ox 96 06/01/21 12:43 General appearance: mild distress HEENT: Positive: EOMI, Normocephaly Neck: Positive: neck supple, trachea midline Cardiac: Positive: Reg Rate and Rhythm, S1/S2 Lungs: Positive: Decreased Breath Sounds Neuro: Positive: Grossly Intact Abdomen: Positive: Distended Skin: Negative: Rash Musculoskeletal: No Pain Extremities: Present: lower extr. pulses, edema Results 06/02/21 05:40 06/02/21 05:40 Cardiac Enzymes 05/31/21 05/31/21 05/31/21 Range/Units 22:03 22:03 22:03 WBC 7.6 (4.5-11.0) K/mm3 RBC 2.81 L (3.65-5.03) M/mm3 Hgb 9.1 L (10.1-14.3) gm/dl Hct 27.9 L (30.3-42.9) % MCV 99 H (79-97) fl MCH 32 (28-32) pg MCHC 33 (30-34) % RDW 17.6 H (13.2-15.2) % Plt Count 219 (140-440) K/mm3 Lymph % (Auto) 13.9 (13.4-35.0) % [place] % (Auto) 8.0 H (0.0-7.3) % Eos % (Auto) 1.2 (0.0-4.3) % Baso % (Auto) 0.5 (0.0-1.8) % Lymph # (Auto) 1.1 L (1.2-5.4) K/mm3 [place] # (Auto) 0.6 (0.0-0.8) K/mm3 Eos # (Auto) 0.1 (0.0-0.4) K/mm3 Baso # (Auto) 0.0 (0.0-0.1) K/mm3 Seg Neutrophils % 76.4 H (40.0-70.0) % Seg Neutrophils # 5.8 (1.8-7.7) K/mm3 PT 18.6 H (12.2-14.9) Sec. INR 1.50 H (0.87-1.13) Sodium 141 (137-145) mmol/L Potassium 5.3 H D (3.6-5.0) mmol/L Chloride 107.1 H (98-107) mmol/L Carbon Dioxide 28 (22-30) mmol/L Anion Gap 11 mmol/L BUN 31 H (7-17) mg/dL Creatinine 2.0 H (0.6-1.2) mg/dL Estimated GFR 25 ml/min BUN/Creatinine Ratio 16 % Glucose 138 H (65-100) mg/dL Calcium 7.9 L (8.4-10.2) mg/dL Total Bilirubin 0.90 (0.1-1.2) mg/dL AST 180 H (5-40) units/L ALT 52 (7-56) units/L Alkaline Phosphatase 134 H (35-129) units/L Ammonia (25-60) umol/L Total Creatine Kinase (30-135) units/L Troponin T (0.00-0.029) ng/mL NT-Pro-B Natriuret Pep (0-900) pg/mL Total Protein 7.1 (6.3-8.2) g/dL Albumin 1.8 L (3.9-5) g/dL Albumin/Globulin Ratio 0.3 % Triglycerides (2-149) mg/dL Cholesterol (50-199) mg/dL LDL Cholesterol Direct (50-130) mg/dL HDL Cholesterol (40-59) mg/dL Cholesterol/HDL Ratio % 05/31/21 05/31/21 05/31/21 Range/Units 22:03 22:03 22:03 WBC (4.5-11.0) K/mm3 RBC (3.65-5.03) M/mm3 Hgb (10.1-14.3) gm/dl Hct (30.3-42.9) % MCV (79-97) fl MCH (28-32) pg MCHC (30-34) % RDW (13.2-15.2) % Plt Count (140-440) K/mm3 Lymph % (Auto) (13.4-35.0) % [place] % (Auto) (0.0-7.3) % Eos % (Auto) (0.0-4.3) % Baso % (Auto) (0.0-1.8) % Lymph # (Auto) (1.2-5.4) K/mm3 [place] # (Auto) (0.0-0.8) K/mm3 Eos # (Auto) (0.0-0.4) K/mm3 Baso # (Auto) (0.0-0.1) K/mm3 Seg Neutrophils % (40.0-70.0) % Seg Neutrophils # (1.8-7.7) K/mm3 PT (12.2-14.9) Sec. INR (0.87-1.13) Sodium (137-145) mmol/L Potassium (3.6-5.0) mmol/L Chloride (98-107) mmol/L Carbon Dioxide (22-30) mmol/L Anion Gap mmol/L BUN (7-17) mg/dL Creatinine (0.6-1.2) mg/dL Estimated GFR ml/min BUN/Creatinine Ratio % Glucose (65-100) mg/dL Calcium (8.4-10.2) mg/dL Total Bilirubin (0.1-1.2) mg/dL AST (5-40) units/L ALT (7-56) units/L Alkaline Phosphatase (35-129) units/L Ammonia 42.0 (25-60) umol/L Total Creatine Kinase 51 (30-135) units/L Troponin T 0.040 H (0.00-0.029) ng/mL NT-Pro-B Natriuret Pep 373.5 (0-900) pg/mL Total Protein (6.3-8.2) g/dL Albumin (3.9-5) g/dL Albumin/Globulin Ratio % Triglycerides 76 (2-149) mg/dL Cholesterol 73 (50-199) mg/dL LDL Cholesterol Direct 40 L (50-130) mg/dL HDL Cholesterol 24 L (40-59) mg/dL Cholesterol/HDL Ratio 3.04 % Coagulation 05/31/21 Range/Units 22:03 PT 18.6 H (12.2-14.9) Sec. INR 1.50 H (0.87-1.13) Lipids 05/31/21 Range/Units 22:03 Triglycerides 76 (2-149) mg/dL Cholesterol 73 (50-199) mg/dL HDL Cholesterol 24 L (40-59) mg/dL Cholesterol/HDL Ratio 3.04 % CBC 05/31/21 Range/Units 22:03 WBC 7.6 (4.5-11.0) K/mm3 RBC 2.81 L (3.65-5.03) M/mm3 Hgb 9.1 L (10.1-14.3) gm/dl Hct 27.9 L (30.3-42.9) % Plt Count 219 (140-440) K/mm3 Lymph # (Auto) 1.1 L (1.2-5.4) K/mm3 [place] # (Auto) 0.6 (0.0-0.8) K/mm3 Eos # (Auto) 0.1 (0.0-0.4) K/mm3 Baso # (Auto) 0.0 (0.0-0.1) K/mm3 Comprehensive Metabolic Panel 05/31/21 Range/Units 22:03 Sodium 141 (137-145) mmol/L Potassium 5.3 H D (3.6-5.0) mmol/L Chloride 107.1 H (98-107) mmol/L Carbon Dioxide 28 (22-30) mmol/L BUN 31 H (7-17) mg/dL Creatinine 2.0 H (0.6-1.2) mg/dL Glucose 138 H (65-100) mg/dL Calcium 7.9 L (8.4-10.2) mg/dL AST 180 H (5-40) units/L ALT 52 (7-56) units/L Alkaline Phosphatase 134 H (35-129) units/L Total Protein 7.1 (6.3-8.2) g/dL Albumin 1.8 L (3.9-5) g/dL - Imaging and Cardiology Echo: report reviewed (07/2020 - EF 60-65%, mild LVH) EKG interpretations - Telemetry EKG Rhythm: Sinus Rhythm Assessment and Plan Assessment: Refractory Ascites (s/p paracentesis w/4000mL removed on 05/26/21) Decompensated Cirrhosis Hepatitis C AIDAN/?CKD Anemia HTN Elevated Troponin H/o Asthma Plan: Minimal troponin elevation noted in the setting of AIDAN. Pt denies chest pain or any additional ischemic symptoms. Obtain 12-lead ECG. No ECG available for review. Will likely require another paracentesis. Continue supportive care. Pt is currently awaiting eval for liver transplant @ [facility] on 06/26/2021. Pt seen in conjunction with Dr. Hunt, who agrees with the assessment and plan of care. - Patient Problems (1) Ascites Current Visit: Yes Status: Acute (2) Cirrhosis Current Visit: Yes Status: Chronic Qualifiers: Ascites presence: with ascites (3) Hepatitis C Current Visit: Yes Status: Chronic (4) AIDAN (acute kidney injury) Current Visit: Yes Status: Acute (5) Elevated troponin Current Visit: Yes Status: Acute <ARI HUNT - Last Filed: 06/02/21 10:58> Medications and Allergies Active Meds: Active Medications Acetaminophen (Acetaminophen 650 Mg Rect Supp) 650 mg [place] Q4H PRN PRN Reason: Pain MILD(1-3)/Fever >100.5/ABEL Heparin Sodium (Porcine) (Heparin 5,000 Unit/1 Ml Vial) 5,000 unit SUB-Q Q8HR [facility] Last Admin: 06/02/21 05:16 Dose: 5,000 unit Documented by: Magnesium Hydroxide (Magnesium Hydroxide (Mom) Oral Liqd Udc) 30 ml PO Q4H PRN PRN Reason: Constipation Morphine Sulfate (Morphine 2 Mg/1 Ml Inj) 2 mg IV Q4H PRN PRN Reason: Pain, Moderate (4-6) Last Admin: 06/02/21 10:12 Dose: 2 mg Documented by: Morphine Sulfate (Morphine 4 Mg/1 Ml Inj) 4 mg IV Q4H PRN PRN Reason: Pain , Severe (7-10) Ondansetron HCl (Ondansetron 4 Mg/2 Ml Inj) 4 mg IV Q8H PRN PRN Reason: Nausea And Vomiting Last Admin: 06/02/21 05:24 Dose: 4 mg Documented by: Sodium Chloride (Sodium Chloride 0.9% 10 Ml Flush Syringe) 10 ml IV BID [facility] Last Admin: 06/02/21 10:12 Dose: 10 ml Documented by: Sodium Chloride (Sodium Chloride 0.9% 10 Ml Flush Syringe) 10 ml IV PRN PRN PRN Reason: LINE FLUSH Physical Examination Vital Signs Temp Pulse Resp BP Pulse Ox 98.5 F 98 H 16 151/76 97 05/31/21 21:04 05/31/21 21:04 05/31/21 21:04 05/31/21 21:04 05/31/21 21:04 Results 06/02/21 05:40 06/02/21 05:40 Coagulation 06/02/21 Range/Units 09:43 PT 19.0 H (12.2-14.9) Sec. INR 1.54 H (0.87-1.13) CBC 06/01/21 06/02/21 Range/Units 16:21 05:40 WBC 6.3 5.6 (4.5-11.0) K/mm3 RBC 2.58 L 2.29 L (3.65-5.03) M/mm3 Hgb 8.5 L 7.6 L (10.1-14.3) gm/dl Hct 25.6 L 23.0 L (30.3-42.9) % Plt Count 192 149 (140-440) K/mm3 Lymph # (Auto) 1.4 (1.2-5.4) K/mm3 [place] # (Auto) 0.7 (0.0-0.8) K/mm3 Eos # (Auto) 0.2 (0.0-0.4) K/mm3 Baso # (Auto) 0.1 (0.0-0.1) K/mm3 Comprehensive Metabolic Panel 06/01/21 06/02/21 Range/Units 16:21 05:40 Sodium 140 138 (137-145) mmol/L Potassium 4.1 D 3.7 (3.6-5.0) mmol/L Chloride 105.5 107.4 H (98-107) mmol/L Carbon Dioxide 28 25 (22-30) mmol/L BUN 29 H 29 H (7-17) mg/dL Creatinine 1.7 H 1.6 H (0.6-1.2) mg/dL Glucose 136 H 90 (65-100) mg/dL Calcium 7.6 L 7.2 L (8.4-10.2) mg/dL Assessment and Plan acute repsiratory failure nstemi type 2 hep c cirrhosis htn anemia aidan
[2021-06-01] MEDS ORDERED: SODIUM POLYSTYRENE 15 GM/60 ML ORAL LIQD PO SCH (10:00)
[2021-06-01] MEDS: HEPARIN 5,000 UNIT/1 ML VIAL SUB-Q SCH ×2 (14:59→21:33)
--- NOTE | 2021-06-01 15:35 | Progress Note ---
Assessment and Plan (1) Generalized weakness Current Visit: Yes Status: Acute Plan to address problem: Possibly secondary to the intractable nausea and vomiting. (2) Nausea & vomiting Current Visit: Yes Status: Acute Qualifiers: Vomiting type: unspecified Vomiting Intractability: non-intractable Qualified Code(s): R11.2 - Nausea with vomiting, unspecified Plan to address problem: Patient has been placed on antiemetic. (3) Renal failure (ARF), acute on chronic Current Visit: Yes Status: Acute Qualifiers: Acute renal failure type: unspecified Chronic kidney disease stage: unspecified stage Qualified Code(s): N17.9 - Acute kidney failure, unspecified; N18.9 - Chronic kidney disease, unspecified Plan to address problem: Possibly secondary to volume loss. We will monitor BUN and creatinine. Consult placed to nephrology for evaluation and recommendation. (4) End stage liver disease Current Visit: Yes Status: Acute Plan to address problem: Patient has known history of hepatitis C with cirrhosis. We will monitor liver enzymes. (5) DVT prophylaxis Current Visit: No Status: Acute Plan to address problem: Patient placed on subcutaneous heparin. (6) Full code status Current Visit: Yes Status: Acute Plan to address problem: Patient is a full code. Daily clinical course: 06/01/21: Follow BMP, medical management per cardiology. Wait for nephrology recommendation. Paracentesis ordered Subjective Date of service: 06/01/21 Objective - Constitutional Vitals: Vital Signs - 12hr 06/01/21 06/01/21 06/01/21 06:33 06:38 06:46 Pulse Rate 85 81 86 Respiratory 14 14 16 Rate Blood Pressure Blood Pressure 143/69 [Left] O2 Sat by Pulse 100 100 100 Oximetry 06/01/21 06/01/21 06/01/21 07:00 07:16 07:30 Pulse Rate 80 81 82 Respiratory 13 14 13 Rate Blood Pressure 149/68 149/68 155/78 Blood Pressure [Left] O2 Sat by Pulse 100 100 100 Oximetry 06/01/21 06/01/21 06/01/21 07:46 08:00 08:16 Pulse Rate 82 79 87 Respiratory 13 13 16 Rate Blood Pressure 155/78 142/72 142/72 Blood Pressure [Left] O2 Sat by Pulse 100 100 100 Oximetry 06/01/21 06/01/21 06/01/21 08:30 08:46 09:00 Pulse Rate 78 73 77 Respiratory 13 12 13 Rate Blood Pressure 139/74 139/74 149/67 Blood Pressure [Left] O2 Sat by Pulse 100 100 100 Oximetry 06/01/21 06/01/21 06/01/21 09:16 09:30 09:46 Pulse Rate 76 74 81 Respiratory 14 14 11 L Rate Blood Pressure 149/67 136/71 136/71 Blood Pressure [Left] O2 Sat by Pulse 100 100 100 Oximetry 06/01/21 06/01/21 06/01/21 10:00 10:16 10:30 Pulse Rate 80 85 92 H Respiratory 14 14 16 Rate Blood Pressure 145/77 145/77 162/83 Blood Pressure [Left] O2 Sat by Pulse 100 100 100 Oximetry 06/01/21 06/01/21 06/01/21 10:46 11:00 11:16 Pulse Rate 89 83 93 H Respiratory 14 14 Rate Blood Pressure 162/83 150/77 150/77 Blood Pressure [Left] O2 Sat by Pulse 100 100 100 Oximetry 06/01/21 06/01/21 06/01/21 11:30 11:46 12:00 Pulse Rate 89 87 84 Respiratory 17 15 Rate Blood Pressure 150/77 150/77 154/84 Blood Pressure [Left] O2 Sat by Pulse 100 100 100 Oximetry 06/01/21 06/01/21 12:30 12:43 Pulse Rate 95 H Respiratory Rate Blood Pressure 154/84 Blood Pressure [Left] O2 Sat by Pulse 96 Oximetry - Labs CBC & Chem 7: 05/31/21 22:03 05/31/21 22:03 Labs: Abnormal lab results 05/31/21 05/31/21 05/31/21 Range/Units 22:03 22:03 22:03 RBC 2.81 L (3.65-5.03) M/mm3 Hgb 9.1 L (10.1-14.3) gm/dl Hct 27.9 L (30.3-42.9) % MCV 99 H (79-97) fl RDW 17.6 H (13.2-15.2) % [place] % (Auto) 8.0 H (0.0-7.3) % Lymph # (Auto) 1.1 L (1.2-5.4) K/mm3 Seg Neutrophils % 76.4 H (40.0-70.0) % PT 18.6 H (12.2-14.9) Sec. INR 1.50 H (0.87-1.13) Potassium 5.3 H D (3.6-5.0) mmol/L Chloride 107.1 H (98-107) mmol/L BUN 31 H (7-17) mg/dL Creatinine 2.0 H (0.6-1.2) mg/dL Glucose 138 H (65-100) mg/dL Calcium 7.9 L (8.4-10.2) mg/dL AST 180 H (5-40) units/L Alkaline Phosphatase 134 H (35-129) units/L Troponin T (0.00-0.029) ng/mL Albumin 1.8 L (3.9-5) g/dL LDL Cholesterol Direct (50-130) mg/dL HDL Cholesterol (40-59) mg/dL 05/31/21 06/01/21 Range/Units 22:03 10:38 RBC (3.65-5.03) M/mm3 Hgb (10.1-14.3) gm/dl Hct (30.3-42.9) % MCV (79-97) fl RDW (13.2-15.2) % [place] % (Auto) (0.0-7.3) % Lymph # (Auto) (1.2-5.4) K/mm3 Seg Neutrophils % (40.0-70.0) % PT (12.2-14.9) Sec. INR (0.87-1.13) Potassium (3.6-5.0) mmol/L Chloride (98-107) mmol/L BUN (7-17) mg/dL Creatinine (0.6-1.2) mg/dL Glucose (65-100) mg/dL Calcium (8.4-10.2) mg/dL AST (5-40) units/L Alkaline Phosphatase (35-129) units/L Troponin T 0.040 H 0.040 H (0.00-0.029) ng/mL Albumin (3.9-5) g/dL LDL Cholesterol Direct 40 L (50-130) mg/dL HDL Cholesterol 24 L (40-59) mg/dL HEART Score - HEART Score Troponin: Troponin T 0.040 ng/mL (0.00-0.029) H 06/01/21 10:38
[2021-06-01 17:03] LABS: Calcium 7.6 mg/dL (8.4-10.2)
[2021-06-01 17:11] LABS: Hematocrit 25.6 % (30.3-42.9); Hemoglobin 8.5 gm/dl (10.1-14.3); Mean Corpuscular HGB Conc 33 % (30-34); Mean Corpuscular Volume 99 fl (79-97); Platelet Count 192 K/mm3 (140-440); Red Blood Count 2.58 M/mm3 (3.65-5.03); Red Cell Distribution Width 17.7 % (13.2-15.2)
--- NOTE | 2021-06-01 18:47 | Consultation ---
History of Present Illness - Reason for Consult Consult date: 06/01/21 acute renal failure - History of Present Illness This is a 60-year-old woman with liver cirrhosis and asthma who presented with 1 day history of nausea, vomiting, weakness and confusion. She also noted abdominal distention and lower extremity swelling. Workup in the emergency department was notable for acute kidney injury. Nephrology was consulted for further management. Patient has history of acute kidney injury. She states several years ago she had pyelonephritis and also required stenting. 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 She denies hematuria, dysuria and decreased urine output. Past History Past Medical History: hypertension, liver disease, other (asthma) Past Surgical History: denies: CABG, PTCA Social history: denies: smoking, alcohol abuse Family history: no significant family history Medications and Allergies Allergies Allergy/AdvReac Type Severity Reaction Status Date / Time NSAIDS (Non-Steroidal Allergy Anaphylaxis Verified 04/16/21 10:33 Anti-Inflamma Quinolones Allergy Anaphylaxis Verified 04/16/21 10:32 metoclopramide [From Reglan] AdvReac Unknown Verified 04/16/21 10:33 nitrofurantoin AdvReac Vomiting Verified 04/16/21 10:34 [From Macrobid] Home Medications Medication Instructions Recorded Confirmed Last Taken Type Ferrous Sulfate [Feosol 325 MG tab] 325 mg PO QDAY #30 tablet 05/29/21 06/02/21 Unknown Rx Furosemide [Lasix TAB] 40 mg PO QDAY #30 tablet 05/29/21 06/02/21 Unknown Rx Multivitamin Tab [Multiple Vitamin 1 each PO QDAY #30 tablet 05/29/21 06/02/21 Unknown Rx TAB (Theragran)] Potassium Chloride [K-Dur] 10 meq PO QDAY #3 tablet 05/29/21 06/02/21 Unknown Rx Spironolactone [Aldactone] 25 mg PO QDAY #30 tablet 05/29/21 06/02/21 Unknown Rx oxyCODONE /ACETAMINOPHEN [Percocet 1 tab PO Q6H PRN #8 tablet 05/29/21 06/02/21 Unknown Rx 5/325 mg] Active Meds: Active Medications Acetaminophen (Acetaminophen 650 Mg Rect Supp) 650 mg CO Q4H PRN PRN Reason: Pain MILD(1-3)/Fever >100.5/ABEL Heparin Sodium (Porcine) (Heparin 5,000 Unit/1 Ml Vial) 5,000 unit SUB-Q Q8HR [facility] Last Admin: 06/01/21 14:59 Dose: 5,000 unit Documented by: Magnesium Hydroxide (Magnesium Hydroxide (Mom) Oral Liqd Udc) 30 ml PO Q4H PRN PRN Reason: Constipation Morphine Sulfate (Morphine 2 Mg/1 Ml Inj) 2 mg IV Q4H PRN PRN Reason: Pain, Moderate (4-6) Morphine Sulfate (Morphine 4 Mg/1 Ml Inj) 4 mg IV Q4H PRN PRN Reason: Pain , Severe (7-10) Ondansetron HCl (Ondansetron 4 Mg/2 Ml Inj) 4 mg IV Q8H PRN PRN Reason: Nausea And Vomiting Sodium Chloride (Sodium Chloride 0.9% 10 Ml Flush Syringe) 10 ml IV BID [facility] Last Admin: 06/01/21 13:03 Dose: Not Given Documented by: Sodium Chloride (Sodium Chloride 0.9% 10 Ml Flush Syringe) 10 ml IV PRN PRN PRN Reason: LINE FLUSH Review of Systems Constitutional: no fever, no chills Cardiovascular: no chest pain Respiratory: no wheezing, no pleurisy Gastrointestinal: nausea, vomiting Musculoskeletal: no muscle cramps, no limitation of motion Integumentary: no rash, no pruritis Neurological: weakness, confusion Psychiatric: anxiety, paranoia Hematologic/Lymphatic: no easy bruising, no easy bleeding Allergic/Immunologic: no urticaria Exam - Vital Signs Vital signs: Vital Signs Temp Pulse Resp BP Pulse Ox 98.5 F 98 H 16 151/76 97 05/31/21 21:04 05/31/21 21:04 05/31/21 21:04 05/31/21 21:04 05/31/21 21:04 - Physical Exam Narrative exam: General: No acute distress HEENT: Oral mucosa moist Neck: Supple, no JVD Chest: Clear to auscultation bilaterally Heart: RRR, S1 and S2, no pericardial rub Abdomen: Soft, no renal bruit Extremity: No peripheral cyanosis, b/l LE edema Neurological: Alert, awake, no asterixis Dermatology: No skin rash Psych: No agitation Musculoskeletal: No joint effusion Results - Lab Results 06/02/21 05:40 06/02/21 05:40 Most recent lab results Calcium 7.6 mg/dL (8.4-10.2) L 06/01/21 16:21 Assessment and Plan Assessment Acute kidney injury. H/o recurrent AIDAN. Last known cr within normal range prior to this admission. U/s obtained 05/27 unremarkable except for kidney size discrepancy likely secondary to renovascular disease. Hyperkalemia, mild Elevated LFTs, history of cirrhosis LE edema Recommendations s/p Kayexalate 1 UA notable for WBCs and RBCs. No proteinuria. Check urine culture. Check ONELIA, ANCA, C3 and C4, hep c PCR Start lasix Renally dose medications Avoid nephrotoxins Renal diet
[2021-06-01] MEDS: MORPHINE 2 MG/1 ML INJ IV PRN (19:55)
[2021-06-02] MEDS: HEPARIN 5,000 UNIT/1 ML VIAL SUB-Q SCH ×3 (05:16→21:04)
[2021-06-02] MEDS: MORPHINE 2 MG/1 ML INJ IV PRN ×3 (05:17→14:11)
[2021-06-02] MEDS: ONDANSETRON 4 MG/2 ML INJ IV PRN ×2 (05:24→21:09)
[2021-06-02 06:24] LABS: Calcium 7.2 mg/dL (8.4-10.2)
[2021-06-02 06:26] LABS: Basophils # (Auto) 0.1 K/mm3 (0.0-0.1); Basophils % (Auto) 1.5 % (0.0-1.8); Eosinophils # (Auto) 0.2 K/mm3 (0.0-0.4); Eosinophils % (Auto) 3.4 % (0.0-4.3); Hemoglobin 7.6 gm/dl (10.1-14.3); Lymphocytes # (Auto) 1.4 K/mm3 (1.2-5.4); Lymphocytes % (Auto) 24.7 % (13.4-35.0); Mean Corpuscular HGB Conc 33 % (30-34); Mean Corpuscular Volume 100 fl (79-97); Monocytes # (Auto) 0.7 K/mm3 (0.0-0.8); Platelet Count 149 K/mm3 (140-440); Red Blood Count 2.29 M/mm3 (3.65-5.03); Red Cell Distribution Width 17.4 % (13.2-15.2)
[2021-06-02 06:36] LABS: Bacteria,Urine 4+ /HPF (Negative); Bilirubin,Urine NEG (Negative); Blood,Urine MOD (Negative); Color,Urine Yellow (Yellow); Mucus,Urine FEW /HPF; Protein,Urine <15 mg/dL mg/dL (Negative)
[2021-06-02 08:00] LABS: Creatinine,Urine 72.8 mg/dL (0.1-20.0); Protein/Creatinine Ratio,Urine 0.22
[2021-06-02 10:53] LABS: INR 1.54 (0.87-1.13)
--- NOTE | 2021-06-02 11:00 | Progress Note ---
Assessment and Plan Assessment: Acute Respiratory Failure Refractory Ascites (s/p paracentesis w/4000mL removed on 05/26/21) Decompensated Cirrhosis Hepatitis C AIDAN/?CKD Anemia HTN NSTEMI Type 2 H/o Asthma Plan: CE elevation c/w NSTEMI Type 2 in the setting of hypoxia. No acute indication for inpatient ischemic eval at this time. Continue supportive care. Awaiting paracentesis. Pt has a planned outpatient eval for liver transplant @ [facility] on 06/26/2021. Nothing further to add from a Cardiology perspective at this time. Will see on as-needed basis. Pt seen in conjunction with Dr. Hunt, who agrees with the assessment and plan of care. - Patient Problems (1) Ascites Current Visit: Yes Status: Acute (2) Cirrhosis Current Visit: Yes Status: Chronic Qualifiers: Ascites presence: with ascites (3) Hepatitis C Current Visit: Yes Status: Chronic (4) AIDAN (acute kidney injury) Current Visit: Yes Status: Acute (5) NSTEMI (non-ST elevated myocardial infarction) Current Visit: Yes Status: Acute Plan to address problem: Type 2 Subjective Date of service: 06/02/21 Principal diagnosis: NSTEMI Type 2 Interval history: Resting comfortably in bed. States her breathing is improving. On 2L NC. Objective Last Vital Signs Temp 98.7 F 06/02/21 05:09 Pulse 72 06/02/21 12:00 Resp 18 06/02/21 12:00 BP 112/48 06/02/21 05:09 Pulse Ox 96 06/02/21 12:00 - Physical Examination General: No Apparent Distress HEENT: Positive: EOMI, Normocephaly Neck: Positive: neck supple, trachea midline Cardiac: Positive: Reg Rate and Rhythm, S1/S2 Lungs: Positive: Normal Breath Sounds Neuro: Positive: Grossly Intact Abdomen: Positive: Distended Skin: Negative: Rash Musculoskeletal: No Pain Extremities: Present: lower extr. pulses, edema - Labs and Meds Coagulation 06/02/21 Range/Units 09:43 PT 19.0 H (12.2-14.9) Sec. INR 1.54 H (0.87-1.13) CBC 06/01/21 06/02/21 Range/Units 16:21 05:40 WBC 6.3 5.6 (4.5-11.0) K/mm3 RBC 2.58 L 2.29 L (3.65-5.03) M/mm3 Hgb 8.5 L 7.6 L (10.1-14.3) gm/dl Hct 25.6 L 23.0 L (30.3-42.9) % Plt Count 192 149 (140-440) K/mm3 Lymph # (Auto) 1.4 (1.2-5.4) K/mm3 [place] # (Auto) 0.7 (0.0-0.8) K/mm3 Eos # (Auto) 0.2 (0.0-0.4) K/mm3 Baso # (Auto) 0.1 (0.0-0.1) K/mm3 Comprehensive Metabolic Panel 06/01/21 06/02/21 Range/Units 16:21 05:40 Sodium 140 138 (137-145) mmol/L Potassium 4.1 D 3.7 (3.6-5.0) mmol/L Chloride 105.5 107.4 H (98-107) mmol/L Carbon Dioxide 28 25 (22-30) mmol/L BUN 29 H 29 H (7-17) mg/dL Creatinine 1.7 H 1.6 H (0.6-1.2) mg/dL Glucose 136 H 90 (65-100) mg/dL Calcium 7.6 L 7.2 L (8.4-10.2) mg/dL - Imaging and Cardiology EKG: report reviewed, image reviewed Echo: report reviewed (07/2020 - EF 60-65%, mild LVH) - Telemetry EKG Rhythm: Sinus Rhythm - EKG Sinus rhythms and dysrhythmias: sinus rhythm
--- NOTE | 2021-06-02 15:09 | Progress Note ---
Assessment and Plan (1) Generalized weakness Current Visit: Yes Status: Acute Plan to address problem: Possibly secondary to the intractable nausea and vomiting. (2) Nausea & vomiting Current Visit: Yes Status: Acute Qualifiers: Vomiting type: unspecified Vomiting Intractability: non-intractable Qualified Code(s): R11.2 - Nausea with vomiting, unspecified Plan to address problem: Patient has been placed on antiemetic. (3) Renal failure (ARF), acute on chronic Current Visit: Yes Status: Acute Qualifiers: Acute renal failure type: unspecified Chronic kidney disease stage: unspecified stage Qualified Code(s): N17.9 - Acute kidney failure, unspecified; N18.9 - Chronic kidney disease, unspecified Plan to address problem: Possibly secondary to volume loss. We will monitor BUN and creatinine. Consult placed to nephrology for evaluation and recommendation. (4) End stage liver disease Current Visit: Yes Status: Acute Plan to address problem: Patient has known history of hepatitis C with cirrhosis. We will monitor liver enzymes. (5) DVT prophylaxis Current Visit: No Status: Acute Plan to address problem: Patient placed on subcutaneous heparin. (6) Full code status Current Visit: Yes Status: Acute Plan to address problem: Patient is a full code. Daily clinical course: 06/01/21: Follow BMP, medical management per cardiology. Wait for nephrology recommendation. Paracentesis ordered 06/02/21: Renal function improving, patient clinically stable. Plan for paracentesis tomorrow possible discharge after paracentesis Subjective Date of service: 06/02/21 Principal diagnosis: NSTEMI Type 2 Objective - Constitutional Vitals: Vital Signs - 12hr 06/02/21 06/02/21 06/02/21 05:09 05:17 05:47 Temperature 98.7 F Pulse Rate 76 Respiratory 20 17 17 Rate Blood Pressure 112/48 O2 Sat by Pulse 100 Oximetry 06/02/21 12:00 Temperature Pulse Rate 72 Respiratory 18 Rate Blood Pressure O2 Sat by Pulse 96 Oximetry - Labs CBC & Chem 7: 06/02/21 05:40 06/02/21 05:40 Labs: Abnormal lab results 06/01/21 06/01/21 06/02/21 Range/Units 16:21 16:21 05:40 RBC 2.58 L 2.29 L (3.65-5.03) M/mm3 Hgb 8.5 L 7.6 L (10.1-14.3) gm/dl Hct 25.6 L 23.0 L (30.3-42.9) % MCV 99 H 100 H (79-97) fl MCH 33 H 33 H (28-32) pg RDW 17.7 H 17.4 H (13.2-15.2) % [place] % (Auto) 12.0 H (0.0-7.3) % PT (12.2-14.9) Sec. INR (0.87-1.13) Chloride (98-107) mmol/L BUN 29 H (7-17) mg/dL Creatinine 1.7 H (0.6-1.2) mg/dL Glucose 136 H (65-100) mg/dL Calcium 7.6 L (8.4-10.2) mg/dL Urine WBC (Auto) (0.0-6.0) /HPF Urine Creatinine (0.1-20.0) mg/dL Urine Total Protein (5-11.8) mg/dL 06/02/21 06/02/21 06/02/21 Range/Units 05:40 05:45 05:45 RBC (3.65-5.03) M/mm3 Hgb (10.1-14.3) gm/dl Hct (30.3-42.9) % MCV (79-97) fl MCH (28-32) pg RDW (13.2-15.2) % [place] % (Auto) (0.0-7.3) % PT (12.2-14.9) Sec. INR (0.87-1.13) Chloride 107.4 H (98-107) mmol/L BUN 29 H (7-17) mg/dL Creatinine 1.6 H (0.6-1.2) mg/dL Glucose (65-100) mg/dL Calcium 7.2 L (8.4-10.2) mg/dL Urine WBC (Auto) 17.0 H (0.0-6.0) /HPF Urine Creatinine 72.8 H (0.1-20.0) mg/dL Urine Total Protein 16 H (5-11.8) mg/dL 06/02/21 Range/Units 09:43 RBC (3.65-5.03) M/mm3 Hgb (10.1-14.3) gm/dl Hct (30.3-42.9) % MCV (79-97) fl MCH (28-32) pg RDW (13.2-15.2) % [place] % (Auto) (0.0-7.3) % PT 19.0 H (12.2-14.9) Sec. INR 1.54 H (0.87-1.13) Chloride (98-107) mmol/L BUN (7-17) mg/dL Creatinine (0.6-1.2) mg/dL Glucose (65-100) mg/dL Calcium (8.4-10.2) mg/dL Urine WBC (Auto) (0.0-6.0) /HPF Urine Creatinine (0.1-20.0) mg/dL Urine Total Protein (5-11.8) mg/dL HEART Score - HEART Score Troponin: Troponin T 0.040 ng/mL (0.00-0.029) H 06/01/21 10:38
--- NOTE | 2021-06-02 17:24 | Electrocardiograph Report ---
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
--- NOTE | 2021-06-02 17:27 | Electrocardiograph Report ---
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
--- NOTE | 2021-06-03 00:44 | Progress Note ---
Assessment and Plan Impression: * AIDAN * UTI * ESLD * NSTEMI * Hep C * HTN * Nausea and emesis Plan: * intiate iv abx for UTI * cr is stable * cards and gi notes reviewed * daily lytes and strict i/os * avoid nepro toxins * no indication for EDUCATION TECHNICIAN at this time Subjective Date of service: 06/03/21 Principal diagnosis: aidan, uti Interval history: resting in bed today Objective - Exam Narrative Exam: exam deferred, primary team exam noted - Vital Signs Vital signs: Vital Signs - 12hr 06/02/21 06/02/21 06/02/21 20:00 20:30 21:04 Temperature 98.4 F Pulse Rate 74 74 Respiratory 18 20 Rate Blood Pressure 95/43 O2 Sat by Pulse 99 Oximetry 06/03/21 00:00 Temperature Pulse Rate Respiratory 18 Rate Blood Pressure O2 Sat by Pulse 96 Oximetry - Lab 06/02/21 05:40 06/02/21 05:40 Most recent lab results Calcium 7.2 mg/dL (8.4-10.2) L 06/02/21 05:40 Urine Creatinine 72.8 mg/dL (0.1-20.0) H 06/02/21 05:45 Urine Total Protein 16 mg/dL (5-11.8) H 06/02/21 05:45 Medications & Allergies - Medications Allergies/Adverse Reactions: Allergies NSAIDS (Non-Steroidal Anti-Inflamma Allergy (Verified 04/16/21 10:33) Anaphylaxis Quinolones Allergy (Verified 04/16/21 10:32) Anaphylaxis metoclopramide [From Reglan] Adverse Reaction (Verified 04/16/21 10:33) Unknown jittery nitrofurantoin [From Macrobid] Adverse Reaction (Verified 04/16/21 10:34) Vomiting Home Medications: Home Medications Medication Instructions Recorded Confirmed Last Taken Type Ferrous Sulfate [Feosol 325 MG tab] 325 mg PO QDAY #30 tablet 05/29/21 06/02/21 Unknown Rx Furosemide [Lasix TAB] 40 mg PO QDAY #30 tablet 05/29/21 06/02/21 Unknown Rx Multivitamin Tab [Multiple Vitamin 1 each PO QDAY #30 tablet 05/29/21 06/02/21 Unknown Rx TAB (Theragran)] Potassium Chloride [K-Dur] 10 meq PO QDAY #3 tablet 05/29/21 06/02/21 Unknown Rx Spironolactone [Aldactone] 25 mg PO QDAY #30 tablet 05/29/21 06/02/21 Unknown Rx oxyCODONE /ACETAMINOPHEN [Percocet 1 tab PO Q6H PRN #8 tablet 05/29/21 06/02/21 Unknown Rx 5/325 mg] Active Medications: Generic Name Dose Route Start Last Admin Trade Name Freq PRN Reason Stop Dose Admin Acetaminophen 650 mg 06/01/21 00:19 Acetaminophen 650 Mg Rect Supp OR Q4H PRN Pain MILD(1-3)/Fever >100.5/ABEL Furosemide 40 mg 06/03/21 10:00 Furosemide 40 Mg Tab PO QDAY BRANT Heparin Sodium (Porcine) 5,000 unit 06/01/21 14:00 06/02/21 21:04 Heparin 5,000 Unit/1 Ml Vial SUB-Q 5,000 unit Q8HR [facility]ANT Administration Ceftriaxone Sodium 1 gm in 50 mls @ 100 mls/hr 06/03/21 10:00 Rocephin/Ns 1 Gm/50 Ml IV 06/10/21 09:59 Q24HR [facility] Protocol Morphine Sulfate 2 mg 06/01/21 00:19 06/02/21 14:11 Morphine 2 Mg/1 Ml Inj IV 2 mg Q4H PRN Administration Pain, Moderate (4-6) Morphine Sulfate 4 mg 06/01/21 00:19 06/02/21 21:04 Morphine 4 Mg/1 Ml Inj IV 4 mg Q4H PRN Administration Pain , Severe (7-10) Ondansetron HCl 4 mg 06/01/21 00:19 06/02/21 21:09 Ondansetron 4 Mg/2 Ml Inj IV 4 mg Q8H PRN Administration Nausea And Vomiting Sodium Chloride 10 ml 06/01/21 10:00 06/02/21 21:05 Sodium Chloride 0.9% 10 Ml Flush Syringe IV 10 ml BID BRANT Administration Sodium Chloride 10 ml 06/01/21 00:19 06/02/21 21:10 Sodium Chloride 0.9% 10 Ml Flush Syringe IV 10 ml PRN PRN Administration LINE FLUSH
[2021-06-03] MEDS: HEPARIN 5,000 UNIT/1 ML VIAL SUB-Q SCH ×2 (05:36→15:23)
[2021-06-03] MEDS: MORPHINE 2 MG/1 ML INJ IV PRN ×3 (05:36→15:21)
[2021-06-03] MEDS ORDERED: FUROSEMIDE 40 MG TAB PO SCH (10:00)
[2021-06-03] MEDS ORDERED: cefTRIAXone/NS 1 GM/50 ML 1 GM/50 ML BAG IV SCH (10:00)
[2021-06-03] MEDS: ONDANSETRON 4 MG/2 ML INJ IV PRN (11:06)
--- NOTE | 2021-06-03 12:10 | Procedure Note ---
Date of procedure: 06/03/21 Pre-op diagnosis: ascites Post-op diagnosis: same Procedure: US paracentesis Findings: moderate ascites Anesthesia: local Surgeon: TANESHA YADAV Estimated blood loss: none Pathology: none Specimen disposition: discarded Condition: stable Disposition: floor
--- NOTE | 2021-06-03 13:43 | Ultrasound Report ---
ULTRASOUND-GUIDED PARACENTESIS HISTORY: ascitis. PROCEDURE: The risks (including but not limited to bleeding, infection, and bowel injury) and benefi ts were explained to the patient and informed consent was obtained. A time out procedure was perform ed. Ultrasound was used to evaluate the abdomen and locate the largest ascites fluid pocket. Once the sk in was marked, the procedure site was prepped and draped in the usual sterile fashion and lidocaine w as used for local anesthesia. A skin king was made and a 5 Latvian centesis catheter was placed. The patient was monitored closely throughout the procedure, and a total of 3300 mL of clear yellow fluid was aspirated. No labs were ordered. The patient tolerated the procedure well with no complications. IMPRESSION: Successful ultrasound-guided paracentesis as described. Signer Name: Chip Bingham Jr, MD Signed: 06/03/2021 1:39 PM Workstation Name: [id number]
--- NOTE | 2021-06-03 15:03 | Discharge Summary ---
Providers - Providers Date of Admission: 05/31/21 23:42 Date of discharge: 06/03/21 Attending physician: CARA LIND 06/01/21 00:28 Consult to Physician [CONS] Routine Comment: Consulting Provider: ALL BYRNE Physician Instructions: Reason For Exam: Acute on Chronic renal failure 06/01/21 00:29 Consult to Cardiology [CONS] Routine Consulting Provider: BRADLEY WEBB Reason For Exam: Elevated troponin [facility] Condition: Critical Hospital course: 60 YO Female with HCV complicated by ESLD, Cirrhosis of the Liver, Portal HTN complicated by Splenomegaly and recurrent Ascites requires Paracentesis, Anemia of Chronic Disease presents to ED with c/o nausea and vomiting, shortness of breath, generalized weakness and decreased responsiveness. Patient has also been having progressive lower extremity swelling and abdominal swelling. Work-up in the emergency room: labs reveals hemoglobin of 9.1 and hematocrit of 27.9. Patient had a BUN and creatinine of 31 and 2.0 respectively. Troponin was elevated at 0.040, ammonia level was 42. Chest x-ray shows patchy infiltrate which is mildly improved in the right lower lung field. Mild increased markings are seen in the left midlung. EKG showed no ischemic changes. Patient was admitted with intractable nausea and vomiting, generalized weakness, acute on chronic renal failure and elevated troponin. Daily clinical course: 06/01/21: Follow BMP, medical management per cardiology. Wait for nephrology recommendation. Paracentesis ordered, follow BMP 06/02/21: Renal function improving, patient clinically stable. Plan for paracentesis tomorrow possible discharge after paracentesis 06/03/21: Renal function stable, tolerating diet. s/p paracentesis which removed >3L of ascitic fluid. d/c home with . Disposition: HOME HEALTH CARE SERVICE Final Discharge Diagnosis (Prints w/discharge instructions): --Nausea and vomiting, resolved -- End stage liver disease. -- Portal hypertension. -- Cirrhosis with hepatitis C. -- Ascites s/p Ultrasound-guided paracentesis. --Morbid obesity. --Hyperkalemia. --AIDAN on possible CKD stage 3, likely hepatorenal syndrom --Anemia of chronic disease, H&H stable. --Hypoalbuminemia due to end-stage liver disease --elevated troponin due to NSTEMI type 2 from renal failure. Time spent for discharge: 34 minutes Core Measure Documentation - Palliative Care Palliative Care/ Comfort Measures: Not Applicable - Core Measures Any of the following diagnoses?: none Exam - Physical Exam Narrative exam: GENERAL: Elderly white female lying on bed appeared to be in no discomfort. HEENT: Normocephalic. Atraumatic. No conjunctival congestion or icterus. Patient has moist mucous membranes. NECK: Supple. Trachea midline. CHEST/LUNGS: Clear to auscultated bilaterally, breathing nonlabored. No wheezes crackles or rhonchi. HEART/CARDIOVASCULAR: Regular in rate and rhythm. S1 and S2 positive. ABDOMEN: Abdomen is soft, nontender. Patient has normal bowel sounds. SKIN: There is no rash. Warm and dry. NEURO: No focal motor deficit. Follows command. MUSCULOSKELETAL: No joint effusion or tenderness. EXTRIMITY: +ve edema, no cyanosis or clubbing. PSYCH: Cooperative. - Constitutional Vitals: Temp Pulse Resp BP Pulse Ox 98.8 F 67 20 116/57 100 06/03/21 11:30 06/03/21 11:30 06/03/21 11:36 06/03/21 11:30 06/03/21 11:30 Plan Activity: advance as tolerated Weight Bearing Status: Weight Bear as Tolerated Diet: low fat, low salt (Patient can walk) Follow up with: DARYN HOBBS MD [Primary Care Provider] - 7 Days KIRBY DUBOIS MD [Staff Physician] - 7 Days
[2021-06-03 18:51] VITALS: BP 109/51
[2021-06-05 12:15] LABS: Myeloperoxidase Antibody <1.0 AI (<1.0)
[2021-06-05 21:05] LABS: ANA Screen, IFA Negative (Negative)
== END 2021-06-03 23:54 | disposition home health service (06) | DRG 682 ==
LOC: ED 16:18 → 3A 23:42 → OBSVTOIN 23:42 → 4A 06-01 06:46
PROVIDERS: ADMIT Internal Medicine Geriatric Medicine; ATTEND Internal Medicine
PROC: 0W9G30Z Drainage of Peritoneal Cavity with Drainage Device, Percutaneous Approach (ICD-10-PCS; principal; 2021-06-03)
DX: N17.8 Other acute kidney failure (principal); I21.A1 Myocardial infarction type 2; J96.00 Acute respiratory failure, unspecified whether with hypoxia or hypercapnia; K76.7 Hepatorenal syndrome; K74.60 Unspecified cirrhosis of liver; N39.0 Urinary tract infection, site not specified; K76.6 Portal hypertension; K72.90 Hepatic failure, unspecified without coma; N18.9 Chronic kidney disease, unspecified; B19.20 Unspecified viral hepatitis C without hepatic coma; Z88.8 Allergy status to other drugs, medicaments and biological substances; E87.5 Hyperkalemia; R18.8 Other ascites; Z79.899 Other long term (current) drug therapy; J45.909 Unspecified asthma, uncomplicated; I12.9 Hypertensive chronic kidney disease with stage 1 through stage 4 chronic kidney disease, or unspecified chronic kidney disease; E66.01 Morbid (severe) obesity due to excess calories; Z68.35 Body mass index [BMI] 35.0-35.9, adult; E88.09 Other disorders of plasma-protein metabolism, not elsewhere classified; D63.8 Anemia in other chronic diseases classified elsewhere; N18.30 Chronic kidney disease, stage 3 unspecified
CPT/HCPCS: 36415; 49083; 70450; 71045; 80048; 80053; 80061; 81001; 82140; 82550; 82570; 83880; 84156; 84484; 85025; 85027; 85610; 86021; 86038; 86160; 86803; 87086; 87517; 93005; G0378; C1729; J0696; J1644; J2270; J2405

== ENCOUNTER 2021-07-02 20:35 | Inpatient (IN) | payer MEDICAID ==
[2021-07-02] MEDS ORDERED: ONDANSETRON 4 MG/2 ML INJ IV ONE (21:25)
--- NOTE | 2021-07-02 21:29 | Emergency Department Report ---
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 Patient stated that last paracentesis was 1 month ago and they pulled approximately 10L. Patient is complaining of shortness of breath and generalized swelling. Patient denied any fever or chills. No chest pain. Patient stated that she is slightly nauseated but no vomiting. - Related Data Previous Rx's Medication Instructions Recorded Last Taken Type Ferrous Sulfate [Feosol 325 MG tab] 325 mg PO QDAY #30 tablet 05/29/21 Unknown Rx Furosemide [Lasix TAB] 40 mg PO QDAY #30 tablet 05/29/21 Unknown Rx Multivitamin Tab [Multiple Vitamin 1 each PO QDAY #30 tablet 05/29/21 Unknown Rx TAB (Theragran)] oxyCODONE /ACETAMINOPHEN [Percocet 1 tab PO Q6H PRN #8 tablet 05/29/21 Unknown Rx 5/325 mg] Allergies Allergy/AdvReac Type Severity Reaction Status Date / Time NSAIDS (Non-Steroidal Allergy Anaphylaxis Verified 04/16/21 10:33 Anti-Inflamma Quinolones Allergy Anaphylaxis Verified 04/16/21 10:32 metoclopramide [From Reglan] AdvReac Unknown Verified 04/16/21 10:33 nitrofurantoin AdvReac Vomiting Verified 04/16/21 10:34 [From Macrobid] ED Review of Systems ROS: Stated complaint: SOB Other details as noted in HPI Comment: All other systems reviewed and negative Constitutional: denies: chills, fever Respiratory: orthopnea, shortness of breath, SOB with exertion, SOB at rest. denies: cough, wheezing Cardiovascular: denies: chest pain, palpitations Gastrointestinal: abdominal pain, nausea. denies: vomiting, diarrhea, constipation, hematemesis, melena, hematochezia Musculoskeletal: denies: back pain Neurological: denies: headache, weakness, numbness, paresthesias ED Past Medical Hx - Past Medical History Hx Hypertension: Yes (Portal) Hx Congestive Heart Failure: No Hx Diabetes: No Hx Liver Disease: Yes (Hep C, cirrhosis) Hx Renal Disease: Yes (polynephritis) Hx Asthma: No Hx COPD: No Hx HIV: No Additional medical history: endometriosis. Hepatitis C - Surgical History Additional Surgical History: back surgery - Social History Smoking Status: Never Smoker - Medications Home Medications: Home Medications Medication Instructions Recorded Confirmed Last Taken Type Ferrous Sulfate [Feosol 325 MG tab] 325 mg PO QDAY #30 tablet 05/29/21 06/02/21 Unknown Rx Furosemide [Lasix TAB] 40 mg PO QDAY #30 tablet 05/29/21 06/02/21 Unknown Rx Multivitamin Tab [Multiple Vitamin 1 each PO QDAY #30 tablet 05/29/21 06/02/21 Unknown Rx TAB (Theragran)] oxyCODONE /ACETAMINOPHEN [Percocet 1 tab PO Q6H PRN #8 tablet 05/29/21 06/02/21 Unknown Rx 5/325 mg] ED Physical Exam - General Limitations: No Limitations General appearance: alert, in no apparent distress - Head Head exam: Present: atraumatic, normocephalic, normal inspection - Eye Eye exam: Present: normal appearance, PERRL - ENT ENT exam: Present: normal exam, normal orophraynx, mucous membranes moist - Neck Neck exam: Present: normal inspection, full ROM. Absent: tenderness, meningismus - Respiratory Respiratory exam: Present: decreased breath sounds - Cardiovascular Cardiovascular Exam: Present: regular rate, normal rhythm, normal heart sounds - GI/Abdominal GI/Abdominal exam: Present: soft, distended, normal bowel sounds, other (Positive ascites.). Absent: tenderness, guarding, rebound, rigid, organomegaly, mass, bruit, pulsatile mass, hernia - Extremities Exam Extremities exam: Present: normal capillary refill, pedal edema. Absent: calf tenderness - Back Exam Back exam: Present: normal inspection, full ROM. Absent: CVA tenderness (R), CVA tenderness (L) - Neurological Exam Neurological exam: Present: alert, oriented X3, CN II-XII intact - Psychiatric Psychiatric exam: Present: normal mood - Skin Skin exam: Present: warm, intact, normal color ED Course Vital Signs 07/02/21 07/02/21 07/02/21 20:55 21:01 21:15 Pulse Rate 93 H 93 H Respiratory 15 16 13 Rate Blood Pressure 145/78 145/78 O2 Sat by Pulse 100 100 100 Oximetry 07/02/21 07/02/21 07/02/21 21:31 21:45 22:01 Pulse Rate Respiratory 13 13 14 Rate Blood Pressure 143/72 143/72 126/69 O2 Sat by Pulse 100 100 100 Oximetry 07/02/21 22:15 Pulse Rate Respiratory 11 L Rate Blood Pressure 126/69 O2 Sat by Pulse 100 Oximetry ED Medical Decision Making - Lab Data Result diagrams: 07/02/21 21:47 07/02/21 21:47 - Radiology Data Radiology results: report reviewed - Medical Decision Making 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 Patient stated that last paracentesis was 1 month a go and they pulled approximately 10L. Patient is complaining of shortness of breath and generalized swelling. Patient denied any fever or chills. No chest pain. Patient stated that she is slightly nauseated but no vomiting. Labs reviewed and is unremarkable except for chronic elevation of liver markers. I discussed the patient with Geri, nurse practitioner with Dr. Edgar, she agreed to admit the patient to medical service for paracentesis in the morning by interventional radiologist and further management. Critical care attestation.: If time is entered above; I have spent that time in minutes in the direct care of this critically ill patient, excluding procedure time. ED Disposition Clinical Impression: Ascites, Abdominal distention, Advanced cirrhosis of liver Disposition: 02 [facility] Is pt being admited?: Yes Condition: Stable Instructions: Abdominal Pain (ED)
--- NOTE | 2021-07-02 21:47 | XRay Report ---
CHEST 1 VIEW 07/02/2021 8:41 PM INDICATION / CLINICAL INFORMATION: Abdominal Pain. COMPARISON: 05/31/2021 FINDINGS: SUPPORT DEVICES: None. HEART / MEDIASTINUM: No significant abnormality. LUNGS / PLEURA: No significant pulmonary or pleural abnormality. No pneumothorax. ADDITIONAL FINDINGS: No significant additional findings. IMPRESSION: 1. No acute findings. Signer Name: Manohar Singleton DO Signed: 07/02/2021 9:43 PM Workstation Name: [id number]
[2021-07-02 22:04] LABS: Basophils % (Auto) 0.5 % (0.0-1.8); Eosinophils # (Auto) 0.2 K/mm3 (0.0-0.4); Eosinophils % (Auto) 2.9 % (0.0-4.3); Hematocrit 25.8 % (30.3-42.9); Hemoglobin 8.6 gm/dl (10.1-14.3); Lymphocytes % (Auto) 15.7 % (13.4-35.0); Mean Corpuscular HGB Conc 33 % (30-34); Mean Corpuscular Volume 96 fl (79-97); Monocytes # (Auto) 0.6 K/mm3 (0.0-0.8); Monocytes % (Auto) 9.8 % (0.0-7.3); Platelet Count 185 K/mm3 (140-440); Red Cell Distribution Width 18.9 % (13.2-15.2)
[2021-07-02 22:13] LABS: INR 1.42 (0.87-1.13)
[2021-07-02 22:14] LABS: Partial Thromboplastin Time 35.8 Sec. (24.2-36.6)
[2021-07-02 22:20] LABS: Albumin 1.7 g/dL (3.9-5); Bilirubin,Direct 0.4 mg/dL (0-0.2); Calcium 7.9 mg/dL (8.4-10.2)
--- NOTE | 2021-07-03 03:45 | History and Physical Report ---
History of Present Illness Date of examination: 07/02/21 Date of admission: 07/02/21 22:44 Chief complaint: abdomen distended Shortness of breath History of present illness: This is a 60-year-old femaleseen in ED at bedside. Patient reports generalized abdominal distention and bilateral lower extremity edema. Patient reported history of hep C and liver cirrhosis with ascites. Patient states that she comes to the hospital almost every month for paracentesis. Patient has a history of multiple admission due to ascites requiring paracentesis. 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 Patient stated that last paracentesis was 1 month ago and they pulled approximately 10L. Patient presented to the ED and complaining of shortness of breath and generalized swelling. She denies alcohol use, tobacco use and drug use. She has pain on palpation of the abdomen and her bilateral legs grossly swollen. Interventional radiology consulted for paracentesis. Past History Past Medical History: liver disease, other (Hepatitis C and cirrhosis of the liver) Past Surgical History: No surgical history Social history: lives with family, full code. denies: smoking, alcohol abuse, prescription drug abuse, IV drug use Family history: no significant family history Medications and Allergies Allergies Allergy/AdvReac Type Severity Reaction Status Date / Time NSAIDS (Non-Steroidal Allergy Anaphylaxis Verified 04/16/21 10:33 Anti-Inflamma Quinolones Allergy Anaphylaxis Verified 04/16/21 10:32 metoclopramide [From Reglan] AdvReac Unknown Verified 04/16/21 10:33 nitrofurantoin AdvReac Vomiting Verified 04/16/21 10:34 [From Macrobid] Home Medications Medication Instructions Recorded Confirmed Last Taken Type Ferrous Sulfate [Feosol 325 MG tab] 325 mg PO QDAY #30 tablet 05/29/21 06/02/21 Unknown Rx Furosemide [Lasix TAB] 40 mg PO QDAY #30 tablet 05/29/21 06/02/21 Unknown Rx Multivitamin Tab [Multiple Vitamin 1 each PO QDAY #30 tablet 05/29/21 06/02/21 U nknown Rx TAB (Theragran)] oxyCODONE /ACETAMINOPHEN [Percocet 1 tab PO Q6H PRN #8 tablet 05/29/21 06/02/21 Unknown Rx 5/325 mg] Exam - Constitutional Vitals: Temp Pulse Resp BP Pulse Ox 73 12 132/67 100 07/02/21 22:45 07/02/21 22:45 07/02/21 22:45 07/02/21 22:45 General appearance: Present: severe distress, well-nourished, other (In distress secondary to abdominal distention and shortness with shortness of breath) - EENT Eyes: Present: PERRL ENT: hearing intact, clear oral mucosa - Neck Neck: Present: supple, normal ROM - Respiratory Respiratory effort: other (Shortness of breath) Respiratory: bilateral: CTA - Cardiovascular Heart Sounds: Present: S1 & S2. Absent: rub, click - Extremities Extremities: pulses symmetrical, abnormal (Bilateral extremity edema) Extremity abnormal: edema - Peripheral Assessment Bilateral Leg Edema Degree: 4+ Capillary Refill: Delayed Peripheral Pulses: within normal limits - Abdominal General gastrointestinal: Present: tender, distended, rigid, normal bowel sounds, hepatomegaly Localized gastrointestinal: tender: RUQ, LUQ, RLQ, LLQ Female genitourinary: Present: normal - Integumentary Integumentary: Present: clear, warm, dry - Musculoskeletal Musculoskeletal: right sided weakness, left sided weakness, generalized weakness - Psychiatric Psychiatric: appropriate mood/affect, intact judgment & insight, cooperative - Neurologic Neurologic: CNII-XII intact, moves all extremities - Allied Health Allied health notes reviewed: nursing Results - Labs CBC & Chem 7: 07/02/21 21:47 07/02/21 21:47 Labs: Abnormal lab results 07/02/21 07/02/21 07/02/21 Range/Units 21:47 21:47 21:47 RBC 2.70 L (3.65-5.03) M/mm3 Hgb 8.6 L (10.1-14.3) gm/dl Hct 25.8 L (30.3-42.9) % RDW 18.9 H (13.2-15.2) % [place] % (Auto) 9.8 H (0.0-7.3) % Lymph # (Auto) 1.0 L (1.2-5.4) K/mm3 Seg Neutrophils % 71.1 H (40.0-70.0) % PT 17.8 H (12.2-14.9) Sec. INR 1.42 H (0.87-1.13) Chloride 108.6 H (98-107) mmol/L BUN 24 H (7-17) mg/dL Creatinine 1.7 H (0.6-1.2) mg/dL Glucose 145 H (65-100) mg/dL Calcium 7.9 L (8.4-10.2) mg/dL Direct Bilirubin 0.4 H (0-0.2) mg/dL AST 44 H (5-40) units/L Albumin 1.7 L (3.9-5) g/dL Assessment and Plan - Patient Problems (1) Advanced cirrhosis of liver Current Visit: Yes Status: Acute Plan to address problem: Hx of liver disease likely 2/2 to hep C Supportive care (2) Ascites Current Visit: Yes Status: Acute Plan to address problem: Interventional radiology department consulted for Parencentasis today (3) AIDAN (acute kidney injury) Current Visit: No Status: Acute Plan to address problem: ? cause-likely chronic diuretic use monitor kidney function Avoid nephrotoxic drugs (4) Anasarca Current Visit: No Status: Acute Plan to address problem: Generalized edema from abdomen to lower extremity Likely secondary to liver failure Paracentesis today and continue diuretics (5) Severe protein-calorie malnutrition Current Visit: Yes Status: Acute Plan to address problem: Encourage oral nutrition monitor supplement Consult lead shop operator (6) Hepatitis C Current Visit: No Status: Chronic Plan to address problem: Patient with history of hep C Supportive care (7) Anemia Current Visit: Yes Status: Acute Plan to address problem: Monitor H&H Iron and multivitamin supplement We will transfuse packed red blood cells if H&H is less than 7 (8) Shortness of breath Current Visit: Yes Status: Acute Plan to address problem: Most likely due to abdominal distention pressing on the lungs Continue oxygen supplement Patient said she is not on home oxygen Monitor oxygen status post paracentesis. (9) DVT prophylaxis Current Visit: Yes Status: Acute Plan to address problem: SCD
[2021-07-03] MEDS ORDERED: METOCLOPRAMIDE 10 MG/2 ML INJ IV PRN (04:06)
[2021-07-03] MEDS ORDERED: ACETAMINOPHEN 325 MG TAB PO PRN (04:06)
[2021-07-03] MEDS ORDERED: MAGNESIUM HYDROXIDE (MOM) ORAL LIQD UDC PO PRN (04:06)
[2021-07-03] MEDS ORDERED: SENNOSIDES 8.6 MG TAB PO PRN (04:06)
[2021-07-03] MEDS ORDERED: oxyCODONE /ACETAMINOPHEN 5-325MG TAB PO PRN (04:06)
[2021-07-03] MEDS ORDERED: ALUM-MAG HYDROXIDE-SIMETHICONE 200-200-20MG/5ML ORAL LIQD 30 ML PO PRN (04:06)
[2021-07-03] MEDS ORDERED: NALOXONE 0.4 MG/1 ML INJ IV PRN (04:06)
[2021-07-03] MEDS ORDERED: ONDANSETRON 4 MG/2 ML INJ IV PRN (04:06)
[2021-07-03] MEDS ORDERED: traZODone 50 MG TAB PO PRN (04:13)
[2021-07-03] MEDS: MORPHINE 4 MG/1 ML INJ IV PRN ×3 (05:28→17:45)
--- NOTE | 2021-07-03 09:31 | Progress Note ---
Assessment and Plan Assessment and plan: --Advanced cirrhosis of liver Current Visit: Yes Status: Acute Hx of liver disease likely 2/2 to hep C Supportive care -- Ascites Current Visit: Yes Status: Acute Ultrasound-guided paracentesis requested -- AIDAN (acute kidney injury) Current Visit: No Status: Acute Possible vasomotor nephropathy monitor kidney function Avoid nephrotoxic drugs --Generalized anasarca Current Visit: No Status: Acute Generalized edema from abdomen to lower extremity Likely secondary to liver failure Ultrasound abdominal paracentesis -- Severe protein-calorie malnutrition Current Visit: Yes Status: Acute Encourage oral nutrition monitor supplement Consult mechanical drafter --Hepatitis C Current Visit: No Status: Chronic Patient with history of hep C Supportive care --Anemia Current Visit: Yes Status: Acute Monitor H&H Iron and multivitamin supplement We will transfuse packed red blood cells if H&H is less than 7 --Shortness of breath Current Visit: Yes Status: Acute Most likely due to abdominal distention pressing on the lungs Continue oxygen supplement Patient said she is not on home oxygen Monitor oxygen status post paracentesis. -- DVT prophylaxis Current Visit: Yes Status: Acute SCD We will closely monitor the patient and adjust management as needed Plan of care reviewed with patient and her nurse nurse History Interval history: Seen and examined the patient at the bedside Patient's chart and medications reviewed Patient was admitted with worsening shortness of breath and worsening ascites Patient complains of worsening shortness of breath Reports that she gets large-volume abdominal paracentesis once every month Last time she had was last month and 3 L of peritoneal fluid was removed Hospitalist Physical - Constitutional Vitals: Temp Pulse Resp BP Pulse Ox 88 14 135/64 96 07/03/21 07:31 07/03/21 08:46 07/03/21 07:31 07/03/21 07:31 General appearance: Present: severe distress, well-nourished, other (In distress secondary to abdominal distention and shortness with shortness of breath) - EENT Eyes: Present: PERRL, EOM intact - Neck Neck: Present: supple, normal ROM - Respiratory Respiratory effort: normal Respiratory: bilateral: diminished, negative: rales, rhonchi, wheezing - Cardiovascular Rhythm: regular Heart Sounds: Present: S1 & S2 - Extremities Extremities: no ischemia, No edema - Abdominal General gastrointestinal: soft, non-tender, non-distended, normal bowel sounds - Integumentary Integumentary: Present: clear, warm - Psychiatric Psychiatric: appropriate mood/affect, cooperative - Neurologic Neurologic: CNII-XII intact, moves all extremities Results - Labs CBC & Chem 7: 07/02/21 21:47 07/02/21 21:47 Labs: Laboratory Last Values WBC 6.4 K/mm3 (4.5-11.0) 07/02/21 21:47 RBC 2.70 M/mm3 (3.65-5.03) L 07/02/21 21:47 Hgb 8.6 gm/dl (10.1-14.3) L 07/02/21 21:47 Hct 25.8 % (30.3-42.9) L 07/02/21 21:47 MCV 96 fl (79-97) 07/02/21 21:47 MCH 32 pg (28-32) 07/02/21 21:47 MCHC 33 % (30-34) 07/02/21 21:47 RDW 18.9 % (13.2-15.2) H 07/02/21 21:47 Plt Count 185 K/mm3 (140-440) 07/02/21 21:47 Lymph % (Auto) 15.7 % (13.4-35.0) 07/02/21 21:47 [place] % (Auto) 9.8 % (0.0-7.3) H 07/02/21 21:47 Eos % (Auto) 2.9 % (0.0-4.3) 07/02/21 21:47 Baso % (Auto) 0.5 % (0.0-1.8) 07/02/21 21:47 Lymph # (Auto) 1.0 K/mm3 (1.2-5.4) L 07/02/21 21:47 [place] # (Auto) 0.6 K/mm3 (0.0-0.8) 07/02/21 21:47 Eos # (Auto) 0.2 K/mm3 (0.0-0.4) 07/02/21 21:47 Baso # (Auto) 0.0 K/mm3 (0.0-0.1) 07/02/21 21:47 Seg Neutrophils % 71.1 % (40.0-70.0) H 07/02/21 21:47 Seg Neutrophils # 4.5 K/mm3 (1.8-7.7) 07/02/21 21:47 PT 17.8 Sec. (12.2-14.9) H 07/02/21 21:47 INR 1.42 (0.87-1.13) H 07/02/21 21:47 APTT 35.8 Sec. (24.2-36.6) 07/02/21 21:47 Sodium 141 mmol/L (137-145) 07/02/21 21:47 Potassium 4.5 mmol/L (3.6-5.0) 07/02/21 21:47 Chloride 108.6 mmol/L (98-107) H 07/02/21 21:47 Carbon Dioxide 24 mmol/L (22-30) 07/02/21 21:47 Anion Gap 13 mmol/L 07/02/21 21:47 BUN 24 mg/dL (7-17) H 07/02/21 21:47 Creatinine 1.7 mg/dL (0.6-1.2) H 07/02/21 21:47 Estimated GFR 31 ml/min 07/02/21 21:47 BUN/Creatinine Ratio 14 % 07/02/21 21:47 Glucose 145 mg/dL (65-100) H 07/02/21 21:47 Calcium 7.9 mg/dL (8.4-10.2) L 07/02/21 21:47 Total Bilirubin 0.70 mg/dL (0.1-1.2) 07/02/21 21:47 Direct Bilirubin 0.4 mg/dL (0-0.2) H 07/02/21 21:47 Indirect Bilirubin 0.3 mg/dL 07/02/21 21:47 AST 44 units/L (5-40) H 07/02/21 21:47 ALT 13 units/L (7-56) 07/02/21 21:47 Alkaline Phosphatase 105 units/L (35-129) 07/02/21 21:47 Total Protein 6.7 g/dL (6.3-8.2) 07/02/21 21:47 Albumin 1.7 g/dL (3.9-5) L 07/02/21 21:47 Albumin/Globulin Ratio 0.3 % 07/02/21 21:47 Active Medications - Current Medications Current Medications: Generic Name Dose Route Start Last Admin Trade Name Freq PRN Reason Stop Dose Admin Acetaminophen 650 mg 07/03/21 04:06 Acetaminophen 325 Mg Tab PO Q4H PRN Pain MILD(1-3)/Fever >100.5/ABEL Al Hydrox/Mg Hydrox/Simethicone 30 ml 07/03/21 04:06 Alum-Mag Hydroxide-Simethicone [id number]/5ml Oral Liqd 30 Ml PO Q4H PRN Indigestion Famotidine 10 mg 07/03/21 10:00 Famotidine 20 Mg/2 Ml Inj IV BID [facility] Ferrous Sulfate 325 mg 07/03/21 10:00 Ferrous Sulfate 325 Mg Tab PO QDAY [facility] Furosemide 40 mg 07/03/21 10:00 Furosemide 40 Mg Tab PO QDAY [facility] Magnesium Hydroxide 30 ml 07/03/21 04:06 Magnesium Hydroxide (Mom) Oral Liqd Udc PO Q4H PRN Constipation Morphine Sulfate 2 mg 07/03/21 04:06 Morphine 2 Mg/1 Ml Inj IV Q4H PRN Pain, Moderate (4-6) Morphine Sulfate 4 mg 07/03/21 04:06 07/03/21 05:28 Morphine 4 Mg/1 Ml Inj IV 4 mg Q4H PRN Administration Pain , Severe (7-10) Multivitamins 1 each 07/03/21 10:00 Multivitamins ,Therapeutic Tab PO QDAY [facility] Naloxone HCl 0.1 mg 07/03/21 04:06 Naloxone 0.4 Mg/1 Ml Inj IV Q2MIN PRN Res Rate </= 8 or 02 SAT < 92% Ondansetron HCl 4 mg 07/03/21 04:06 07/03/21 05:28 Ondansetron 4 Mg/2 Ml Inj IV 4 mg Q8H PRN Administration Nausea And Vomiting Oxycodone/Acetaminophen 1 tab 07/03/21 04:06 Oxycodone /Acetaminophen 5-325mg Tab PO Q6H PRN Pain, Moderate (4-6) Senna 8.6 mg 07/03/21 04:06 Sennosides 8.6 Mg Tab PO Q12HR PRN Constipation Sodium Chloride 10 ml 07/03/21 10:00 Sodium Chloride 0.9% 10 Ml Flush Syringe IV BID [facility] Sodium Chloride 10 ml 07/03/21 04:06 Sodium Chloride 0.9% 10 Ml Flush Syringe IV PRN PRN LINE FLUSH Spironolactone 25 mg 07/03/21 10:00 Spironolactone 25 Mg Tab PO QDAY [facility] Trazodone HCl 50 mg 07/03/21 04:13 Trazodone 50 Mg Tab PO QHS PRN Insomnia
[2021-07-03] MEDS ORDERED: FAMOTIDINE 20 MG/2 ML INJ IV SCH (10:00)
[2021-07-03] MEDS: SPIRONOLACTONE 25 MG TAB PO SCH (10:34)
[2021-07-03] MEDS: FUROSEMIDE 40 MG TAB PO SCH (10:35)
[2021-07-03] MEDS: MULTIVITAMINS ,THERAPEUTIC TAB PO SCH (10:36)
[2021-07-03] MEDS: FAMOTIDINE 20 MG/2 ML INJ IV SCH ×2 (10:36→21:26)
[2021-07-03] MEDS: FERROUS SULFATE 325 MG TAB PO SCH (10:36)
--- NOTE | 2021-07-03 14:07 | Procedure Note ---
Date of procedure: 07/03/21 Pre-op diagnosis: ascites Post-op diagnosis: same Procedure: US paracentesis Findings: moderate ascites Anesthesia: local Surgeon: TANESHA YADAV Estimated blood loss: none Pathology: none Specimen disposition: discarded Condition: stable Disposition: floor
--- NOTE | 2021-07-03 14:58 | Ultrasound Report ---
ULTRASOUND-GUIDED PARACENTESIS HISTORY: Therapeutic abdominal paracentesis. PROCEDURE: The risks (including but not limited to bleeding, infection, and bowel injury) and benefi ts were explained to the patient and informed consent was obtained. A time out procedure was perform ed. Ultrasound was used to evaluate the abdomen and locate the largest ascites fluid pocket. Once the sk in was marked, the procedure site was prepped and draped in the usual sterile fashion and lidocaine w as used for local anesthesia. A 5 Bulgarian centesis catheter was placed. The patient was monitored cl osely throughout the procedure, and a total of 5500 mL of clear yellow fluid was aspirated. No labs were ordered. The patient tolerated the procedure well with no complications. IMPRESSION: Successful ultrasound-guided paracentesis as described. Signer Name: Chip Bingham Jr, MD Signed: 07/03/2021 2:52 PM Workstation Name: [id number]
[2021-07-03] MEDS: MORPHINE 2 MG/1 ML INJ IV PRN (23:33)
[2021-07-04 09:01] LABS: Basophils # (Auto) 0.1 K/mm3 (0.0-0.1); Basophils % (Auto) 0.9 % (0.0-1.8); Eosinophils # (Auto) 0.3 K/mm3 (0.0-0.4); Eosinophils % (Auto) 4.5 % (0.0-4.3); Hemoglobin 8.7 gm/dl (10.1-14.3); Lymphocytes # (Auto) 1.4 K/mm3 (1.2-5.4); Lymphocytes % (Auto) 20.4 % (13.4-35.0); Mean Corpuscular HGB Conc 34 % (30-34); Mean Corpuscular Volume 93 fl (79-97); Monocytes # (Auto) 0.7 K/mm3 (0.0-0.8); Monocytes % (Auto) 10.5 % (0.0-7.3); Platelet Count 181 K/mm3 (140-440); Red Blood Count 2.78 M/mm3 (3.65-5.03); Red Cell Distribution Width 18.2 % (13.2-15.2)
[2021-07-04 09:12] LABS: Albumin 1.7 g/dL (3.9-5); Calcium 7.7 mg/dL (8.4-10.2)
[2021-07-04] MEDS: FERROUS SULFATE 325 MG TAB PO SCH (10:28)
[2021-07-04] MEDS: SPIRONOLACTONE 25 MG TAB PO SCH (10:28)
[2021-07-04] MEDS: FUROSEMIDE 40 MG TAB PO SCH (10:28)
[2021-07-04] MEDS: MULTIVITAMINS ,THERAPEUTIC TAB PO SCH (10:28)
[2021-07-04] MEDS: MORPHINE 2 MG/1 ML INJ IV PRN (10:29)
[2021-07-04] MEDS: FAMOTIDINE 20 MG/2 ML INJ IV SCH (10:29)
--- NOTE | 2021-07-04 12:00 | Discharge Summary ---
Providers - Providers Date of Admission: 07/03/21 08:45 Date of discharge: 07/04/21 Attending physician: ABHINAV HARDIN 07/03/21 04:09 Consult to Dietitian/Nutrition [CONS] Routine Physician Instructions: Reason For Exam: Protein calorie malnutrition Reason for Consult: Malnutrition 07/03/21 12:27 Physical Therapy Evaluation and Treat [CONS] Urgent Comment: Reason For Exam: PT eval to assess need for w/c Primary care physician: RELAY ASSEMBLER Hospitalization Reason for admission: Worsening shortness of breath, worsening abdominal distention with ascites Condition: Stable Pertinent studies: Chest x-ray; no acute abnormality noted Procedures: Ultrasound-guided therapeutic abdominal paracentesis and removal of 5.5 L of clear peritoneal fluid Patient tolerated the procedure well Hospital course: 60-year-old female patient with significant past medical history of hepatitis C cirrhosis liver ascites requiring recurrent high-volume therapeutic abdominal paracentesis, every 4 to 6 weeks, was admitted through emergency room with worsening shortness of breath and worsening abdominal distention Patient was initially evaluated, symptomatically managed resume all the home medications, subsequently underwent therapeutic ultrasound guided paracentesis and removal of 5.5 L of clear yellow fluid, patient tolerated the procedure well,Today patient is comfortable no new complaints, Hemodynamically and clinically stable Ambulatory and tolerating oral nutrition Patient is stable at discharge Discharge diagnosis: --Advanced cirrhosis of liver Current Visit: Yes Status: Acute Hx of liver disease likely 2/2 to hep C Supportive care -- Ascites Current Visit: Yes Status: Acute s/p Ultrasound-guided paracentesis and removal of 5.5 L Clear yellow fluid, therapeutic paracentesis [no need for fluid analysis] -- AIDAN (acute kidney injury) Current Visit: No Status: Acute Creatinine significantly improved to 1.6 Patient's baseline --Generalized anasarca Current Visit: No Status: Acute Generalized edema from abdomen to lower extremity Mild improvement post abdominal paracentesis -- Severe protein-calorie malnutrition Current Visit: Yes Status: Acute Encourage oral nutrition monitor supplement Nutrition supplements --Hepatitis C Current Visit: No Status: Chronic Patient with history of hep C --Anemia Current Visit: Yes Status: Acute Monitor H&H Iron pills, follow H&H --Shortness of breath Current Visit: Yes Status: Acute Due to abdominal distention and, ascites -- DVT prophylaxis Current Visit: Yes Status: Acute SCD Stable at discharge Disposition: HOME HEALTH CARE SERVICE Final Discharge Diagnosis (Prints w/discharge instructions): Advanced cirrhosis liver. Ascites. s/p therapeutic abdominal paracentesis. Acute kidney injury. Shortness of breath. Generalized anasarca. Severe protein calorie malnutrition. Obesity BMI 35.3. History of hepatitis C. Chronic anemia Time spent for discharge: 35 min Core Measure Documentation - Palliative Care Palliative Care/ Comfort Measures: Not Applicable - Core Measures Any of the following diagnoses?: none Exam - Constitutional Vitals: Temp Pulse Resp BP Pulse Ox 98.3 F 87 18 117/58 96 07/04/21 08:02 07/04/21 10:28 07/04/21 08:02 07/04/21 10:28 07/04/21 08:02 General appearance: Present: no acute distress, well-nourished - EENT Eyes: Present: PERRL, EOM intact - Neck Neck: Present: supple, normal ROM - Respiratory Respiratory effort: normal Respiratory: bilateral: diminished, negative: rales, rhonchi, wheezing - Cardiovascular Rhythm: regular Heart Sounds: Present: S1 & S2 - Extremities Extremities: no ischemia, No edema - Abdominal General gastrointestinal: Present: soft, non-tender, non-distended, normal bowel sounds - Integumentary Integumentary: Present: clear, warm - Musculoskeletal Musculoskeletal: strength equal bilaterally - Psychiatric Psychiatric: appropriate mood/affect, cooperative - Neurologic Neurologic: moves all extremities Plan Activity: advance as tolerated, fall precautions Diet: low salt Additional Instructions: Advised to follow primary care physician in 3 to 5 days. Fall precautions. Strictly low-salt diet. If you have worsening symptoms contact MD or go to emergency room as needed. Patient advised to continue all her home medications as before. No new prescriptions needed Follow up with: PRIMARY CAREMD [Primary Care Provider] - 7 Days SOLANGE DRUMMOND MD [Staff Physician] - 7 Days
[2021-07-04 18:56] VITALS: BP 107/50
[2021-07-04] MEDS ORDERED: FAMOTIDINE 10 MG TAB PO SCH (22:00)
== END 2021-07-04 22:33 | disposition home health service (06) | DRG 432 ==
LOC: ED 20:35 → 4A 22:44 → OBSVTOIN 07-03 08:45
PROVIDERS: ADMIT Hospitalist; ATTEND Internal Medicine
PROC: 0W9G30Z Drainage of Peritoneal Cavity with Drainage Device, Percutaneous Approach (ICD-10-PCS; principal; 2021-07-03)
DX: K74.60 Unspecified cirrhosis of liver (principal); E43 Unspecified severe protein-calorie malnutrition; R18.8 Other ascites; Z68.35 Body mass index [BMI] 35.0-35.9, adult; B19.20 Unspecified viral hepatitis C without hepatic coma; D64.9 Anemia, unspecified; Z88.8 Allergy status to other drugs, medicaments and biological substances; E66.9 Obesity, unspecified; N17.9 Acute kidney failure, unspecified
CPT/HCPCS: 36415; 49083; 71045; 80048; 80053; 80076; 85025; 85610; 85730; G0378; J2270; J2405

== ENCOUNTER 2021-07-29 17:36 | Inpatient (IN) | payer MEDICAID ==
--- NOTE | 2021-07-29 18:32 | Emergency Department Report ---
ED General Adult HPI - General Chief complaint: Abdominal Pain Stated complaint: ABD SWELLING PUI?: No Time Seen by Provider: 07/29/21 18:30 Source: patient, EMS ( EMS documentation not available at time of chart dictatio n ), RN notes reviewed, old records reviewed Mode of arrival: Stretcher Limitations: Physical Limitation - History of Present Illness Initial comments: The patient was evaluated in the emergency department for symptoms described in the history of present illness. He/she was evaluated in the context of the g lobal COVID-19 pandemic, which necessitated consideration that the patient might be at risk for infection with the virus that causes COVID-19. Institutional protocols and algorithms that pertain to the evaluation of patients at risk for COVID-19 are in a state of rapid change based on information released by regulatory bodies including the CDC and federal and state organizations. These policies and algorithms were followed during the patient's care in the emergency department. Please note that these policies, procedures and recommendations changed on a rapid basis. The patient is an unfortunate 60-year-old female with a past medical history of renal insufficiency, hepatitis C, and cirrhosis. The patient presents to the ER today with a complaint of abdominal distention, feeling like she is fluid overloaded, and tense abdomen. The patient reports shortness of breath secondary to abdominal distention. She also describes bilateral lower extremity swelling. As per review of old medical records, she was supposed to go to [place] in June, for evaluation for possible transplant. She reports that she has been unable to follow-up or go for her transplant evaluation. She reports that she essentially lives at home by herself, in a hotel suite, and she has friends and neighbors helping her out. However, she endorses decreased functionality, and is essentially bedbound, and not able to care for her activities of daily living. She endorses that she is urinating and defecating on herself, and has extreme lower extremity swelling. She is intermittently compliant with her med ications. She reports that she is unfortunately not insured. She denies Covid symptoms. The patient endorses multiple chronic skin tears and skin abrasions, secondary to "weak skin." Her symptoms typically improve with paracentesis. -: Gradual Location: abdomen Consistency: constant Improves with: rest, other (Paracentesis) Worsens with: movement - Related Data Home Medications Medication Instructions Recorded Confirmed Last Taken Spironolactone [Aldactone] 25 mg PO QDAY 07/30/21 07/30/21 Unknown methOCARBAMOL [Robaxin TAB] 500 mg PO TID 07/30/21 07/30/21 Unknown Previous Rx's Medication Instructions Recorded Last Taken Type Furosemide [Lasix TAB] 40 mg PO QDAY #30 tablet 05/29/21 Unknown Rx Multivitamin Tab [Multiple Vitamin 1 each PO QDAY #30 tablet 05/29/21 Unknown Rx TAB (Theragran)] Allergies Allergy/AdvReac Type Severity Reaction Status Date / Time NSAIDS (Non-Steroidal Allergy Anaphylaxis Verified 04/16/21 10:33 Anti-Inflamma Quinolones Allergy Anaphylaxis Verified 04/16/21 10:32 metoclopramide [From Reglan] AdvReac Unknown Verified 04/16/21 10:33 nitrofurantoin AdvReac Vomiting Verified 04/16/21 10:34 [From Macrobid] ED Review of Systems ROS: Stated complaint: ABD SWELLING Other details as noted in HPI Constitutional: malaise, weakness. denies: fever Eyes: denies: eye discharge ENT: denies: epistaxis Respiratory: shortness of breath Cardiovascular: denies: chest pain Gastrointestinal: other (Abdominal distention and swelling) Musculoskeletal: myalgia Skin: other (Multiple skin abrasions) Neurological: weakness ED Past Medical Hx - Past Medical History Hx Hypertension: Yes (Portal) Hx Congestive Heart Failure: No Hx Diabetes: No Hx Liver Disease: Yes (end stage) Hx Renal Disease: Yes (polynephritis) Hx Asthma: Yes Hx COPD: No Hx HIV: No Additional medical history: endometriosis. Hepatitis C - Surgical History Additional Surgical History: back surgery - Social History Smoking Status: Never Smoker - Medications Home Medications: Home Medications Medication Instructions Recorded Confirmed Last Taken Type Furosemide [Lasix TAB] 40 mg PO QDAY #30 tablet 05/29/21 07/30/21 Unknown Rx Multivitamin Tab [Multiple Vitamin 1 each PO QDAY #30 tablet 05/29/21 07/30/21 Unknown Rx TAB (Theragran)] Spironolactone [Aldactone] 25 mg PO QDAY 07/30/21 07/30/21 Unknown History methOCARBAMOL [Robaxin TAB] 500 mg PO TID 07/30/21 07/30/21 Unknown History ED Physical Exam - General Limitations: Physical Limitation General appearance: alert, anxious - Head Head exam: Present: atraumatic, normocephalic - Eye Eye exam: Present: normal appearance, EOMI, scleral icterus. Absent: nystagmus - ENT ENT exam: Present: normal exam, normal orophraynx, mucous membranes moist, normal external ear exam - Neck Neck exam: Present: normal inspection, full ROM. Absent: tenderness, menin gismus - Respiratory Respiratory exam: Present: respiratory distress, rales (Faint rales at the pulmonary bases), accessory muscle use - Cardiovascular Cardiovascular Exam: Present: regular rate, normal rhythm, normal heart sounds. Absent: bradycardia, tachycardia, irregular rhythm, systolic murmur, diastolic murmur, rubs, gallop - GI/Abdominal GI/Abdominal exam: Present: soft, distended, hernia (Reducible umbilical hernia). Absent: tenderness, guarding, rebound, rigid - Extremities Exam Extremities exam: Present: full ROM, pedal edema (3+ edema in the bilateral lower extremities), other (2+ pulses noted in the bilateral upper and lower extremities. There is no long bony tenderness. The pelvis is stable. The muscular compartments are soft.). Absent: normal inspection (Multiple abrasions and skin avulsions noted in the bilateral upper extremities) - Back Exam Back exam: Present: normal inspection, full ROM. Absent: tenderness, CVA tenderness (R), CVA tenderness (L), paraspinal tenderness, vertebral tenderness - Neurological Exam Neurological exam: Present: alert, other (No facial droop. Tongue midline. Extraocular movements intact bilaterally. Facial sensation intact to light touch in V1, V2, V3 distribution bilaterally. 5 and a 5 strength in 4 extremities. Sensation intact to light touch in 4 extremities.). Absent: motor sensory deficit - Psychiatric Psychiatric exam: Present: anxious - Skin Skin exam: Present: warm, abrasion, ecchymosis ED Course Vital Signs 07/29/21 07/29/21 07/29/21 18:00 18:48 18:50 Temperature 98.8 F Pulse Rate 74 73 Respiratory 19 16 Rate Blood Pressure Blood Pressure 126/56 [Left] O2 Sat by Pulse 100 100 100 Oximetry 07/29/21 07/29/21 07/29/21 19:01 19:15 19:31 Temperature Pulse Rate 76 69 74 Respiratory 20 16 19 Rate Blood Pressure 121/51 121/51 121/51 Blood Pressure [Left] O2 Sat by Pulse 100 100 100 Oximetry 07/29/21 07/29/21 07/29/21 19:45 20:01 20:15 Temperature Pulse Rate 81 77 71 Respiratory 14 17 16 Rate Blood Pressure 121/51 119/54 119/54 Blood Pressure [Left] O2 Sat by Pulse 100 100 100 Oximetry 07/29/21 07/29/21 07/29/21 20:31 20:45 21:01 Temperature Pulse Rate 68 66 69 Respiratory 13 12 13 Rate Blood Pressure 119/54 119/54 115/56 Blood Pressure [Left] O2 Sat by Pulse 100 100 100 Oximetry 07/29/21 07/29/21 07/29/21 21:15 21:31 21:45 Temperature Pulse Rate 67 66 65 Respiratory 12 16 13 Rate Blood Pressure 115/56 115/56 115/56 Blood Pressure [Left] O2 Sat by Pulse 100 100 100 Oximetry 07/29/21 07/29/21 07/29/21 22:01 22:15 22:31 Temperature Pulse Rate 66 75 66 Respiratory 11 L 14 12 Rate Blood Pressure 112/57 115/56 111/57 Blood Pressure [Left] O2 Sat by Pulse 100 100 100 Oximetry 07/29/21 07/29/21 07/29/21 22:45 23:01 23:15 Temperature Pulse Rate 68 68 66 Respiratory 12 15 12 Rate Blood Pressure 116/53 120/56 101/52 Blood Pressure [Left] O2 Sat by Pulse 100 100 100 Oximetry 07/29/21 07/29/21 07/29/21 23:31 23:39 23:45 Temperature Pulse Rate 67 65 70 Respiratory 13 13 15 Rate Blood Pressure 109/54 112/51 112/51 Blood Pressure [Left] O2 Sat by Pulse 100 100 100 Oximetry 07/30/21 07/30/21 07/30/21 00:01 00:15 00:31 Temperature Pulse Rate 66 66 65 Respiratory 15 14 12 Rate Blood Pressure 119/53 111/51 115/53 Blood Pressure [Left] O2 Sat by Pulse 99 99 100 Oximetry 07/30/21 07/30/21 07/30/21 00:41 00:51 01:01 Temperature Pulse Rate 69 71 70 Respiratory 13 14 13 Rate Blood Pressure 112/52 120/59 120/59 Blood Pressure [Left] O2 Sat by Pulse 100 100 100 Oximetry 07/30/21 07/30/21 01:26 01:30 Temperature 98.3 F Pulse Rate 77 Respiratory 19 Rate Blood Pressure 114/59 Blood Pressure [Left] O2 Sat by Pulse 100 100 Oximetry - Reevaluation(s) Reevaluation #1: 07/29/21 18:48 Differential diagnosis, including but not limited to: Symptomatic ascites, hepatohydrothorax, deconditioning, end-stage liver disease, hepatitis C, multiple abrasions Assessment and plan: 60-year-old female, who is presenting with decompensated cirrhosis and ascites, manifested by lower extremity swelling, abdominal distention. Abdomen does not have any tenderness, the patient states that she is not having any fevers, her exam and history are not suggestive of spontaneous bacterial peritonitis, this is suggestive of tense ascites and fluid overload, secondary to inability to follow-up as an outpatient for multiple issues. Patient meets criteria for admission hospitalization secondary to the aforementioned. She is not encephalopathic at this time. Oral temperature 98 degrees. Patient asked for water to drink, and I personally provided this patient with ice water. Obtain appropriate laboratory studies, x-ray the chest, and EKG. Admit patient to the medical service. This patient will likely benefit from case management evaluation, we will defer to the inpatient team to follow this up. She may also benefit from physical therapy and/or rehabilitation evaluation, will defer to inpatient team to follow this up. 07/29/21 19:38 Laboratory studies demonstrate chronic normocytic anemia, essentially unchanged coagulopathy, and worsening renal insufficiency. High-dose Lasix is ordered, after discussion and consultation with admitting hospital physician, Dr. Alana Frye Medical decision makin-year-old female, with decompensated cirrhosis and fluid overload, now with evidence of hepatorenal syndrome, requires admission for medical optimization, diuresis. The receiving team indicates that they will decide if they would like to consult GI, and/or nephrology. Unfortunately, long-term prognosis is very poor. Ammonia level reviewed and appreciated. This patient is not encephalopathic at this juncture ED Medical Decision Making - Lab Data Result diagrams: 07/30/21 06:10 07/30/21 06:10 Vital Signs 07/29/21 18:00 Pulse Rate 74 Respiratory 19 Rate Blood Pressure 126/56 [Left] O2 Sat by Pulse 100 Oximetry Lab Results 10/18/21 10/18/21 10/18/21 Range/Units 18:34 18:34 18:34 WBC 7.6 (4.5-11.0) K/mm3 RBC 2.42 L (3.65-5.03) M/mm3 Hgb 8.0 L (10.1-14.3) gm/dl Hct 22.9 L (30.3-42.9) % MCV 95 (79-97) fl MCH 33 H (28-32) pg MCHC 35 H (30-34) % RDW 20.4 H (13.2-15.2) % Plt Count 154 (140-440) K/mm3 Lymph % (Auto) 16.6 (13.4-35.0) % [place] % (Auto) 8.5 H (0.0-7.3) % Eos % (Auto) 3.0 (0.0-4.3) % Baso % (Auto) 1.2 (0.0-1.8) % Lymph # (Auto) 1.3 (1.2-5.4) K/mm3 [place] # (Auto) 0.6 (0.0-0.8) K/mm3 Eos # (Auto) 0.2 (0.0-0.4) K/mm3 Baso # (Auto) 0.1 (0.0-0.1) K/mm3 Seg Neutrophils % 70.7 H (40.0-70.0) % Seg Neutrophils # 5.3 (1.8-7.7) K/mm3 PT 21.8 H (12.2-14.9) Sec. INR 1.72 H (0.87-1.13) Sodium 136 L (137-145) mmol/L Potassium 4.4 (3.6-5.0) mmol/L Chloride 101.4 (98-107) mmol/L Carbon Dioxide 19 L (22-30) mmol/L Anion Gap 20 mmol/L BUN 72 H (7-17) mg/dL Creatinine 3.5 H (0.6-1.2) mg/dL Estimated GFR 13 ml/min BUN/Creatinine Ratio 21 % Glucose 149 H (65-100) mg/dL Calcium 7.6 L (8.4-10.2) mg/dL Magnesium 2.40 H (1.7-2.3) mg/dL Total Bilirubin 1.60 H (0.1-1.2) mg/dL AST 58 H (5-40) units/L ALT 19 (7-56) units/L Alkaline Phosphatase 121 (35-129) units/L Ammonia (25-60) umol/L Total Creatine Kinase 219 H (30-135) units/L NT-Pro-B Natriuret Pep 1495 H (0-900) pg/mL Total Protein 6.5 (6.3-8.2) g/dL Albumin 2.4 L (3.9-5) g/dL Albumin/Globulin Ratio 0.6 % TSH (0.270-4.200) mlU/mL 07/29/21 07/29/21 Range/Units 18:34 18:34 WBC (4.5-11.0) K/mm3 RBC (3.65-5.03) M/mm3 Hgb (10.1-14.3) gm/dl Hct (30.3-42.9) % MCV (79-97) fl MCH (28-32) pg MCHC (30-34) % RDW (13.2-15.2) % Plt Count (140-440) K/mm3 Lymph % (Auto) (13.4-35.0) % [place] % (Auto) (0.0-7.3) % Eos % (Auto) (0.0-4.3) % Baso % (Auto) (0.0-1.8) % Lymph # (Auto) (1.2-5.4) K/mm3 [place] # (Auto) (0.0-0.8) K/mm3 Eos # (Auto) (0.0-0.4) K/mm3 Baso # (Auto) (0.0-0.1) K/mm3 Seg Neutrophils % (40.0-70.0) % Seg Neutrophils # (1.8-7.7) K/mm3 PT (12.2-14.9) Sec. INR (0.87-1.13) Sodium (137-145) mmol/L Potassium (3.6-5.0) mmol/L Chloride (98-107) mmol/L Carbon Dioxide (22-30) mmol/L Anion Gap mmol/L BUN (7-17) mg/dL Creatinine (0.6-1.2) mg/dL Estimated GFR ml/min BUN/Creatinine Ratio % Glucose (65-100) mg/dL Calcium (8.4-10.2) mg/dL Magnesium (1.7-2.3) mg/dL Total Bilirubin (0.1-1.2) mg/dL AST (5-40) units/L ALT (7-56) units/L Alkaline Phosphatase (35-129) units/L Ammonia 30.0 (25-60) umol/L Total Creatine Kinase (30-135) units/L NT-Pro-B Natriuret Pep (0-900) pg/mL Total Protein (6.3-8.2) g/dL Albumin (3.9-5) g/dL Albumin/Globulin Ratio % TSH 3.330 (0.270-4.200) mlU/mL Vital Signs 07/29/21 07/29/21 18:00 18:50 Temperature 98.8 F Pulse Rate 74 Respiratory 19 Rate Blood Pressure 126/56 [Left] O2 Sat by Pulse 100 100 Oximetry - EKG Data -: EKG Interpreted by Me EKG shows normal: sinus rhythm Rate: normal - EKG Data 07/29/21 18:49 EKG is interpreted at 18: 40 Sinus rhythm, 75 bpm. Left axis deviation. Normal P wave axis. First-degree AV block. Poor R wave progression. Low voltage. Abnormal EKG, not a STEMI. - Radiology Data Radiology results: pending, image reviewed interpreted by me: 1 view x-ray of the chest shows pulmonary vascular congestion. Critical Care Time: Yes Critical care time in (mins) excluding proc time.: 35 Critical care attestation.: If time is entered above; I have spent that time in minutes in the direct care of this critically ill patient, excluding procedure time. ED Disposition Clinical Impression: End stage liver disease, Bilateral lower extremity edema, Anasarca, Cirrhosis, SOB (shortness of breath), Hepatitis C, Generalized weakness, Renal insufficiency, Multiple abrasions Disposition: ADMITTED INPATIENT Is pt being admited?: Yes Condition: Poor
[2021-07-29 18:48] LABS: Basophils # (Auto) 0.1 K/mm3 (0.0-0.1); Basophils % (Auto) 1.2 % (0.0-1.8); Eosinophils # (Auto) 0.2 K/mm3 (0.0-0.4); Hematocrit 22.9 % (30.3-42.9); Lymphocytes # (Auto) 1.3 K/mm3 (1.2-5.4); Lymphocytes % (Auto) 16.6 % (13.4-35.0); Mean Corpuscular HGB Conc 35 % (30-34); Mean Corpuscular Volume 95 fl (79-97); Monocytes # (Auto) 0.6 K/mm3 (0.0-0.8); Monocytes % (Auto) 8.5 % (0.0-7.3); Platelet Count 154 K/mm3 (140-440); Red Blood Count 2.42 M/mm3 (3.65-5.03)
[2021-07-29 18:55] LABS: Red Cell Distribution Width 20.4 % (13.2-15.2)
[2021-07-29 19:12] LABS: INR 1.72 (0.87-1.13)
[2021-07-29 19:16] LABS: Albumin 2.4 g/dL (3.9-5); Calcium 7.6 mg/dL (8.4-10.2)
[2021-07-29] MEDS ORDERED: FUROSEMIDE 40 MG/4 ML INJ IV ONE (19:37)
--- NOTE | 2021-07-29 20:02 | History and Physical Report ---
History of Present Illness Date of examination: 07/29/21 Date of admission: 07/29/21 Chief complaint: shortness of breath Distended abdomen History of present illness: This is a 60-year-old female seen in ED at bedside. She presented to ED with chief complaint of abdominal distention, shortness of breath, and generalized edema. Patient has past medical history of renal insufficiency, hepatitis C and liver cirrhosis. The patient is an unfortunate 60-year-old female with a past medical history of renal insufficiency, hepatitis C, and cirrhosis. Patient reports shortness of breath secondary to abdominal distention. She also has bilateral lower extremity swelling. She denies tobacco use, alcohol use, and illicit drug use. Checks x-ray done and it showed diffuse interstitial opacity and small right pleural effusion most likely secondary to congestive heart failure. Urinalysis done shows urinary tract. Past History Past Medical History: heart failure, liver disease, renal failure Past Surgical History: No surgical history Social history: Lives alone, full code. denies: smoking, IV drug use Family history: no significant family history Medications and Allergies Allergies Allergy/AdvReac Type Severity Reaction Status Date / Time NSAIDS (Non-Steroidal Allergy Anaphylaxis Verified 04/16/21 10:33 Anti-Inflamma Quinolones Allergy Anaphylaxis Verified 04/16/21 10:32 metoclopramide [From Reglan] AdvReac Unknown Verified 04/16/21 10:33 nitrofurantoin AdvReac Vomiting Verified 04/16/21 10:34 [From Macrobid] Home Medications Medication Instructions Recorded Confirmed Last Taken Type Furosemide [Lasix TAB] 40 mg PO QDAY #30 tablet 05/29/21 07/30/21 Unknown Rx Multivitamin Tab [Multiple Vitamin 1 each PO QDAY #30 tablet 05/29/21 07/30/21 Unknown Rx TAB (Theragran)] Spironolactone [Aldactone] 25 mg PO QDAY 07/30/21 07/30/21 Unknown History methOCARBAMOL [Robaxin TAB] 500 mg PO TID 07/30/21 07/30/21 Unknown History Active Meds: Active Medications Ferrous Sulfate (Ferrous Sulfate 325 Mg Tab) 325 mg PO QDAY BRANT Multivitamins (Multivitamins ,Therapeutic Tab) 1 each PO QDAY [facility] Review of Systems Constitutional: fatigue, weakness Ears, nose, mouth and throat: no epistaxis, no bleeding gums Cardiovascular: edema, shortness of breath, leg edema, no chest pain Gastrointestinal: abdominal pain, no melena Rectal: no hemorrhoids Integumentary: no rash, no pruritis Psychiatric: anxiety Hematologic/Lymphatic: no easy bruising, no easy bleeding, no lymphadenopathy, no lymphedema Allergic/Immunologic: no urticaria, no allergic rhinitis Exam - Constitutional Vitals: Temp Pulse Resp BP Pulse Ox 98.8 F 74 19 126/56 100 07/29/21 18:50 07/29/21 18:00 07/29/21 18:00 07/29/21 18:00 07/29/21 18:50 General appearance: Present: mild distress, well-nourished - EENT Eyes: Present: PERRL ENT: hearing intact, clear oral mucosa - Neck Neck: Present: supple, normal ROM - Respiratory Respiratory effort: normal Respiratory: bilateral: CTA - Cardiovascular Heart Sounds: Present: S1 & S2. Absent: rub, click - Extremities Extremities: pulses symmetrical, No edema Peripheral Pulses: within normal limits - Abdominal General gastrointestinal: Present: soft, tender, distended, normal bowel sounds Female genitourinary: Present: normal - Integumentary Integumentary: Present: clear, warm, dry - Musculoskeletal Musculoskeletal: strength equal bilaterally, generalized weakness, other (Bilateral leg edema with blistering likely due to third spacing) - Psychiatric Psychiatric: appropriate mood/affect, intact judgment & insight, cooperative - Neurologic Neurologic: CNII-XII intact, moves all extremities - Allied Health Allied health notes reviewed: nursing Results - Labs CBC & Chem 7: 07/29/21 18:34 07/29/21 18:34 Labs: Abnormal lab results 07/29/21 07/29/21 07/29/21 Range/Units 18:34 18:34 18:34 RBC 2.42 L (3.65-5.03) M/mm3 Hgb 8.0 L (10.1-14.3) gm/dl Hct 22.9 L (30.3-42.9) % MCH 33 H (28-32) pg MCHC 35 H (30-34) % RDW 20.4 H (13.2-15.2) % [place] % (Auto) 8.5 H (0.0-7.3) % Seg Neutrophils % 70.7 H (40.0-70.0) % PT 21.8 H (12.2-14.9) Sec. INR 1.72 H (0.87-1.13) Sodium 136 L (137-145) mmol/L Carbon Dioxide 19 L (22-30) mmol/L BUN 72 H (7-17) mg/dL Creatinine 3.5 H (0.6-1.2) mg/dL Glucose 149 H (65-100) mg/dL Calcium 7.6 L (8.4-10.2) mg/dL Magnesium 2.40 H (1.7-2.3) mg/dL Total Bilirubin 1.60 H (0.1-1.2) mg/dL AST 58 H (5-40) units/L Total Creatine Kinase 219 H (30-135) units/L NT-Pro-B Natriuret Pep 1495 H (0-900) pg/mL Albumin 2.4 L (3.9-5) g/dL Assessment and Plan - Patient Problems (1) AIDAN (acute kidney injury) Current Visit: No Status: Acute Plan to address problem: Monitor kidney function Avoid nephrotoxic drugs Consult master tax advisor Renal ultrasound (2) Abdominal distention Current Visit: No Status: Acute Plan to address problem: Secondary to cirrhosis of the liver GI consulted We will consult interventional radiology for likely paracentesis (3) Advanced cirrhosis of liver Current Visit: No Status: Acute Plan to address problem: Supportive care (4) Anasarca Current Visit: No Status: Acute Plan to address problem: Continue current diuretic (5) Anemia Current Visit: No Status: Acute Plan to address problem: Monitor H&H Iron and multivitamin supplement We will transfuse packed red blood cells if H&H is less than 7 (6) Urinary tract infection Current Visit: Yes Status: Acute Plan to address problem: Empiric antibiotic with Rocephin (7) Severe protein-calorie malnutrition Current Visit: No Status: Acute Plan to address problem: Low serum protein likely secondary to liver disease Consult horser up Encourage oral intake (8) Ascites Current Visit: No Status: Chronic Plan to address problem: Interventional radiology consult for possible paracentesis (9) Elevated brain natriuretic peptide (BNP) level Current Visit: Yes Status: Acute Plan to address problem: Likely secondary to CHF Continue current medical care as diuretics Echo cardiogramfollow-up with results Cardiology consult (10) DVT prophylaxis Current Visit: Yes Status: Acute Plan to address problem: SCD
[2021-07-29] MEDS ORDERED: MAGNESIUM HYDROXIDE (MOM) ORAL LIQD UDC PO PRN (20:04)
[2021-07-29] MEDS ORDERED: ACETAMINOPHEN 325 MG TAB PO PRN (20:04)
[2021-07-29] MEDS ORDERED: oxyCODONE /ACETAMINOPHEN 5-325MG TAB PO PRN (20:04)
[2021-07-29] MEDS ORDERED: NALOXONE 0.4 MG/1 ML INJ IV PRN (20:04)
[2021-07-29] MEDS ORDERED: MORPHINE 4 MG/1 ML INJ IV PRN (20:04)
[2021-07-29] MEDS ORDERED: METOCLOPRAMIDE 10 MG/2 ML INJ IV PRN (20:04)
[2021-07-29] MEDS ORDERED: ALUM-MAG HYDROXIDE-SIMETHICONE 200-200-20MG/5ML ORAL LIQD 30 ML PO PRN (20:04)
[2021-07-29] MEDS ORDERED: SENNOSIDES 8.6 MG TAB PO PRN (20:04)
[2021-07-29] MEDS: MULTIVITAMINS ,THERAPEUTIC TAB PO SCH (20:47)
[2021-07-29] MEDS: FERROUS SULFATE 325 MG TAB PO SCH (20:47)
--- NOTE | 2021-07-29 21:00 | XRay Report ---
CHEST 1 VIEW INDICATION: Weakness dyspnea. COMPARISON: 07/02/2021 FINDINGS: Support devices: None. Heart: Normal. Lungs/Pleura: There are mild diffuse bilateral pulmonary opacities that are predominantly interstitia l. No pneumothorax. There is a small right pleural effusion. IMPRESSION: 1. Mild diffuse interstitial opacities and small right pleural effusion. These findings could be due to mild congestive failure. However, lower airways disease with a reactive pleural effusion could hav e this appearance. Signer Name: Jalen Vazquez MD Signed: 07/29/2021 8:56 PM Workstation Name: [id number]
[2021-07-30] MEDS: ONDANSETRON 4 MG/2 ML INJ IV PRN ×2 (01:54→22:36)
[2021-07-30] MEDS: MORPHINE 2 MG/1 ML INJ IV PRN (01:54)
[2021-07-30 04:01] LABS: Bilirubin,Urine NEG (Negative); Blood,Urine LG (Negative); Color,Urine Yellow (Yellow); Mucus,Urine FEW /HPF; Protein,Urine <15 mg/dL mg/dL (Negative)
[2021-07-30 06:32] LABS: Basophils # (Auto) 0.1 K/mm3 (0.0-0.1); Basophils % (Auto) 0.9 % (0.0-1.8); Eosinophils # (Auto) 0.3 K/mm3 (0.0-0.4); Eosinophils % (Auto) 3.6 % (0.0-4.3); Hematocrit 23.1 % (30.3-42.9); Hemoglobin 7.9 gm/dl (10.1-14.3); Lymphocytes # (Auto) 1.5 K/mm3 (1.2-5.4); Lymphocytes % (Auto) 21.1 % (13.4-35.0); Mean Corpuscular HGB Conc 34 % (30-34); Mean Corpuscular Volume 94 fl (79-97); Monocytes # (Auto) 0.7 K/mm3 (0.0-0.8); Monocytes % (Auto) 9.4 % (0.0-7.3); Platelet Count 143 K/mm3 (140-440); Red Blood Count 2.45 M/mm3 (3.65-5.03)
[2021-07-30 06:35] LABS: Red Cell Distribution Width 20.2 % (13.2-15.2)
[2021-07-30 07:25] LABS: Albumin 2.2 g/dL (3.9-5); Calcium 7.6 mg/dL (8.4-10.2)
--- NOTE | 2021-07-30 08:10 | Gastroenterology Consultation ---
History of Present Illness - Reason for Consult Consult date: 07/30/21 ascites, cirrhosis Requesting physician: ABHINAV HARDIN - History of Present Illness This is a 60 yo F with significant PMH decompensated hep C cirrhosis, CHF, and CKD presenting with sob and abdominal distension with ascites. She had similar symptoms in the past requiring paracentesis. Last admission requiring paracentesis at [facility] recently discharged on 07/22/2021. Reports being compliant with her home medications. Pt is a regular pt of Dr. Desai with [facility]. Pt has upcoming appointment with [place] glass lined tank repairer on 08/23/21. patient had paracentesis today and feels better. medication list reviewed. Past History Past Medical History: heart failure, liver disease, renal failure Past Surgical History: No surgical history Social history: Lives alone, full code. denies: smoking, IV drug use Family history: no significant family history Medications and Allergies Allergies Allergy/AdvReac Type Severity Reaction Status Date / Time NSAIDS (Non-Steroidal Allergy Anaphylaxis Verified 04/16/21 10:33 Anti-Inflamma Quinolones Allergy Anaphylaxis Verified 04/16/21 10:32 metoclopramide [From Reglan] AdvReac Unknown Verified 04/16/21 10:33 nitrofurantoin AdvReac Vomiting Verified 04/16/21 10:34 [From Macrobid] Home Medications Medication Instructions Recorded Confirmed Last Taken Type Furosemide [Lasix TAB] 40 mg PO QDAY #30 tablet 05/29/21 07/30/21 Unknown Rx Multivitamin Tab [Multiple Vitamin 1 each PO QDAY #30 tablet 05/29/21 07/30/21 Unknown Rx TAB (Theragran)] Spironolactone [Aldactone] 25 mg PO QDAY 07/30/21 07/30/21 Unknown History methOCARBAMOL [Robaxin TAB] 500 mg PO TID 07/30/21 07/30/21 Unknown History Active Meds: Active Medications Acetaminophen (Acetaminophen 325 Mg Tab) 650 mg PO Q4H PRN PRN Reason: Pain MILD(1-3)/Fever >100.5/ABEL Hydrocodone Bitart/Acetaminophen (Hydrocodone/Acetaminophen 5-325 Mg Tab) 2 each PO Q6H PRN PRN Reason: Pain, Moderate (4-6) Al Hydrox/Mg Hydrox/Simethicone (Alum-Mag Hydroxide-Simethicone [id number]/5ml Oral Liqd 30 Ml) 30 ml PO Q4H PRN PRN Reason: Indigestion Ferrous Sulfate (Ferrous Sulfate 325 Mg Tab) 325 mg PO QDAY [facility] Last Admin: 07/29/21 20:47 Dose: 325 mg Documented by: Furosemide (Furosemide 40 Mg Tab) 40 mg PO QDAY [facility] Ceftriaxone Sodium (Rocephin/Ns 1 Gm/50 Ml) 1 gm in 50 mls @ 100 mls/hr IV Q24H [facility]; Protocol Stop: 08/05/21 06:59 Magnesium Hydroxide (Magnesium Hydroxide (Mom) Oral Liqd Udc) 30 ml PO Q4H PRN PRN Reason: Constipation Methocarbamol (Methocarbamol 500 Mg Tab) 500 mg PO TID [facility] Morphine Sulfate (Morphine 2 Mg/1 Ml Inj) 2 mg IV Q4H PRN PRN Reason: Pain, Moderate (4-6) Last Admin: 07/30/21 01:54 Dose: 2 mg Documented by: Morphine Sulfate (Morphine 4 Mg/1 Ml Inj) 4 mg IV Q4H PRN PRN Reason: Pain , Severe (7-10) Multivitamins (Multivitamins ,Therapeutic Tab) 1 each PO QDAY [facility] Last Admin: 07/29/21 20:47 Dose: 1 each Documented by: Naloxone HCl (Naloxone 0.4 Mg/1 Ml Inj) 0.1 mg IV Q2MIN PRN PRN Reason: Res Rate </= 8 or 02 SAT < 92% Ondansetron HCl (Ondansetron 4 Mg/2 Ml Inj) 4 mg IV Q8H PRN PRN Reason: Nausea And Vomiting Last Admin: 07/30/21 01:54 Dose: 4 mg Documented by: Oxycodone/Acetaminophen (Oxycodone /Acetaminophen 5-325mg Tab) 1 tab PO Q6H PRN PRN Reason: Pain, Moderate (4-6) Last Admin: 07/30/21 04:57 Dose: 1 tab Documented by: Senna (Sennosides 8.6 Mg Tab) 8.6 mg PO Q12HR PRN PRN Reason: Constipation Sodium Chloride (Sodium Chloride 0.9% 10 Ml Flush Syringe) 10 ml IV BID [facility] Last Admin: 07/29/21 22:09 Dose: 10 ml Documented by: Spironolactone (Spironolactone 25 Mg Tab) 25 mg PO QDAY [facility] Review of Systems - Review of Systems All systems: negative Constitutional: no weight loss, no weight gain Cardiovascular: no chest pain Gastrointestinal: abdominal pain, nausea, no vomiting, no coffee ground emesis, no hematochezia Neurological: weakness Endocrine: no cold intolerance Hematologic/Lymphatic: no easy bruising Allergic/Immunologic: no wheezing Exam - Constitutional Vital Signs: Temp Pulse Resp BP Pulse Ox 97.3 F L 77 20 116/47 100 07/30/21 06:13 07/30/21 01:30 07/30/21 06:13 07/30/21 06:13 07/30/21 01:30 General appearance: no acute distress - EENT Eyes: EOM intact ENT: hearing intact - Respiratory Respiratory effort: normal Respiratory: bilateral: CTA - Cardiovascular Rhythm: regular Heart Sounds: Present: S1 & S2 - Gastrointestinal General gastrointestinal: Present: soft, non-tender, distended - Integumentary Integumentary: Present: clear, warm - Psychiatric Psychiatric: appropriate mood/affect - Labs CBC & Chem 7: 07/30/21 06:10 07/30/21 06:10 Lab Results: Laboratory Results - last 24 hr 07/29/21 07/29/21 07/29/21 18:34 18:34 18:34 WBC 7.6 RBC 2.42 L Hgb 8.0 L Hct 22.9 L MCV 95 MCH 33 H MCHC 35 H RDW 20.4 H Plt Count 154 Lymph % (Auto) 16.6 [place] % (Auto) 8.5 H Eos % (Auto) 3.0 Baso % (Auto) 1.2 Lymph # (Auto) 1.3 [place] # (Auto) 0.6 Eos # (Auto) 0.2 Baso # (Auto) 0.1 Seg Neutrophils % 70.7 H Seg Neutrophils # 5.3 PT 21.8 H INR 1.72 H Sodium 136 L Potassium 4.4 Chloride 101.4 Carbon Dioxide 19 L Anion Gap 20 BUN 72 H Creatinine 3.5 H Estimated GFR 13 BUN/Creatinine Ratio 21 Glucose 149 H Calcium 7.6 L Phosphorus Magnesium 2.40 H Total Bilirubin 1.60 H AST 58 H ALT 19 Alkaline Phosphatase 121 Ammonia Total Creatine Kinase 219 H NT-Pro-B Natriuret Pep 1495 H Total Protein 6.5 Albumin 2.4 L Albumin/Globulin Ratio 0.6 TSH Urine Color Urine Turbidity Urine pH Ur Specific [place] Urine Protein Urine Glucose (UA) Urine Ketones Urine Blood Urine Nitrite Urine Bilirubin Urine Urobilinogen Ur Leukocyte Esterase Urine WBC (Auto) Urine RBC (Auto) U Epithel Cells (Auto) Urine Mucus Urine Yeast (Budding) 07/29/21 07/29/21 07/30/21 18:34 18:34 03:45 WBC RBC Hgb Hct MCV MCH MCHC RDW Plt Count Lymph % (Auto) [place] % (Auto) Eos % (Auto) Baso % (Auto) Lymph # (Auto) [place] # (Auto) Eos # (Auto) Baso # (Auto) Seg Neutrophils % Seg Neutrophils # PT INR Sodium Potassium Chloride Carbon Dioxide Anion Gap BUN Creatinine Estimated GFR BUN/Creatinine Ratio Glucose Calcium Phosphorus Magnesium Total Bilirubin AST ALT Alkaline Phosphatase Ammonia 30.0 Total Creatine Kinase NT-Pro-B Natriuret Pep Total Protein Albumin Albumin/Globulin Ratio TSH 3.330 Urine Color Yellow Urine Turbidity Slightly-cloudy Urine pH 5.0 Ur Specific [place] 1.011 Urine Protein <15 mg/dl Urine Glucose (UA) Neg Urine Ketones Neg Urine Blood Lg Urine Nitrite Neg Urine Bilirubin Neg Urine Urobilinogen 2.0 Ur Leukocyte Esterase Lg Urine WBC (Auto) 59.0 H Urine RBC (Auto) 21.0 U Epithel Cells (Auto) 1.0 Urine Mucus Few Urine Yeast (Budding) 1+ 07/30/21 07/30/21 06:10 06:10 WBC 7.2 RBC 2.45 L Hgb 7.9 L Hct 23.1 L MCV 94 MCH 32 MCHC 34 RDW 20.2 H Plt Count 143 Lymph % (Auto) 21.1 [place] % (Auto) 9.4 H Eos % (Auto) 3.6 Baso % (Auto) 0.9 Lymph # (Auto) 1.5 [place] # (Auto) 0.7 Eos # (Auto) 0.3 Baso # (Auto) 0.1 Seg Neutrophils % 65.0 Seg Neutrophils # 4.7 PT INR Sodium 135 L Potassium 4.9 Chloride 100.9 Carbon Dioxide 19 L Anion Gap 20 BUN 74 H Creatinine 3.4 H Estimated GFR 14 BUN/Creatinine Ratio 22 Glucose 104 H Calcium 7.6 L Phosphorus 6.90 H Magnesium 2.40 H Total Bilirubin 1.70 H AST 57 H ALT 19 Alkaline Phosphatase 124 Ammonia Total Creatine Kinase NT-Pro-B Natriuret Pep Total Protein 6.5 Albumin 2.2 L Albumin/Globulin Ratio 0.5 TSH Urine Color Urine Turbidity Urine pH Ur Specific [place] Urine Protein Urine Glucose (UA) Urine Ketones Urine Blood Urine Nitrite Urine Bilirubin Urine Urobilinogen Ur Leukocyte Esterase Urine WBC (Auto) Urine RBC (Auto) U Epithel Cells (Auto) Urine Mucus Urine Yeast (Budding) Assessment and Plan 60 yo F with significant PMH decompensated hep C cirrhosis, CHF, and CKD # Cirrhosis # Ascites - decompensated with ascites. - s/p paracentesis on 07/30/2021 - multiple admissions with ascites. - also AIDAN. nephrology. Rec - follow up with nephrology regarding diuresis given AIDAN. - monitor CMP and INR - Follow up in outpatient GI clinic with Dr. desai. - Patient Problems (1) Advanced cirrhosis of liver Current Visit: No Status: Acute
--- NOTE | 2021-07-30 08:20 | Ultrasound Report ---
ULTRASOUND RENAL INDICATION / CLINICAL INFORMATION: Kidney failure. COMPARISON: 05/27/2021. FINDINGS: RIGHT KIDNEY: Length = 10 cm. [normal > 9 cm] - Echogenicity: Normal. - Hydronephrosis: None. - Cyst or mass: No significant abnormality. - Stones: None seen. LEFT KIDNEY: Length = 8.9 cm. [normal > 9 cm] - Echogenicity: Normal. - Hydronephrosis: None. - Cyst or mass: No significant abnormality. - Stones: None seen. URINARY BLADDER: Partially visualized. ADDITIONAL FINDINGS: Small to moderate amount of partially visualized ascites. IMPRESSION: No acute findings. Specifically, no evidence of hydronephrosis. Partially visualized small to moderate amount of partially visualized ascites. Signer Name: Artie Taylor MD Signed: 07/30/2021 8:16 AM Workstation Name: [id number]
--- NOTE | 2021-07-30 08:44 | Progress Note ---
Assessment and Plan Assessment and plan: --AIDAN on chronic kidney disease Current Visit: No Status: Acute Monitor kidney function Avoid nephrotoxic drugs Consult meter attendant Renal ultrasound --Abdominal distention/ascites Current Visit: No Status: Acute Secondary to cirrhosis of the liver Ultrasound-guided paracentesis --Advanced cirrhosis of liver Current Visit: No Status: Acute Supportive care -- Anasarca Current Visit: No Status: Acute Continue current diuretic -- Anemia Current Visit: No Status: Acute Monitor H&H Iron and multivitamin supplement We will transfuse packed red blood cells if H&H is less than 7 --Urinary tract infection Current Visit: Yes Status: Acute Empiric antibiotic with Rocephin --Severe protein-calorie malnutrition Current Visit: No Status: Acute Low serum protein likely secondary to liver disease Consult crane oiler Encourage oral intake --Elevated brain natriuretic peptide (BNP) level Current Visit: Yes Status: Acute Likely secondary to CHF Continue current medical care as diuretics Echo cardiogramfollow-up with results Cardiology consult --DVT prophylaxis Current Visit: Yes Status: Acute SCD We will closely monitor the patient and adjust management as needed History Interval history: I have seen and examined the patient at the bedside Patient's chart and medications reviewed. No new complaints Hospitalist Physical - Constitutional Vitals: Temp Pulse Resp BP Pulse Ox 97.3 F L 77 20 116/47 100 07/30/21 06:13 07/30/21 01:30 07/30/21 06:13 07/30/21 06:13 07/30/21 01:30 General appearance: Present: mild distress, well-nourished - EENT Eyes: Present: PERRL, EOM intact - Neck Neck: Present: supple, normal ROM - Respiratory Respiratory effort: normal Respiratory: bilateral: diminished, negative: rales, rhonchi, wheezing - Cardiovascular Rhythm: regular Heart Sounds: Present: S1 & S2 - Extremities Extremities: no ischemia, No edema - Abdominal General gastrointestinal: soft, non-tender, non-distended, normal bowel sounds, other (Ascites) - Integumentary Integumentary: Present: clear, warm - Psychiatric Psychiatric: appropriate mood/affect, cooperative - Neurologic Neurologic: moves all extremities Results - Labs CBC & Chem 7: 07/31/21 09:06 07/31/21 09:06 Labs: Laboratory Last Values WBC 7.2 K/mm3 (4.5-11.0) 07/30/21 06:10 RBC 2.45 M/mm3 (3.65-5.03) L 07/30/21 06:10 Hgb 7.9 gm/dl (10.1-14.3) L 07/30/21 06:10 Hct 23.1 % (30.3-42.9) L 07/30/21 06:10 MCV 94 fl (79-97) 07/30/21 06:10 MCH 32 pg (28-32) 07/30/21 06:10 MCHC 34 % (30-34) 07/30/21 06:10 RDW 20.2 % (13.2-15.2) H 07/30/21 06:10 Plt Count 143 K/mm3 (140-440) 07/30/21 06:10 Lymph % (Auto) 21.1 % (13.4-35.0) 07/30/21 06:10 [place] % (Auto) 9.4 % (0.0-7.3) H 07/30/21 06:10 Eos % (Auto) 3.6 % (0.0-4.3) 07/30/21 06:10 Baso % (Auto) 0.9 % (0.0-1.8) 07/30/21 06:10 Lymph # (Auto) 1.5 K/mm3 (1.2-5.4) 07/30/21 06:10 [place] # (Auto) 0.7 K/mm3 (0.0-0.8) 07/30/21 06:10 Eos # (Auto) 0.3 K/mm3 (0.0-0.4) 07/30/21 06:10 Baso # (Auto) 0.1 K/mm3 (0.0-0.1) 07/30/21 06:10 Seg Neutrophils % 65.0 % (40.0-70.0) 07/30/21 06:10 Seg Neutrophils # 4.7 K/mm3 (1.8-7.7) 07/30/21 06:10 PT 21.8 Sec. (12.2-14.9) H 07/29/21 18:34 INR 1.72 (0.87-1.13) H 07/29/21 18:34 Sodium 135 mmol/L (137-145) L 07/30/21 06:10 Potassium 4.9 mmol/L (3.6-5.0) 07/30/21 06:10 Chloride 100.9 mmol/L (98-107) 07/30/21 06:10 Carbon Dioxide 19 mmol/L (22-30) L 07/30/21 06:10 Anion Gap 20 mmol/L 07/30/21 06:10 BUN 74 mg/dL (7-17) H 07/30/21 06:10 Creatinine 3.4 mg/dL (0.6-1.2) H 07/30/21 06:10 Estimated GFR 14 ml/min 07/30/21 06:10 BUN/Creatinine Ratio 22 % 07/30/21 06:10 Glucose 104 mg/dL (65-100) H 07/30/21 06:10 Calcium 7.6 mg/dL (8.4-10.2) L 07/30/21 06:10 Phosphorus 6.90 mg/dL (2.5-4.5) H 07/30/21 06:10 Magnesium 2.40 mg/dL (1.7-2.3) H 07/30/21 06:10 Total Bilirubin 1.70 mg/dL (0.1-1.2) H 07/30/21 06:10 AST 57 units/L (5-40) H 07/30/21 06:10 ALT 19 units/L (7-56) 07/30/21 06:10 Alkaline Phosphatase 124 units/L (35-129) 07/30/21 06:10 Ammonia 30.0 umol/L (25-60) 07/29/21 18:34 Total Creatine Kinase 219 units/L (30-135) H 07/29/21 18:34 NT-Pro-B Natriuret Pep 1495 pg/mL (0-900) H 07/29/21 18:34 Total Protein 6.5 g/dL (6.3-8.2) 07/30/21 06:10 Albumin 2.2 g/dL (3.9-5) L 07/30/21 06:10 Albumin/Globulin Ratio 0.5 % 07/30/21 06:10 TSH 3.330 mlU/mL (0.270-4.200) 07/29/21 18:34 Urine Color Yellow (Yellow) 07/30/21 03:45 Urine Turbidity Slightly-cloudy (Clear) 07/30/21 03:45 Urine pH 5.0 (5.0-7.0) 07/30/21 03:45 Ur Specific [place] 1.011 (1.003-1.030) 07/30/21 03:45 Urine Protein <15 mg/dl mg/dL (Negative) 07/30/21 03:45 Urine Glucose (UA) Neg mg/dL (Negative) 07/30/21 03:45 Urine Ketones Neg mg/dL (Negative) 07/30/21 03:45 Urine Blood Lg (Negative) 07/30/21 03:45 Urine Nitrite Neg (Negative) 07/30/21 03:45 Urine Bilirubin Neg (Negative) 07/30/21 03:45 Urine Urobilinogen 2.0 mg/dL (<2.0) 07/30/21 03:45 Ur Leukocyte Esterase Lg (Negative) 07/30/21 03:45 Urine WBC (Auto) 59.0 /HPF (0.0-6.0) H 07/30/21 03:45 Urine RBC (Auto) 21.0 /HPF (0.0-6.0) 07/30/21 03:45 U Epithel Cells (Auto) 1.0 /HPF (0-13.0) 07/30/21 03:45 Urine Mucus Few /HPF 07/30/21 03:45 Urine Yeast (Budding) 1+ /HPF 07/30/21 03:45 Active Medications - Current Medications Current Medications: Generic Name Dose Route Start Last Admin Trade Name Freq PRN Reason Stop Dose Admin Acetaminophen 650 mg 07/29/21 20:04 Acetaminophen 325 Mg Tab PO Q4H PRN Pain MILD(1-3)/Fever >100.5/ABEL Hydrocodone Bitart/Acetaminophen 2 each 07/29/21 20:04 Hydrocodone/Acetaminophen 5-325 Mg Tab PO Q6H PRN Pain, Moderate (4-6) Al Hydrox/Mg Hydrox/Simethicone 30 ml 07/29/21 20:04 Alum-Mag Hydroxide-Simethicone [phone]/5ml Oral Liqd 30 Ml PO Q4H PRN Indigestion Ferrous Sulfate 325 mg 07/29/21 20:00 07/29/21 20:47 Ferrous Sulfate 325 Mg Tab PO 325 mg QDAY BRANT Administration Furosemide 40 mg 07/30/21 10:00 Furosemide 40 Mg Tab PO QDAY [facility] Ceftriaxone Sodium 1 gm in 50 mls @ 100 mls/hr 07/30/21 06:00 Rocephin/Ns 1 Gm/50 Ml IV 08/05/21 06:59 Q24H [facility] Protocol Magnesium Hydroxide 30 ml 07/29/21 20:04 Magnesium Hydroxide (Mom) Oral Liqd Udc PO Q4H PRN Constipation Methocarbamol 500 mg 07/30/21 08:00 Methocarbamol 500 Mg Tab PO TID BRANT Morphine Sulfate 2 mg 07/29/21 20:04 07/30/21 01:54 Morphine 2 Mg/1 Ml Inj IV 2 mg Q4H PRN Administration Pain, Moderate (4-6) Morphine Sulfate 4 mg 07/29/21 20:04 Morphine 4 Mg/1 Ml Inj IV Q4H PRN Pain , Severe (7-10) Multivitamins 1 each 07/29/21 20:00 07/29/21 20:47 Multivitamins ,Therapeutic Tab PO 1 each QDAY BRANT Administration Naloxone HCl 0.1 mg 07/29/21 20:04 Naloxone 0.4 Mg/1 Ml Inj IV Q2MIN PRN Res Rate </= 8 or 02 SAT < 92% Ondansetron HCl 4 mg 07/29/21 20:04 07/30/21 01:54 Ondansetron 4 Mg/2 Ml Inj IV 4 mg Q8H PRN Administration Nausea And Vomiting Oxycodone/Acetaminophen 1 tab 07/29/21 20:04 07/30/21 04:57 Oxycodone /Acetaminophen 5-325mg Tab PO 1 tab Q6H PRN Administration Pain, Moderate (4-6) Senna 8.6 mg 07/29/21 20:04 Sennosides 8.6 Mg Tab PO Q12HR PRN Constipation Sodium Chloride 10 ml 07/29/21 22:00 07/29/21 22:09 Sodium Chloride 0.9% 10 Ml Flush Syringe IV 10 ml BID BRANT Administration Spironolactone 25 mg 07/30/21 10:00 Spironolactone 25 Mg Tab PO QDAY [facility]
[2021-07-30] MEDS: MULTIVITAMINS ,THERAPEUTIC TAB PO SCH (09:00)
[2021-07-30] MEDS: FUROSEMIDE 40 MG TAB PO SCH (09:01)
[2021-07-30] MEDS: SPIRONOLACTONE 25 MG TAB PO SCH (09:01)
[2021-07-30] MEDS: FERROUS SULFATE 325 MG TAB PO SCH (09:01)
--- NOTE | 2021-07-30 10:17 | Event Note ---
Date: 07/30/21 Vascular and interventional radiology does not perform routine paracentesis at [facility]. Diagnostic radiology performs routine paracentesis at [facility]. Please coordinate with diagnostic radiology for paracentesis. Placed order to assist with care, but please order US paracentesis in the future and coordinate with diagnostic radiology.
--- NOTE | 2021-07-30 11:01 | Electrocardiograph Report ---
[facility] Test Date: 2021-07-29 Test Time: 18:40:46 Pat Name: MAURICE HUDSON Department: Room: A377 1 Gender: F Fire Alarm Inspector: jean : 1960 Requested By: PAWEL TORRES Order Number: [id number] Reading MD: Sridhar Bright Measurements Intervals [place] Rate: 75 P: 55 ND: 202 QRS: -14 QRSD: 102 T: 66 QT: 405 QTc: 453 Interpretive Statements Sinus rhythm Borderline prolonged ND interval Low voltage, precordial leads Nonspecific T abnrm, anterolateral leads Compared to ECG 06/02/2021 13:06:48 Low QRS voltage now present no significant change noted. Electronically Signed On 07-30-2021 11:00:29 EDT by Sridhar Bright
[2021-07-30] MEDS: HYDROcodone/ACETAMINOPHEN 5-325 MG TAB PO PRN (14:02)
--- NOTE | 2021-07-30 14:47 | Consultation ---
History of Present Illness Consult date: 07/30/21 Requesting physician: PILAR SINGH Consult reason: congestive heart failure History of present illness: Patient is a 60-year-old female with a past medical history of hepatitis C, liver cirrhosis, and CKD presented to the ED with a complaint of abdominal distention, SOB, and edema x2 - 3 days. Patient states that this year she having more episodes of retaining more fluid around her stomach and that she has to come to the hospital to have the fluid drained. She denies any exacerbating factors. Patient also reports bilateral lower extremity edema. She denies any chest pain, palpitations, lightheadedness or PND. Of note patient was recently admitted to [facility] on 07/18/2021 and discharged on 07/22/2021 for similar complaints. At [place] patient underwent paracentesis. Patient is previously known to our practice. Cardiology is consulted for evaluation of heart failure. Past History Past Medical History: heart failure, liver disease, renal failure Past Surgical History: No surgical history Social history: Lives alone, full code. denies: smoking, IV drug use Family history: no significant family history Medications and Allergies Allergies Allergy/AdvReac Type Severity Reaction Status Date / Time NSAIDS (Non-Steroidal Allergy Anaphylaxis Verified 04/16/21 10:33 Anti-Inflamma Quinolones Allergy Anaphylaxis Verified 04/16/21 10:32 metoclopramide [From Reglan] AdvReac Unknown Verified 04/16/21 10:33 nitrofurantoin AdvReac Vomiting Verified 04/16/21 10:34 [From Macrobid] Home Medications Medication Instructions Recorded Confirmed Last Taken Type Furosemide [Lasix TAB] 40 mg PO QDAY #30 tablet 05/29/21 07/30/21 Unknown Rx Multivitamin Tab [Multiple Vitamin 1 each PO QDAY #30 tablet 05/29/21 07/30/21 Unknown Rx TAB (Theragran)] Spironolactone [Aldactone] 25 mg PO QDAY 07/30/21 07/30/21 Unknown History methOCARBAMOL [Robaxin TAB] 500 mg PO TID 07/30/21 07/30/21 Unknown History Active Meds: Active Medications Acetaminophen (Acetaminophen 325 Mg Tab) 650 mg PO Q4H PRN PRN Reason: Pain MILD(1-3)/Fever >100.5/ABEL Hydrocodone Bitart/Acetaminophen (Hydrocodone/Acetaminophen 5-325 Mg Tab) 2 each PO Q6H PRN PRN Reason: Pain, Moderate (4-6) Last Admin: 07/30/21 14:02 Dose: 2 each Documented by: Al Hydrox/Mg Hydrox/Simethicone (Alum-Mag Hydroxide-Simethicone 689-019-80wh/5ml Oral Liqd 30 Ml) 30 ml PO Q4H PRN PRN Reason: Indigestion Ferrous Sulfate (Ferrous Sulfate 325 Mg Tab) 325 mg PO QDAY [facility] Last Admin: 07/30/21 09:01 Dose: 325 mg Documented by: Furosemide (Furosemide 40 Mg Tab) 40 mg PO QDAY [facility] Last Admin: 07/30/21 09:01 Dose: 40 mg Documented by: Ceftriaxone Sodium (Rocephin/Ns 1 Gm/50 Ml) 1 gm in 50 mls @ 100 mls/hr IV Q24H [facility]; Protocol Stop: 08/05/21 06:59 Magnesium Hydroxide (Magnesium Hydroxide (Mom) Oral Liqd Udc) 30 ml PO Q4H PRN PRN Reason: Constipation Methocarbamol (Methocarbamol 500 Mg Tab) 500 mg PO TID [facility] Last Admin: 07/30/21 14:02 Dose: 500 mg Documented by: Morphine Sulfate (Morphine 2 Mg/1 Ml Inj) 2 mg IV Q4H PRN PRN Reason: Pain, Moderate (4-6) Last Admin: 07/30/21 01:54 Dose: 2 mg Documented by: Morphine Sulfate (Morphine 4 Mg/1 Ml Inj) 4 mg IV Q4H PRN PRN Reason: Pain , Severe (7-10) Multivitamins (Multivitamins ,Therapeutic Tab) 1 each PO QDAY [facility] Last Admin: 07/30/21 09:00 Dose: 1 each Documented by: Naloxone HCl (Naloxone 0.4 Mg/1 Ml Inj) 0.1 mg IV Q2MIN PRN PRN Reason: Res Rate </= 8 or 02 SAT < 92% Ondansetron HCl (Ondansetron 4 Mg/2 Ml Inj) 4 mg IV Q8H PRN PRN Reason: Nausea And Vomiting Last Admin: 07/30/21 01:54 Dose: 4 mg Documented by: Oxycodone/Acetaminophen (Oxycodone /Acetaminophen 5-325mg Tab) 1 tab PO Q6H PRN PRN Reason: Pain, Moderate (4-6) Last Admin: 07/30/21 04:57 Dose: 1 tab Documented by: Senna (Sennosides 8.6 Mg Tab) 8.6 mg PO Q12HR PRN PRN Reason: Constipation Sodium Chloride (Sodium Chloride 0.9% 10 Ml Flush Syringe) 10 ml IV BID [facility] Last Admin: 07/30/21 09:02 Dose: 10 ml Documented by: Spironolactone (Spironolactone 25 Mg Tab) 25 mg PO QDAY [facility] Last Admin: 07/30/21 09:01 Dose: 25 mg Documented by: Review of Systems Constitutional: poor appetite, no fever, no chills, no sweats Ears, nose, mouth and throat: no nasal congestion, no nasal discharge, no sinus pressure Cardiovascular: shortness of breath, dyspnea on exertion, leg edema, no chest pa in, no orthopnea, no palpitations, no rapid/irregular heart beat Respiratory: shortness of breath, dyspnea on exertion, no cough with sputum, no excessive sputum Gastrointestinal: no abdominal pain, no nausea, no vomiting, no diarrhea Musculoskeletal: no neck stiffness, no neck pain, no shooting arm pain Integumentary: no rash, no pruritis, no redness Neurological: no paralysis, no weakness, no parathesias Psychiatric: no anxiety, no memory loss Endocrine: no cold intolerance, no heat intolerance, no nocturia Hematologic/Lymphatic: no easy bruising, no easy bleeding Physical Examination Vital Signs Pulse Resp BP Pulse Ox 74 19 126/56 100 07/29/21 18:00 07/29/21 18:00 07/29/21 18:00 07/29/21 18:00 General appearance: no acute distress HEENT: Positive: PERRL Neck: Positive: trachea midline Cardiac: Positive: Reg Rate and Rhythm Lungs: Positive: Normal Breath Sounds Neuro: Positive: Grossly Intact Abdomen: Positive: Ascites Skin: Negative: Rash, Suspicious Lesions Extremities: Present: upper extr. pulses, lower extr. pulses, edema Results 07/30/21 06:10 07/30/21 06:10 Cardiac Enzymes 07/29/21 07/30/21 Range/Units 18:34 06:10 AST 58 H 57 H (5-40) units/L Coagulation 07/29/21 Range/Units 18:34 PT 21.8 H (12.2-14.9) Sec. INR 1.72 H (0.87-1.13) CBC 07/29/21 07/30/21 Range/Units 18:34 06:10 WBC 7.6 7.2 (4.5-11.0) K/mm3 RBC 2.42 L 2.45 L (3.65-5.03) M/mm3 Hgb 8.0 L 7.9 L (10.1-14.3) gm/dl Hct 22.9 L 23.1 L (30.3-42.9) % Plt Count 154 143 (140-440) K/mm3 Lymph # (Auto) 1.3 1.5 (1.2-5.4) K/mm3 Nash # (Auto) 0.6 0.7 (0.0-0.8) K/mm3 Eos # (Auto) 0.2 0.3 (0.0-0.4) K/mm3 Baso # (Auto) 0.1 0.1 (0.0-0.1) K/mm3 Comprehensive Metabolic Panel 07/29/21 07/30/21 Range/Units 18:34 06:10 Sodium 136 L 135 L (137-145) mmol/L Potassium 4.4 4.9 (3.6-5.0) mmol/L Chloride 101.4 100.9 (98-107) mmol/L Carbon Dioxide 19 L 19 L (22-30) mmol/L BUN 72 H 74 H (7-17) mg/dL Creatinine 3.5 H 3.4 H (0.6-1.2) mg/dL Glucose 149 H 104 H (65-100) mg/dL Calcium 7.6 L 7.6 L (8.4-10.2) mg/dL AST 58 H 57 H (5-40) units/L ALT 19 19 (7-56) units/L Alkaline Phosphatase 121 124 (35-129) units/L Total Protein 6.5 6.5 (6.3-8.2) g/dL Albumin 2.4 L 2.2 L (3.9-5) g/dL - Imaging and Cardiology Echo: report reviewed EKG: report reviewed, image reviewed EKG interpretations - Telemetry EKG Rhythm: Sinus Rhythm - EKG Sinus rhythms and dysrhythmias: sinus rhythm Repolarization changes or abnormalities: nonspecific abnormality, ST segment, and/or T wave Assessment and Plan Patient is a 60-year-old female with a past medical history of hepatitis C, liver cirrhosis, and CKD presented to the ED with a complaint of abdominal distention, SOB, and edema x 2-3 days AIDAN on CKD * Neproglogy is following Cirrhosis Hep C Volume overload * GI following Elevated BNP * EKG shows normal sinus rhythm rate 75, nonspecific T wave abnormalities. No acute ischemic changes * Echo 07/29/2021-EF 60-65, normal left ventricular wall thickness normal left ventricular systolic function, normal right ventricular systolic function, left atrium mildly dilated. * BNP noted to be elevated in setting of fluid overload related to patients CKD and chronic cirrhosis Patient cardiac status is stable. Will sign off Patient seen in conjunction with Dr. Bright who agrees with this plan of care - Patient Problems (1) Elevated brain natriuretic peptide (BNP) level Current Visit: Yes Status: Acute (2) Renal insufficiency Current Visit: Yes Status: Acute (3) AIDAN (acute kidney injury) Current Visit: No Status: Acute (4) Abdominal distention Current Visit: No Status: Acute (5) Advanced cirrhosis of liver Current Visit: No Status: Acute (6) Ascites Current Visit: No Status: Acute (7) SOB (shortness of breath) Current Visit: No Status: Acute
--- NOTE | 2021-07-31 08:04 | Discharge Summary ---
Providers - Providers Date of Admission: 07/29/21 19:39 Date of discharge: 07/31/21 Attending physician: ABHINAV AHRDIN 07/30/21 05:40 Consult to Physician [CONS] Routine Comment: Consulting Provider: JEROME GREENBERG Physician Instructions: Reason For Exam: Acute kidney injury 07/30/21 05:43 Consult to Interventional Radiology [CONS] Stat Consulting Provider: NARAYAN CARPENTER Reason For Exam: abdominal ascitis Place consult to:: interventional radialogy Notified:: no Was contact made?: No Time called:: 02:00 07/30/21 05:44 Consult to Physician [CONS] Routine Comment: Consulting Provider: KB MADISON Physician Instructions: Reason For Exam: Ascites 07/30/21 05:50 Consult to Dietitian/Nutrition [CONS] Routine Physician Instructions: Reason For Exam: Reason for Consult: Malnutrition 07/30/21 05:53 Consult to Physician [CONS] Routine Comment: Consulting Provider: ARI CALERO Physician Instructions: Reason For Exam: CHF Primary care physician: [employer]ULT [employer] Hospitalization Condition: Poor Hospital course: (1) AIDAN (acute kidney injury) Current Visit: No Status: Acute Plan to address problem: Monitor kidney function Avoid nephrotoxic drugs Consult emergency services professional Renal ultrasound (2) Abdominal distention Current Visit: No Status: Acute Plan to address problem: Secondary to cirrhosis of the liver GI consulted We will consult interventional radiology for likely paracentesis (3) Advanced cirrhosis of liver Current Visit: No Status: Acute Plan to address problem: Supportive care (4) Anasarca Current Visit: No Status: Acute Plan to address problem: Continue current diuretic (5) Anemia Current Visit: No Status: Acute Plan to address problem: Monitor H&H Iron and multivitamin supplement We will transfuse packed red blood cells if H&H is less than 7 (6) Urinary tract infection Current Visit: Yes Status: Acute Plan to address problem: Empiric antibiotic with Rocephin (7) Severe protein-calorie malnutrition Current Visit: No Status: Acute Plan to address problem: Low serum protein likely secondary to liver disease Consult hand meat salter Encourage oral intake (8) Ascites Current Visit: No Status: Chronic Plan to address problem: Interventional radiology consult for possible paracentesis (9) Elevated brain natriuretic peptide (BNP) level Current Visit: Yes Status: Acute Plan to address problem: No evidence of congestive heart failure/LV ejection fraction normal Elevated BNP due to fluid overload due to cirrhosis liver as well as acute on chronic kidney disease Cardiology cleared for discharge Disposition: HOME HEALTH CARE SERVICE Final Discharge Diagnosis (Prints w/discharge instructions): Worsening ascites. Status post paracentesis/5 L. Acute on chronic kidney disease. Generalized anasarca. Anemia. Cirrhosis liver. Severe protein calorie malnutrition. Ladan vated BNP/echo normal/due to fluid overload Time spent for discharge: 35 min Core Measure Documentation - Palliative Care Palliative Care/ Comfort Measures: Not Applicable - Core Measures Any of the following diagnoses?: none Exam - Constitutional Vitals: Temp Pulse Resp BP Pulse Ox 98.7 F 66 18 102/45 100 07/31/21 05:20 07/31/21 05:20 07/31/21 05:20 07/31/21 05:20 07/31/21 05:20 Plan Activity: advance as tolerated Diet: renal Additional Instructions: If you have worsening symptoms contact MD or go to the nearest emergency room as needed. Advised to follow with primary care physician, GI, nephrology and cardiology per schedule. Strongly advised to comply with medications, diet, follow-up visits Follow up with: PRIMARY CARE, [Primary Care Provider] - 7 Days GURMEET SPIVEY MD [Staff Physician] - 7 Days MARGY ROSA MD [Staff Physician] - 7 Days OLIVIER STORM MD [Staff Physician] - 7 Days Prescriptions: Furosemide [Lasix TAB] 40 mg PO QDAY #30 tablet
[2021-07-31] MEDS ORDERED: ALBUMIN HUMAN 25% (25 GM/100 ML) INJ IV NR (09:00)
[2021-07-31] MEDS: FERROUS SULFATE 325 MG TAB PO SCH (09:23)
[2021-07-31] MEDS: HYDROcodone/ACETAMINOPHEN 5-325 MG TAB PO PRN (09:24)
[2021-07-31] MEDS: MULTIVITAMINS ,THERAPEUTIC TAB PO SCH (09:27)
[2021-07-31] MEDS: FUROSEMIDE 40 MG TAB PO SCH (09:27)
[2021-07-31] MEDS: SPIRONOLACTONE 25 MG TAB PO SCH (09:28)
[2021-07-31 10:15] LABS: Hematocrit 23.4 % (30.3-42.9); Hemoglobin 7.7 gm/dl (10.1-14.3); Mean Corpuscular HGB Conc 33 % (30-34); Mean Corpuscular Volume 94 fl (79-97); Platelet Count 157 K/mm3 (140-440); Red Cell Distribution Width 19.9 % (13.2-15.2)
[2021-07-31 10:23] LABS: INR 1.8 (0.87-1.13)
[2021-07-31 10:35] LABS: Albumin 2.2 g/dL (3.9-5); Calcium 7.3 mg/dL (8.4-10.2)
--- NOTE | 2021-07-31 10:51 | Consultation ---
History of Present Illness - Reason for Consult Consult date: 07/31/21 acute renal failure - History of Present Illness The patient is a 60 YO female with history significant for Hepatitis C, Cir rhosis with Ascites and bedbound status who presented to [facility] ED 07/29 with c/o abdominal distention, shortness of breath, and generalized edema. Patient reports shortness of breath secondary to abdominal distention. Patient gets intermittent paracentesis. Denies cough, fever, chills, N, V, D, abd pain, cp, dysuria or hematuria. Denies NSAID intake. CXr showed diffuse interstitial opacity and small right pleural effusion most likely secondary to congestive heart failure. Urinalysis suggestive of UTI. Labs significant for BUN 79, Creatinine 3.7 and bicarb 17. Nephrology was consulted for evaluation and treatment of AIDAN. Past History Past Medical History: heart failure, liver disease, renal failure Past Surgical History: No surgical history Social history: Lives alone, full code. denies: smoking, IV drug use Family history: no significant family history Medications and Allergies Allergies Allergy/AdvReac Type Severity Reaction Status Date / Time NSAIDS (Non-Steroidal Allergy Anaphylaxis Verified 04/16/21 10:33 Anti-Inflamma Quinolones Allergy Anaphylaxis Verified 04/16/21 10:32 metoclopramide [From Reglan] AdvReac Unknown Verified 04/16/21 10:33 nitrofurantoin AdvReac Vomiting Verified 04/16/21 10:34 [From Macrobid] Home Medications Medication Instructions Recorded Confirmed Last Taken Type Multivitamin Tab [Multiple Vitamin 1 each PO QDAY #30 tablet 05/29/21 07/30/21 Unknown Rx TAB (Theragran)] Spironolactone [Aldactone] 25 mg PO QDAY 07/30/21 07/30/21 Unknown History methOCARBAMOL [Robaxin TAB] 500 mg PO TID 07/30/21 07/30/21 Unknown History Furosemide [Lasix TAB] 40 mg PO QDAY #30 tablet 07/31/21 Unknown Rx Active Meds: Active Medications Acetaminophen (Acetaminophen 325 Mg Tab) 650 mg PO Q4H PRN PRN Reason: Pain MILD(1-3)/Fever >100.5/ABEL Hydrocodone Bitart/Acetaminophen (Hydrocodone/Acetaminophen 5-325 Mg Tab) 2 each PO Q6H PRN PRN Reason: Pain, Moderate (4-6) Last Admin: 10/20/21 09:24 Dose: 2 each Documented by: Al Hydrox/Mg Hydrox/Simethicone (Alum-Mag Hydroxide-Simethicone [phone]/5ml Oral Liqd 30 Ml) 30 ml PO Q4H PRN PRN Reason: Indigestion Albumin Human (Albumin Human 25% (25 Gm/100 Ml) Inj) 25 gm IV ONCE@0900 NR Stop: 07/31/21 14:00 Ferrous Sulfate (Ferrous Sulfate 325 Mg Tab) 325 mg PO QDAY [facility] Last Admin: 07/31/21 09:23 Dose: 325 mg Documented by: Furosemide (Furosemide 40 Mg Tab) 40 mg PO QDAY [facility] Last Admin: 07/31/21 09:27 Dose: 40 mg Documented by: Ceftriaxone Sodium (Rocephin/Ns 1 Gm/50 Ml) 1 gm in 50 mls @ 100 mls/hr IV Q24H [facility]; Protocol Stop: 08/05/21 06:59 Magnesium Hydroxide (Magnesium Hydroxide (Mom) Oral Liqd Udc) 30 ml PO Q4H PRN PRN Reason: Constipation Methocarbamol (Methocarbamol 500 Mg Tab) 500 mg PO TID [facility] Last Admin: 07/31/21 09:24 Dose: 500 mg Documented by: Morphine Sulfate (Morphine 2 Mg/1 Ml Inj) 2 mg IV Q4H PRN PRN Reason: Pain, Moderate (4-6) Last Admin: 07/30/21 01:54 Dose: 2 mg Documented by: Morphine Sulfate (Morphine 4 Mg/1 Ml Inj) 4 mg IV Q4H PRN PRN Reason: Pain , Severe (7-10) Multivitamins (Multivitamins ,Therapeutic Tab) 1 each PO QDAY [facility] Last Admin: 07/31/21 09:27 Dose: 1 each Documented by: Naloxone HCl (Naloxone 0.4 Mg/1 Ml Inj) 0.1 mg IV Q2MIN PRN PRN Reason: Res Rate </= 8 or 02 SAT < 92% Ondansetron HCl (Ondansetron 4 Mg/2 Ml Inj) 4 mg IV Q8H PRN PRN Reason: Nausea And Vomiting Last Admin: 07/30/21 22:36 Dose: 4 mg Documented by: Oxycodone/Acetaminophen (Oxycodone /Acetaminophen 5-325mg Tab) 1 tab PO Q6H PRN PRN Reason: Pain, Moderate (4-6) Last Admin: 07/30/21 04:57 Dose: 1 tab Documented by: Senna (Sennosides 8.6 Mg Tab) 8.6 mg PO Q12HR PRN PRN Reason: Constipation Sodium Chloride (Sodium Chloride 0.9% 10 Ml Flush Syringe) 10 ml IV BID [facility] Last Admin: 07/31/21 09:28 Dose: 10 ml Documented by: Spironolactone (Spironolactone 25 Mg Tab) 25 mg PO QDAY [facility] Last Admin: 07/31/21 09:28 Dose: Not Given Documented by: Review of Systems All systems: negative Exam - Vital Signs Vital signs: Vital Signs Pulse Resp BP Pulse Ox 74 19 126/56 100 07/29/21 18:00 07/29/21 18:00 07/29/21 18:00 07/29/21 18:00 Results - Lab Results 07/31/21 09:06 08/01/21 07:48 Most recent lab results Calcium 7.3 mg/dL (8.4-10.2) L 07/31/21 09:06 Phosphorus 6.90 mg/dL (2.5-4.5) H 07/30/21 06:10 Magnesium 2.40 mg/dL (1.7-2.3) H 07/30/21 06:10 Assessment and Plan 1. Acute kidney injury: Vasomotor AIDAN vs hepato-renal syndrome. Renal US negative. Urine studies ordered. Monitor renal function. Creatinine level is much higher than prior visits. Renal prognosis is guarded. Avoid nephrotoxic agents. Meds dosage based on GFR. 2. FEN: Volume overload, on Lasix and spironolactone, monitor. Metabolic acidosis, monitor. Limit fluid intake. Monitor lytes and volume status. 3. Ascites, POA: 2/2 Cirrhosis. S/p therapeutic paracentesis. 4. Cirrhosis: Hepatitis C related. Followed by GI. 5. Anemia, POA: 2/2 chronic liver disease. Transfuse for hemoglobin less than 7. 6. Chronic bedbound status. 7. Elevated BNP: Seen by Cards. Subjective: Patient was seen and examined at the bedside. Examination: General appearance: well-developed, appears stated age, not in distress, appears chronically ill HEENT: atraumatic, GENESIS Neck: trachea midline Respiratory: bilateral decreased breath sounds Heart: S1S2, regular, no murmur Abdomen: soft, distended, bowel sounds heard, NT Integumentary: scratch taylor noted Neurologic: AO, able to move extremities Ext: 2+ LE and dependent edema, anasarca noted
--- NOTE | 2021-07-31 11:05 | Gastroenterology Progress Note ---
Assessment and Plan 60 yo F with significant PMH decompensated hep C cirrhosis, CHF, and CKD # Cirrhosis # Ascites - decompensated with ascites. - s/p paracentesis on 07/30/2021 - multiple admissions with ascites. - also AIDAN. nephrology. - new onset abdominal pain with eating. Rec - follow up with nephrology regarding diuresis given AIDAN. - monitor CMP and INR - recommend CT a/p given new abdominal pain. - Follow up in outpatient GI clinic with Dr. desai. - Patient Problems (1) Advanced cirrhosis of liver Current Visit: No Status: Acute Subjective Date of service: 07/31/21 Interval history: Patient reports new onset of abdominal pain with eating or drinking anything. Reports nausea but no vomiting. Objective - Constitutional Vitals: Temp Pulse Resp BP Pulse Ox 98.7 F 66 18 102/45 100 07/31/21 05:20 07/31/21 09:28 07/31/21 05:20 07/31/21 09:28 07/31/21 05:20 General appearance: no acute distress - EENT Eyes: EOM intact ENT: hearing intact - Respiratory Respiratory effort: normal - Cardiovascular Rhythm: regular Heart Sounds: Present: S1 & S2 - Gastrointestinal General gastrointestinal: Present: soft, tender, non-distended - Integumentary Integumentary: Present: clear, warm - Neurologic Neurological: alert and oriented x3 - Labs CBC & Chem 7: 07/31/21 09:06 07/31/21 09:06 Labs: Laboratory Results - last 24 hr 07/31/21 07/31/21 07/31/21 09:06 09:06 09:06 WBC 5.8 RBC 2.50 L Hgb 7.7 L Hct 23.4 L MCV 94 MCH 31 MCHC 33 RDW 19.9 H Plt Count 157 PT 22.6 H INR 1.80 H Sodium 135 L Potassium 4.8 Chloride 101.6 Carbon Dioxide 17 L Anion Gap 21 BUN 79 H Creatinine 3.7 H Estimated GFR 12 BUN/Creatinine Ratio 21 Glucose 108 H Calcium 7.3 L Total Bilirubin 1.40 H AST 50 H ALT 16 Alkaline Phosphatase 122 Total Protein 6.4 Albumin 2.2 L Albumin/Globulin Ratio 0.5
--- NOTE | 2021-07-31 13:34 | Progress Note ---
Assessment and Plan Assessment and plan: --AIDAN on chronic kidney disease Current Visit: No Status: Acute Worsening renal function, avoid nephrotoxins Partly due to Lasix, nephrology consulted Input output monitoring, gentle hydration, monitor renal function Avoid nephrotoxins, renal ultrasound no acute abnormality --Abdominal distention/ascites Current Visit: No Status: Acute Secondary to cirrhosis of the liver Ultrasound-guided paracentesis and removal of 5 L peritoneal fluid Patient tolerated the procedure well --Advanced cirrhosis of liver Current Visit: No Status: Acute Supportive care -- Anasarca Current Visit: No Status: Acute Continue current diuretic -- Anemia Current Visit: No Status: Acute Monitor H&H Iron and multivitamin supplement We will transfuse packed red blood cells if H&H is less than 7 --Urinary tract infection Current Visit: Yes Status: Acute Empiric antibiotic with Rocephin --Severe protein-calorie malnutrition Current Visit: No Status: Acute Low serum protein likely secondary to liver disease Consult professional golf tournament player Encourage oral intake --Elevated brain natriuretic peptide (BNP) level Current Visit: Yes Status: Acute Likely secondary to CHF Continue current medical care as diuretics Echo no evidence of CHF, fluid overload due to ascites/cirrhosis Chronic kidney disease Cardiology evaluated and cleared for discharge --DVT prophylaxis Current Visit: Yes Status: Acute SCD We will closely monitor the patient and adjust management as needed 07/30/21; patient had ultrasound-guided thoracentesis and removal of 5 L of Peritoneal fluid 07/31/2021; worsening renal function, nephrology following Closely monitor History Interval history: I have seen and examined the patient at the bedside Patient's chart and medications reviewed. Patient has no new complaints Patient has worsening renal function Hospitalist Physical - Constitutional Vitals: Temp Pulse Resp BP Pulse Ox 98.7 F 66 18 102/45 100 07/31/21 05:20 07/31/21 09:28 07/31/21 05:20 07/31/21 09:28 07/31/21 05:20 General appearance: Present: mild distress, well-nourished - EENT Eyes: Present: PERRL, EOM intact - Neck Neck: Present: supple, normal ROM - Respiratory Respiratory effort: normal Respiratory: bilateral: diminished, rales, negative: rhonchi, wheezing - Cardiovascular Rhythm: regular Heart Sounds: Present: S1 & S2 - Extremities Extremities: no ischemia Extremity abnormal: edema - Abdominal General gastrointestinal: soft, non-tender, non-distended, normal bowel sounds - Integumentary Integumentary: Present: clear, warm - Psychiatric Psychiatric: appropriate mood/affect, cooperative - Neurologic Neurologic: moves all extremities - Allied Health Allied health notes reviewed: nursing Results - Labs CBC & Chem 7: 07/31/21 09:06 07/31/21 09:06 Labs: Laboratory Last Values WBC 5.8 K/mm3 (4.5-11.0) 07/31/21 09:06 RBC 2.50 M/mm3 (3.65-5.03) L 07/31/21 09:06 Hgb 7.7 gm/dl (10.1-14.3) L 07/31/21 09:06 Hct 23.4 % (30.3-42.9) L 07/31/21 09:06 MCV 94 fl (79-97) 07/31/21 09:06 MCH 31 pg (28-32) 07/31/21 09:06 MCHC 33 % (30-34) 07/31/21 09:06 RDW 19.9 % (13.2-15.2) H 07/31/21 09:06 Plt Count 157 K/mm3 (140-440) 07/31/21 09:06 Lymph % (Auto) 21.1 % (13.4-35.0) 07/30/21 06:10 [place] % (Auto) 9.4 % (0.0-7.3) H 07/30/21 06:10 Eos % (Auto) 3.6 % (0.0-4.3) 07/30/21 06:10 Baso % (Auto) 0.9 % (0.0-1.8) 07/30/21 06:10 Lymph # (Auto) 1.5 K/mm3 (1.2-5.4) 07/30/21 06:10 [place] # (Auto) 0.7 K/mm3 (0.0-0.8) 07/30/21 06:10 Eos # (Auto) 0.3 K/mm3 (0.0-0.4) 07/30/21 06:10 Baso # (Auto) 0.1 K/mm3 (0.0-0.1) 07/30/21 06:10 Seg Neutrophils % 65.0 % (40.0-70.0) 07/30/21 06:10 Seg Neutrophils # 4.7 K/mm3 (1.8-7.7) 07/30/21 06:10 PT 22.6 Sec. (12.2-14.9) H 07/31/21 09:06 INR 1.80 (0.87-1.13) H 07/31/21 09:06 Sodium 135 mmol/L (137-145) L 07/31/21 09:06 Potassium 4.8 mmol/L (3.6-5.0) 07/31/21 09:06 Chloride 101.6 mmol/L (98-107) 07/31/21 09:06 Carbon Dioxide 17 mmol/L (22-30) L 07/31/21 09:06 Anion Gap 21 mmol/L 07/31/21 09:06 BUN 79 mg/dL (7-17) H 07/31/21 09:06 Creatinine 3.7 mg/dL (0.6-1.2) H 07/31/21 09:06 Estimated GFR 12 ml/min 07/31/21 09:06 BUN/Creatinine Ratio 21 % 07/31/21 09:06 Glucose 108 mg/dL (65-100) H 07/31/21 09:06 Calcium 7.3 mg/dL (8.4-10.2) L 07/31/21 09:06 Phosphorus 6.90 mg/dL (2.5-4.5) H 07/30/21 06:10 Magnesium 2.40 mg/dL (1.7-2.3) H 07/30/21 06:10 Total Bilirubin 1.40 mg/dL (0.1-1.2) H 07/31/21 09:06 AST 50 units/L (5-40) H 07/31/21 09:06 ALT 16 units/L (7-56) 07/31/21 09:06 Alkaline Phosphatase 122 units/L (35-129) 07/31/21 09:06 Ammonia 30.0 umol/L (25-60) 07/29/21 18:34 Total Creatine Kinase 219 units/L (30-135) H 07/29/21 18:34 NT-Pro-B Natriuret Pep 1495 pg/mL (0-900) H 07/29/21 18:34 Total Protein 6.4 g/dL (6.3-8.2) 07/31/21 09:06 Albumin 2.2 g/dL (3.9-5) L 07/31/21 09:06 Albumin/Globulin Ratio 0.5 % 07/31/21 09:06 TSH 3.330 mlU/mL (0.270-4.200) 07/29/21 18:34 Urine Color Yellow (Yellow) 07/30/21 03:45 Urine Turbidity Slightly-cloudy (Clear) 07/30/21 03:45 Urine pH 5.0 (5.0-7.0) 07/30/21 03:45 Ur Specific [place] 1.011 (1.003-1.030) 07/30/21 03:45 Urine Protein <15 mg/dl mg/dL (Negative) 07/30/21 03:45 Urine Glucose (UA) Neg mg/dL (Negative) 07/30/21 03:45 Urine Ketones Neg mg/dL (Negative) 07/30/21 03:45 Urine Blood Lg (Negative) 07/30/21 03:45 Urine Nitrite Neg (Negative) 07/30/21 03:45 Urine Bilirubin Neg (Negative) 07/30/21 03:45 Urine Urobilinogen 2.0 mg/dL (<2.0) 07/30/21 03:45 Ur Leukocyte Esterase Lg (Negative) 07/30/21 03:45 Urine WBC (Auto) 59.0 /HPF (0.0-6.0) H 07/30/21 03:45 Urine RBC (Auto) 21.0 /HPF (0.0-6.0) 07/30/21 03:45 U Epithel Cells (Auto) 1.0 /HPF (0-13.0) 07/30/21 03:45 Urine Mucus Few /HPF 07/30/21 03:45 Urine Yeast (Budding) 1+ /HPF 07/30/21 03:45 Microbiology: Microbiology 07/30/21 03:45 Urine,Clean Catch Urine Culture - Preliminary Active Medications - Current Medications Current Medications: Generic Name Dose Route Start Last Admin Trade Name Freq PRN Reason Stop Dose Admin Acetaminophen 650 mg 07/29/21 20:04 Acetaminophen 325 Mg Tab PO Q4H PRN Pain MILD(1-3)/Fever >100.5/ABEL Hydrocodone Bitart/Acetaminophen 2 each 07/29/21 20:04 07/30/21 14:02 Hydrocodone/Acetaminophen 5-325 Mg Tab PO 2 each Q6H PRN Administration Pain, Moderate (4-6) Al Hydrox/Mg Hydrox/Simethicone 30 ml 07/29/21 20:04 Alum-Mag Hydroxide-Simethicone [id number]/5ml Oral Liqd 30 Ml PO Q4H PRN Indigestion Albumin Human 25 gm 07/31/21 09:00 Albumin Human 25% (25 Gm/100 Ml) Inj IV 07/31/21 14:00 ONCE@0900 NR Ferrous Sulfate 325 mg 07/29/21 20:00 07/31/21 09:23 Ferrous Sulfate 325 Mg Tab PO 325 mg QDAY BRANT Administration Furosemide 40 mg 07/30/21 10:00 07/31/21 09:27 Furosemide 40 Mg Tab PO 40 mg QDAY BRANT Administration Ceftriaxone Sodium 1 gm in 50 mls @ 100 mls/hr 07/30/21 06:00 Rocephin/Ns 1 Gm/50 Ml IV 08/05/21 06:59 Q24H BRANT Protocol Magnesium Hydroxide 30 ml 07/29/21 20:04 Magnesium Hydroxide (Mom) Oral Liqd Udc PO Q4H PRN Constipation Methocarbamol 500 mg 07/30/21 08:00 07/31/21 09:24 Methocarbamol 500 Mg Tab PO 500 mg TID BRANT Administration Morphine Sulfate 2 mg 07/29/21 20:04 07/30/21 01:54 Morphine 2 Mg/1 Ml Inj IV 2 mg Q4H PRN Administration Pain, Moderate (4-6) Morphine Sulfate 4 mg 07/29/21 20:04 Morphine 4 Mg/1 Ml Inj IV Q4H PRN Pain , Severe (7-10) Multivitamins 1 each 07/29/21 20:00 07/31/21 09:27 Multivitamins ,Therapeutic Tab PO 1 each QDAY BRANT Administration Naloxone HCl 0.1 mg 07/29/21 20:04 Naloxone 0.4 Mg/1 Ml Inj IV Q2MIN PRN Res Rate </= 8 or 02 SAT < 92% Ondansetron HCl 4 mg 07/29/21 20:04 07/30/21 22:36 Ondansetron 4 Mg/2 Ml Inj IV 4 mg Q8H PRN Administration Nausea And Vomiting Oxycodone/Acetaminophen 1 tab 07/29/21 20:04 07/30/21 04:57 Oxycodone /Acetaminophen 5-325mg Tab PO 1 tab Q6H PRN Administration Pain, Moderate (4-6) Senna 8.6 mg 07/29/21 20:04 Sennosides 8.6 Mg Tab PO Q12HR PRN Constipation Sodium Chloride 10 ml 07/29/21 22:00 07/31/21 09:28 Sodium Chloride 0.9% 10 Ml Flush Syringe IV 10 ml BID BRANT Administration Spironolactone 25 mg 07/30/21 10:00 07/31/21 09:28 Spironolactone 25 Mg Tab PO Not Given QDAY [facility] Nutrition/Malnutrition Assess - Dietary Evaluation Nutrition/Malnutrition Findings: Nutrition Notes Start: 07/30/21 15:00 Freq: Status: Active Protocol: Document 07/30/21 15:00 GB (Rec: 07/30/21 15:11 GB [id number]) Nutrition Notes Need for Assessment generated from: MD Order Initial or Follow up Assessment Other Pertinent Diagnosis SOB, distended abdomen, Hep C, liver cirrhosis Current Diet Renal Labs/Tests 07/30: glucose 104, BUN 74, creatinine 3.4, Na 135, Ca 7.6 , P 6.9, Mg 2.4, Tbili 1.7, AST 57 Pertinent Medications ferrous sulfate, furosemide, multivitamin Height 5 ft 4 in Weight 78.8 kg [place] Body Weight (kg) 54.54 BMI 29.8 Intake Prior to Admission Good Weight change and time frame 07/29: 81.647kg 07/30: 78.8kg change of -2.847kg for -3.4% significance Weight Status Overweight Subjective/Other Information Per admission, good po, no weight changes. BLE edema/blistering, redness to vaginal and sacrum areas. NO PO intake recorded at time of assessment. Pt off floor for planned medical procedure. Abdomen distended. Percent of energy/protein needs met: unable to assess at this time Burn Absent Trauma Absent GI Symptoms None Food Allergy No Skin Integrity/Comment No pressure injuries Current % PO Other Minimum of two criteria No #1 Nutrition Diagnosis Altered nutrition-related laboratory values Etiology liver cirrhosis As Evidenced by Signs and Symptoms renal labs out of acceptable ranges see lab results 07/30 Is patient on ventilator? No Is Patient Ambulatory and/or Out of Bed Yes REE-([place]apel-St. Jeor-ambulatory/OOB) [ 1745.900 NUTR.MSJOOB] Kcal/Kg value to use for calculation 22 Approximate Energy Requirements Using 1734 kcal/Kg Calculation Used for Recommendations Kcal/kg Additional Notes Protein: 0.6-0.8g/kg @ 79k-63g Fluids: 1 ml/kcal or per MD Nutrition Intervention Change Diet Order: continue Nutrition Support: n/a Add Supplement/Snack (indicate name/kcal n/a /protein ) Goal #1 PO intake of meals to be 50% or greater daily for LOS Goal #2 Renal altered labs to improve towards acceptable ranges during LOS Follow-Up By: 08/02/21 Additional Comments f/u: PO intake of meals, labs
[2021-07-31] MEDS: cefTRIAXone/NS 1 GM/50 ML 1 GM/50 ML BAG IV SCH (15:10)
--- NOTE | 2021-07-31 15:19 | Ultrasound Report ---
Ultrasound-guided paracentesis HISTORY: ascites, for primary. PROCEDURE: The risks (including but not limited to bleeding, infection, and bowel injury) and benefi ts were explained to the patient and informed consent was obtained. A time out procedure was perform ed. Ultrasound was used to evaluate the abdomen and locate the largest ascites fluid pocket. Once the sk in was marked, the procedure site was prepped and draped in the usual sterile fashion and lidocaine w as used for local anesthesia. A skin king was made and a 6-[place] paracentesis catheter was placed. The patient was monitored closely throughout the procedure, and a total of 4700 mL of thin yellow fl uid was aspirated. Samples were sent to the lab for further evaluation per the primary clinicians or ders. The patient tolerated the procedure well with no complications. IMPRESSION: Successful paracentesis as above with a total of 4700 mL of thin yellow fluid aspirated. Please note that this procedure was performed by Dr. Taylor. Signer Name: Ramez Sanchez MD Signed: 07/31/2021 3:15 PM Workstation Name: [email or web address]
[2021-07-31] MEDS: MORPHINE 2 MG/1 ML INJ IV PRN (21:37)
[2021-07-31] MEDS: ONDANSETRON 4 MG/2 ML INJ IV PRN (21:37)
[2021-08-01] MEDS: MORPHINE 2 MG/1 ML INJ IV PRN ×2 (01:45→21:08)
[2021-08-01 08:28] LABS: Calcium 7.5 mg/dL (8.4-10.2)
--- NOTE | 2021-08-01 09:02 | Progress Note ---
Assessment and Plan Assessment and plan: --AIDAN on chronic kidney disease Current Visit: No Status: Acute Patient's creatinine worsening from 3.5 on admission to 3.8 today. Patient's baseline creatinine last month was 1.6 Nephrology follow, avoid nephrotoxins Patient is on Lasix, due to cirrhosis liver/ascites/fluid overload Input output monitoring, gentle hydration, monitor renal function Avoid nephrotoxins, renal ultrasound no acute abnormality --Abdominal distention/ascites Current Visit: No Status: Acute Secondary to cirrhosis of the liver Ultrasound-guided paracentesis and removal of 5 L peritoneal fluid July 30, 2021 Patient tolerated the procedure well --Advanced cirrhosis of liver Current Visit: No Status: Acute Supportive care, GI following -- Anasarca Current Visit: No Status: Acute Due to cirrhosis , acute kidney injury continue current diuretic I/O monitoring -- Anemia Current Visit: No Status: Acute Monitor H&H Iron and multivitamin supplement We will transfuse packed red blood cells if H&H is less than 7 --Urinary tract infection Current Visit: Yes Status: Acute Empiric antibiotic with Rocephin --Severe protein-calorie malnutrition Current Visit: No Status: Acute Low serum protein likely secondary to liver disease Consult occupational health and safety officer Encourage oral intake --Elevated brain natriuretic peptide (BNP) level Current Visit: Yes Status: Acute Likely secondary to CHF Continue current medical care as diuretics Echo no evidence of CHF, fluid overload due to ascites/cirrhosis Chronic kidney disease Cardiology evaluated and cleared for discharge --DVT prophylaxis Current Visit: Yes Status: Acute SCD We will closely monitor the patient and adjust management as needed We'll closely monitor the patient and adjust management as needed Plan of care reviewed with the patient and her nurse as well as case management Also discussed with nephrology Dr. Lorelei Bobby and GI Dr. Alejandra 07/30/21; patient had ultrasound-guided thoracentesis and removal of 5 L of Peritoneal fluid 07/31/2021; worsening renal function, nephrology following Closely monitor 08/01/21; worsening renal function creatinine 3.8 Case management processing, home hospice History Interval history: I seen and examined the patient at the bedside Patient's chart and medications reviewed Patient has worsening renal function Nephrology following Complains of mild shortness of breath Hospitalist Physical - Constitutional Vitals: Temp Pulse Resp BP Pulse Ox 99.2 F 72 18 115/53 100 08/01/21 05:32 08/01/21 05:32 08/01/21 05:32 08/01/21 05:32 08/01/21 05:32 General appearance: Present: no acute distress, well-nourished - EENT Eyes: Present: PERRL, EOM intact - Neck Neck: Present: supple, normal ROM - Respiratory Respiratory effort: normal Respiratory: bilateral: diminished, rhonchi, negative: rales, wheezing - Cardiovascular Rhythm: regular Heart Sounds: Present: S1 & S2 - Extremities Extremities: no ischemia Extremity abnormal: edema - Abdominal General gastrointestinal: soft, non-tender, distended (Mild), normal bowel sounds, other (Ascites) - Integumentary Integumentary: Present: clear, warm - Psychiatric Psychiatric: appropriate mood/affect, cooperative - Neurologic Neurologic: moves all extremities Results - Labs CBC & Chem 7: 07/31/21 09:06 08/01/21 07:48 Labs: Laboratory Last Values WBC 5.8 K/mm3 (4.5-11.0) 07/31/21 09:06 RBC 2.50 M/mm3 (3.65-5.03) L 07/31/21 09:06 Hgb 7.7 gm/dl (10.1-14.3) L 07/31/21 09:06 Hct 23.4 % (30.3-42.9) L 07/31/21 09:06 MCV 94 fl (79-97) 07/31/21 09:06 MCH 31 pg (28-32) 07/31/21 09:06 MCHC 33 % (30-34) 07/31/21 09:06 RDW 19.9 % (13.2-15.2) H 07/31/21 09:06 Plt Count 157 K/mm3 (140-440) 07/31/21 09:06 Lymph % (Auto) 21.1 % (13.4-35.0) 07/30/21 06:10 [place] % (Auto) 9.4 % (0.0-7.3) H 07/30/21 06:10 Eos % (Auto) 3.6 % (0.0-4.3) 07/30/21 06:10 Baso % (Auto) 0.9 % (0.0-1.8) 07/30/21 06:10 Lymph # (Auto) 1.5 K/mm3 (1.2-5.4) 07/30/21 06:10 [place] # (Auto) 0.7 K/mm3 (0.0-0.8) 07/30/21 06:10 Eos # (Auto) 0.3 K/mm3 (0.0-0.4) 07/30/21 06:10 Baso # (Auto) 0.1 K/mm3 (0.0-0.1) 07/30/21 06:10 Seg Neutrophils % 65.0 % (40.0-70.0) 07/30/21 06:10 Seg Neutrophils # 4.7 K/mm3 (1.8-7.7) 07/30/21 06:10 PT 22.6 Sec. (12.2-14.9) H 07/31/21 09:06 INR 1.80 (0.87-1.13) H 07/31/21 09:06 Sodium 134 mmol/L (137-145) L 08/01/21 07:48 Potassium 4.2 mmol/L (3.6-5.0) 08/01/21 07:48 Chloride 99.8 mmol/L (98-107) 08/01/21 07:48 Carbon Dioxide 18 mmol/L (22-30) L 08/01/21 07:48 Anion Gap 20 mmol/L 08/01/21 07:48 BUN 79 mg/dL (7-17) H 08/01/21 07:48 Creatinine 3.8 mg/dL (0.6-1.2) H 08/01/21 07:48 Estimated GFR 12 ml/min 08/01/21 07:48 BUN/Creatinine Ratio 21 % 08/01/21 07:48 Glucose 89 mg/dL (65-100) 08/01/21 07:48 Calcium 7.5 mg/dL (8.4-10.2) L 08/01/21 07:48 Phosphorus 6.90 mg/dL (2.5-4.5) H 07/30/21 06:10 Magnesium 2.40 mg/dL (1.7-2.3) H 07/30/21 06:10 Total Bilirubin 1.40 mg/dL (0.1-1.2) H 07/31/21 09:06 AST 50 units/L (5-40) H 07/31/21 09:06 ALT 16 units/L (7-56) 07/31/21 09:06 Alkaline Phosphatase 122 units/L (35-129) 07/31/21 09:06 Ammonia 30.0 umol/L (25-60) 07/29/21 18:34 Total Creatine Kinase 219 units/L (30-135) H 07/29/21 18:34 NT-Pro-B Natriuret Pep 1495 pg/mL (0-900) H 07/29/21 18:34 Total Protein 6.4 g/dL (6.3-8.2) 07/31/21 09:06 Albumin 2.2 g/dL (3.9-5) L 07/31/21 09:06 Albumin/Globulin Ratio 0.5 % 07/31/21 09:06 TSH 3.330 mlU/mL (0.270-4.200) 07/29/21 18:34 Urine Color Yellow (Yellow) 07/30/21 03:45 Urine Turbidity Slightly-cloudy (Clear) 07/30/21 03:45 Urine pH 5.0 (5.0-7.0) 07/30/21 03:45 Ur Specific [place] 1.011 (1.003-1.030) 07/30/21 03:45 Urine Protein <15 mg/dl mg/dL (Negative) 07/30/21 03:45 Urine Glucose (UA) Neg mg/dL (Negative) 07/30/21 03:45 Urine Ketones Neg mg/dL (Negative) 07/30/21 03:45 Urine Blood Lg (Negative) 07/30/21 03:45 Urine Nitrite Neg (Negative) 07/30/21 03:45 Urine Bilirubin Neg (Negative) 07/30/21 03:45 Urine Urobilinogen 2.0 mg/dL (<2.0) 07/30/21 03:45 Ur Leukocyte Esterase Lg (Negative) 07/30/21 03:45 Urine WBC (Auto) 59.0 /HPF (0.0-6.0) H 07/30/21 03:45 Urine RBC (Auto) 21.0 /HPF (0.0-6.0) 07/30/21 03:45 U Epithel Cells (Auto) 1.0 /HPF (0-13.0) 07/30/21 03:45 Urine Mucus Few /HPF 07/30/21 03:45 Urine Yeast (Budding) 1+ /HPF 07/30/21 03:45 Microbiology: Microbiology 07/30/21 03:45 Urine,Clean Catch Urine Culture - Preliminary [place]/IV: Voiding Method External Female Catheter Active Medications - Current Medications Current Medications: Generic Name Dose Route Start Last Admin Trade Name Freq PRN Reason Stop Dose Admin Acetaminophen 650 mg 07/29/21 20:04 Acetaminophen 325 Mg Tab PO Q4H PRN Pain MILD(1-3)/Fever >100.5/ABEL Hydrocodone Bitart/Acetaminophen 2 each 07/29/21 20:04 07/30/21 14:02 Hydrocodone/Acetaminophen 5-325 Mg Tab PO 2 each Q6H PRN Administration Pain, Moderate (4-6) Al Hydrox/Mg Hydrox/Simethicone 30 ml 07/29/21 20:04 Alum-Mag Hydroxide-Simethicone [id number]/5ml Oral Liqd 30 Ml PO Q4H PRN Indigestion Ferrous Sulfate 325 mg 07/29/21 20:00 07/31/21 09:23 Ferrous Sulfate 325 Mg Tab PO 325 mg QDAY BRANT Administration Furosemide 40 mg 07/30/21 10:00 07/31/21 09:27 Furosemide 40 Mg Tab PO 40 mg QDAY BRANT Administration Ceftriaxone Sodium 1 gm in 50 mls @ 100 mls/hr 07/30/21 06:00 07/31/21 15:10 Rocephin/Ns 1 Gm/50 Ml IV 08/05/21 06:59 100 mls/hr Q24H BRANT Administration Protocol Magnesium Hydroxide 30 ml 07/29/21 20:04 Magnesium Hydroxide (Mom) Oral Liqd Udc PO Q4H PRN Constipation Methocarbamol 500 mg 07/30/21 08:00 07/31/21 21:37 Methocarbamol 500 Mg Tab PO 500 mg TID BRANT Administration Morphine Sulfate 2 mg 07/29/21 20:04 08/01/21 01:45 Morphine 2 Mg/1 Ml Inj IV 2 mg Q4H PRN Administration Pain, Moderate (4-6) Morphine Sulfate 4 mg 07/29/21 20:04 Morphine 4 Mg/1 Ml Inj IV Q4H PRN Pain , Severe (7-10) Multivitamins 1 each 07/29/21 20:00 07/31/21 09:27 Multivitamins ,Therapeutic Tab PO 1 each QDAY BRANT Administration Naloxone HCl 0.1 mg 07/29/21 20:04 Naloxone 0.4 Mg/1 Ml Inj IV Q2MIN PRN Res Rate </= 8 or 02 SAT < 92% Ondansetron HCl 4 mg 07/29/21 20:04 07/31/21 21:37 Ondansetron 4 Mg/2 Ml Inj IV 4 mg Q8H PRN Administration Nausea And Vomiting Oxycodone/Acetaminophen 1 tab 07/29/21 20:04 07/30/21 04:57 Oxycodone /Acetaminophen 5-325mg Tab PO 1 tab Q6H PRN Administration Pain, Moderate (4-6) Senna 8.6 mg 07/29/21 20:04 Sennosides 8.6 Mg Tab PO Q12HR PRN Constipation Sodium Chloride 10 ml 07/29/21 22:00 07/31/21 21:38 Sodium Chloride 0.9% 10 Ml Flush Syringe IV 10 ml BID BRANT Administration Spironolactone 25 mg 07/30/21 10:00 07/31/21 09:28 Spironolactone 25 Mg Tab PO Not Given QDAY BRANT Nutrition/Malnutrition Assess - Dietary Evaluation Nutrition/Malnutrition Findings: Nutrition Notes Start: 07/30/21 15:00 Freq: Status: Active Protocol: Document 07/30/21 15:00 GB (Rec: 07/30/21 15:11 GB [id number]) Nutrition Notes Need for Assessment generated from: MD Order Initial or Follow up Assessment Other Pertinent Diagnosis SOB, distended abdomen, Hep C, liver cirrhosis Current Diet Renal Labs/Tests 07/30: glucose 104, BUN 74, creatinine 3.4, Na 135, Ca 7.6 , P 6.9, Mg 2.4, Tbili 1.7, AST 57 Pertinent Medications ferrous sulfate, furosemide, multivitamin Height 5 ft 4 in Weight 78.8 kg [place] Body Weight (kg) 54.54 BMI 29.8 Intake Prior to Admission Good Weight change and time frame 07/29: 81.647kg 07/30: 78.8kg change of -2.847kg for -3.4% significance Weight Status Overweight Subjective/Other Information Per admission, good po, no weight changes. BLE edema/blistering, redness to vaginal and sacrum areas. NO PO intake recorded at time of assessment. Pt off floor for planned medical procedure. Abdomen distended. Percent of energy/protein needs met: unable to assess at this time Burn Absent Trauma Absent GI Symptoms None Food Allergy No Skin Integrity/Comment No pressure injuries Current % PO Other Minimum of two criteria No #1 Nutrition Diagnosis Altered nutrition-related laboratory values Etiology liver cirrhosis As Evidenced by Signs and Symptoms renal labs out of acceptable ranges see lab results 07/30 Is patient on ventilator? No Is Patient Ambulatory and/or Out of Bed Yes REE-([place]-ambulatory/OOB) [ 1745.900 NUTR.MSJOOB] Kcal/Kg value to use for calculation 22 Approximate Energy Requirements Using 1734 kcal/Kg Calculation Used for Recommendations Kcal/kg Additional Notes Protein: 0.6-0.8g/kg @ 79k-63g Fluids: 1 ml/kcal or per MD Nutrition Intervention Change Diet Order: continue Nutrition Support: n/a Add Supplement/Snack (indicate name/kcal n/a /protein ) Goal #1 PO intake of meals to be 50% or greater daily for LOS Goal #2 Renal altered labs to improve towards acceptable ranges during LOS Follow-Up By: 08/02/21 Additional Comments f/u: PO intake of meals, labs
--- NOTE | 2021-08-01 09:22 | Progress Note ---
Assessment and Plan 1. Acute kidney injury: Vasomotor AIDAN vs hepato-renal syndrome. Renal US negative. Urine studies ordered. Monitor renal function. Creatinine level remains elevated. UOP? Renal prognosis is guarded. Avoid nephrotoxic agents. Meds dosage based on GFR. 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 D/w patient about the possibility of dialysis. 2. FEN: Volume overload, on Lasix and spironolactone, monitor. Metabolic acidosis, Sod bicarb, monitor. Limit fluid intake. Monitor lytes and volume status. 3. Ascites, POA: 2/2 Cirrhosis. S/p therapeutic paracentesis. 4. Cirrhosis: Hepatitis C related. Followed by GI. 5. Anemia, POA: 2/2 chronic liver disease. Transfuse for hemoglobin less than 7. 6. UTI: Abx. 7. Chronic bedbound status. 8. Elevated BNP: Echo normal. Seen by Cards. Subjective: Patient was seen and examined at the bedside. Examination: General appearance: well-developed, appears stated age, not in distress, appears chronically ill HEENT: atraumatic, GENESIS Neck: trachea midline Respiratory: bilateral decreased breath sounds Heart: S1S2, regular, no murmur Abdomen: soft, distended, bowel sounds heard, NT Integumentary: scratch taylor noted Neurologic: AO, able to move extremities Ext: 2+ LE and dependent edema, anasarca noted Subjective Date of service: 08/01/21 Objective - Vital Signs Vital signs: Vital Signs - 12hr 07/31/21 08/01/21 22:00 05:32 Temperature 99.2 F Pulse Rate 72 Respiratory 18 Rate Blood Pressure 115/53 O2 Sat by Pulse 98 100 Oximetry - Lab 07/31/21 09:06 08/01/21 07:48 Most recent lab results Calcium 7.5 mg/dL (8.4-10.2) L 08/01/21 07:48 Phosphorus 6.90 mg/dL (2.5-4.5) H 07/30/21 06:10 Magnesium 2.40 mg/dL (1.7-2.3) H 07/30/21 06:10 Medications & Allergies - Medications Allergies/Adverse Reactions: Allergies NSAIDS (Non-Steroidal Anti-Inflamma Allergy (Verified 04/16/21 10:33) Anaphylaxis Quinolones Allergy (Verified 04/16/21 10:32) Anaphylaxis metoclopramide [From Reglan] Adverse Reaction (Verified 04/16/21 10:33) Unknown jittery nitrofurantoin [From Macrobid] Adverse Reaction (Verified 04/16/21 10:34) Vomiting Home Medications: Home Medications Medication Instructions Recorded Confirmed Last Taken Type Multivitamin Tab [Multiple Vitamin 1 each PO QDAY #30 tablet 05/29/21 07/30/21 Unknown Rx TAB (Theragran)] Spironolactone [Aldactone] 25 mg PO QDAY 07/30/21 07/30/21 Unknown History methOCARBAMOL [Robaxin TAB] 500 mg PO TID 07/30/21 07/30/21 Unknown History Furosemide [Lasix TAB] 40 mg PO QDAY #30 tablet 07/31/21 Unknown Rx Active Medications: Generic Name Dose Route Start Last Admin Trade Name Freq PRN Reason Stop Dose Admin Acetaminophen 650 mg 07/29/21 20:04 Acetaminophen 325 Mg Tab PO Q4H PRN Pain MILD(1-3)/Fever >100.5/ABEL Hydrocodone Bitart/Acetaminophen 2 each 07/29/21 20:04 07/30/21 14:02 Hydrocodone/Acetaminophen 5-325 Mg Tab PO 2 each Q6H PRN Administration Pain, Moderate (4-6) Al Hydrox/Mg Hydrox/Simethicone 30 ml 07/29/21 20:04 Alum-Mag Hydroxide-Simethicone [phone]/5ml Oral Liqd 30 Ml PO Q4H PRN Indigestion Ferrous Sulfate 325 mg 07/29/21 20:00 07/31/21 09:23 Ferrous Sulfate 325 Mg Tab PO 325 mg QDAY BRANT Administration Furosemide 40 mg 07/30/21 10:00 07/31/21 09:27 Furosemide 40 Mg Tab PO 40 mg QDAY BRANT Administration Ceftriaxone Sodium 1 gm in 50 mls @ 100 mls/hr 07/30/21 06:00 07/31/21 15:10 Rocephin/Ns 1 Gm/50 Ml IV 08/05/21 06:59 100 mls/hr Q24H BRANT Administration Protocol Magnesium Hydroxide 30 ml 07/29/21 20:04 Magnesium Hydroxide (Mom) Oral Liqd Udc PO Q4H PRN Constipation Methocarbamol 500 mg 07/30/21 08:00 07/31/21 21:37 Methocarbamol 500 Mg Tab PO 500 mg TID BRANT Administration Morphine Sulfate 2 mg 07/29/21 20:04 08/01/21 01:45 Morphine 2 Mg/1 Ml Inj IV 2 mg Q4H PRN Administration Pain, Moderate (4-6) Morphine Sulfate 4 mg 07/29/21 20:04 Morphine 4 Mg/1 Ml Inj IV Q4H PRN Pain , Severe (7-10) Multivitamins 1 each 07/29/21 20:00 07/31/21 09:27 Multivitamins ,Therapeutic Tab PO 1 each QDAY [facility] Administration Naloxone HCl 0.1 mg 07/29/21 20:04 Naloxone 0.4 Mg/1 Ml Inj IV Q2MIN PRN Res Rate </= 8 or 02 SAT < 92% Ondansetron HCl 4 mg 07/29/21 20:04 07/31/21 21:37 Ondansetron 4 Mg/2 Ml Inj IV 4 mg Q8H PRN Administration Nausea And Vomiting Oxycodone/Acetaminophen 1 tab 07/29/21 20:04 07/30/21 04:57 Oxycodone /Acetaminophen 5-325mg Tab PO 1 tab Q6H PRN Administration Pain, Moderate (4-6) Senna 8.6 mg 07/29/21 20:04 Sennosides 8.6 Mg Tab PO Q12HR PRN Constipation Sodium Chloride 10 ml 07/29/21 22:00 07/31/21 21:38 Sodium Chloride 0.9% 10 Ml Flush Syringe IV 10 ml BID BRANT Administration Spironolactone 25 mg 07/30/21 10:00 07/31/21 09:28 Spironolactone 25 Mg Tab PO Not Given QDAY RBANT
[2021-08-01] MEDS: MULTIVITAMINS ,THERAPEUTIC TAB PO SCH (09:44)
[2021-08-01] MEDS: FUROSEMIDE 40 MG TAB PO SCH (09:44)
[2021-08-01] MEDS: FERROUS SULFATE 325 MG TAB PO SCH (09:44)
[2021-08-01] MEDS: SPIRONOLACTONE 25 MG TAB PO SCH (09:44)
[2021-08-01] MEDS: SODIUM BICARBONATE 650 MG TAB PO SCH ×2 (12:38→21:06)
[2021-08-01] MEDS: PANTOPRAZOLE 40 MG TAB PO SCH (12:38)
--- NOTE | 2021-08-01 14:05 | Gastroenterology Progress Note ---
Assessment and Plan 60 yo F with significant PMH decompensated hep C cirrhosis, CHF, and CKD # Cirrhosis # Ascites - decompensated with ascites. - s/p paracentesis on 07/30/2021 - multiple admissions with ascites. - also AIDAN. nephrology. - new onset abdominal pain with eating. ddx including gastritis, GERD vs 2/2 constipation. - CT ordered but patient refused. - LFTs elevated but stable, likely baseline. - AIDAN with Cr still at 3. Rec - follow up with nephrology regarding diuresis given AIDAN. - monitor CMP and INR - will start lactulose for constipation - protonix PO daily. - Follow up in outpatient GI clinic with Dr. Rios. Need further outpatient management for decompensated cirrhosis. - will follow. - Patient Problems (1) Advanced cirrhosis of liver Current Visit: No Status: Acute Subjective Date of service: 08/01/21 Interval history: patient reports being constipated. Pain in the upper abdomen. Refused CT a/p Objective - Constitutional Vitals: Temp Pulse Resp BP Pulse Ox 98.6 F 77 18 125/53 99 08/01/21 11:15 08/01/21 11:15 08/01/21 11:15 08/01/21 11:15 08/01/21 11:15 General appearance: no acute distress - EENT Eyes: EOM intact - Respiratory Respiratory effort: normal - Cardiovascular Rhythm: regular Heart Sounds: Present: S1 & S2 - Gastrointestinal General gastrointestinal: Present: soft, tender, distended - Integumentary Integumentary: Present: clear, warm - Neurologic Neurological: alert and oriented x3 - Labs CBC & Chem 7: 07/31/21 09:06 08/01/21 07:48 Labs: Laboratory Results - last 24 hr 07/31/21 08/01/21 Unknown 07:48 Sodium 134 L Potassium 4.2 Chloride 99.8 Carbon Dioxide 18 L Anion Gap 20 BUN 79 H Creatinine 3.8 H Estimated GFR 12 BUN/Creatinine Ratio 21 Glucose 89 Calcium 7.5 L Coronavirus (PCR) Negative
[2021-08-01] MEDS: LACTULOSE 20 GM/30 ML ORAL LIQD PO SCH (21:07)
[2021-08-02] MEDS: cefTRIAXone/NS 1 GM/50 ML 1 GM/50 ML BAG IV SCH (05:49)
[2021-08-02] MEDS: MORPHINE 2 MG/1 ML INJ IV PRN (05:53)
[2021-08-02 06:39] LABS: Calcium 7.8 mg/dL (8.4-10.2)
[2021-08-02] MEDS: SODIUM BICARBONATE 650 MG TAB PO SCH ×3 (10:05→22:00)
[2021-08-02] MEDS: FERROUS SULFATE 325 MG TAB PO SCH (10:05)
[2021-08-02] MEDS: PANTOPRAZOLE 40 MG TAB PO SCH (10:06)
[2021-08-02] MEDS: FUROSEMIDE 40 MG TAB PO SCH (10:06)
[2021-08-02] MEDS: SPIRONOLACTONE 25 MG TAB PO SCH (10:06)
[2021-08-02] MEDS: MULTIVITAMINS ,THERAPEUTIC TAB PO SCH (10:07)
[2021-08-02] MEDS: LACTULOSE 20 GM/30 ML ORAL LIQD PO SCH ×3 (10:07→22:01)
--- NOTE | 2021-08-02 11:07 | Progress Note ---
Assessment and Plan Assessment and plan: --AIDAN on chronic kidney disease Current Visit: No Status: Acute Patient's creatinine worsening from 3.5 on admission to 3.8 today. Patient's baseline creatinine last month was 1.6 Nephrology follow, avoid nephrotoxins Patient is on Lasix, due to cirrhosis liver/ascites/fluid overload Input output monitoring, gentle hydration, monitor renal function Avoid nephrotoxins, renal ultrasound no acute abnormality --Abdominal distention/ascites Current Visit: No Status: Acute Secondary to cirrhosis of the liver Ultrasound-guided paracentesis and removal of 5 L peritoneal fluid July 30, 2021 Patient tolerated the procedure well --Advanced cirrhosis of liver Current Visit: No Status: Acute Supportive care, GI following -- Anasarca Current Visit: No Status: Acute Due to cirrhosis , acute kidney injury continue current diuretic I/O monitoring -- Anemia Current Visit: No Status: Acute Monitor H&H Iron and multivitamin supplement We will transfuse packed red blood cells if H&H is less than 7 --Urinary tract infection Current Visit: Yes Status: Acute Empiric antibiotic with Rocephin --Severe protein-calorie malnutrition Current Visit: No Status: Acute Low serum protein likely secondary to liver disease 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 Encourage oral intake --Elevated brain natriuretic peptide (BNP) level Current Visit: Yes Status: Acute Likely secondary to CHF Continue current medical care as diuretics Echo no evidence of CHF, fluid overload due to ascites/cirrhosis Chronic kidney disease Cardiology evaluated and cleared for discharge --DVT prophylaxis Current Visit: Yes Status: Acute SCD We will closely monitor the patient and adjust management as needed We'll closely monitor the patient and adjust management as needed Plan of care reviewed with the patient and her nurse as well as case management Also discussed with nephrology Dr. Lorelei Bobby and GI Dr. Alejandra 07/30/21; patient had ultrasound-guided thoracentesis and removal of 5 L of Peritoneal fluid 07/31/2021; worsening renal function, nephrology following Closely monitor 08/01/21; worsening renal function creatinine 3.8 Case management processing, home hospice 08/02/21 patient very ill, advanced cirrhosis, acute on CKD. 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., History Interval history: Patient with cirrhosis, acute on CKD, gross ascitis Hospitalist Physical - Physical exam Narrative exam: Gen: Not in acute distress, obese HEENT:Normocephalic,atraumatic Neck:supple, No JVD Lungs: bilateral rhonchi, Heart:S1 and S2 reg, no murmurs, rubs or gallop Abd:soft, non tender, distended, normal bowel sounds Ext; No edema, no clubbing, no cyanosis Neuro: lethargic skin:anasarca - Constitutional Vitals: Temp Pulse Resp BP Pulse Ox 98.6 F 78 18 124/60 99 08/02/21 04:56 08/02/21 04:56 08/02/21 04:56 08/02/21 04:56 08/02/21 04:56 General appearance: Present: no acute distress, well-nourished Results - Labs CBC & Chem 7: 07/31/21 09:06 08/02/21 04:00 Labs: Laboratory Last Values WBC 5.8 K/mm3 (4.5-11.0) 07/31/21 09:06 RBC 2.50 M/mm3 (3.65-5.03) L 07/31/21 09:06 Hgb 7.7 gm/dl (10.1-14.3) L 07/31/21 09:06 Hct 23.4 % (30.3-42.9) L 07/31/21 09:06 MCV 94 fl (79-97) 07/31/21 09:06 MCH 31 pg (28-32) 07/31/21 09:06 MCHC 33 % (30-34) 07/31/21 09:06 RDW 19.9 % (13.2-15.2) H 07/31/21 09:06 Plt Count 157 K/mm3 (140-440) 07/31/21 09:06 Lymph % (Auto) 21.1 % (13.4-35.0) 07/30/21 06:10 Edwards % (Auto) 9.4 % (0.0-7.3) H 07/30/21 06:10 Eos % (Auto) 3.6 % (0.0-4.3) 07/30/21 06:10 Baso % (Auto) 0.9 % (0.0-1.8) 07/30/21 06:10 Lymph # (Auto) 1.5 K/mm3 (1.2-5.4) 07/30/21 06:10 Edwards # (Auto) 0.7 K/mm3 (0.0-0.8) 07/30/21 06:10 Eos # (Auto) 0.3 K/mm3 (0.0-0.4) 07/30/21 06:10 Baso # (Auto) 0.1 K/mm3 (0.0-0.1) 07/30/21 06:10 Seg Neutrophils % 65.0 % (40.0-70.0) 07/30/21 06:10 Seg Neutrophils # 4.7 K/mm3 (1.8-7.7) 07/30/21 06:10 PT 22.6 Sec. (12.2-14.9) H 07/31/21 09:06 INR 1.80 (0.87-1.13) H 07/31/21 09:06 Sodium 139 mmol/L (137-145) 08/02/21 04:00 Potassium 3.9 mmol/L (3.6-5.0) 08/02/21 04:00 Chloride 102.2 mmol/L (98-107) 08/02/21 04:00 Carbon Dioxide 17 mmol/L (22-30) L 08/02/21 04:00 Anion Gap 24 mmol/L 08/02/21 04:00 BUN 83 mg/dL (7-17) H 08/02/21 04:00 Creatinine 4.0 mg/dL (0.6-1.2) H 08/02/21 04:00 Estimated GFR 11 ml/min 08/02/21 04:00 BUN/Creatinine Ratio 21 % 08/02/21 04:00 Glucose 109 mg/dL (65-100) H 08/02/21 04:00 Calcium 7.8 mg/dL (8.4-10.2) L 08/02/21 04:00 Phosphorus 6.90 mg/dL (2.5-4.5) H 07/30/21 06:10 Magnesium 2.40 mg/dL (1.7-2.3) H 07/30/21 06:10 Total Bilirubin 1.40 mg/dL (0.1-1.2) H 07/31/21 09:06 AST 50 units/L (5-40) H 07/31/21 09:06 ALT 16 units/L (7-56) 07/31/21 09:06 Alkaline Phosphatase 122 units/L (35-129) 07/31/21 09:06 Ammonia 30.0 umol/L (25-60) 07/29/21 18:34 Total Creatine Kinase 219 units/L (30-135) H 07/29/21 18:34 NT-Pro-B Natriuret Pep 1495 pg/mL (0-900) H 07/29/21 18:34 Total Protein 6.4 g/dL (6.3-8.2) 07/31/21 09:06 Albumin 2.2 g/dL (3.9-5) L 07/31/21 09:06 Albumin/Globulin Ratio 0.5 % 07/31/21 09:06 TSH 3.330 mlU/mL (0.270-4.200) 07/29/21 18:34 Urine Color Yellow (Yellow) 07/30/21 03:45 Urine Turbidity Slightly-cloudy (Clear) 07/30/21 03:45 Urine pH 5.0 (5.0-7.0) 07/30/21 03:45 Ur Specific [place] 1.011 (1.003-1.030) 07/30/21 03:45 Urine Protein <15 mg/dl mg/dL (Negative) 07/30/21 03:45 Urine Glucose (UA) Neg mg/dL (Negative) 07/30/21 03:45 Urine Ketones Neg mg/dL (Negative) 07/30/21 03:45 Urine Blood Lg (Negative) 07/30/21 03:45 Urine Nitrite Neg (Negative) 07/30/21 03:45 Urine Bilirubin Neg (Negative) 07/30/21 03:45 Urine Urobilinogen 2.0 mg/dL (<2.0) 07/30/21 03:45 Ur Leukocyte Esterase Lg (Negative) 07/30/21 03:45 Urine WBC (Auto) 59.0 /HPF (0.0-6.0) H 07/30/21 03:45 Urine RBC (Auto) 21.0 /HPF (0.0-6.0) 07/30/21 03:45 U Epithel Cells (Auto) 1.0 /HPF (0-13.0) 07/30/21 03:45 Urine Mucus Few /HPF 07/30/21 03:45 Urine Yeast (Budding) 1+ /HPF 07/30/21 03:45 Coronavirus (PCR) Negative (Negative) 07/31/21 Unknown Microbiology: Microbiology 07/30/21 03:45 Urine,Clean Catch Urine Culture - Final [place]/IV: Voiding Method External Female Catheter Active Medications - Current Medications Current Medications: Generic Name Dose Route Start Last Admin Trade Name Freq PRN Reason Stop Dose Admin Acetaminophen 650 mg 07/29/21 20:04 Acetaminophen 325 Mg Tab PO Q4H PRN Pain MILD(1-3)/Fever >100.5/ABEL Hydrocodone Bitart/Acetaminophen 2 each 07/29/21 20:04 07/30/21 14:02 Hydrocodone/Acetaminophen 5-325 Mg Tab PO 2 each Q6H PRN Administration Pain, Moderate (4-6) Al Hydrox/Mg Hydrox/Simethicone 30 ml 07/29/21 20:04 Alum-Mag Hydroxide-Simethicone [id number]/5ml Oral Liqd 30 Ml PO Q4H PRN Indigestion Ferrous Sulfate 325 mg 07/29/21 20:00 08/02/21 10:05 Ferrous Sulfate 325 Mg Tab PO 325 mg QDAY BRANT Administration Furosemide 40 mg 07/30/21 10:00 08/02/21 10:06 Furosemide 40 Mg Tab PO 40 mg QDAY BRANT Administration Ceftriaxone Sodium 1 gm in 50 mls @ 100 mls/hr 07/30/21 06:00 08/02/21 05:49 Rocephin/Ns 1 Gm/50 Ml IV 08/05/21 06:59 100 mls/hr Q24H BRANT Administration Protocol Lactulose 20 gm 08/01/21 22:00 08/02/21 10:07 Lactulose 20 Gm/30 Ml Oral Liqd PO 20 gm BID BRANT Administration Magnesium Hydroxide 30 ml 07/29/21 20:04 Magnesium Hydroxide (Mom) Oral Liqd Udc PO Q4H PRN Constipation Methocarbamol 500 mg 07/30/21 08:00 08/02/21 10:06 Methocarbamol 500 Mg Tab PO 500 mg TID BRANT Administration Morphine Sulfate 2 mg 07/29/21 20:04 08/02/21 05:53 Morphine 2 Mg/1 Ml Inj IV 2 mg Q4H PRN Administration Pain, Moderate (4-6) Morphine Sulfate 4 mg 07/29/21 20:04 Morphine 4 Mg/1 Ml Inj IV Q4H PRN Pain , Severe (7-10) Multivitamins 1 each 07/29/21 20:00 08/02/21 10:07 Multivitamins ,Therapeutic Tab PO 1 each QDAY [facility]ANT Administration Naloxone HCl 0.1 mg 07/29/21 20:04 Naloxone 0.4 Mg/1 Ml Inj IV Q2MIN PRN Res Rate </= 8 or 02 SAT < 92% Ondansetron HCl 4 mg 07/29/21 20:04 07/31/21 21:37 Ondansetron 4 Mg/2 Ml Inj IV 4 mg Q8H PRN Administration Nausea And Vomiting Oxycodone/Acetaminophen 1 tab 07/29/21 20:04 07/30/21 04:57 Oxycodone /Acetaminophen 5-325mg Tab PO 1 tab Q6H PRN Administration Pain, Moderate (4-6) Pantoprazole Sodium 40 mg 08/01/21 13:00 08/02/21 10:06 Pantoprazole 40 Mg Tab PO 40 mg QDAC BRANT Administration Senna 8.6 mg 07/29/21 20:04 Sennosides 8.6 Mg Tab PO Q12HR PRN Constipation Sodium Bicarbonate 1,300 mg 08/01/21 12:00 08/02/21 10:05 Sodium Bicarbonate 650 Mg Tab PO 1,300 mg TID BRANT Administration Sodium Chloride 10 ml 07/29/21 22:00 08/02/21 10:07 Sodium Chloride 0.9% 10 Ml Flush Syringe IV 10 ml BID BRANT Administration Spironolactone 25 mg 07/30/21 10:00 08/02/21 10:06 Spironolactone 25 Mg Tab PO 25 mg QDAY BRANT Administration Nutrition/Malnutrition Assess - Dietary Evaluation Nutrition/Malnutrition Findings: Nutrition Notes Start: 07/30/21 15:00 Freq: Status: Active Protocol: Document 07/30/21 15:00 GB (Rec: 07/30/21 15:11 GB [id number]) Nutrition Notes Need for Assessment generated from: MD Order Initial or Follow up Assessment Other Pertinent Diagnosis SOB, distended abdomen, Hep C, liver cirrhosis Current Diet Renal Labs/Tests 07/30: glucose 104, BUN 74, creatinine 3.4, Na 135, Ca 7.6 , P 6.9, Mg 2.4, Tbili 1.7, AST 57 Pertinent Medications ferrous sulfate, furosemide, multivitamin Height 5 ft 4 in Weight 78.8 kg [place] Body Weight (kg) 54.54 BMI 29.8 Intake Prior to Admission Good Weight change and time frame 07/29: 81.647kg 07/30: 78.8kg change of -2.847kg for -3.4% significance Weight Status Overweight Subjective/Other Information Per admission, good po, no weight changes. BLE edema/blistering, redness to vaginal and sacrum areas. NO PO intake recorded at time of assessment. Pt off floor for planned medical procedure. Abdomen distended. Percent of energy/protein needs met: unable to assess at this time Burn Absent Trauma Absent GI Symptoms None Food Allergy No Skin Integrity/Comment No pressure injuries Current % PO Other Minimum of two criteria No #1 Nutrition Diagnosis Altered nutrition-related laboratory values Etiology liver cirrhosis As Evidenced by Signs and Symptoms renal labs out of acceptable ranges see lab results 07/30 Is patient on ventilator? No Is Patient Ambulatory and/or Out of Bed Yes REE-([place]-ambulatory/OOB) [ 1745.900 [id number]] Kcal/Kg value to use for calculation 22 Approximate Energy Requirements Using 1734 kcal/Kg Calculation Used for Recommendations Kcal/kg Additional Notes Protein: 0.6-0.8g/kg @ 79k-63g Fluids: 1 ml/kcal or per MD Nutrition Intervention Change Diet Order: continue Nutrition Support: n/a Add Supplement/Snack (indicate name/kcal n/a /protein ) Goal #1 PO intake of meals to be 50% or greater daily for LOS Goal #2 Renal altered labs to improve towards acceptable ranges during LOS Follow-Up By: 08/02/21 Additional Comments f/u: PO intake of meals, labs
--- NOTE | 2021-08-02 11:30 | Gastroenterology Progress Note ---
Assessment and Plan 60 yo F with significant PMH decompensated hep C cirrhosis, CHF, and CKD # Cirrhosis: 2/2 hep C # Ascites - decompensated with ascites. - s/p paracentesis on 07/30/2021 - multiple admissions with ascites. - new onset abdominal pain with eating. ddx including gastritis, GERD vs 2/2 constipation. - CT ordered but patient refused earlier but now wants to get the scan done. - LFTs elevated but stable, likely baseline. - AIDAN with Cr trending up to 4. - currently on lasix 50 mg and aldactone 25 mg PO. Rec - follow up with nephrology regarding diuresis given AIDAN. - monitor CMP and INR - will increase lactulose to TID for constipation. - protonix PO daily. - CT a/p pending. - Follow up in outpatient GI clinic with Dr. Rios. Need further outpatient management for decompensated cirrhosis. - Patient Problems (1) Advanced cirrhosis of liver Current Visit: No Status: Acute Subjective Date of service: 08/02/21 Interval history: Patient reports no BM despite lactulose but feels abdominal pain somewhat improved. No vomiting. Passing flatus. Objective - Constitutional Vitals: Temp Pulse Resp BP Pulse Ox 98.6 F 78 18 124/60 99 08/02/21 04:56 08/02/21 04:56 08/02/21 04:56 08/02/21 04:56 08/02/21 04:56 General appearance: no acute distress, other (chronically ill appearing) - EENT ENT: hearing intact - Respiratory Respiratory effort: normal - Cardiovascular Rhythm: regular Heart Sounds: Present: S1 & S2 - Gastrointestinal General gastrointestinal: Present: soft, tender, distended, normal bowel sounds - Neurologic Neurological: alert and oriented x3 - Labs CBC & Chem 7: 07/31/21 09:06 08/02/21 04:00 Labs: Laboratory Results - last 24 hr 07/31/21 08/02/21 Unknown 04:00 Sodium 139 Potassium 3.9 Chloride 102.2 Carbon Dioxide 17 L Anion Gap 24 BUN 83 H Creatinine 4.0 H Estimated GFR 11 BUN/Creatinine Ratio 21 Glucose 109 H Calcium 7.8 L Coronavirus (PCR) Negative
--- NOTE | 2021-08-02 11:56 | Progress Note ---
Assessment and Plan 1. Acute kidney injury: Vasomotor AIDAN vs hepato-renal syndrome. Renal US negative. Urine studies ordered. Monitor renal function. Creatinine level continue to increase. UOP? Renal prognosis is guarded. Avoid nephrotoxic agents. Meds dosage based on GFR. Monitor for [employer] needs. D/w patient about the need for dialysis. Patient refused dialysis, risks explained and she voiced understanding. 2. FEN: Volume overload, on Lasix and spironolactone, monitor. Metabolic acidosis, Sod bicarb, monitor. Limit fluid intake. Monitor lytes and volume status. 3. Ascites, POA: 2/2 Cirrhosis. S/p therapeutic paracentesis. 4. Cirrhosis: Hepatitis C related. Followed by GI. 5. Anemia, POA: 2/2 chronic liver disease. Transfuse for hemoglobin less than 7. 6. UTI: Abx. 7. Chronic bedbound status. 8. Elevated BNP: Echo normal. Seen by Cards. Subjective: Patient was seen and examined at the bedside. Doing ok. Examination: General appearance: well-developed, appears stated age, not in distress, appears chronically ill HEENT: atraumatic, GENESIS Neck: trachea midline Respiratory: bilateral decreased breath sounds Heart: S1S2, regular, no murmur Abdomen: soft, distended, bowel sounds heard, NT Integumentary: scratch taylor noted Neurologic: AO, able to move extremities Ext: 2+ LE and dependent edema, anasarca noted Subjective Date of service: 08/02/21 Objective - Vital Signs Vital signs: Vital Signs - 12hr 08/02/21 04:56 Temperature 98.6 F Pulse Rate 78 Respiratory 18 Rate Blood Pressure 124/60 O2 Sat by Pulse 99 Oximetry - Lab 07/31/21 09:06 08/02/21 04:00 Most recent lab results Calcium 7.8 mg/dL (8.4-10.2) L 08/02/21 04:00 Phosphorus 6.90 mg/dL (2.5-4.5) H 07/30/21 06:10 Magnesium 2.40 mg/dL (1.7-2.3) H 07/30/21 06:10 Medications & Allergies - Medications Allergies/Adverse Reactions: Allergies NSAIDS (Non-Steroidal Anti-Inflamma Allergy (Verified 04/16/21 10:33) Anaphylaxis Quinolones Allergy (Verified 04/16/21 10:32) Anaphylaxis metoclopramide [From Reglan] Adverse Reaction (Verified 04/16/21 10:33) Unknown jittery nitrofurantoin [From Macrobid] Adverse Reaction (Verified 04/16/21 10:34) Vomiting Home Medications: Home Medications Medication Instructions Recorded Confirmed Last Taken Type Multivitamin Tab [Multiple Vitamin 1 each PO QDAY #30 tablet 05/29/21 07/30/21 Unknown Rx TAB (Theragran)] Spironolactone [Aldactone] 25 mg PO QDAY 07/30/21 07/30/21 Unknown History methOCARBAMOL [Robaxin TAB] 500 mg PO TID 07/30/21 07/30/21 Unknown History Furosemide [Lasix TAB] 40 mg PO QDAY #30 tablet 07/31/21 Unknown Rx Active Medications: Generic Name Dose Route Start Last Admin Trade Name Freq PRN Reason Stop Dose Admin Acetaminophen 650 mg 07/29/21 20:04 Acetaminophen 325 Mg Tab PO Q4H PRN Pain MILD(1-3)/Fever >100.5/ABEL Hydrocodone Bitart/Acetaminophen 2 each 07/29/21 20:04 07/30/21 14:02 Hydrocodone/Acetaminophen 5-325 Mg Tab PO 2 each Q6H PRN Administration Pain, Moderate (4-6) Al Hydrox/Mg Hydrox/Simethicone 30 ml 07/29/21 20:04 Alum-Mag Hydroxide-Simethicone [id number]/5ml Oral Liqd 30 Ml PO Q4H PRN Indigestion Ferrous Sulfate 325 mg 07/29/21 20:00 08/02/21 10:05 Ferrous Sulfate 325 Mg Tab PO 325 mg QDAY BRANT Administration Furosemide 40 mg 07/30/21 10:00 08/02/21 10:06 Furosemide 40 Mg Tab PO 40 mg QDAY BRANT Administration Ceftriaxone Sodium 1 gm in 50 mls @ 100 mls/hr 07/30/21 06:00 08/02/21 05:49 Rocephin/Ns 1 Gm/50 Ml IV 08/05/21 06:59 100 mls/hr Q24H BRANT Administration Protocol Lactulose 20 gm 08/02/21 14:00 Lactulose 20 Gm/30 Ml Oral Liqd PO TID BRANT Magnesium Hydroxide 30 ml 07/29/21 20:04 Magnesium Hydroxide (Mom) Oral Liqd Udc PO Q4H PRN Constipation Methocarbamol 500 mg 07/30/21 08:00 08/02/21 10:06 Methocarbamol 500 Mg Tab PO 500 mg TID BRANT Administration Morphine Sulfate 2 mg 07/29/21 20:04 08/02/21 05:53 Morphine 2 Mg/1 Ml Inj IV 2 mg Q4H PRN Administration Pain, Moderate (4-6) Morphine Sulfate 4 mg 07/29/21 20:04 Morphine 4 Mg/1 Ml Inj IV Q4H PRN Pain , Severe (7-10) Multivitamins 1 each 07/29/21 20:00 08/02/21 10:07 Multivitamins ,Therapeutic Tab PO 1 each QDAY BRANT Administration Naloxone HCl 0.1 mg 07/29/21 20:04 Naloxone 0.4 Mg/1 Ml Inj IV Q2MIN PRN Res Rate </= 8 or 02 SAT < 92% Ondansetron HCl 4 mg 07/29/21 20:04 07/31/21 21:37 Ondansetron 4 Mg/2 Ml Inj IV 4 mg Q8H PRN Administration Nausea And Vomiting Oxycodone/Acetaminophen 1 tab 07/29/21 20:04 07/30/21 04:57 Oxycodone /Acetaminophen 5-325mg Tab PO 1 tab Q6H PRN Administration Pain, Moderate (4-6) Pantoprazole Sodium 40 mg 08/01/21 13:00 08/02/21 10:06 Pantoprazole 40 Mg Tab PO 40 mg QDAC BRANT Administration Senna 8.6 mg 07/29/21 20:04 Sennosides 8.6 Mg Tab PO Q12HR PRN Constipation Sodium Bicarbonate 1,300 mg 08/01/21 12:00 08/02/21 10:05 Sodium Bicarbonate 650 Mg Tab PO 1,300 mg TID BRANT Administration Sodium Chloride 10 ml 07/29/21 22:00 08/02/21 10:07 Sodium Chloride 0.9% 10 Ml Flush Syringe IV 10 ml BID BRANT Administration Spironolactone 25 mg 07/30/21 10:00 08/02/21 10:06 Spironolactone 25 Mg Tab PO 25 mg QDAY BRANT Administration
--- NOTE | 2021-08-02 14:23 | Cat Scan Report ---
CT ABDOMEN AND PELVIS WITHOUT CONTRAST INDICATION / CLINICAL INFORMATION: abdominal pain. TECHNIQUE: Axial CT images were obtained through the abdomen and pelvis without IV contrast. All CT scans at this location are performed using CT dose reduction for ALARA by means of automated exposure control. COMPARISON: None available FINDINGS: Moderate right pleural effusion and right basilar airspace consolidation, likely reflecting volume lo ss. Cirrhotic morphology of the liver with large volume ascites and borderline splenomegaly, measuring 13 .8 cm. There is a calcification in the region of the gallbladder neck. The gallbladder is nondistende d. No biliary dilatation. Pancreas and adrenals are unremarkable. There is mild asymmetric prominence of the right ureter without mary hydronephrosis. Calcifications in the distal pelvis likely reflect combination of calcified pelvic phleboliths and vascular calcific ations. No discrete ureteral calculus is identified. Left kidney and ureter are unremarkable. Bladder and uterus are unremarkable. Large amount of stool distends the rectal vault without rectal wall thickening or perirectal inflamma tory stranding. Moderate to large colonic stool burden. Small bowel is normal in caliber without evid ence of obstruction. There is diffuse anasarca. No free air is identified. Calcified atherosclerotic plaque is noted throu ghout the nonaneurysmal abdominal aorta and its branches. Small fat-containing right inguinal hernia is present. IMPRESSION: 1. Mild asymmetric prominence of the right ureter without mary hydronephrosis. No discrete ureteral stone is identified. Findings could reflect infection or recently passed stone. 2. Cirrhosis with findings of portal venous hypertension, to include mild splenomegaly and large volu me ascites. 3. Moderate right pleural effusion and adjacent airspace opacity, likely reflecting atelectasis. 4. Constipation with large amount of stool distending the rectal vault. Recommend correlation for fec al impaction. No evidence of colitis. 5. Cholelithiasis without evidence of cholecystitis. 6. Other incidental findings as above. Signer Name: Chris Strauss MD Signed: 08/02/2021 2:19 PM Workstation Name: [id number]
[2021-08-03] MEDS: MORPHINE 2 MG/1 ML INJ IV PRN (01:05)
[2021-08-03] MEDS: cefTRIAXone/NS 1 GM/50 ML 1 GM/50 ML BAG IV SCH (05:40)
[2021-08-03] MEDS: PANTOPRAZOLE 40 MG TAB PO SCH (07:30)
[2021-08-03] MEDS: SODIUM BICARBONATE 650 MG TAB PO SCH ×2 (08:00→14:26)
[2021-08-03] MEDS: LACTULOSE 20 GM/30 ML ORAL LIQD PO SCH ×2 (08:00→14:26)
[2021-08-03] MEDS: FERROUS SULFATE 325 MG TAB PO SCH (10:17)
[2021-08-03] MEDS: FUROSEMIDE 40 MG TAB PO SCH (10:18)
[2021-08-03] MEDS: MULTIVITAMINS ,THERAPEUTIC TAB PO SCH (10:19)
[2021-08-03] MEDS: SPIRONOLACTONE 25 MG TAB PO SCH (10:20)
--- NOTE | 2021-08-03 10:33 | Discharge Summary ---
Providers - Providers Date of Admission: 07/29/21 19:39 Date of discharge: 08/03/21 Attending physician: PAWEL ODOM 07/30/21 05:43 Consult to Interventional Radiology [CONS] Stat Consulting Provider: NARAYAN CARPENTER Reason For Exam: abdominal ascitis Place consult to:: interventional radialogy Notified:: no Was contact made?: No Time called:: 02:00 07/30/21 05:44 Consult to Physician [CONS] Routine Comment: Consulting Provider: KB MADISON Physician Instructions: Reason For Exam: Ascites 07/30/21 05:50 Consult to Dietitian/Nutrition [CONS] Routine Physician Instructions: Reason For Exam: Reason for Consult: Malnutrition 07/30/21 05:53 Consult to Physician [CONS] Routine Comment: Consulting Provider: ARI CALERO Physician Instructions: Reason For Exam: CHF 07/31/21 08:14 Consult to Physician [CONS] Routine Comment: Consulting Provider: GURMEET SPIVEY Physician Instructions: Reason For Exam: Acute on chronic kidney disease Primary care physician: 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 Patient has history of chronic kidney disease, hepatitis C and liver cirrhosis. She denies tobacco use, alcohol use, and illicit drug use. Chest x-ray showed diffuse interstitial opacity and small right pleural effusion most likely secondary to congestive heart failure. Urinalysis done shows urinary tract. Labs show acute on chronic kidney disease with Cr 3.5. She was admitted, evaluated by Nephrology and GI. Renal function became worse but patient declined hemodialysis. Patient had altered mental status due to toxic metabolic encephalopathy. Her friend, Marcos Davis signed papers for inpatient hospice so she was discharged to inpatient hospice on 08/03/21. --AIDAN on chronic kidney disease Current Visit: No Status: Acute Patient's creatinine worsening from 3.5 on admission to 3.8 today. Patient's baseline creatinine last month was 1.6 Nephrology follow, avoid nephrotoxins Patient is on Lasix, due to cirrhosis liver/ascites/fluid overload Input output monitoring, gentle hydration, monitor renal function Avoid nephrotoxins, renal ultrasound no acute abnormality --Abdominal distention/ascites Current Visit: No Status: Acute Secondary to cirrhosis of the liver Ultrasound-guided paracentesis and removal of 5 L peritoneal fluid July 30, 2021 Patient tolerated the procedure well --Advanced cirrhosis of liver Current Visit: No Status: Acute Supportive care, GI following Toxic metabolic encephalopathy -- Anasarca Current Visit: No Status: Acute Due to cirrhosis , acute kidney injury continue current diuretic I/O monitoring -- Anemia Current Visit: No Status: Acute Monitor H&H Iron and multivitamin supplement We will transfuse packed red blood cells if H&H is less than 7 --Urinary tract infection Current Visit: Yes Status: Acute Empiric antibiotic with Rocephin --Severe protein-calorie malnutrition Current Visit: No Status: Acute Low serum protein likely secondary to liver disease Consult medical donation professional Encourage oral intake --Elevated brain natriuretic peptide (BNP) level Current Visit: Yes Status: Acute Likely secondary to CHF Continue current medical care as diuretics Echo no evidence of CHF, fluid overload due to ascites/cirrhosis Chronic kidney disease Cardiology evaluated and cleared for discharge --DVT prophylaxis Current Visit: Yes Status: Acute SCD We will closely monitor the patient and adjust management as needed We'll closely monitor the patient and adjust management as needed Plan of care reviewed with the patient and her nurse as well as case management Also discussed with nephrology Dr. Lorelei Bobby and GI Dr. Alejandra 07/30/21; patient had ultrasound-guided thoracentesis and removal of 5 L of Peritoneal fluid 07/31/2021; worsening renal function, nephrology following Closely monitor 08/01/21; worsening renal function creatinine 3.8 Case management processing, home hospice 08/02/21 patient very ill, advanced cirrhosis, acute on CKD. 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 Disposition: [facility] Final Discharge Diagnosis (Prints w/discharge instructions): 1.Advanced cirrhosis of liver. 2.Acute on chronic kidney disease - Discharge Diagnoses (1) Advanced cirrhosis of liver Status: Acute (2) Anasarca Status: Acute (3) Ascites Status: Acute (4) Acute kidney injury superimposed on chronic kidney disease Status: Acute (5) Renal failure (ARF), acute on chronic Status: Acute Qualifiers: Acute renal failure type: unspecified Chronic kidney disease stage: unspecified stage Qualified Code(s): N17.9 - Acute kidney failure, unspecified; N18.9 - Chronic kidney disease, unspecified (6) Toxic metabolic encephalopathy Status: Acute Core Measure Documentation - Palliative Care Palliative Care/ Comfort Measures: Not Applicable - Core Measures Any of the following diagnoses?: none Exam - Constitutional Vitals: Temp Pulse Resp BP Pulse Ox 97.6 F 79 20 115/69 90 08/03/21 05:29 08/03/21 05:29 08/03/21 05:29 08/03/21 05:29 08/03/21 05:29 Plan Activity: advance as tolerated Diet: low fat, low cholesterol, low salt, renal Plan of Treatment: 1.Follow up with [facility] at Hospice in 2-3 days. 2.Follow up with Dr. Spivey , Nephrology in 1 week 3.Follow up with Dr. Alejandra GI in 1 week Follow up with: MARGY ROSA MD [Staff Physician] - 7 Days OLIVIER ALEJANDRA MD [Staff Physician] - 7 Days PRIMARY [facility]ARE, [Primary Care Provider] - 7 Days GURMEET SPIVEY MD [Staff Physician] - 7 Days Prescriptions: Lactulose [Cephulac] 20 gm PO TID 30 Days #1 oral.liqd Furosemide [Lasix TAB] 40 mg PO QDAY #30 tablet
--- NOTE | 2021-08-03 13:06 | Progress Note ---
Assessment and Plan 1. Acute kidney injury: Vasomotor AIDAN vs hepato-renal syndrome. Renal US negative. Urine studies ordered. Monitor renal function. Creatinine level continue to increase. UOP? Renal prognosis is guarded. Avoid nephrotoxic agents. Meds dosage based on GFR. 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 Patient was advised dialysis due to significant decline in renal function. Patient refused dialysis, risks explained and she voiced understanding. 2. FEN: Volume overload, on Lasix and spironolactone, monitor. Metabolic acidosis, Sod bicarb, monitor. Limit fluid intake. Monitor lytes and volume status. 3. Ascites, POA: 2/2 Cirrhosis. S/p therapeutic paracentesis. 4. Cirrhosis: Hepatitis C related. Followed by GI. 5. Anemia, POA: 2/2 chronic liver disease. Transfuse for hemoglobin less than 7. 6. UTI: Abx. 7. Chronic bedbound status. 8. Elevated BNP: Echo normal. Seen by Cards. F/u in 1 week. Subjective: Patient was seen and examined at the bedside. Doing ok. Examination: General appearance: well-developed, appears stated age, not in distress, appears chronically ill HEENT: atraumatic, GENESIS Neck: trachea midline Respiratory: bilateral decreased breath sounds Heart: S1S2, regular, no murmur Abdomen: soft, distended, bowel sounds heard, NT Integumentary: scratch taylor noted Neurologic: AO, able to move extremities Ext: 2+ LE and dependent edema, anasarca noted Subjective Date of service: 08/03/21 Objective - Vital Signs Vital signs: Vital Signs - 12hr 08/03/21 08/03/21 05:29 11:07 Temperature 97.6 F 98.3 F Pulse Rate 79 80 Respiratory 20 18 Rate Blood Pressure 115/69 140/61 O2 Sat by Pulse 90 98 Oximetry - Lab 07/31/21 09:06 08/02/21 04:00 Most recent lab results Calcium 7.8 mg/dL (8.4-10.2) L 08/02/21 04:00 Phosphorus 6.90 mg/dL (2.5-4.5) H 07/30/21 06:10 Magnesium 2.40 mg/dL (1.7-2.3) H 07/30/21 06:10 Medications & Allergies - Medications Allergies/Adverse Reactions: Allergies NSAIDS (Non-Steroidal Anti-Inflamma Allergy (Verified 04/16/21 10:33) Anaphylaxis Quinolones Allergy (Verified 04/16/21 10:32) Anaphylaxis metoclopramide [From Reglan] Adverse Reaction (Verified 04/16/21 10:33) Unknown jittery nitrofurantoin [From Macrobid] Adverse Reaction (Verified 04/16/21 10:34) Vomiting Home Medications: Home Medications Medication Instructions Recorded Confirmed Last Taken Type Multivitamin Tab [Multiple Vitamin 1 each PO QDAY #30 tablet 05/29/21 07/30/21 Unknown Rx TAB (Theragran)] Spironolactone [Aldactone] 25 mg PO QDAY 07/30/21 07/30/21 Unknown History methOCARBAMOL [Robaxin TAB] 500 mg PO TID 07/30/21 07/30/21 Unknown History Furosemide [Lasix TAB] 40 mg PO QDAY #30 tablet 07/31/21 Unknown Rx Ferrous Sulfate [Feosol 325 MG tab] 325 mg PO QDAY tablet 08/03/21 Unknown Rx Lactulose [Cephulac] 20 gm PO TID 30 Days #1 oral.liqd 08/03/21 Unknown Rx Pantoprazole [Protonix TAB] 40 mg PO QDAC tablet 08/03/21 Unknown Rx Sodium Bicarbonate 1,300 mg PO TID tablet 08/03/21 Unknown Rx Active Medications: Generic Name Dose Route Start Last Admin Trade Name Freq PRN Reason Stop Dose Admin Acetaminophen 650 mg 07/29/21 20:04 Acetaminophen 325 Mg Tab PO Q4H PRN Pain MILD(1-3)/Fever >100.5/ABEL Hydrocodone Bitart/Acetaminophen 2 each 07/29/21 20:04 07/30/21 14:02 Hydrocodone/Acetaminophen 5-325 Mg Tab PO 2 each Q6H PRN Administration Pain, Moderate (4-6) Al Hydrox/Mg Hydrox/Simethicone 30 ml 07/29/21 20:04 Alum-Mag Hydroxide-Simethicone [id number]/5ml Oral Liqd 30 Ml PO Q4H PRN Indigestion Ferrous Sulfate 325 mg 07/29/21 20:00 08/03/21 10:17 Ferrous Sulfate 325 Mg Tab PO 325 mg QDAY BRANT Administration Furosemide 40 mg 07/30/21 10:00 08/03/21 10:18 Furosemide 40 Mg Tab PO 40 mg QDAY BRANT Administration Ceftriaxone Sodium 1 gm in 50 mls @ 100 mls/hr 07/30/21 06:00 08/03/21 05:40 Rocephin/Ns 1 Gm/50 Ml IV 08/05/21 06:59 100 mls/hr Q24H BRANT Administration Protocol Lactulose 20 gm 08/02/21 14:00 08/03/21 08:00 Lactulose 20 Gm/30 Ml Oral Liqd PO 20 gm TID BRANT Administration Magnesium Hydroxide 30 ml 07/29/21 20:04 Magnesium Hydroxide (Mom) Oral Liqd Udc PO Q4H PRN Constipation Methocarbamol 500 mg 07/30/21 08:00 08/03/21 08:00 Methocarbamol 500 Mg Tab PO 500 mg TID BRANT Administration Morphine Sulfate 2 mg 07/29/21 20:04 08/03/21 01:05 Morphine 2 Mg/1 Ml Inj IV 2 mg Q4H PRN Administration Pain, Moderate (4-6) Morphine Sulfate 4 mg 07/29/21 20:04 Morphine 4 Mg/1 Ml Inj IV Q4H PRN Pain , Severe (7-10) Multivitamins 1 each 07/29/21 20:00 08/03/21 10:19 Multivitamins ,Therapeutic Tab PO 1 each QDAY BRANT Administration Naloxone HCl 0.1 mg 07/29/21 20:04 Naloxone 0.4 Mg/1 Ml Inj IV Q2MIN PRN Res Rate </= 8 or 02 SAT < 92% Ondansetron HCl 4 mg 07/29/21 20:04 07/31/21 21:37 Ondansetron 4 Mg/2 Ml Inj IV 4 mg Q8H PRN Administration Nausea And Vomiting Oxycodone/Acetaminophen 1 tab 07/29/21 20:04 07/30/21 04:57 Oxycodone /Acetaminophen 5-325mg Tab PO 1 tab Q6H PRN Administration Pain, Moderate (4-6) Pantoprazole Sodium 40 mg 08/01/21 13:00 08/03/21 07:30 Pantoprazole 40 Mg Tab PO 40 mg QDAC BRANT Administration Senna 8.6 mg 07/29/21 20:04 Sennosides 8.6 Mg Tab PO Q12HR PRN Constipation Sodium Bicarbonate 1,300 mg 08/01/21 12:00 08/03/21 08:00 Sodium Bicarbonate 650 Mg Tab PO 1,300 mg TID BRANT Administration Sodium Chloride 10 ml 07/29/21 22:00 08/03/21 10:20 Sodium Chloride 0.9% 10 Ml Flush Syringe IV 10 ml BID BRANT Administration Spironolactone 25 mg 07/30/21 10:00 08/03/21 10:20 Spironolactone 25 Mg Tab PO 25 mg QDAY BRANT Administration
[2021-08-03 16:07] VITALS: BP 144/53
== END 2021-08-03 17:55 | disposition hospice, inpatient (51) | DRG 432 ==
LOC: ED 17:36 → 3A 19:39
PROVIDERS: ADMIT Internal Medicine; ATTEND Internal Medicine
PROC: 0W9G3ZZ Drainage of Peritoneal Cavity, Percutaneous Approach (ICD-10-PCS; principal; 2021-07-30)
DX: K74.60 Unspecified cirrhosis of liver (principal); E43 Unspecified severe protein-calorie malnutrition; N17.0 Acute kidney failure with tubular necrosis; R18.8 Other ascites; K72.10 Chronic hepatic failure without coma; N39.0 Urinary tract infection, site not specified; I50.9 Heart failure, unspecified; J45.909 Unspecified asthma, uncomplicated; R14.0 Abdominal distension (gaseous); N18.9 Chronic kidney disease, unspecified; I13.0 Hypertensive heart and chronic kidney disease with heart failure and stage 1 through stage 4 chronic kidney disease, or unspecified chronic kidney disease; Z20.822 Contact with and (suspected) exposure to COVID-19; Z68.30 Body mass index [BMI] 30.0-30.9, adult
CPT/HCPCS: 36415; 49083; 71045; 74176; 76770; 80048; 80053; 81001; 82140; 82550; 83735; 83880; 84100; 84443; 85025; 85027; 85610; 87086; 93005; 93306; G0378; J0696; J1940; J2270; J2405; P9047; U0003